=== PATIENT | female | born 1960 | race Two or more races ===

== ENCOUNTER 2021-03-18 11:24 | Inpatient (IN) | payer OTHER ==
[~2021-03-18] VITALS: Ht 154.9 cm; Wt 76.8 kg
[2021-03-18] MEDS ORDERED: methylPREDNISolone SOD SUCC 125 MG/2 ML VL IV ONE (11:30)
[2021-03-18] MEDS ORDERED: ALBUTEROL SULF 2.5 MG/0.5ML(0.5%) NEB SOLN HHN ONE (11:30)
[2021-03-18] MEDS ORDERED: IPRATROPIUM BROM 0.5 MG/2.5ML INH SOL HHN ONE (11:30)
[2021-03-18 12:26] LABS: Basophils # (auto) 0 10 ^3/uL (0-0.2); Basophils % (auto) 0.4 % (0.0-2.0); Eosinophils # (auto) 0 10 ^3/uL (0-0.8); Eosinophils % (auto) 0.4 % (0.0-7.0); Hematocrit 42.8 % (36.0-46.0); Hemoglobin 14.2 g/dL (12.2-16.2); Lymphocytes % (auto) 12.3 % (10.0-50.0); Mean Corpuscular Hemoglobin 31.3 pg (28.0-32.0); Mean Corpuscular Hgb Conc. 33.1 g/dL (32.0-36.0); Mean Corpuscular Volume 94.7 fL (80.0-100.0); Monocytes # (auto) 0.8 10 ^3/uL (0-1.3); Monocytes % (auto) 10.1 % (0.0-12.0); Neutrophils # (auto) 6.1 10 ^3/uL (1.6-8.6); Neutrophils % (auto) 76.8 % (37.0-80.0); Nucleated Red Blood Cells % 0.1 %; Red Blood Cells 4.52 10^6/uL (4.0-5.20); Red Cell Distribution Width 15.9 % (11.8-14.3); White Blood Cell 7.9 10^3/uL (4.4-10.8)
[2021-03-18 12:41] LABS: Alanine Aminotransferase 37 U/L (13-56); Anion Gap 8 (5-15); Aspartate Aminotransferase 23 U/L (15-37); BUN/Creatinine Ratio 13.8; Blood Urea Nitrogen 9 mg/dL (7-18); CRP High Sensitivity 0.63 mg/dL (< 0.3); Calcium 7.8 mg/dL (8.5-10.1); Carbon Dioxide 29 mmol/L (21-32); Chloride 106 mmol/L (98-107); GFR African American 119 mL/min; GFR Non-African American 98 mL/min; Glucose 96 mg/dL (74-106); Sodium 143 mmol/L (136-145)
[2021-03-18 12:44] LABS: Alkaline Phosphatase 55 U/L (45-117); Bilirubin, Total 0.6 mg/dL (0.2-1.0); Total Protein 6.7 g/dL (6.4-8.2)
[2021-03-18 12:54] LABS: Potassium 2.8 mmol/L (3.5-5.1)
[2021-03-18] MEDS ORDERED: POTASSIUM CHL 20 Meq TABLET PO ONE (13:15)
[2021-03-18] MEDS ORDERED: MORPHINE SULFATE 4 MG/ML SYR/VIAL IV PRN (16:30)
[2021-03-18] MEDS ORDERED: DOCUSATE SOD 100 MG CAP PO PRN (16:30)
[2021-03-18] MEDS ORDERED: HYDROcodone-ACET 5/325MG TAB PO PRN (16:30)
[2021-03-18] MEDS ORDERED: ONDANSETRON HCL 4 MG/2 ML VIAL IV PRN (16:30)
[2021-03-18] MEDS ORDERED: NITROGLYCERIN 0.4 MG SL TAB SL PRN (16:30)
[2021-03-18] MEDS ORDERED: ACETAMINOPHEN 325 MG TAB PO PRN (16:30)
[2021-03-18] MEDS ORDERED: MORPHINE SULFATE INJECTION 2 MG/ML SYRG IV PRN ×2 (16:30→17:15)
[2021-03-18] MEDS: POTASSIUM CHL 20MEQ/100ML 100 ML IV SCH ×2 (17:57→18:30)
[2021-03-18] MEDS ORDERED: ALBUTEROL SULF 2.5 MG/0.5ML(0.5%) NEB SOLN NEB SCH (18:00)
[2021-03-18] MEDS: IPRATROPIUM BROM 0.5 MG/2.5ML INH SOL NEB SCH ×2 (18:24→21:55)
[2021-03-18] MEDS: methylPREDNISolone SOD SUCC 40 MG/ML VL IV SCH (21:00)
[2021-03-18] MEDS: guaiFENesin-DM 100/10mg/5ml SYR PO PRN (21:47)
[2021-03-18 23:21] VITALS: BP 155/96
[2021-03-18 23:35] VITALS: BP 140/86
[2021-03-18 23:55] VITALS: BP 140/86
[2021-03-19 00:52] LABS: Urine Bacteria NONE SEEN /hpf (None Seen); Urine Blood 1+ /uL (Negative); Urine Mucus FEW (None Seen); Urine Specific Gravity 1.023 (1.001-1.035); Urine WBC 5 /hpf (0 - 5)
[2021-03-19] MEDS: guaiFENesin-DM 100/10mg/5ml SYR PO PRN ×2 (04:05→11:20)
[2021-03-19] MEDS ORDERED: CAR3125T PO (04:28)
[2021-03-19] MEDS ORDERED: BUDE1AER4 IN (04:28)
[2021-03-19] MEDS ORDERED: METF-370 PO (04:28)
[2021-03-19 05:00] VITALS: BP 147/76
[2021-03-19] MEDS: methylPREDNISolone SOD SUCC 40 MG/ML VL IV SCH ×3 (05:11→20:49)
[2021-03-19] MEDS: ALBUTEROL SULF 2.5 MG/0.5ML(0.5%) NEB SOLN NEB PRN ×5 (05:49→22:20)
[2021-03-19] MEDS: IPRATROPIUM BROM 0.5 MG/2.5ML INH SOL NEB SCH ×5 (05:49→22:20)
[2021-03-19 09:00] VITALS: BP 139/89
[2021-03-19] MEDS: ENOXAPARIN SOD 40 MG/0.4 ML SYRINGE SC SCH (10:00)
[2021-03-19] MEDS: levoFLOXacin 500MG 100 ML IV SCH (11:02)
[2021-03-19 11:15] LABS: BUN/Creatinine Ratio 19.7; Potassium 4.1 mmol/L (3.5-5.1)
[2021-03-19 13:00] VITALS: BP 140/86
[2021-03-19 17:00] VITALS: BP 145/93
[2021-03-19] MEDS: guaiFENesin 200 MG/10 ML UD PO PRN (20:49)
[2021-03-19 22:00] VITALS: BP 129/78
[2021-03-20 05:00] VITALS: BP 141/87
[2021-03-20 05:56] VITALS: BP 141/87
[2021-03-20] MEDS: ALBUTEROL SULF 2.5 MG/0.5ML(0.5%) NEB SOLN NEB PRN ×5 (06:15→22:40)
[2021-03-20] MEDS: IPRATROPIUM BROM 0.5 MG/2.5ML INH SOL NEB SCH ×5 (06:15→22:40)
[2021-03-20] MEDS: methylPREDNISolone SOD SUCC 40 MG/ML VL IV SCH ×3 (06:42→21:03)
[2021-03-20] MEDS: guaiFENesin 200 MG/10 ML UD PO PRN ×3 (07:52→23:40)
[2021-03-20 09:00] VITALS: BP 142/94
[2021-03-20] MEDS: ENOXAPARIN SOD 40 MG/0.4 ML SYRINGE SC SCH ×2 (09:20→09:21)
[2021-03-20] MEDS: levoFLOXacin 500MG 100 ML IV SCH (09:20)
[2021-03-20] MEDS ORDERED: levoFLOXacin 500MG 100 ML IV SCH (10:00)
[2021-03-20 13:00] VITALS: BP 119/69
[2021-03-20 17:00] VITALS: BP 130/92
[2021-03-20 22:00] VITALS: BP 137/87
[2021-03-21] MEDS: guaiFENesin 200 MG/10 ML UD PO PRN ×4 (04:48→22:21)
[2021-03-21 05:00] VITALS: BP 143/103
[2021-03-21] MEDS: methylPREDNISolone SOD SUCC 40 MG/ML VL IV SCH ×3 (06:03→21:29)
[2021-03-21 09:00] VITALS: BP 155/93
[2021-03-21] MEDS: ENOXAPARIN SOD 40 MG/0.4 ML SYRINGE SC SCH (09:35)
[2021-03-21] MEDS: levoFLOXacin 500MG 100 ML IV SCH (09:35)
[2021-03-21] MEDS: IPRATROPIUM BROM 0.5 MG/2.5ML INH SOL NEB SCH ×5 (10:00→22:10)
[2021-03-21] MEDS: ALBUTEROL SULF 2.5 MG/0.5ML(0.5%) NEB SOLN NEB PRN ×2 (10:01→13:50)
[2021-03-21 13:00] VITALS: BP 139/88
[2021-03-21] MEDS ORDERED: IOHEXOL 350 MG/ML 100ML IJ ONE (13:03)
[2021-03-21] MEDS ORDERED: ALBUTEROL SULF 2.5 MG/0.5ML(0.5%) NEB SOLN NEB SCH (14:15)
[2021-03-21] MEDS: ALBUTEROL SULF 2.5 MG/0.5ML(0.5%) NEB SOLN NEB SCH ×3 (14:39→22:10)
[2021-03-21 17:00] VITALS: BP 133/82
[2021-03-21 22:00] VITALS: BP 136/75
[2021-03-21 22:30] VITALS: BP 133/82
[2021-03-22] MEDS: guaiFENesin 200 MG/10 ML UD PO PRN ×2 (02:03→09:49)
[2021-03-22] MEDS: IPRATROPIUM BROM 0.5 MG/2.5ML INH SOL NEB SCH ×5 (02:42→18:54)
[2021-03-22] MEDS: ALBUTEROL SULF 2.5 MG/0.5ML(0.5%) NEB SOLN NEB SCH ×5 (02:42→18:54)
[2021-03-22 05:00] VITALS: BP 127/76
[2021-03-22] MEDS: methylPREDNISolone SOD SUCC 40 MG/ML VL IV SCH ×2 (06:07→13:43)
[2021-03-22 09:00] VITALS: BP 140/86
[2021-03-22] MEDS: ENOXAPARIN SOD 40 MG/0.4 ML SYRINGE SC SCH (09:49)
[2021-03-22] MEDS: levoFLOXacin 500MG 100 ML IV SCH (09:49)
[2021-03-22 12:30] VITALS: BP 142/91
[2021-03-22 17:00] VITALS: BP 133/76
== END 2021-03-22 20:03 | disposition home or self-care (01) | DRG 189 ==
LOC: ER 11:24 → TELE 16:30 → TELE-CENTR 23:35
PROVIDERS: ADMIT Internal Medicine; ATTEND Internal Medicine
DX: J96.01 Acute respiratory failure with hypoxia (principal); J44.0 Chronic obstructive pulmonary disease with (acute) lower respiratory infection; J98.11 Atelectasis; J44.1 Chronic obstructive pulmonary disease with (acute) exacerbation; J20.9 Acute bronchitis, unspecified; E87.6 Hypokalemia; I10 Essential (primary) hypertension; Z20.822 Contact with and (suspected) exposure to COVID-19; Z88.0 Allergy status to penicillin; E11.9 Type 2 diabetes mellitus without complications; E78.5 Hyperlipidemia, unspecified; F17.210 Nicotine dependence, cigarettes, uncomplicated; F41.9 Anxiety disorder, unspecified; Z79.899 Other long term (current) drug therapy; Z86.73 Personal history of transient ischemic attack (TIA), and cerebral infarction without residual deficits; Z90.710 Acquired absence of both cervix and uterus; Z71.6 Tobacco abuse counseling
CPT/HCPCS: 36415; 71045; 71275; 80048; 80053; 81001; 82728; 83605; 83735; 85025; 85379; 86141; 87040; 87426; 94640; 94644; 96361; 96374; G0378; J1956; J3480

== ENCOUNTER 2022-03-13 04:43 | Emergency (ER) | payer BC, OTHER ==
[~2022-03-13] VITALS: Ht 172.7 cm; Wt 38.0 kg
[~2022-03-13 04:43] MED LIST: BUDE1AER4 IN; CAR3125T PO; METF-370 PO
[2022-03-13] MEDS ORDERED: ALBUTEROL SULF 2.5 MG/0.5ML(0.5%) NEB SOLN NEB ONE ×2 (05:00→07:15)
[2022-03-13] MEDS ORDERED: IPRATROPIUM BROM 0.5 MG/2.5ML INH SOL NEB ONE ×2 (05:00→07:15)
[2022-03-13] MEDS ORDERED: DexAMETHasone SOD PHOS 10MG/1ML VIAL INJ IV ONE (07:15)
[2022-03-13 07:44] LABS: Basophils # (auto) 0.1 10 ^3/uL (0-0.2); Basophils % (auto) 0.9 % (0.0-2.0); Eosinophils # (auto) 0.1 10 ^3/uL (0-0.8); Eosinophils % (auto) 0.6 % (0.0-7.0); Hematocrit 39.5 % (36.0-46.0); Hemoglobin 13.4 g/dL (12.2-16.2); Lymphocytes # (auto) 2.1 10 ^3/uL (0.4-5.4); Lymphocytes % (auto) 23.1 % (10.0-50.0); Mean Corpuscular Hemoglobin 31.5 pg (28.0-32.0); Mean Corpuscular Hgb Conc. 33.9 g/dL (32.0-36.0); Mean Corpuscular Volume 92.8 fL (80.0-100.0); Monocytes # (auto) 0.9 10 ^3/uL (0-1.3); Monocytes % (auto) 10.4 % (0.0-12.0); Neutrophils # (auto) 5.9 10 ^3/uL (1.6-8.6); Nucleated Red Blood Cells % 0.1 %; Red Blood Cells 4.26 10^6/uL (4.0-5.20); Red Cell Distribution Width 14.2 % (11.8-14.3); White Blood Cell 9.1 10^3/uL (4.4-10.8)
[2022-03-13 08:32] LABS: Albumin 3.6 g/dL (3.4-5.0); BUN/Creatinine Ratio 18.5; Calcium 8.1 mg/dL (8.5-10.1); Potassium 4.2 mmol/L (3.5-5.1)
[2022-03-13 08:40] LABS: Bilirubin, Total 0.5 mg/dL (0.2-1.0); Total Protein 7.2 g/dL (6.4-8.2)
[2022-03-13] MEDS ORDERED: IPRA0.00 IN (08:46)
[2022-03-13 08:54] VITALS: BP 121/77
== END 2022-03-13 09:19 | disposition home or self-care (01) ==
LOC: ER 04:43 → EDBD 04:43 → ER 09:19
DX: J44.1 Chronic obstructive pulmonary disease with (acute) exacerbation (principal); I10 Essential (primary) hypertension; I25.2 Old myocardial infarction; E11.9 Type 2 diabetes mellitus without complications; E78.5 Hyperlipidemia, unspecified; F17.210 Nicotine dependence, cigarettes, uncomplicated; Z86.73 Personal history of transient ischemic attack (TIA), and cerebral infarction without residual deficits; Z90.710 Acquired absence of both cervix and uterus
CPT/HCPCS: 36415; 71045; 80053; 83880; 84484; 85025; 93005; 94640; 96374; 99285; J1100; J7644

== ENCOUNTER 2022-10-20 10:50 | Inpatient (IN) | payer OTHER ==
[~2022-10-20] VITALS: Ht 157.5 cm; Wt 90.9 kg
[~2022-10-20 10:50] MED LIST changes: +IPRA0.00 IN
[2022-10-20] MEDS ORDERED: IPRATROPIUM BROM 0.5 MG/2.5ML INH SOL NEB ONE (11:00)
[2022-10-20] MEDS ORDERED: ALBUTEROL SULF 2.5 MG/0.5ML(0.5%) NEB SOLN NEB ONE (11:00)
[2022-10-20] MEDS ORDERED: methylPREDNISolone SOD SUCC 125 MG/2 ML VL IV ONE (11:00)
[2022-10-20 11:46] LABS: Basophils # (auto) 0 10 ^3/uL (0-0.2); Basophils % (auto) 0.3 % (0.0-2.0); Eosinophils # (auto) 0.1 10 ^3/uL (0-0.8); Eosinophils % (auto) 1.5 % (0.0-7.0); Hematocrit 37.9 % (36.0-46.0); Hemoglobin 12.4 g/dL (12.2-16.2); Lymphocytes # (auto) 1.6 10 ^3/uL (0.4-5.4); Lymphocytes % (auto) 19.8 % (10.0-50.0); Mean Corpuscular Hemoglobin 29.6 pg (28.0-32.0); Mean Corpuscular Hgb Conc. 32.7 g/dL (32.0-36.0); Mean Corpuscular Volume 90.7 fL (80.0-100.0); Monocytes # (auto) 0.8 10 ^3/uL (0-1.3); Monocytes % (auto) 10.1 % (0.0-12.0); Neutrophils # (auto) 5.5 10 ^3/uL (1.6-8.6); Neutrophils % (auto) 68.3 % (37.0-80.0); Nucleated Red Blood Cells % 0.1 %; Red Blood Cells 4.18 10^6/uL (4.0-5.20); Red Cell Distribution Width 14.9 % (11.8-14.3)
[2022-10-20 12:08] LABS: INR 0.99 (0.9-1.15); Partial Thromboplastin Time 27.2 sec (24.6-33.4)
[2022-10-20 12:11] LABS: Albumin 3.1 g/dL (3.4-5.0); BUN/Creatinine Ratio 11.1 (10.0-20.0); Calcium 7.9 mg/dL (8.5-10.1); Potassium 4.1 mmol/L (3.5-5.1)
[2022-10-20 12:13] LABS: Bilirubin, Total 0.3 mg/dL (0.2-1.0); Total Protein 6.9 g/dL (6.4-8.2)
[2022-10-20] MEDS ORDERED: ALBU108A5 PO (13:37)
[2022-10-20] MEDS ORDERED: CARV3.1240 PO (13:37)
[2022-10-20] MEDS ORDERED: METF-370 PO (13:37)
[2022-10-20] MEDS ORDERED: HYDR25TA5 PO (13:37)
[2022-10-20] MEDS ORDERED: PRAV20TA3 (13:37)
[2022-10-20] MEDS ORDERED: FUROSEMIDE 20 MG/2 ML VIAL IV ONE (13:45)
[2022-10-20] MEDS ORDERED: ALBUTEROL SULF 2.5 MG/0.5ML(0.5%) NEB SOLN NEB PRN (13:45)
[2022-10-20] MEDS ORDERED: ACETAMINOPHEN 325 MG TAB PO PRN (13:45)
[2022-10-20] MEDS ORDERED: DEXTROSE (50%) 50ML SYRG IV PRN (13:45)
[2022-10-20] MEDS ORDERED: ALBUTEROL SULF 2.5 MG/0.5ML(0.5%) NEB SOLN NEB SCH (14:00)
[2022-10-20] MEDS ORDERED: IPRATROPIUM BROM 0.5 MG/2.5ML INH SOL NEB SCH (14:00)
[2022-10-20 14:24] LABS: Cholesterol 118 mg/dL (< 200); HDL Cholesterol 62 mg/dL (40-59); LDL Cholesterol 53 mg/dL (< 100); Triglycerides 61 mg/dL (< 150)
[2022-10-20 14:56] VITALS: BP 166/94
[2022-10-20 15:08] LABS: Urine Bacteria NONE SEEN /hpf (None Seen); Urine Blood 1+ /uL (Negative); Urine Specific Gravity 1.013 (1.001-1.035); Urine WBC 83 /hpf (0 - 5)
[2022-10-20 16:00] VITALS: BP 124/64
[2022-10-20] MEDS ORDERED: PRED20TA2 PO ×2 (16:17→20:54)
[2022-10-20] MEDS ORDERED: DOXY-447 PO (16:18)
[2022-10-20] MEDS ORDERED: ACCU-CHEK COMFORT CURVE STRIP VI SCH (17:00)
[2022-10-20] MEDS ORDERED: InsuLIN REG 1unit/0.01ml Soln (100units/ml) SC SCH (17:00)
[2022-10-20] MEDS ORDERED: DOXY-286 PO (20:54)
[2022-10-20] MEDS ORDERED: CARVEDILOL 3.125 MG TAB PO SCH (22:00)
[2022-10-20] MEDS ORDERED: methylPREDNISolone SOD SUCC 125 MG/2 ML VL IV SCH (22:00)
[2022-10-21] MEDS ORDERED: FUROSEMIDE 20 MG/2 ML VIAL IV SCH (10:00)
[2022-10-21] MEDS ORDERED: ENOXAPARIN SOD 40 MG/0.4 ML SYRINGE SC SCH (10:00)
[2022-10-21] MEDS ORDERED: PRAVASTATIN SODIUM 20 MG TAB PO SCH (22:00)
== END 2022-10-20 18:01 | disposition home or self-care (01) | DRG 192 ==
LOC: ER 10:50 → EDBD 10:50 → OVERFLOW 13:40 → MERGE 13:40 → OVERFLOW 18:00
PROVIDERS: ADMIT Nurse Practitioner Family; ATTEND Nurse Practitioner Family
PROC: 05HA33Z Insertion of Infusion Device into Left Brachial Vein, Percutaneous Approach (ICD-10-PCS; principal; 2022-10-20)
PROC: B54NZZA Ultrasonography of Left Upper Extremity Veins, Guidance (ICD-10-PCS; 2022-10-20)
DX: J44.1 Chronic obstructive pulmonary disease with (acute) exacerbation (principal); E66.01 Morbid (severe) obesity due to excess calories; R73.03 Prediabetes; Z87.891 Personal history of nicotine dependence; Z88.0 Allergy status to penicillin; Z68.36 Body mass index [BMI] 36.0-36.9, adult; Z99.81 Dependence on supplemental oxygen
CPT/HCPCS: 36415; 36600; 71045; 80053; 80061; 81001; 82805; 83036; 83880; 84443; 84484; 85025; 85379; 85610; 85730; 93005; 94640; 96374; 96375; 99291; G0378

== ENCOUNTER 2024-01-11 09:54 | Emergency (ER) | payer OTHER ==
[~2024-01-11] VITALS: Ht 157.5 cm; Wt 102.2 kg
[~2024-01-11 09:54] MED LIST changes: +ALBU108A5 PO; +CARV3.1240 PO; +DOXY-286 PO; +DOXY1CAP58 PO; +HYDR25TA5 PO; +PRAV20TA3 PO; +PRED20TA2 PO
[2024-01-11 10:37] LABS: Basophils # (auto) 0.1 10 ^3/uL (0-0.2); Eosinophils # (auto) 0.1 10 ^3/uL (0-0.8); Eosinophils % (auto) 1.6 % (0.0-7.0); Hematocrit 39.8 % (36.0-46.0); Hemoglobin 13.5 g/dL (12.2-16.2); Lymphocytes # (auto) 1.5 10 ^3/uL (0.4-5.4); Lymphocytes % (auto) 23.9 % (10.0-50.0); Mean Corpuscular Hemoglobin 31.9 pg (28.0-32.0); Mean Corpuscular Hgb Conc. 33.8 g/dL (32.0-36.0); Mean Corpuscular Volume 94.4 fL (80.0-100.0); Monocytes # (auto) 0.7 10 ^3/uL (0-1.3); Monocytes % (auto) 11.7 % (0.0-12.0); Neutrophils # (auto) 3.8 10 ^3/uL (1.6-8.6); Neutrophils % (auto) 61.8 % (37.0-80.0); Nucleated Red Blood Cells % 0.3 %; Platelet Count (auto) 200 10^3/uL (140-450); Red Blood Cells 4.22 10^6/uL (4.0-5.20); Red Cell Distribution Width 15.1 % (11.8-14.3); White Blood Cell 6.1 10^3/uL (4.4-10.8)
[2024-01-11 10:58] LABS: INR 1.11 (0.9-1.15); Partial Thromboplastin Time 24.6 SEC (24.5-34.5); Prothrombin Time 11.7 sec (9.3-11.8)
[2024-01-11 11:04] LABS: Alanine Aminotransferase 36 U/L (7-40); Albumin 4.1 g/dL (3.2-4.8); Alkaline Phosphatase 89 U/L (46-116); Anion Gap 4 (5-15); Aspartate Aminotransferase 28 U/L (13-40); BUN/Creatinine Ratio 8.9 (10.0-20.0); Blood Urea Nitrogen 7 mg/dL (9-23); Calcium 8.7 mg/dL (8.7-10.4); Carbon Dioxide 32 mmol/L (20-30); Chloride 101 mmol/L (98-107); Glucose 223 mg/dL (74-106); Magnesium 1.8 mg/dL (1.6-2.6); Potassium 3.1 mmol/L (3.5-5.1); Sodium 137 mmol/L (136-145)
[2024-01-11 11:05] LABS: Bilirubin, Total 0.4 mg/dL (0.2-1.0); Total Protein 7.5 g/dL (5.7-8.2)
[2024-01-11] MEDS: ASPirin 325 MG TAB PO ONE (11:30)
[2024-01-11] MEDS: NITROGLYCERIN 0.4 MG SL TAB SL ONE (11:31)
[2024-01-11] MEDS: ALBUTEROL SULF 2.5 MG/0.5ML(0.5%) NEB SOLN NEB ONE (11:44)
[2024-01-11] MEDS: IPRATROPIUM BROM 0.5 MG/2.5ML INH SOL NEB ONE (11:44)
[2024-01-11] MEDS: methylPREDNISolone SOD SUCC 125 MG/2 ML VL IV ONE (12:01)
[2024-01-11] MEDS ORDERED: LEVO500T91 PO (14:47)
[2024-01-11] MEDS: levoFLOXacin 500MG 100 ML IV ONE (15:44)
[2024-01-11 20:42] VITALS: BP 141/67; PULSE 94; RESP 20; TEMP 98.6; O2SAT 100
== END 2024-01-11 21:09 | disposition left against medical advice (07) ==
LOC: EDBD 09:54 → ER 09:54
DX: R07.89 Other chest pain (principal); R06.00 Dyspnea, unspecified; I10 Essential (primary) hypertension; E11.9 Type 2 diabetes mellitus without complications; I25.2 Old myocardial infarction; E78.5 Hyperlipidemia, unspecified; J44.9 Chronic obstructive pulmonary disease, unspecified; F17.210 Nicotine dependence, cigarettes, uncomplicated; F15.90 Other stimulant use, unspecified, uncomplicated; Z86.73 Personal history of transient ischemic attack (TIA), and cerebral infarction without residual deficits; Z90.710 Acquired absence of both cervix and uterus; Z79.899 Other long term (current) drug therapy; Z88.0 Allergy status to penicillin
CPT/HCPCS: 36415; 71045; 80053; 83735; 83880; 84484; 85025; 85610; 85730; 93005; 94640; 96365; 96375; 99285; J1956; J2919

== ENCOUNTER 2024-01-14 09:51 | Observation (INO) | payer OTHER ==
[~2024-01-14] VITALS: Ht 157.5 cm; Wt 101.0 kg
[~2024-01-14 09:51] MED LIST changes: +LEVO500T91 PO
[2024-01-14] MEDS: ALBUTEROL SULF 2.5 MG/0.5ML(0.5%) NEB SOLN NEB ONE ×2 (10:14→19:10)
[2024-01-14 10:41] LABS: Basophils # (auto) 0.1 10 ^3/uL (0-0.2); Basophils % (auto) 1.2 % (0.0-2.0); Eosinophils # (auto) 0.1 10 ^3/uL (0-0.8); Eosinophils % (auto) 1.2 % (0.0-7.0); Hematocrit 40.3 % (36.0-46.0); Hemoglobin 13.7 g/dL (12.2-16.2); Lymphocytes # (auto) 1.9 10 ^3/uL (0.4-5.4); Mean Corpuscular Hemoglobin 32.3 pg (28.0-32.0); Mean Corpuscular Hgb Conc. 34.1 g/dL (32.0-36.0); Mean Corpuscular Volume 94.9 fL (80.0-100.0); Monocytes # (auto) 0.8 10 ^3/uL (0-1.3); Monocytes % (auto) 11.3 % (0.0-12.0); Neutrophils # (auto) 4.2 10 ^3/uL (1.6-8.6); Neutrophils % (auto) 59.3 % (37.0-80.0); Nucleated Red Blood Cells % 0.1 %; Platelet Count (auto) 209 10^3/uL (140-450); Red Blood Cells 4.25 10^6/uL (4.0-5.20); Red Cell Distribution Width 15.3 % (11.8-14.3)
[2024-01-14] MEDS: methylPREDNISolone SOD SUCC 125 MG/2 ML VL IV ONE (10:57)
[2024-01-14 11:02] LABS: Alanine Aminotransferase 44 U/L (7-40); Albumin 4.2 g/dL (3.2-4.8); Alkaline Phosphatase 78 U/L (46-116); Anion Gap 6 (5-15); Aspartate Aminotransferase 31 U/L (13-40); BUN/Creatinine Ratio 10.7 (10.0-20.0); Bilirubin, Total 0.6 mg/dL (0.2-1.0); Blood Urea Nitrogen 9 mg/dL (9-23); Carbon Dioxide 38 mmol/L (20-30); Chloride 96 mmol/L (98-107); Glucose 212 mg/dL (74-106); Potassium 3.1 mmol/L (3.5-5.1); Sodium 140 mmol/L (136-145); Total Protein 7.1 g/dL (5.7-8.2)
[2024-01-14 11:40] VITALS: PULSE 91; RESP 26; O2SAT 97
[2024-01-14] MEDS: POTASSIUM EFFERVESENT TAB 25 MEQ PO ONE (13:17)
[2024-01-14] MEDS: AZITHROMYCIN 500MG/ 250ML 250 ML IV ONE (13:26)
[2024-01-14] MEDS: IPRATROPIUM BROM 0.5 MG/2.5ML INH SOL ONE (16:06)
[2024-01-14] MEDS: ALBUTEROL SULF 2.5 MG/0.5ML(0.5%) NEB SOLN ONE (16:06)
[2024-01-14] MEDS: FUROSEMIDE 40 MG/4 ML VIAL IV ONE (17:08)
[2024-01-14] MEDS ORDERED: MORPHINE SULFATE INJ 2 MG/ml SYRG IV PRN ×2 (17:45)
[2024-01-14] MEDS ORDERED: NITROGLYCERIN 0.4 MG SL TAB SL PRN (17:45)
[2024-01-14] MEDS ORDERED: ACETAMINOPHEN 325 MG TAB PO PRN (17:45)
[2024-01-14] MEDS ORDERED: HYDROcodone-ACET 5/325MG TAB PO PRN (17:45)
[2024-01-14] MEDS ORDERED: TEMAZEPAM 15 MG CAP PO PRN (17:45)
[2024-01-14] MEDS ORDERED: DEXTROSE (50%) 50ML SYRG IV PRN (18:00)
[2024-01-14] MEDS: IPRATROPIUM BROM 0.5 MG/2.5ML INH SOL NEB ONE (19:09)
[2024-01-14 19:15] VITALS: PULSE 90; RESP 16; O2SAT 97
[2024-01-14] MEDS: IPRATROPIUM BROM 0.5 MG/2.5ML INH SOL NEB SCH (19:15)
[2024-01-14] MEDS: ALBUTEROL SULF 2.5 MG/0.5ML(0.5%) NEB SOLN NEB SCH (19:16)
[2024-01-14 19:25] VITALS: PULSE 92; RESP 16; O2SAT 100
[2024-01-14 19:30] VITALS: PULSE 91; RESP 26; O2SAT 97
[2024-01-14] MEDS: INSULIN LANTUS (GLARGINE) 1 /0.01ml (100units/ml) SC SCH (22:00)
[2024-01-14] MEDS: InsuLIN REG 1unit/0.01ml Soln (100units/ml) SC SCH (22:00)
[2024-01-14] MEDS: ACCU-CHEK COMFORT CURVE STRIP VI SCH (23:03)
[2024-01-14 23:09] VITALS: PULSE 99; RESP 17; O2SAT 100
[2024-01-15] VITALS (17 sets, daily range): BP systolic 104–129; BP diastolic 61–82; PULSE 56–100; RESP 16–19; TEMP 97.8–98.1; O2SAT 95–100
[2024-01-15 06:12] LABS: Basophils # (auto) 0.1 10 ^3/uL (0-0.2); Basophils % (auto) 0.6 % (0.0-2.0); Eosinophils # (auto) 0 10 ^3/uL (0-0.8); Eosinophils % (auto) 0.1 % (0.0-7.0); Hematocrit 41.9 % (36.0-46.0); Hemoglobin 13.8 g/dL (12.2-16.2); Lymphocytes # (auto) 1.1 10 ^3/uL (0.4-5.4); Lymphocytes % (auto) 9.3 % (10.0-50.0); Mean Corpuscular Hemoglobin 31.5 pg (28.0-32.0); Mean Corpuscular Volume 95.3 fL (80.0-100.0); Monocytes # (auto) 0.7 10 ^3/uL (0-1.3); Monocytes % (auto) 5.7 % (0.0-12.0); Neutrophils # (auto) 9.7 10 ^3/uL (1.6-8.6); Neutrophils % (auto) 84.3 % (37.0-80.0); Platelet Count (auto) 208 10^3/uL (140-450); White Blood Cell 11.5 10^3/uL (4.4-10.8)
[2024-01-15 06:39] LABS: Alanine Aminotransferase 40 U/L (7-40); Albumin 4.3 g/dL (3.2-4.8); Alkaline Phosphatase 73 U/L (46-116); Anion Gap 8 (5-15); Aspartate Aminotransferase 29 U/L (13-40); BUN/Creatinine Ratio 11.2 (10.0-20.0); Bilirubin, Total 0.5 mg/dL (0.2-1.0); Blood Urea Nitrogen 10 mg/dL (9-23); Carbon Dioxide 35 mmol/L (20-30); Chloride 94 mmol/L (98-107); Glucose 286 mg/dL (74-106); Potassium 3.1 mmol/L (3.5-5.1); Sodium 137 mmol/L (136-145); Total Protein 7.6 g/dL (5.7-8.2)
[2024-01-15] MEDS: POTASSIUM EFFERVESENT TAB 25 MEQ PO ONE (10:26)
[2024-01-15] MEDS: AZITHROMYCIN 250 MG TAB PO SCH (10:26)
[2024-01-15] MEDS: ENOXAPARIN SOD 40 MG/0.4 ML SYRINGE SC SCH (10:26)
[2024-01-15] MEDS ORDERED: AZITTAB PO (13:21)
[2024-01-15] MEDS ORDERED: METF-372 PO (13:23)
[2024-01-15] MEDS ORDERED: BUDE1AER4 IN (13:23)
[2024-01-15] MEDS ORDERED: BENZ100C97 PO (13:24)
[2024-01-15] MEDS ORDERED: METH4PAK PO (13:26)
[2024-01-15] MEDS ORDERED: IPRA0.00 IN (13:27)
== END 2024-01-15 20:10 | disposition home or self-care (01) ==
LOC: ER 09:51 → EDBD 09:51 → TELE 17:49 → TELE-WESTW 22:25
PROVIDERS: ADMIT Student in an Organized Health Care Education/Training Program; ATTEND Student in an Organized Health Care Education/Training Program
DX: J44.1 Chronic obstructive pulmonary disease with (acute) exacerbation (principal); E66.01 Morbid (severe) obesity due to excess calories; J96.10 Chronic respiratory failure, unspecified whether with hypoxia or hypercapnia; E11.65 Type 2 diabetes mellitus with hyperglycemia; I25.2 Old myocardial infarction; E78.5 Hyperlipidemia, unspecified; I10 Essential (primary) hypertension; F17.210 Nicotine dependence, cigarettes, uncomplicated; Z90.710 Acquired absence of both cervix and uterus; Z79.84 Long term (current) use of oral hypoglycemic drugs; Z86.73 Personal history of transient ischemic attack (TIA), and cerebral infarction without residual deficits; Z68.41 Body mass index [BMI] 40.0-44.9, adult; Z79.899 Other long term (current) drug therapy
CPT/HCPCS: 36415; 71045; 80053; 82962; 83036; 83880; 84484; 85025; 93005; 94640; 96365; 96366; 96372; 96375; 99285; G0378; J0456; J1650; J1815; J1940; J2919

== ENCOUNTER 2024-08-08 15:38 | Emergency (ER) | payer OTHER ==
[~2024-08-08] VITALS: Ht 170.2 cm; Wt 113.6 kg
[~2024-08-08 15:38] MED LIST changes: +AZITTAB PO; +BENZ100C97 PO; -CARV3.1240 PO; -DOXY-286 PO; -DOXY1CAP58 PO; -HYDR25TA5 PO; -LEVO500T91 PO; -METF-370 PO; +METF-372 PO; +METH4PAK PO; -PRED20TA2 PO
[2024-08-08 15:43] VITALS: PULSE 123; RESP 25; O2SAT 98
--- NOTE | 2024-08-08 15:48 | ED.PDOC ---
SOB-HPI HPI Comments 63-year-old female who comes in with chief complaint of shortness for breath and chest pain. The patient states that the symptoms started over the past 24 hours. She tried taking her hand-held nebulizers which she takes 4 times a day but it did not help. Currently she is on 3 L nasal cannula of oxygen but she states that that is not helping either. She denies any radiation of the chest pressure. 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 Family History Family History: No family hx of Cancer, No family hx of DM, No family hx of Heart arelis, Family hx of heart arelis Social History Smoker: Non-Smoker Alcohol: Occasionally Drugs: Marijuana Lives In: Home Constitutional: denies: chills, diaphoresis, fatigue, fever, malaise, sweats, weakness, others EENTM: denies: blurred vision, double vision, ear bleeding, ear discharge, ear drainage, ear pain, ear ringing, eye pain, eye redness, hearing loss, mouth pain, mouth swelling, nasal discharge, nose bleeding, nose congestion, nose pain, photophobia, tearing, throat pain, throat swelling, voice changes, others Respiratory: reports: cough, shortness of breath, wheezing; denies: hemoptysis, orthopnea, SOB at rest, SOB with excertion, stridor, others Cardiovascular: denies: chest pain, dizzy spells, diaphoresis, Dyspnea on exertion, edema, irregular heart beat, left arm pain, lightheadedness, palpitations, PND, syncope, others Gastrointestinal: denies: abdomen distended, abdominal pain, blood streaked bowels, constipated, diarrhea, dysphagia, difficulty swallowing, hematemesis, melena, nausea, poor appetite, poor fluid intake, rectal bleeding, rectal pain, vomiting, others Genitourinary: denies: abnormal vagina bleeding, burning, dyspareunia, dysuria, flank pain, frequency, hematuria, incontinence, pain, , vagina discharge, urgency, others Neurological: denies: dizziness, fainting, headache, left sided numbness, left sided weakness, numbness, paresthesia, pre-existing deficit, right sided numbness, right sided weakness, seizure, speech problems, tingling, tremors, weakness, others Musculoskeletal: denies: back pain, gout, joint pain, joint swelling, muscle pain, muscle stiffness, neck pain, others Integumetry: denies: bruises, change in color, change in hair/nails, dryness, laceration, lesions, lumps, rash, wounds, others Allergic/Immunocompromised: denies: Difficulty Healing, Frequent Infections, Hives, Itching, others Hematologic/Lymphatic: denies: anemia, blood clots, easy bleeding, easy bruising, swollen glands, others Endocrine: denies: excessive hunger, excessive sweating, excessive thirst, excessive urination, flushing, intolerance to cold, intolerance to heat, unexplained weight gain, unexplained weight loss, others Psychiatric: denies: anxiety, bipolar disorder, depression, hopeless, panic disorder, schizophrenia, sleepless, suicidal, others Physical Exam General Appearance: Severe Distress HEENT: Normal ENT Inspection, Pharynx Normal, TMs Normal Neck: Full Range of Motion, Non-Tender, Normal, Normal Inspection Respiratory: Accessory Muscle Use, Chest Non-Tender, Decreased Breath Sounds, Respiratory Distress, Wheezing Cardiovascular: No Edema, No JVD, No Murmur, No Gallop, Normal Peripheral Pulses, Regular Rate/Rhythm Breast Exam: Deferred Gastrointestinal: No Organomegaly, Non Tender, No Pulsatile Mass, Normal Bowel Sounds, Soft Genitalia: Deferred Pelvic: Deferred Rectal: Deferred Extremities: No calf tenderness, Normal capillary refill, Normal inspection, Normal range of motion, Non-tender, No pedal edema Musculoskeletal : Apperance: Normal Neurologic: Alert, 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 Was a procedure done?: No Differential Dx Differential Diagnosis: Asthma, Bronchitis, CHF, COPD, Pneumonia X-Ray, Labs, Meds, VS Vital Signs Date Time Temp Pulse Resp B/P (MAP) Pulse Ox O2 Delivery O2 Flow Rate FiO2 08/08/24 20:10 17 97 Nasal Cannula* 3 32 08/08/24 18:28 106/71 4/4/25 17:20 138 18 130/74 (92) 99 08/08/24 16:09 22 96 Nasal Cannula* 5 40 08/08/24 15:50 125 08/08/24 15:43 98.4 123 25 150/90 (110) 98 98.4 08/08/24 15:43 123 25 98 Nasal Cannula* 5 40 08/08/24 15:38 98.4 110 38 169/66 (100) 94 98.4 08/08/24 15:38 38 Nasal Cannula* 6 44 Lab Test 08/08/24 18:11 08/08/24 16:06 08/08/24 16:04 08/08/24 00:00 Range/Units Troponin I High Sensitivity 4 3 L </=34 ng/L Urine Color Colorless Yellow Urine Clarity Turbid H Clear Urine pH 6.0 5.0-9.0 Urine Specific [place] 1.009 1.001-1.035 Urine Protein Trace H Negative Urine Ketones Negative Negative Urine Blood 1+ H Negative /uL Urine Nitrite Negative Negative Urine Bilirubin Negative Negative Urine Urobilinogen Normal Negative mg/dL Urine Leukocyte Esterase 3+ Negative /uL Urine RBC 22 0 - 4 /hpf Urine Microscopic WBC 250 H 0-5 /HPF Urine Squamous Epithelial Cells Few <5 /hpf Urine Amorphous Crystals Few None Seen /hpf Urine Bacteria Few H None Seen /hpf Urine Mucus Few None Seen Urine Glucose 3+ H Normal mg/dL White Blood Count 8.4 4.4-10.8 10^3/uL Red Blood Count 4.40 4.0-5.20 10^6/uL Hemoglobin 14.2 12.2-16.2 g/dL Hematocrit 43.8 36.0-46.0 % Mean Corpuscular Volume 99.5 80.0-100.0 fL Mean Corpuscular Hemoglobin 32.2 H 28.0-32.0 pg Mean Corpuscular Hemoglobin Concent 32.3 32.0-36.0 g/dL Red Cell Distribution Width 16.3 H 11.8-14.3 % Platelet Count 225 140-450 10^3/uL Mean Platelet Volume 8.1 6.9-10.8 fL Neutrophils (%) (Auto) 52.3 37.0-80.0 % Lymphocytes (%) (Auto) 37.1 10.0-50.0 % Monocytes (%) (Auto) 8.8 0.0-12.0 % Eosinophils (%) (Auto) 1.5 0.0-7.0 % Basophils (%) (Auto) 0.3 0.0-2.0 % Neutrophils # (Auto) 4.4 1.6-8.6 10 ^3/uL Lymphocytes # (Auto) 3.1 0.4-5.4 10 ^3/uL Monocytes # (Auto) 0.7 0-1.3 10 ^3/uL Eosinophils # (Auto) 0.1 0-0.8 10 ^3/uL Basophils # (Auto) 0 0-0.2 10 ^3/uL Nucleated Red Blood Cells 0.2 % Sodium Level 138 136-145 mmol/L Potassium Level 3.0 L 3.5-5.1 mmol/L Chloride Level 99 98-107 mmol/L Carbon Dioxide Level 32 H 20-31 mmol/L Anion Gap 7 5-15 Blood Urea Nitrogen 7 L 9-23 mg/dL Creatinine 0.91 0.550-1.02 mg/dL Glomerular Filtration Rate Calc 70 >90 mL/min BUN/Creatinine Ratio 7.7 L 10.0-20.0 Serum Glucose 243 H 74-106 mg/dL Calcium Level 10.1 8.7-10.4 mg/dL B-Type Natriuretic Peptide 4.45 0-100 pg/mL SARS-CoV-2 Antigen (Rapid) Negative NEGATIVE Current Medications Medications (Trade) Dose Ordered Sig/Randolph Route Start Time Stop Time Status Last Admin Methylprednisolone Sodium Succinate (Solu Medrol) 125 mg ONCE ONCE IV 08/08/24 15:45 08/08/24 15:46 DC 08/08/24 16:43 Ipratropium [place] (Atrovent Medneb) 1 mg ONCE ONCE N 08/08/24 15:45 08/08/24 15:46 DC 08/08/24 16:03 Albuterol (Ventolin Medneb) 10 mg ONCE ONCE HHN 08/08/24 15:45 08/08/24 15:46 DC 08/08/24 16:03 Furosemide (Lasix Injection) 40 mg ONCE ONCE IV 08/08/24 18:00 08/08/24 18:02 DC 08/08/24 18:28 Potassium Chloride (Klor-Con Tablet) 40 meq ONCE ONCE PO 08/08/24 18:15 08/08/24 18:18 DC 08/08/24 18:28 Albuterol (Ventolin Medneb) 5 mg ONCE ONCE NEB 08/08/24 20:00 08/08/24 20:07 DC 08/08/24 20:09 Ipratropium [place] (Atrovent Medneb) 0.5 mg ONCE ONCE NEB 08/08/24 20:00 08/08/24 20:07 DC 08/08/24 20:09 IV Hep-Lock was established The patient was given Solu-Medrol 125 mg IV push The patient was given an albuterol and Atrovent treatment. The chest x-ray shows pulmonary vascular congestion The patient was then given Lasix 40 mg IV push The patient was also given potassium secondary to hypokalemia at 3.0 The patient was given another breathing treatment by the possible admitting hospitalist The COVID test is negative The CBC and chemistry panel are within normal limits The urine test is positive for UTI The patient was being given Levaquin 500 mg IV piggyback for the UTI The patient was being admitted The [facility] physician came down and saw the patient and they will be doing the final disposition on the patient Images Reviewed?: Images reviewed and evaluated by me Time of 1ST Reevaluation: 20:54 Reevaluation 1ST: Unchanged Patient Education/Counseling: Diagnosis, Treatment, Prognosis Family Education/Counseling: No Family Present Departure 1 Departure Time of Disposition: 15:44 Impression: Primary Impression: UTI (urinary tract infection) Qualified Codes: N30.00 - Acute cystitis without hematuria Additional Impression: COPD exacerbation Disposition: ADMITTED INPATIENT Admit to: Tele Condition: Fair e-Prescriptions Prednisone (Prednisone) 20 Mg Tab 40 MG PO DAILY for 7 Days, #14 TAB 0 Refills Prov: ARCHANA DONG DO 08/08/24 Ipratropium-Albuterol (Ipratropium [place]/Albut) 1 Calista Calista 1 VIAL IN QID for 7 Days, #30 VIAL 1 Refill Prov: ARCHANA DONG DO 08/08/24 Azithromycin (Zithromax Z-Danilo) 250 Mg Tab 250 MG PO DAILY, #6 TAB 0 Refills Take two tablets on day 1, then one tablet daily. Prov: ARCHANA DONG DO 08/08/24 Critical Care Note Critical Care Time?: Yes (45 min-critical care time only) Stability Stability form required: Yes Unstable for transfer: ICU, CCU, PCU, LIZZETTE (Intensive VS monitoring), ED Physician Assesment (Clinical assesment) Heart Score Heart Score: Heart Score Response (Comments) Value History Moderate Suspicious 1 EKG Normal 0 Age >65 2 Risk Factors No known risk factors 0 Troponin Normal limit 0 Total 3 MILE SALES MD Aug 08, 2024 15:47
[2024-08-08] MEDS: ALBUTEROL SULF 2.5 MG/0.5ML(0.5%) NEB SOLN HHN ONE (16:03)
[2024-08-08] MEDS: IPRATROPIUM BROM 0.5 MG/2.5ML INH SOL HHN ONE (16:03)
--- NOTE | 2024-08-08 16:14 | DVH ---
CHEST RADIOGRAPH Indication: cough Technique: Single frontal view of the chest was obtained Comparison: XY CHEST PORTABLE on DOS: 01/14/24, XY CHEST PORTABLE on DOS: 01/11/24, EKG on DOS: 03/13/22 FINDINGS: Lines and Tubes: None Lungs: Unimproved pulmonary vascular congestion. Pleura: No effusion. No pneumothorax. Cardiomediastinal contours: Unremarkable Bones: No acute osseous abnormality. IMPRESSION: 1. Mild pulmonary vascular congestion.
[2024-08-08 16:24] LABS: Chloride 99 mmol/L (98-107); Sodium 138 mmol/L (136-145)
[2024-08-08 16:25] LABS: Anion Gap 7 (5-15); Calcium 10.1 mg/dL (8.7-10.4)
[2024-08-08 16:26] LABS: Basophils # (auto) 0 10 ^3/uL (0-0.2); Basophils % (auto) 0.3 % (0.0-2.0); Eosinophils # (auto) 0.1 10 ^3/uL (0-0.8); Eosinophils % (auto) 1.5 % (0.0-7.0); Hematocrit 43.8 % (36.0-46.0); Hemoglobin 14.2 g/dL (12.2-16.2); Lymphocytes # (auto) 3.1 10 ^3/uL (0.4-5.4); Lymphocytes % (auto) 37.1 % (10.0-50.0); Mean Corpuscular Hemoglobin 32.2 pg (28.0-32.0); Mean Corpuscular Hgb Conc. 32.3 g/dL (32.0-36.0); Mean Corpuscular Volume 99.5 fL (80.0-100.0); Monocytes # (auto) 0.7 10 ^3/uL (0-1.3); Monocytes % (auto) 8.8 % (0.0-12.0); Neutrophils # (auto) 4.4 10 ^3/uL (1.6-8.6); Neutrophils % (auto) 52.3 % (37.0-80.0); Nucleated Red Blood Cells % 0.2 %; Platelet Count (auto) 225 10^3/uL (140-450); Red Cell Distribution Width 16.3 % (11.8-14.3); White Blood Cell 8.4 10^3/uL (4.4-10.8)
[2024-08-08 16:30] LABS: BUN/Creatinine Ratio 7.7 (10.0-20.0)
[2024-08-08 16:31] LABS: Blood Urea Nitrogen 7 mg/dL (9-23); Carbon Dioxide 32 mmol/L (20-31); Glucose 243 mg/dL (74-106)
[2024-08-08] MEDS: methylPREDNISolone SOD SUCC 125 MG/2 ML VL IV ONE (16:43)
[2024-08-08] MEDS: POTASSIUM CHL 20 Meq TABLET PO ONE (18:28)
[2024-08-08] MEDS: FUROSEMIDE 40 MG/4 ML VIAL IV ONE (18:28)
[2024-08-08] MEDS ORDERED: MAGNESIUM SULFATE 1GM/100ML 100 ML IV ONE (19:00)
[2024-08-08 19:07] LABS: COVID19 ANTIGEN SOFIA FIA NEGATIVE (NEGATIVE)
[2024-08-08] MEDS ORDERED: SODIUM CHL 0.9% 100 ML IV SCH (19:15)
[2024-08-08] MEDS ORDERED: POTASSIUM CHL 20MEQ/50ML 50 ML IV SCH (19:15)
[2024-08-08 19:29] LABS: Urine Amorphous Crystal FEW /hpf (None Seen); Urine Bacteria FEW /hpf (None Seen); Urine Blood 1+ /uL (Negative); Urine Clarity Turbid (Clear); Urine Color Colorless (Yellow); Urine Mucus FEW (None Seen); Urine Protein, UAD TRACE (Negative); Urine Specific Gravity 1.009 (1.001-1.035); Urine Squamous Epithelial Cell FEW /hpf (<5); Urine Urobilinogen Normal (Negative); Urine WBC 250 /HPF (0-5)
[2024-08-08 19:30] VITALS: PULSE 117; RESP 22; O2SAT 97
[2024-08-08] MEDS ORDERED: PRED20TA2 PO (19:54)
[2024-08-08] MEDS ORDERED: IPRA0.00 IN (19:54)
[2024-08-08] MEDS ORDERED: AZITTAB PO (19:54)
--- NOTE | 2024-08-08 20:00 | DVHDS2 ---
Discharge Summary Date of Admission Date of Discharge: Aug 08, 2024 Labs/Diagnostic Data: Laboratory Results Test 08/08/24 18:11 08/08/24 16:06 08/08/24 16:04 08/08/24 00:00 Troponin I High Sensitivity 4 ng/L (</=34) Urine Color Colorless (Yellow) Urine Clarity Turbid (Clear) Urine pH 6.0 (5.0-9.0) Urine Specific [place] 1.009 (1.001-1.035) Urine Protein Trace (Negative) Urine Ketones Negative (Negative) Urine Blood 1+ /uL (Negative) Urine Nitrite Negative (Negative) Urine Bilirubin Negative (Negative) Urine Urobilinogen Normal mg/dL (Negative) Urine Leukocyte Esterase 3+ /uL (Negative) Urine RBC 22 /hpf (0 - 4) Urine Microscopic WBC 250 /HPF (0-5) Urine Squamous Epithelial Cells Few /hpf (<5) Urine Amorphous Crystals Few /hpf (None Seen) Urine Bacteria Few /hpf (None Seen) Urine Mucus Few (None Seen) Urine Glucose 3+ mg/dL (Normal) White Blood Count 8.4 10^3/uL (4.4-10.8) Red Blood Count 4.40 10^6/uL (4.0-5.20) Hemoglobin 14.2 g/dL (12.2-16.2) Hematocrit 43.8 % (36.0-46.0) Mean Corpuscular Volume 99.5 fL (80.0-100.0) Mean Corpuscular Hemoglobin 32.2 pg (28.0-32.0) Mean Corpuscular Hemoglobin Concent 32.3 g/dL (32.0-36.0) Red Cell Distribution Width 16.3 % (11.8-14.3) Platelet Count 225 10^3/uL (140-450) Mean Platelet Volume 8.1 fL (6.9-10.8) Neutrophils (%) (Auto) 52.3 % (37.0-80.0) Lymphocytes (%) (Auto) 37.1 % (10.0-50.0) Monocytes (%) (Auto) 8.8 % (0.0-12.0) Eosinophils (%) (Auto) 1.5 % (0.0-7.0) Basophils (%) (Auto) 0.3 % (0.0-2.0) Neutrophils # (Auto) 4.4 10 ^3/uL (1.6-8.6) Lymphocytes # (Auto) 3.1 10 ^3/uL (0.4-5.4) Monocytes # (Auto) 0.7 10 ^3/uL (0-1.3) Eosinophils # (Auto) 0.1 10 ^3/uL (0-0.8) Basophils # (Auto) 0 10 ^3/uL (0-0.2) Nucleated Red Blood Cells 0.2 % Sodium Level 138 mmol/L (136-145) Potassium Level 3.0 mmol/L (3.5-5.1) Chloride Level 99 mmol/L (98-107) Carbon Dioxide Level 32 mmol/L (20-31) Anion Gap 7 (5-15) Blood Urea Nitrogen 7 mg/dL (9-23) Creatinine 0.91 mg/dL (0.550-1.02) Glomerular Filtration Rate Calc 70 mL/min (>90) BUN/Creatinine Ratio 7.7 (10.0-20.0) Serum Glucose 243 mg/dL (74-106) Calcium Level 10.1 mg/dL (8.7-10.4) B-Type Natriuretic Peptide 4.45 pg/mL (0-100) SARS-CoV-2 Antigen (Rapid) Negative (NEGATIVE) Other Laboratory Tests 08/08/24 16:04 Brief Hx & Hospital Course: Patient is a 63-year-old female with past medical history of COPD on 3 L baseline, prior smoker, morbid obesity, T2DM diabetic who presented with shortness of breath that worsened over the past week. Patient noted that she was using her nebulizer today without relief. She called EMS and subsequently arrived to the ER. Patient was arrived and was noted to be hypoxic and placed on 6 L nasal cannula. Vitals were notable for some hypertension. CBC did not reveal any leukocytosis. BMP was within normal limits. BNP was less than 50. Chest x-ray revealed some pulmonary vascular congestion. COVID was negative. Flu was negative. She was treated with Solu-Medrol, DuoNebs, azithromycin. She was subsequently had improvement in her symptoms. Patient was monitored for several hours. She was slowly weaned to 3 L nasal cannula which was her baseline. Patient was discharged on prednisone 40 mg for seven days, DuoNebs, and a Z-Danilo. Patient was given an additional nebulizer treatment prior to discharge. Patient did not have her home oxygen and therefore home oxygen was ordered at bedside and transport home was arranged. Patient was given ER return precautions. Patient is to follow up with her PCP. Final Diagnosis/Problems List COPD Exacerbation Secondary Diagnosis: Morbid Obesity Chronic Respiratory Failure Discharge Disposition: Home Discharge Instruct/Medications Diet: Consistent carbohydrate Activity: No Restrictions, As Tolerated Follow Up/Referral: Follow up with your PCP. Medications: Duonebs, prednisone, azithromycin Discharge Statement: "Patient was advised to return to the ER or call 911 if any headaches, dizziness, shortness of breath, chest pain, abdominal pain, bleeding, fevers, or worsening of medical condition. Patient was counseled about treatment plan, medications, possible side effects, patientverbalized understanding. All questions were answered to the best of my ability. This discharge took greater then 30 minutes in planning, reviewing documentation, counseling the patient, and discussing with other team members." ASSESSMENT ASSESSMENT Assessment COPD Exacerbation ARCHANA DONG DO Aug 08, 2024 20:00
[2024-08-08] MEDS: ALBUTEROL SULF 2.5 MG/0.5ML(0.5%) NEB SOLN NEB ONE (20:09)
[2024-08-08] MEDS: IPRATROPIUM BROM 0.5 MG/2.5ML INH SOL NEB ONE (20:09)
[2024-08-08] MEDS: IPRATROPIUM BROM 0.5 MG/2.5ML INH SOL ONE (20:10)
[2024-08-08] MEDS: ALBUTEROL SULF 2.5 MG/0.5ML(0.5%) NEB SOLN ONE (20:10)
[2024-08-08] MEDS: AZITHROMYCIN 250 MG TAB PO ONE (21:12)
[2024-08-08 23:04] LABS: Rapid Influenza A Negative (Negative); Rapid Influenza B Negative (Negative)
[2024-08-08 23:10] VITALS: TEMP 98.4
[2024-08-09 01:10] VITALS: BP 114/71; PULSE 99; RESP 24; O2SAT 98
--- NOTE | 2024-08-11 07:16 | ECG ---
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
--- NOTE | 2024-08-11 07:16 | ECG ---
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
== END 2024-08-09 02:02 | disposition home or self-care (01) ==
LOC: EDBD 15:38 → ER 15:47
DX: N39.0 Urinary tract infection, site not specified (principal); J44.1 Chronic obstructive pulmonary disease with (acute) exacerbation; E11.9 Type 2 diabetes mellitus without complications; E78.5 Hyperlipidemia, unspecified; I10 Essential (primary) hypertension; I25.2 Old myocardial infarction; F12.90 Cannabis use, unspecified, uncomplicated; Z86.73 Personal history of transient ischemic attack (TIA), and cerebral infarction without residual deficits; Z90.710 Acquired absence of both cervix and uterus; Z20.822 Contact with and (suspected) exposure to COVID-19
CPT/HCPCS: 36415; 71045; 80048; 81001; 83880; 84484; 85025; 87426; 87804; 93005; 94640; 96374; 96375; 99291; J1940; J2919

== ENCOUNTER 2024-10-29 09:52 | Inpatient (IN) | payer OTHER ==
[~2024-10-29] VITALS: Ht 154.9 cm; Wt 88.2 kg
[2024-10-29] VITALS (7 sets, daily range): BP systolic 141; BP diastolic 84; PULSE 91–120; RESP 14–25; TEMP 98.1; O2SAT 95–99
[~2024-10-29 09:52] MED LIST changes: +PRED20TA2 PO
--- NOTE | 2024-10-29 10:12 | ED.PDOC ---
SOB-HPI HPI Comments 63 y/o F, BIBA, with PMHx of HTN, COPD, DM, and CHF presents to the ED for CC of shortness of breath. EMS reports, patient is coming from home where she c/o shortness of breath [id number]. Upon arrival to scene, EMS relays patient was found to be stating at 99% on R.A with tachypnea breathing. In route to the ED, patient was given [id number] treatment with no relief of symptoms. EMS endorses, wanting to place patient on C-PAP however, patient declined. Patient denies chest pain, headache, palpitations, cough, or nausea. No other symptoms or modifying factors at this time. 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 History: Denies all POTASH FLAKER Hx Family History Family History: No family hx of Cancer, No family hx of DM, No family hx of Heart arelis, Family hx of heart arelis Social History Smoker: Non-Smoker Alcohol: Occasionally Drugs: Marijuana Lives In: Home Constitutional: denies: chills, diaphoresis, fatigue, fever, malaise, sweats, weakness, others EENTM: denies: blurred vision, double vision, ear bleeding, ear discharge, ear drainage, ear pain, ear ringing, eye pain, eye redness, hearing loss, mouth pain, mouth swelling, nasal discharge, nose bleeding, nose congestion, nose pain, photophobia, tearing, throat pain, throat swelling, voice changes, others Respiratory: reports: shortness of breath; denies: cough, hemoptysis, orthopnea, SOB at rest, SOB with excertion, stridor, wheezing, others Cardiovascular: denies: chest pain, dizzy spells, diaphoresis, Dyspnea on exertion, edema, irregular heart beat, left arm pain, lightheadedness, palpitations, PND, syncope, others Gastrointestinal: denies: abdomen distended, abdominal pain, blood streaked bowels, constipated, diarrhea, dysphagia, difficulty swallowing, hematemesis, melena, nausea, poor appetite, poor fluid intake, rectal bleeding, rectal pain, vomiting, others Genitourinary: denies: abnormal vagina bleeding, burning, dyspareunia, dysuria, flank pain, frequency, hematuria, incontinence, pain, , vagina discharge, urgency, others Neurological: denies: dizziness, fainting, headache, left sided numbness, left sided weakness, numbness, paresthesia, pre-existing deficit, right sided numbness, right sided weakness, seizure, speech problems, tingling, tremors, weakness, others Musculoskeletal: denies: back pain, gout, joint pain, joint swelling, muscle pain, muscle stiffness, neck pain, others Integumetry: denies: bruises, change in color, change in hair/nails, dryness, laceration, lesions, lumps, rash, wounds, others Allergic/Immunocompromised: denies: Difficulty Healing, Frequent Infections, Hives, Itching, others Hematologic/Lymphatic: denies: anemia, blood clots, easy bleeding, easy bruising, swollen glands, others Endocrine: denies: excessive hunger, excessive sweating, excessive thirst, excessive urination, flushing, intolerance to cold, intolerance to heat, unex plained weight gain, unexplained weight loss, others Psychiatric: denies: anxiety, bipolar disorder, depression, hopeless, panic disorder, schizophrenia, sleepless, suicidal, others All Other Systems: Reviewed and Negative Physical Exam General Appearance: Moderate Distress HEENT: Normal ENT Inspection, Pharynx Normal, TMs Normal Neck: Full Range of Motion, Non-Tender, Normal, Normal Inspection Respiratory: Respiratory Distress, Other (Coarse breath sounds) Cardiovascular: No Edema, No JVD, No Murmur, No Gallop, Normal Peripheral Pulses, Regular Rate/Rhythm Breast Exam: Deferred Gastrointestinal: No Organomegaly, Non Tender, No Pulsatile Mass, Normal Bowel Sounds, Soft Genitalia: Deferred Pelvic: Deferred Rectal: Deferred Extremities: No calf tenderness, Normal capillary refill, Normal inspection, Normal range of motion, Non-tender, No pedal edema Musculoskeletal : Apperance: Normal Neurologic: Alert, mining captain II-XII nml as Tested, No Motor Deficits, Normal Affect, Normal Mood, No Sensory Deficits Cerebellar Function: NOT DONE Reflexes: NOT DONE Skin: Dry, Normal Color, Warm Peripheral Pulses: 3+ Radial (R), 3+ Radial (L) Lymphatic: No Adenopathy Was a procedure done? Was a procedure done?: No Differential Dx Differential Diagnosis: Anxiety, Asthma, Bronchitis, CHF, COPD, Pneumonia, Pharyngitis, URI X-Ray, Labs, Meds, VS Vital Signs Date Time Temp Pulse Resp B/P (MAP) Pulse Ox O2 Delivery O2 Flow Rate FiO2 10/29/24 10:23 20 94 Nasal Cannula* 4 36 10/29/24 10:04 98.1 130 28 136/77 (96) 100 98.1 10/29/24 10:03 28 100 Simple Mask* 8 60 10/29/24 10:00 98.0 120 25 136/85 (102) 96 98.0 10/29/24 09:52 114 Lab Test 10/29/24 10:27 Range/Units White Blood Count 7.3 4.4-10.8 10^3/uL Red Blood Count 4.22 4.0-5.20 10^6/uL Hemoglobin 14.1 12.2-16.2 g/dL Hematocrit 41.9 36.0-46.0 % Mean Corpuscular Volume 99.2 80.0-100.0 fL Mean Corpuscular Hemoglobin 33.3 H 28.0-32.0 pg Mean Corpuscular Hemoglobin Concent 33.5 32.0-36.0 g/dL Red Cell Distribution Width 17.7 H 11.8-14.3 % Platelet Count 159 140-450 10^3/uL Mean Platelet Volume 8.1 6.9-10.8 fL Neutrophils (%) (Auto) 76.1 37.0-80.0 % Lymphocytes (%) (Auto) 14.1 10.0-50.0 % Monocytes (%) (Auto) 8.6 0.0-12.0 % Eosinophils (%) (Auto) 0.5 0.0-7.0 % Basophils (%) (Auto) 0.7 0.0-2.0 % Neutrophils # (Auto) 5.6 1.6-8.6 10 ^3/uL Lymphocytes # (Auto) 1.0 0.4-5.4 10 ^3/uL Monocytes # (Auto) 0.6 0-1.3 10 ^3/uL Eosinophils # (Auto) 0 0-0.8 10 ^3/uL Basophils # (Auto) 0 0-0.2 10 ^3/uL Nucleated Red Blood Cells 0.3 % Sodium Level 140 136-145 mmol/L Potassium Level 3.1 L 3.5-5.1 mmol/L Chloride Level 95 L 98-107 mmol/L Carbon Dioxide Level 32 H 20-31 mmol/L Anion Gap 13 5-15 Blood Urea Nitrogen 5 L 9-23 mg/dL Creatinine 0.79 0.550-1.02 mg/dL Glomerular Filtration Rate Calc 83 >90 mL/min BUN/Creatinine Ratio 6.3 L 10.0-20.0 Serum Glucose 301 H 74-106 mg/dL Lactic Acid Level 3.9 *H 0.4-2.0 mmol/L Calcium Level 9.1 8.7-10.4 mg/dL Troponin I High Sensitivity 3 L </=34 ng/L Current Medications Medications (Trade) Dose Ordered Sig/Randolph Route Start Time Stop Time Status Last Admin Methylprednisolone Sodium Succinate (Solu Medrol) 125 mg ONCE ONCE IV 10/29/24 10:00 10/29/24 10:01 DC 10/29/24 10:34 Albuterol (Ventolin Medneb) 5 mg ONCE ONCE NEB 10/29/24 10:00 10/29/24 10:01 DC 10/29/24 10:23 Ipratropium [place] (Atrovent Medneb) 0.5 mg ONCE ONCE NEB 10/29/24 10:00 10/29/24 10:01 DC 10/29/24 10:23 Levofloxacin/ Dextrose 100 ml @ 100 mls/hr ONCE ONCE IV 10/29/24 10:00 10/29/24 10:59 DC 10/29/24 10:33 [place] [address] Ph: [phone] DIAGNOSTIC IMAGING Diagnostic Imaging Report : [id number] Signed PATIENT: MAYRA ESPINOZA ACCT: [id number] UNIT: [id number] : 1960 LOC: ER ROOM / BED: / AGE / SEX: 63 / F ADM STATUS: REG ER SERVICE [id number] ORDERING PHYSICIAN: MANJINDER HODGSON MD PROCEDURE(s): CXRP - CHEST PORTABLE REASON: sob ORDER NUMBER(s): [id number], ACCESSION NUMBER(s): [id number] XY CHEST PORTABLE, HISTORY: sob COMPARISON: XY CHEST PORTABLE on DOS: 08/08/24, XY CHEST PORTABLE on DOS: 01/14/24, XY CHEST PORTABLE on DOS: 01/11/24 XY CHEST PORTABLE on DOS: 08/08/24, XY CHEST PORTABLE on DOS: 01/14/24, XY CHEST PORTABLE on DOS: 01/11/24 TECHNICAL DATA: 1 view of the chest was obtained. FINDINGS: Lines and tubes: None Cardiomediastinal silhouette: normal Pulmonary vasculature: normal Lung expansion: normal Lung airspace: Right basilar airspace opacity could be atelectasis. Lung interstitium: normal Pleura: normal Pneumothorax: no Bones: Unremarkable Other: no IMPRESSION: Right basilar airspace opacity could be atelectasis. ATED BY: TERRENCE JORDAN MD DICTATED DATE/TIME: 10/29/241053 SIGNED BY: TERRENCE JORDAN MD SIGNED DATE/TIME: 10/29/241053 CC: Patient alert. Complaining of shortness a breath. Decreased air entry. Was given steroid. Was given breathing treatment. Placed on nasal cannula. Continues to need oxygen. Spoke with [facility]. Explained to the patient. Continue monitoring. Time of 1ST Reevaluation: 10:30 Reevaluation 1ST: Unchanged Patient Education/Counseling: Diagnosis, Treatment Family Education/Counseling: No Family Present SEPSIS Sepsis Screen Physician Orders Blood Culture (10/29/24 09:56) Chest Portable (10/29/24 09:56) Urinalysis (10/29/24 09:56) Electrocardigram (10/29/24 10:01) Vital Signs Date Time Temp Pulse Resp B/P (MAP) Pulse Ox O2 Delivery O2 Flow Rate FiO2 10/29/24 10:23 20 94 Nasal Cannula* 4 36 10/29/24 10:04 98.1 130 28 136/77 (96) 100 98.1 10/29/24 10:03 28 100 Simple Mask* 8 60 10/29/24 10:00 98.0 120 25 136/85 (102) 96 98.0 10/29/24 09:52 114 Laboratory Tests Test 10/29/24 10:27 Lactic Acid Level 3.9 mmol/L (0.4-2.0) *H White Blood Count 7.3 10^3/uL (4.4-10.8) Medications Medications Dose Ordered Sig/Randolph Route Start Time Stop Time Status Last Admin Dose Admin Albuterol 5 mg ONCE ONCE NEB 10/29/24 10:00 10/29/24 10:01 DC 10/29/24 10:23 Ipratropium [place] 0.5 mg ONCE ONCE NEB 10/29/24 10:00 10/29/24 10:01 DC 10/29/24 10:23 Levofloxacin/ Dextrose 100 ml @ 100 mls/hr ONCE ONCE IV 10/29/24 10:00 10/29/24 10:59 DC 10/29/24 10:33 Methylprednisolone Sodium Succinate 125 mg ONCE ONCE IV 10/29/24 10:00 10/29/24 10:01 DC 10/29/24 10:34 Departure 1 Departure Time of Disposition: 10:45 Impression: Primary Impression: Acute respiratory failure Qualified Codes: J96.01 - Acute respiratory failure with hypoxia Additional Impressions: COPD exacerbation Pneumonitis Disposition: ADMITTED INPATIENT Admit to: Med Surg Condition: Guarded Critical Care Note Critical Care Time?: Yes (90 min-critical care time only) Critical care comment: Placed on oxygen continue to monitor Stability Stability form required: No Heart Score Heart Score: Heart Score Response (Comments) Value History Slightly Suspicious 0 EKG Normal 0 Age >65 2 Risk Factors >3 or Hx ASHD 2 Troponin Normal limit 0 Total 4 I personally scribed for MANJINDER HODGSON MD ([email or web address]) on 10/29/24 at 10:11. Electronically submitted by Taylor Hinton ([email or web address]). I personally scribed for MANJINDER HODGSON MD ([email or web address]) on 10/29/24 at 11:13. Electronically submitted by Taylor Hinton [email or web address]). MANJINDER HODGSON MD Oct 29, 2024 10:11
[2024-10-29] MEDS: IPRATROPIUM BROM 0.5 MG/2.5ML INH SOL NEB ONE ×3 (10:23→17:36)
[2024-10-29] MEDS: ALBUTEROL SULF 2.5 MG/0.5ML(0.5%) NEB SOLN NEB ONE ×3 (10:23→19:07)
[2024-10-29] MEDS: levoFLOXacin 500MG 100 ML IV ONE (10:33)
[2024-10-29] MEDS: methylPREDNISolone SOD SUCC 125 MG/2 ML VL IV ONE (10:34)
[2024-10-29 10:44] LABS: Basophils # (auto) 0 10 ^3/uL (0-0.2); Basophils % (auto) 0.7 % (0.0-2.0); Eosinophils # (auto) 0 10 ^3/uL (0-0.8); Eosinophils % (auto) 0.5 % (0.0-7.0); Hematocrit 41.9 % (36.0-46.0); Hemoglobin 14.1 g/dL (12.2-16.2); Lymphocytes % (auto) 14.1 % (10.0-50.0); Mean Corpuscular Hemoglobin 33.3 pg (28.0-32.0); Mean Corpuscular Hgb Conc. 33.5 g/dL (32.0-36.0); Mean Corpuscular Volume 99.2 fL (80.0-100.0); Monocytes # (auto) 0.6 10 ^3/uL (0-1.3); Monocytes % (auto) 8.6 % (0.0-12.0); Neutrophils # (auto) 5.6 10 ^3/uL (1.6-8.6); Neutrophils % (auto) 76.1 % (37.0-80.0); Nucleated Red Blood Cells % 0.3 %; Platelet Count (auto) 159 10^3/uL (140-450); Red Blood Cells 4.22 10^6/uL (4.0-5.20); Red Cell Distribution Width 17.7 % (11.8-14.3); White Blood Cell 7.3 10^3/uL (4.4-10.8)
[2024-10-29 10:52] LABS: Sodium 140 mmol/L (136-145)
[2024-10-29 10:53] LABS: Anion Gap 13 (5-15); Calcium 9.1 mg/dL (8.7-10.4)
[2024-10-29 10:56] LABS: Carbon Dioxide 32 mmol/L (20-31); Chloride 95 mmol/L (98-107); Potassium 3.1 mmol/L (3.5-5.1)
--- NOTE | 2024-10-29 10:56 | DVH ---
XY CHEST PORTABLE, HISTORY: sob COMPARISON: XY CHEST PORTABLE on DOS: 08/08/24, XY CHEST PORTABLE on DOS: 01/14/24, XY CHEST PORTABLE on DOS: 01/11/24 XY CHEST PORTABLE on DOS: 08/08/24, XY CHEST PORTABLE on DOS: 01/14/24, XY CHEST PORTABLE on DOS: 01/11/24 TECHNICAL DATA: 1 view of the chest was obtained. FINDINGS: Lines and tubes: None Cardiomediastinal silhouette: normal Pulmonary vasculature: normal Lung expansion: normal Lung airspace: Right basilar airspace opacity could be atelectasis. Lung interstitium: normal Pleura: normal Pneumothorax: no Bones: Unremarkable Other: no IMPRESSION: Right basilar airspace opacity could be atelectasis.
[2024-10-29 10:58] LABS: BUN/Creatinine Ratio 6.3 (10.0-20.0)
[2024-10-29 11:02] LABS: Blood Urea Nitrogen 5 mg/dL (9-23); Glucose 301 mg/dL (74-106)
[2024-10-29 11:08] LABS: Lactic Acid w/Reflex 3.9 mmol/L (0.4-2.0)
[2024-10-29] MEDS: SODIUM CHLORIDE 0.9% 1,000 ML IV ONE ×2 (11:30→21:15)
--- NOTE | 2024-10-29 12:34 | DVH ---
Procedure: CT CHEST WITHOUT CONTRAST Reason for study/Clinical History: pna Comparison Study: None TECHNIQUE: Multidetector CT of the chest was performed from the lung apices to the upper abdomen with out the use of intravenous contract. Axial, coronal and sagittal multiplanar reformats were performed . Radiation Dose Information: CT Dose: CTDI volume is 23.56 mGy. Dose-length product is 834.16 mGy*cm The dose indicators for CT are the volume Computed Tomography (CT) Dose Index (CTDIvol) and the Dose Length Product (DLP), and are measured in units of mGy and mGy-cm, respectively. These indicators are not patient dose, but values generated from the CT scanner acquisition factors. The report includes radiation exposure data for exposures received during this examination. FINDINGS: Lower neck: Unremarkable. Lungs: Dependent subsegmental atelectasis. Mild centrilobular emphysema. Heart/Vascular Structures: Cardiomegaly. Lymph Nodes: No adenopathy Pleura: No pleural effusion or significant pneumothorax. Musculoskeletal: No acute osseous abnormality. Degenerative changes of the spine. Soft tissues: Normal. Upper abdomen: Hepatic steatosis. Hepatomegaly. IMPRESSION: No acute intrathoracic abnormality. Radiation optimization: All CT scans at this facility use at least one of these dose optimization efrain hniques: automated exposure control mA and/or kV adjustment per patient size (includes targeted exam s where dose is matched to clinical indication) or iterative reconstruction.
[2024-10-29 12:41] LABS: Base Excess 7.9 mmol/L (-2.0-3.0)
[2024-10-29] MEDS ORDERED: PRED20TA2 PO (13:16)
[2024-10-29] MEDS ORDERED: LEVO500T91 PO (13:16)
[2024-10-29] MEDS: POTASSIUM CHL 20 Meq TABLET PO ONE (13:30)
[2024-10-29] MEDS: VANCOMYCIN 1GM/200ML PM 200 ML IV ONE (14:04)
[2024-10-29] MEDS: POTASSIUM EFFERVESENT TAB 25 MEQ PO ONE (14:16)
[2024-10-29] MEDS ORDERED: NITROGLYCERIN 0.4 MG SL TAB SL PRN (15:15)
[2024-10-29] MEDS ORDERED: hydrALAZINE HCL 20 MG/ML VL IV PRN (15:15)
--- NOTE | 2024-10-29 15:29 | DVHHP2 ---
Admitting Diagnosis: copd History of Present Illness HPI 63 F who comes to ER c/o SOB over the last 3 days. SHe has known COPD and wears o2 at home 3L NC at baseline. When she arrived to the ER she was initially on a mask 8L and then transitioned to NC 4L. She was assisted to the bedside commode and her o2 sats dropped to the 80s. She denies any sick contacts. She still smokes and has had multiple ER visits for COPD exacerbation most recently back in August 2024. She denies any CP, n/v, abd pain or other symptoms but still is complaining of SOB. SHe will be admitted to tele with IV ABx, IV steroids, standing nebs and pulmonary consult. Home Meds Active Scripts Levofloxacin Hemihydrate (LEVAQUIN 500 MG) 500 Mg Tab, 1 TAB PO DAILY, #10 TAB Prov:BENNIE YE MD 10/29/24 Prednisone (Prednisone) 20 Mg Tab, 20 MG PO BID for 7 Days, #14 MG 1 Refill Prov:BENNIE YE MD 10/29/24 Prednisone (Prednisone) 20 Mg Tab, 40 MG PO DAILY for 7 Days, #14 TAB 0 Refills Prov:ARCHANA DONG DO 08/08/24 Ipratropium-Albuterol (Ipratropium [place]/Albut) 1 Calista Calista, 1 VIAL IN QID for 7 Days, #30 VIAL 1 Refill Prov:ARCHANA DONG DO 08/08/24 Azithromycin (Zithromax Z-Danilo) 250 Mg Tab, 250 MG PO DAILY, #6 TAB 0 Refills Take two tablets on day 1, then one tablet daily. Prov:ARCHANA DONG DO 08/08/24 Methylprednisolone (Medrol Dosepak) 4 Mg Danilo, 4 MG PO UD, #21 TAB Follow instructions on packet. Prov:ARCHANA DONG DO 01/15/24 Benzonatate (Benzonatate) 100 Mg Cap, 1 CAP PO TID PRN for 30 Days, #30 CAP 0 Refills For cough as needed. Prov:ARCHANA DONG DO 01/15/24 Budesonide-Formoterol Fumarate (Budesonide/Formoterol Fum 160-4.5 Mcg/Act) 1 Aer Aer, 1 AER IN BID for 30 Days, #1 AER 2 Refills Prov:ARCHANA DONG DO 01/15/24 Metformin Hydrochloride (Metformin Hcl) 1,000 Mg Tab, 1 TAB PO BID, #60 TAB 1 Refill Prov:ARCHANA DONG DO 01/15/24 Reported Medications Albuterol Sulfate (Albuterol Sulfate Hfa) 108 Mcg/Act Aer, 1 PUFF PO PRN 10/20/22 Pravastatin Sodium (PRAVACHOL TABLET) 20 Mg Tb, 40 MG PO HS 10/20/22 Budesonide-Formoterol Fumarate (Budesonide/Formoterol Fum 160-4.5 Mcg/Act) 1 Aer Aer, 1 AER IN 03/19/21 Carvedilol (Coreg) 3.125 Mg Tab, 1 TAB PO BID 03/19/21 Past Medical History Cardiac: CHF, HTN, Hyperlipidemia Pulmonary: COPD Patient Family History: Patient reports no known family medical history. Review of Systems Constitutional: No symptom reported Pulmonary/Respiratory: Dyspnea, Cough, Pleuritic Chest Pain Cardiovascular: No symptom reported Genitourinary: No symptom reported Musculoskeletal: No symptom reported Skin: No symptom reported Psychiatric: No symptom reported H&P Exam Vital Signs Vital Signs Date Time Temp Pulse Resp B/P (MAP) Pulse Ox O2 Delivery O2 Flow Rate FiO2 10/29/24 14:00 100 16 141/84 (103) 94 10/29/24 13:14 Nasal Cannula* 3 32 10/29/24 10:04 98.1 98.1 General Appeara: Well developed Head Exam: Normal inspection Nasal Exam: Normal inspection Pulmonary/Respiratory: Decreased breath sounds Cardiovascular/Chest: Normal inspection Labs/Xrays Labs Test 10/29/24 12:53 10/29/24 12:27 10/29/24 10:27 Range/Units Lactic Acid Level 3.5 *H 0.4-2.0 mmol/L Blood Gas Specimen Type Arterial Blood Gas Sample Site Left radial Blood Gas Patient Temperature 37.0 Arterial Blood Date Drawn [id number] Arterial Blood pH 7.466 H 7.350-7.450 Arterial Blood Partial Pressure CO2 46.5 H 32.0-45.0 mmHg Arterial Blood Partial Pressure O2 80.7 L 83.0-108.0 mmHg Arterial Blood HCO3 32.8 H 21.0-28.0 mmol/L Arterial Blood Oxygen Saturation 96.1 94.0-98.0 % Arterial Blood Base Excess 7.9 H -2.0-3.0 mmol/L Arterial Blood Oxyhemoglobin 94.4 94.0-98.0 % Arterial Blood Carboxyhemoglobin 1.3 0.5-1.5 % Arterial Blood Methemoglobin 0.5 0.0-1.5 % Marcos Test Yes Blood Gas Total Hemoglobin 14.20 12.0-16.0 g/dL Blood Gas Liter Flow 4.00 Blood Gas Modality Nasal cannula FiO2 % 36.0 White Blood Count 7.3 4.4-10.8 10^3/uL Red Blood Count 4.22 4.0-5.20 10^6/uL Hemoglobin 14.1 12.2-16.2 g/dL Hematocrit 41.9 36.0-46.0 % Mean Corpuscular Volume 99.2 80.0-100.0 fL Mean Corpuscular Hemoglobin 33.3 H 28.0-32.0 pg Mean Corpuscular Hemoglobin Concent 33.5 32.0-36.0 g/dL Red Cell Distribution Width 17.7 H 11.8-14.3 % Platelet Count 159 140-450 10^3/uL Mean Platelet Volume 8.1 6.9-10.8 fL Neutrophils (%) (Auto) 76.1 37.0-80.0 % Lymphocytes (%) (Auto) 14.1 10.0-50.0 % Monocytes (%) (Auto) 8.6 0.0-12.0 % Eosinophils (%) (Auto) 0.5 0.0-7.0 % Basophils (%) (Auto) 0.7 0.0-2.0 % Neutrophils # (Auto) 5.6 1.6-8.6 10 ^3/uL Lymphocytes # (Auto) 1.0 0.4-5.4 10 ^3/uL Monocytes # (Auto) 0.6 0-1.3 10 ^3/uL Eosinophils # (Auto) 0 0-0.8 10 ^3/uL Basophils # (Auto) 0 0-0.2 10 ^3/uL Nucleated Red Blood Cells 0.3 % Sodium Level 140 136-145 mmol/L Potassium Level 3.1 L 3.5-5.1 mmol/L Chloride Level 95 L 98-107 mmol/L Carbon Dioxide Level 32 H 20-31 mmol/L Anion Gap 13 5-15 Blood Urea Nitrogen 5 L 9-23 mg/dL Creatinine 0.79 0.550-1.02 mg/dL Glomerular Filtration Rate Calc 83 >90 mL/min BUN/Creatinine Ratio 6.3 L 10.0-20.0 Serum Glucose 301 H 74-106 mg/dL Calcium Level 9.1 8.7-10.4 mg/dL Troponin I High Sensitivity 3 L </=34 ng/L Assessment/Plan Primary Diagnosis 1) Acute on chronic respiratory failure 2) COPD exacerbation 3) Possible early PNA 4) Lactic acidemia 5) DM 6) HTN 7) Hx of CHF 8) HLD plan; admit to tele, DM diet, IV ABx, IV steroids, nebs around the clock, BCx ordered, pulmonary eval, AM labs, RT to wean o2 as tolerated, the patients baseline o2 at home is 3-4L NC, will follow along Plan discussed with: Other (n) BENNIE YE MD Oct 29, 2024 15:29
[2024-10-29] MEDS ORDERED: DEXTROSE (50%) 50ML SYRG IV PRN (15:30)
[2024-10-29 16:16] LABS: INR 1.16 (0.9-1.15); Prothrombin Time 12.1 sec (9.3-11.8)
[2024-10-29] MEDS: ACCU-CHEK COMFORT CURVE STRIP VI SCH (17:49)
[2024-10-29] MEDS: methylPREDNISolone SOD SUCC 40 MG/ML VL IV ONE (17:52)
[2024-10-29] MEDS: InsuLIN REG 1unit/0.01ml Soln (100units/ml) SC SCH (17:57)
[2024-10-29] MEDS: IPRATROPIUM BROM 0.5 MG/2.5ML INH SOL ONE (22:24)
[2024-10-29] MEDS: ALBUTEROL SULF 2.5 MG/0.5ML(0.5%) NEB SOLN ONE (22:24)
[2024-10-29 23:23] LABS: COVID19 ANTIGEN SOFIA FIA NEGATIVE (NEGATIVE); Rapid Influenza A Negative (Negative); Rapid Influenza B Negative (Negative)
[2024-10-30] VITALS (19 sets, daily range): BP systolic 110–130; BP diastolic 67–77; PULSE 79–113; RESP 16–26; TEMP 97.5–97.9; O2SAT 97–100
[2024-10-30] MEDS: MORPHINE SULFATE INJ 2 MG/ml SYRG IV PRN (02:26)
[2024-10-30] MEDS: methylPREDNISolone SOD SUCC 125 MG/2 ML VL IV ONE (03:18)
[2024-10-30] MEDS: IPRATROPIUM BROM 0.5 MG/2.5ML INH SOL NEB SCH (06:33)
[2024-10-30] MEDS: ALBUTEROL SULF 2.5 MG/0.5ML(0.5%) NEB SOLN NEB SCH (06:33)
[2024-10-30 07:54] LABS: Eosinophils # (auto) 0 10 ^3/uL (0-0.8); Eosinophils % (auto) 0.1 % (0.0-7.0); Hemoglobin 14.4 g/dL (12.2-16.2); Lymphocytes # (auto) 0.5 10 ^3/uL (0.4-5.4)
[2024-10-30 07:56] LABS: Basophils # (auto) 0.1 10 ^3/uL (0-0.2); Basophils % (auto) 0.8 % (0.0-2.0); Hematocrit 43.5 % (36.0-46.0); Lymphocytes % (auto) 4.5 % (10.0-50.0); Mean Corpuscular Hemoglobin 33.6 pg (28.0-32.0); Mean Corpuscular Hgb Conc. 33.2 g/dL (32.0-36.0); Mean Corpuscular Volume 101.3 fL (80.0-100.0); Monocytes # (auto) 0.3 10 ^3/uL (0-1.3); Monocytes % (auto) 2.3 % (0.0-12.0); Neutrophils # (auto) 10.2 10 ^3/uL (1.6-8.6); Neutrophils % (auto) 92.3 % (37.0-80.0); Nucleated Red Blood Cells % 0.1 %; Platelet Count (auto) 178 10^3/uL (140-450); Red Blood Cells 4.29 10^6/uL (4.0-5.20); Red Cell Distribution Width 17.6 % (11.8-14.3)
[2024-10-30 08:00] LABS: Anion Gap 14 (5-15); Carbon Dioxide 28 mmol/L (20-31); Sodium 139 mmol/L (136-145)
[2024-10-30 08:02] LABS: Calcium 8.5 mg/dL (8.7-10.4); Chloride 97 mmol/L (98-107); Potassium 3.4 mmol/L (3.5-5.1)
[2024-10-30 08:06] LABS: BUN/Creatinine Ratio 8.9 (10.0-20.0); Blood Urea Nitrogen 8 mg/dL (9-23); Glucose 313 mg/dL (74-106)
[2024-10-30 08:08] LABS: Lactic Acid w/Reflex 2.8 mmol/L (0.4-2.0)
[2024-10-30] MEDS ORDERED: POTASSIUM CHL 20 Meq TABLET PO ONE (08:30)
[2024-10-30] MEDS: FUROSEMIDE 40 MG/4 ML VIAL IV ONE (08:49)
[2024-10-30] MEDS: LABETALOL HCL 20 MG/4 ML VL IV ONE (08:50)
[2024-10-30] MEDS: methylPREDNISolone SOD SUCC 125 MG/2 ML VL IV SCH (08:50)
--- NOTE | 2024-10-30 09:13 | DVHINCON2 ---
Referring Physician dr cmdonnell Reason for Consultation acute exacerbation of c o p d , resp failure with hypoxia ,emphysema , basal atelectasisplan agree with current management dictated [phone] Family History: Patient reports no known family medical history. Allergies: Coded Allergies: Penicillins (Verified Allergy, Unknown, 03/18/21) Home Meds Active Scripts Levofloxacin Hemihydrate (LEVAQUIN 500 MG) 500 Mg Tab, 1 TAB PO DAILY, #10 TAB Prov:BENNIE MCDONNELL MD 10/29/24 Prednisone (Prednisone) 20 Mg Tab, 20 MG PO BID for 7 Days, #14 MG 1 Refill Prov:BENNIE MCDONNELL MD 10/29/24 Prednisone (Prednisone) 20 Mg Tab, 40 MG PO DAILY for 7 Days, #14 TAB 0 Refills Prov:ALEJANDRAARCHANA SALGUERO DO 08/08/24 Ipratropium-Albuterol (Ipratropium [place]/Albut) 1 Calista Calista, 1 VIAL IN QID for 7 Days, #30 VIAL 1 Refill Prov:OPALChacortaARCHANA SALGUERO DO 08/08/24 Azithromycin (Zithromax Z-Danilo) 250 Mg Tab, 250 MG PO DAILY, #6 TAB 0 Refills Take two tablets on day 1, then one tablet daily. Prov:LETITIASABAI Go FRANK 08/08/24 Methylprednisolone (Medrol Dosepak) 4 Mg Danilo, 4 MG PO UD, #21 TAB Follow instructions on packet. Prov:ALEJANDRAARCHANA SALGUERO DO 01/15/24 Benzonatate (Benzonatate) 100 Mg Cap, 1 CAP PO TID PRN for 30 Days, #30 CAP 0 Refills For cough as needed. Prov:ALEJANDRASABA SALGUEROI Go FRANK 01/15/24 Budesonide-Formoterol Fumarate (Budesonide/Formoterol Fum 160-4.5 Mcg/Act) 1 Aer Aer, 1 AER IN BID for 30 Days, #1 AER 2 Refills Prov:LETITIAARCHANA Stiles 01/15/24 Metformin Hydrochloride (Metformin Hcl) 1,000 Mg Tab, 1 TAB PO BID, #60 TAB 1 Refill Prov:OPALChacortaARCHANA SALGUERO DO 01/15/24 Reported Medications Albuterol Sulfate (Albuterol Sulfate Hfa) 108 Mcg/Act Aer, 1 PUFF PO PRN 10/20/22 Pravastatin Sodium (PRAVACHOL TABLET) 20 Mg Tb, 40 MG PO HS 10/20/22 Budesonide-Formoterol Fumarate (Budesonide/Formoterol Fum 160-4.5 Mcg/Act) 1 Aer Aer, 1 AER IN 03/19/21 Carvedilol (Coreg) 3.125 Mg Tab, 1 TAB PO BID 03/19/21 Current Medications Current Medications Medications (Trade) Dose Ordered Sig/Randolph Route PRN Reason Start Time Stop Time Status Last Admin Nitroglycerin (Ntrostat Sublingual) 0.4 mg Q5MINP PRN SL FOR CHEST PAIN 10/29/24 15:15 Morphine Sulfate 2 mg Q30M PRN IV FOR CHEST PAIN 10/29/24 15:15 10/30/24 06:21 Levofloxacin/ Dextrose 100 ml @ 100 mls/hr DAILY IV 10/30/24 10:00 Hydralazine HCl (Apresoline Injection) 10 mg Q6HP PRN IV sbp >160 10/29/24 15:15 Diagnostic Test (Pha) (Accu-Chek Comfort Curve T) 1 strip ACHS 10/29/24 17:00 10/30/24 08:01 DC 10/30/24 07:07 Insulin Human Regular (InsuLIN R) ACHS SC 10/29/24 17:00 10/30/24 07:55 DC 10/30/24 07:14 Dextrose 50 ml UD PRN IV Blood Sugar LESS THAN 60 10/29/24 15:30 Albuterol (Ventolin Medneb) 2.5 mg Q4HWA [facility] 10/30/24 06:00 10/30/24 06:33 Ipratropium [place] (Atrovent Medneb) 0.5 mg Q4HWA [facility] 10/30/24 06:00 10/30/24 06:33 Carvedilol (Coreg Tablet) 3.125 mg Q12HR PO 10/30/24 10:00 Methylprednisolone Sodium Succinate (Solu Medrol) 60 mg Q8HR IV 10/30/24 08:00 10/30/24 08:50 Diagnostic Test (Pha) (Accu-Chek Comfort Curve T) 1 strip Q6HR 10/30/24 12:00 Insulin Human Regular (InsuLIN R) Q6HR SC 10/30/24 12:00 Furosemide (Lasix Tablet) 40 mg DAILY PO 10/31/24 10:00 Atorvastatin Calcium (Lipitor) 40 mg HS PO 10/30/24 22:00 Vital Signs Vital Signs Date Time Temp Pulse Resp B/P (MAP) Pulse Ox O2 Delivery O2 Flow Rate FiO2 10/30/24 08:50 112 153/88 10/30/24 07:30 98.1 16 97 98.1 10/30/24 07:30 Nasal Cannula* 6 44 Labs/Diagnostic Data Labs Test 10/30/24 07:24 10/30/24 06:49 10/29/24 22:32 10/29/24 15:34 Range/Units White Blood Count 11.0 #H 4.4-10.8 10^3/uL Red Blood Count 4.29 4.0-5.20 10^6/uL Hemoglobin 14.4 12.2-16.2 g/dL Hematocrit 43.5 36.0-46.0 % Mean Corpuscular Volume 101.3 H 80.0-100.0 fL Mean Corpuscular Hemoglobin 33.6 H 28.0-32.0 pg Mean Corpuscular Hemoglobin Concent 33.2 32.0-36.0 g/dL Red Cell Distribution Width 17.6 H 11.8-14.3 % Platelet Count 178 140-450 10^3/uL Mean Platelet Volume 8.6 6.9-10.8 fL Neutrophils (%) (Auto) 92.3 H 37.0-80.0 % Lymphocytes (%) (Auto) 4.5 L 10.0-50.0 % Monocytes (%) (Auto) 2.3 0.0-12.0 % Eosinophils (%) (Auto) 0.1 0.0-7.0 % Basophils (%) (Auto) 0.8 0.0-2.0 % Neutrophils # (Auto) 10.2 H 1.6-8.6 10 ^3/uL Lymphocytes # (Auto) 0.5 0.4-5.4 10 ^3/uL Monocytes # (Auto) 0.3 0-1.3 10 ^3/uL Eosinophils # (Auto) 0 0-0.8 10 ^3/uL Basophils # (Auto) 0.1 0-0.2 10 ^3/uL Nucleated Red Blood Cells 0.1 % Sodium Level 139 136-145 mmol/L Potassium Level 3.4 L 3.5-5.1 mmol/L Chloride Level 97 L 98-107 mmol/L Carbon Dioxide Level 28 20-31 mmol/L Anion Gap 14 5-15 Blood Urea Nitrogen 8 L 9-23 mg/dL Creatinine 0.90 0.550-1.02 mg/dL Glomerular Filtration Rate Calc 71 >90 mL/min BUN/Creatinine Ratio 8.9 L 10.0-20.0 Serum Glucose 313 H 74-106 mg/dL Lactic Acid Level 2.8 *H 0.4-2.0 mmol/L Calcium Level 8.5 L 8.7-10.4 mg/dL POC Glucose 293 H 70-106 mg/dl Influenza Type A Antigen Negative Negative Influenza Type B Antigen Negative Negative SARS-CoV-2 Antigen (Rapid) Negative NEGATIVE Prothrombin Time 12.1 H 9.3-11.8 sec Prothrombin Time INR 1.16 H 0.9-1.15 Test 10/29/24 12:27 10/29/24 10:27 Range/Units Blood Gas Specimen Type Arterial Blood Gas Sample Site Left radial Blood Gas Patient Temperature 37.0 Arterial Blood Date Drawn [id number] Arterial Blood pH 7.466 H 7.350-7.450 Arterial Blood Partial Pressure CO2 46.5 H 32.0-45.0 mmHg Arterial Blood Partial Pressure O2 80.7 L 83.0-108.0 mmHg Arterial Blood HCO3 32.8 H 21.0-28.0 mmol/L Arterial Blood Oxygen Saturation 96.1 94.0-98.0 % Arterial Blood Base Excess 7.9 H -2.0-3.0 mmol/L Arterial Blood Oxyhemoglobin 94.4 94.0-98.0 % Arterial Blood Carboxyhemoglobin 1.3 0.5-1.5 % Arterial Blood Methemoglobin 0.5 0.0-1.5 % Marcos Test Yes Blood Gas Total Hemoglobin 14.20 12.0-16.0 g/dL Blood Gas Liter Flow 4.00 Blood Gas Modality Nasal cannula FiO2 % 36.0 Troponin I High Sensitivity 3 L </=34 ng/L TONO CARBONE MD Oct 30, 2024 09:13
[2024-10-30] MEDS ORDERED: POTASSIUM EFFERVESENT TAB 25 MEQ PO ONE (09:30)
[2024-10-30] MEDS: CARVEDILOL 3.125 MG TAB PO SCH (10:00)
[2024-10-30] MEDS: levoFLOXacin 500MG 100 ML IV SCH (10:19)
--- NOTE | 2024-10-30 10:44 | ECG ---
[facility] Test Date: 2024-10-30 Test Time: 02:28:54 Pat Name: MAYRA ESPINOZA Department: ED Room: [address] [place] [address] Gender: F Hospital Technician: RENETTA : 1960 Requested By: MANJINDER HODGSON Order Number: [id number] Reading MD: Monroe Holloway Measurements Intervals [place] Rate: 104 P: 76 FL: 157 QRS: 38 QRSD: 80 T: 46 QT: 384 QTc: 506 Interpretive Statements Sinus tachycardia Ventricular premature complex Consider right atrial enlargement Low voltage, precordial leads Prolonged QT interval Artifact in lead(s) I,II,III,aVR,aVL,aVF,V2,V3 Electronically Signed On 11-01-2024 20:04:54 PDT by Monroe Holloway Please click the below link to view image of tracing.
[2024-10-30] MEDS: POTASSIUM EFFERVESENT TAB 25 MEQ PO ONE (10:47)
--- NOTE | 2024-10-30 13:04 | DVHINCON2 ---
DATE OF CONSULTATION: 10/30/2024 HISTORY OF PRESENT ILLNESS: The patient is a 63-year-old female brought in with acute exacerbation of COPD, acute asthmatic bronchitis. The patient has COPD, congestive heart failure, and diabetes mellitus, and has been having shortness of breath for the last 2 weeks. She claims that she has been using 3 to 4 liters of oxygen at home. White count 7.3, 11.0. Blood gases , 46, 80. Potassium 3.4. Lactic acid 2.8. Glucose 293. The patient is getting Lasix, atorvastatin, insulin, carvedilol, steroid 60 mg q. 8 hours. She just got a dose of 60 mg. She is still very tight, having difficulty in speaking and using accessory muscle of respiration and getting med neb treatments q. 4 hours. Chest x-ray showed basilar atelectasis. No pneumonia. Lactic acid 2.8. Diminished breath sounds on examination. The air entry is decreased. She is tight, using respiratory muscles at this time. We will see how she does in the next 24 hours. Continue the current regimen at this time and keep the O2 sat above 92%. IMPRESSION: Acute exacerbation of COPD, basilar atelectasis, lactic acid elevated. Getting antibiotic, levofloxacin, and med neb treatments of Solu-Medrol. Thank you so much for letting me participate in the care of this patient. Amaury Deleon MD MA/SHAILA/TRUMAN TID: [id number] RECEIPT: [id number]
[2024-10-30] MEDS: ACCU-CHEK COMFORT CURVE STRIP VI SCH (13:36)
[2024-10-30] MEDS: InsuLIN REG 1unit/0.01ml Soln (100units/ml) SC SCH (13:37)
--- NOTE | 2024-10-30 16:20 | DVHPN2 ---
Progress Note - Dictate Date Seen: Oct 30, 2024 Medical Necessity Reason Pt with a Central, PICC or Fol: No Subjective Patient continues to have shortness of breath and some chest tightness. Patient otherwise without any fevers, chills, cough, or phlegm. vital signs Vital Sign Date Time Temp Pulse Resp B/P (MAP) Pulse Ox O2 Delivery O2 Flow Rate FiO2 10/30/24 14:40 103 24 99 10/30/24 10:13 113/58 (76) 10/30/24 07:30 98.1 98.1 10/30/24 07:30 Nasal Cannula* 6 44 Total Intake and Output 10/29/24 10/29/24 10/30/24 15:00 23:00 07:00 Intake Total 1300 ml 75 ml 450 ml Balance 1300 ml 75 ml 450 ml medications Current Medications Medications Dose Ordered Sig/Randolph Route Start Time Stop Time Status Last Admin Dose Admin Nitroglycerin 0.4 mg Q5MINP PRN SL 10/29/24 15:15 Morphine Sulfate 2 mg Q30M PRN IV 10/29/24 15:15 10/30/24 06:21 2 MG Levofloxacin/ Dextrose 100 ml @ 100 mls/hr DAILY IV 10/30/24 10:00 10/30/24 10:19 100 MLS/HR Hydralazine HCl 10 mg Q6HP PRN IV 10/29/24 15:15 Dextrose 50 ml UD PRN IV 10/29/24 15:30 Albuterol 2.5 mg Q4HWA NEB 10/30/24 06:00 10/30/24 14:04 2.5 MG Ipratropium [place] 0.5 mg Q4HWA NEB 10/30/24 06:00 10/30/24 14:04 0.5 MG Carvedilol 3.125 mg Q12HR PO 10/30/24 10:00 Methylprednisolone Sodium Succinate 60 mg Q8HR IV 10/30/24 08:00 10/30/24 08:50 60 MG Diagnostic Test (Pha) 1 strip Q6HR 10/30/24 12:00 10/30/24 13:36 1 STRIP Insulin Human Regular Q6HR SC 10/30/24 12:00 10/30/24 13:37 20 UNITS Furosemide 40 mg DAILY PO 10/31/24 10:00 Atorvastatin Calcium 40 mg HS PO 10/30/24 22:00 objective GEN: A&Ox3, NAD HEENT: Moist CV: S1S2+, RRR Lungs: deminished breath sounds, Abd: Soft, NT, ND, + BS LE: No LE edema laboratory and microbiology Laboratory Tests 10/30/24 07:24 Test 10/30/24 07:24 Range/Units Serum Glucose 313 H 74-106 mg/dL Problem List 1) Acute on chronic respiratory failure 2) COPD exacerbation 3) Lactic acidemia Secondary Dx: 4) DM Type 2 5) HTN 6) Hx of CHF 7) HLD Assessment/Plan - Continue Tele monitoring - IV Steroids, Med Nebs, Levaquin IV daily Day 2, pulmonary on board - start Lasix 20mg IV Lasix daily, strict I/0s, - diabetic diet, ISS, ACHS - AM labs Ful Code DVT prophy; SCD's Plan discussed with: Patient TRICIA CLARKE MD Oct 30, 2024 16:20
[2024-10-30] MEDS: ATORVASTATIN 20 MG TAB PO SCH (21:51)
[2024-10-31] VITALS (11 sets, daily range): BP systolic 107–125; BP diastolic 61–88; PULSE 69–94; RESP 17–19; TEMP 96.2–98.4; O2SAT 98–100
[2024-10-31] MEDS ORDERED: BUDE1AER4 IN (06:57)
[2024-10-31] MEDS ORDERED: PRED20TA2 PO ×2 (07:05→13:36)
[2024-10-31 07:12] LABS: Basophils # (auto) 0.1 10 ^3/uL (0-0.2); Basophils % (auto) 0.8 % (0.0-2.0); Eosinophils # (auto) 0 10 ^3/uL (0-0.8); Eosinophils % (auto) 0.1 % (0.0-7.0); Hematocrit 39.5 % (36.0-46.0); Hemoglobin 13.2 g/dL (12.2-16.2); Lymphocytes # (auto) 0.6 10 ^3/uL (0.4-5.4); Lymphocytes % (auto) 3.5 % (10.0-50.0); Mean Corpuscular Hemoglobin 33.7 pg (28.0-32.0); Mean Corpuscular Hgb Conc. 33.5 g/dL (32.0-36.0); Mean Corpuscular Volume 100.4 fL (80.0-100.0); Monocytes # (auto) 0.6 10 ^3/uL (0-1.3); Monocytes % (auto) 3.7 % (0.0-12.0); Neutrophils # (auto) 14.9 10 ^3/uL (1.6-8.6); Neutrophils % (auto) 91.9 % (37.0-80.0); Nucleated Red Blood Cells % 0.3 %; Platelet Count (auto) 169 10^3/uL (140-450); Red Blood Cells 3.93 10^6/uL (4.0-5.20); White Blood Cell 16.3 10^3/uL (4.4-10.8)
[2024-10-31 07:23] LABS: Potassium 3.5 mmol/L (3.5-5.1); Sodium 141 mmol/L (136-145)
[2024-10-31 07:24] LABS: Anion Gap 9 (5-15)
[2024-10-31 07:30] LABS: BUN/Creatinine Ratio 15.4 (10.0-20.0); Blood Urea Nitrogen 12 mg/dL (9-23); Calcium 8.1 mg/dL (8.7-10.4); Carbon Dioxide 35 mmol/L (20-31); Chloride 97 mmol/L (98-107); Glucose 155 mg/dL (74-106)
--- NOTE | 2024-10-31 09:18 | DVHPN2 ---
Progress Note Date Seen: Oct 31, 2024 Medical Necessity Reason Pt with a Central, PICC or Fol: No Subjective Patient reports: Feels better Review of Systems: RESPIRATORY:Abnormal Objective vital signs Vital Sign Date Time Temp Pulse Resp B/P (MAP) Pulse Ox O2 Delivery O2 Flow Rate FiO2 10/31/24 08:57 96.2 72 17 118/83 (95) 100 96.2 10/31/24 06:59 Nasal Cannula* 3 32 Total Intake and Output 10/30/24 10/30/24 10/31/24 15:00 23:00 07:00 Intake Total 480 ml 1300 ml Output Total 200 ml 950 ml Balance 280 ml 350 ml medications Current Medications Medications Dose Ordered Sig/Randolph Route Start Time Stop Time Status Last Admin Dose Admin Nitroglycerin 0.4 mg Q5MINP PRN SL 10/29/24 15:15 Morphine Sulfate 2 mg Q30M PRN IV 10/29/24 15:15 10/30/24 06:21 2 MG Levofloxacin/ Dextrose 100 ml @ 100 mls/hr DAILY IV 10/30/24 10:00 10/30/24 10:19 100 MLS/HR Hydralazine HCl 10 mg Q6HP PRN IV 10/29/24 15:15 Dextrose 50 ml UD PRN IV 10/29/24 15:30 Albuterol 2.5 mg Q4HWA NEB 10/30/24 06:00 10/31/24 06:59 2.5 MG Ipratropium [place] 0.5 mg Q4HWA NEB 10/30/24 06:00 10/31/24 06:59 0.5 MG Carvedilol 3.125 mg Q12HR PO 10/30/24 10:00 10/30/24 21:51 3.125 MG Methylprednisolone Sodium Succinate 60 mg Q8HR IV 10/30/24 08:00 10/31/24 05:35 60 MG Diagnostic Test (Pha) 1 strip Q6HR 10/30/24 12:00 10/31/24 05:35 1 STRIP Insulin Human Regular Q6HR SC 10/30/24 12:00 10/31/24 05:49 4 UNITS Furosemide 40 mg DAILY PO 10/31/24 10:00 Atorvastatin Calcium 40 mg HS PO 10/30/24 22:00 10/30/24 21:51 40 MG Examination: LUNGS:Abnormal laboratory and microbiology Laboratory Tests 10/31/24 06:25 Test 10/31/24 06:25 Range/Units Serum Glucose 155 H 74-106 mg/dL Microbiology Date/Time Source Procedure Growth Status 10/29/24 10:27 Blood Blood Culture - Preliminary NO GROWTH AFTER 24 HOURS OF INCUBATION. Resulted Labs and/or images reviewed: Labs reviewed by me, Image(s) reviewed by me Problem List/Assessment/Plan Problem List/Assessment/Plan acute exacerbation of c o p d ,resp failure with hypoxia pt is doibg better o k to d s home pt will need to follow up with thomas guzman and me after discharge . pt will need transportation with o2 to go home rest of meds discussed with dr kulkarni to go home Plan discussed with: Patient Sepsis reassessment post fluid Respiratory Effort: Non-Labored Respiratory Pattern: Regular Heart Sounds: S1 & S2 Breath sounds: Clear, Diminished TONO CARBONE MD Oct 31, 2024 09:18
[2024-10-31] MEDS: FUROSEMIDE 40 MG TAB PO SCH (09:30)
== END 2024-10-31 14:00 | disposition home or self-care (01) | DRG 189 ==
LOC: EDUNIT# 09:52 → EDBD 09:52 → ER 09:52 → OVERFLOW 15:15 → TELE-EAST 10-30 12:36
PROVIDERS: ADMIT Internal Medicine; ATTEND Internal Medicine
DX: J96.21 Acute and chronic respiratory failure with hypoxia (principal); J44.1 Chronic obstructive pulmonary disease with (acute) exacerbation; E87.20 Acidosis, unspecified; J98.11 Atelectasis; E11.9 Type 2 diabetes mellitus without complications; E78.5 Hyperlipidemia, unspecified; J45.909 Unspecified asthma, uncomplicated; Z20.822 Contact with and (suspected) exposure to COVID-19; F17.200 Nicotine dependence, unspecified, uncomplicated; I11.0 Hypertensive heart disease with heart failure; I50.9 Heart failure, unspecified; J43.9 Emphysema, unspecified; J98.4 Other disorders of lung; Z86.73 Personal history of transient ischemic attack (TIA), and cerebral infarction without residual deficits; Z90.710 Acquired absence of both cervix and uterus; Z90.49 Acquired absence of other specified parts of digestive tract
CPT/HCPCS: 36415; 36600; 71045; 71250; 80048; 82805; 82962; 83605; 84484; 85025; 85610; 87040; 87426; 87804; 93005; 94640; 96365; 96375; 99291; 99292; G0378; J1815; J1956

== ENCOUNTER 2025-02-10 13:22 | Inpatient (IN) | payer OTHER ==
[~2025-02-10] VITALS: Ht 165.1 cm; Wt 95.0 kg
[~2025-02-10 13:22] MED LIST changes: -AZITTAB PO; +LEVO500T91 PO; -METH4PAK PO
--- NOTE | 2025-02-10 13:40 | ED.PDOC ---
HPI (NEURO) HPI Comments 64 y/o F, BIBA, with PMHx of asthma, COPD, DM, HLD, HTN, OH, and TIA presents to the ED for CC of generalized weakness. Patient states, she has been experiencing symptoms of generalized weakness, shortness of breath, and malaise [id number]. Patient denies chest pain, cough, fever, chills, nausea, vomiting, or diarrhea. No other symptoms or modifying factors are present at this time. 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 Family History Family History: No family hx of Cancer, No family hx of DM, No family hx of Heart arelis, Family hx of heart arelis Social History Smoker: Non-Smoker Alcohol: Occasionally Drugs: Marijuana Lives In: Home Constitutional: reports: weakness; denies: chills, diaphoresis, fatigue, fever, malaise, sweats, others EENTM: denies: blurred vision, double vision, ear bleeding, ear discharge, ear drainage, ear pain, ear ringing, eye pain, eye redness, hearing loss, mouth pain, mouth swelling, nasal discharge, nose bleeding, nose congestion, nose pain, photophobia, tearing, throat pain, throat swelling, voice changes, others Respiratory: reports: shortness of breath; denies: cough, hemoptysis, orthopnea, SOB at rest, SOB with excertion, stridor, wheezing, others Cardiovascular: denies: chest pain, dizzy spells, diaphoresis, Dyspnea on exertion, edema, irregular heart beat, left arm pain, lightheadedness, palpitations, PND, syncope, others Gastrointestinal: denies: abdomen distended, abdominal pain, blood streaked bowels, constipated, diarrhea, dysphagia, difficulty swallowing, hematemesis, melena, nausea, poor appetite, poor fluid intake, rectal bleeding, rectal pain, vomiting, others Genitourinary: denies: abnormal vagina bleeding, burning, dyspareunia, dysuria, flank pain, frequency, hematuria, incontinence, pain, , vagina discharge, urgency, others Neurological: denies: dizziness, fainting, headache, left sided numbness, left sided weakness, numbness, paresthesia, pre-existing deficit, right sided numbness, right sided weakness, seizure, speech problems, tingling, tremors, weakness, others Musculoskeletal: denies: back pain, gout, joint pain, joint swelling, muscle pain, muscle stiffness, neck pain, others Integumetry: denies: bruises, change in color, change in hair/nails, dryness, laceration, lesions, lumps, rash, wounds, others Allergic/Immunocompromised: denies: Difficulty Healing, Frequent Infections, Hives, Itching, others Hematologic/Lymphatic: denies: anemia, blood clots, easy bleeding, easy bruising, swollen glands, others Endocrine: denies: excessive hunger, excessive sweating, excessive thirst, excessive urination, flushing, intolerance to cold, intolerance to heat, unexplained weight gain, unexplained weight loss, others Psychiatric: denies: anxiety, bipolar disorder, depression, hopeless, panic disorder, schizophrenia, sleepless, suicidal, others All Other Systems: Reviewed and Negative Physical Exam General Appearance: No Apparent Distress, Normal HEENT: Normal ENT Inspection, Pharynx Normal Neck: Full Range of Motion, Non-Tender, Normal, Normal Inspection Respiratory: Chest Non-Tender, Lungs Clear, No Accessory Muscle Use, No Respiratory Distress, Normal Breath Sounds Cardiovascular: No Edema, No Murmur, No Gallop, Normal Peripheral Pulses, Regular Rate/Rhythm Breast Exam: Deferred Gastrointestinal: No Organomegaly, Non Tender, No Pulsatile Mass, Normal Bowel Sounds, Soft Genitalia: Deferred Pelvic: Deferred Rectal: Deferred Extremities: No calf tenderness, Normal capillary refill, Normal inspection, Normal range of motion, Non-tender, No pedal edema Musculoskeletal : Apperance: Normal 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 Was a procedure done?: No Differential Diagnosis (SZ) Seizure: Hyperventilation, Drug Ingestion, Hypocalcemia, Hypoglycemia, Hyponatremia, Hypoxemia CVA: Electrolyte Imbalance General Weakness: Anemia, Dehydration, Electrolyte imbalance, Hypoglycemia, Hypotension X-Ray, Labs, Meds, VS Vital Signs Date Time Temp Pulse Resp B/P (MAP) Pulse Ox O2 Delivery O2 Flow Rate FiO2 02/10/25 16:00 91 17 108/73 (85) 98 02/10/25 14:37 13 95 Nasal Cannula* 3 32 02/10/25 14:37 95 Nasal Cannula* 3 32 02/10/25 14:32 98 Nasal Cannula* 4 36 02/10/25 14:13 97 18 98 Nasal Cannula* 4 36 02/10/25 14:00 97.6 98 17 109/70 (83) 98 97.6 02/10/25 13:33 100 02/10/25 13:32 97.9 99 16 104/68 98 97.9 Lab Test 02/10/25 17:25 02/10/25 15:38 02/10/25 14:24 Range/Units Troponin I High Sensitivity Pending 10 11 </=34 ng/L White Blood Count 8.0 4.4-10.8 10^3/uL Red Blood Count 3.57 L 4.0-5.20 10^6/uL Hemoglobin 10.7 L 12.2-16.2 g/dL Hematocrit 32.9 L 36.0-46.0 % Mean Corpuscular Volume 92.2 80.0-100.0 fL Mean Corpuscular Hemoglobin 30.1 28.0-32.0 pg Mean Corpuscular Hemoglobin Concent 32.7 32.0-36.0 g/dL Red Cell Distribution Width 25.7 H 11.8-14.3 % Platelet Count 249 140-450 10^3/uL Mean Platelet Volume 8.4 6.9-10.8 fL Neutrophils (%) (Auto) 85.8 H 37.0-80.0 % Lymphocytes (%) (Auto) 7.4 L 10.0-50.0 % Monocytes (%) (Auto) 6.4 0.0-12.0 % Eosinophils (%) (Auto) 0.1 0.0-7.0 % Basophils (%) (Auto) 0.3 0.0-2.0 % Neutrophils # (Auto) 6.9 1.6-8.6 10 ^3/uL Lymphocytes # (Auto) 0.6 0.4-5.4 10 ^3/uL Monocytes # (Auto) 0.5 0-1.3 10 ^3/uL Eosinophils # (Auto) 0 0-0.8 10 ^3/uL Basophils # (Auto) 0 0-0.2 10 ^3/uL Nucleated Red Blood Cells 1.7 % Platelet Estimate Adequate Anisocytosis (manual) Moderate Sodium Level 126 L 136-145 mmol/L Potassium Level 2.0 *L 3.5-5.1 mmol/L Chloride Level 71 L 98-107 mmol/L Carbon Dioxide Level 37 H 20-31 mmol/L Anion Gap 18 H 5-15 Blood Urea Nitrogen 11 9-23 mg/dL Creatinine 0.78 0.550-1.02 mg/dL Glomerular Filtration Rate Calc 84 >90 mL/min BUN/Creatinine Ratio 14.1 10.0-20.0 Serum Glucose 244 H 74-106 mg/dL Calcium Level 8.5 L 8.7-10.4 mg/dL Thyroid Stimulating Hormone (TSH) 1.22 0.55-4.78 uIU/mL Current Medications Medications (Trade) Dose Ordered Sig/Randolph Route Start Time Stop Time Status Last Admin Albuterol (Ventolin Medneb) 5 mg ONCE ONCE NEB 02/10/25 14:15 02/10/25 14:16 DC 02/10/25 14:37 [place] [address] Ph: [phone] DIAGNOSTIC IMAGING Diagnostic Imaging Report : [id number] Signed PATIENT: MAYRA ESPINOZA ACCT: [id number] UNIT: [id number] : 1960 LOC: ER ROOM / BED: / AGE / SEX: 64 / F ADM STATUS: REG ER SERVICE [id number] ORDERING PHYSICIAN: DB DIAZ MD PROCEDURE(s): CXR1 - CHEST XRAY 1 VIEW REASON: sob ORDER NUMBER(s): [id number], ACCESSION NUMBER(s): [id number] EXAM: XY CHEST XRAY 1 VIEW Indication: sob Technique: Single frontal view of the chest was obtained Comparison: CT CHEST WITHOUT CONTRAST on DOS: 10/29/24, XY CHEST PORTABLE on DOS: 10/29/24, XY CHEST PORTABLE on DOS: 08/08/24, XY CHEST PORTABLE on DOS: 01/14/24, XY CHEST PORTABLE on DOS: 01/11/24 FINDINGS: Lines and Tubes: None Lungs: No focal consolidation. Pleura: No effusion. No pneumothorax. Cardiomediastinal contours: Unremarkable Bones: No acute osseous abnormality. IMPRESSION: No acute cardiopulmonary disease. ATED BY: MIGUELINA RODRIGUEZ MD DICTATED DATE/TIME: 02/10/251439 SIGNED BY: MIGUELINA RODRIGUEZ MD SIGNED DATE/TIME: 02/10/251439 CC: Time of 1ST Reevaluation: 14:15 Reevaluation 1ST: Unchanged Patient Education/Counseling: Diagnosis, Treatment Family Education/Counseling: No Family Present Comments This is an elderly female who presents with shortness of breath and weakness for two months. Patient is very feeble and soft-spoken. However she is alert oriented. She is relatively hypo intensive. She is not febrile and is not hypoxic. The workup shows that patient is hyponatremic hypokalemic with metabolic alkalosis chest x-ray does not reveal any acute findings. Patient is also mildly anemic hemoglobin at 10 patient will be given potassium magnesium replacement and normal saline to address the hyponatremia her TSH is normal patient will be admitted for further evaluation for the above condition is Additional Information Reviewed patient's previous visit(s): ADMITTED 10/29/24 DX:COPD, 08/08/24 DX:SOB, 01/11/24 DX: CHEST PAIN The following tests were ordered, and results were reviewed by me: Troponin x3, UA, thyroid stimulating, BMP, CBC, CXR Additional information was gathered from interviewing the following independent historian: EMS I reviewed and agreed with the following test results read by other provider: CXR I discussed treatments and results with medical personnel and: PATIENT Comprehensive systems review obtained and negative except for what is stated in the HPI. Departure 1 Departure Time of Disposition: 17:54 Impression: Primary Impression: Hyponatremia Additional Impressions: Hypokalemia Metabolic alkalosis Anemia Generalized weakness Failure to thrive Disposition: ADMITTED INPATIENT Admit to: [facility] Condition: Serious Discharged With: Self Critical Care Note Critical Care Time?: Yes (55 min-critical care time only) Critical care comment: due to concerns for patient's condition deteriorating, the care required my highest level of attention and readiness to intervene. i assessed the patient's condition, ordered the proper tests and treatments, reassessed for response and reviewed the results. i communicated with medical personnel and formulated a plan of care. total critical care time does not include any procedures Stability Stability form required: No Heart Score Heart Score: Heart Score Response (Comments) Value History Moderate Suspicious 1 EKG N/A 0 Age >65 2 Risk Factors >3 or Hx ASHD 2 Troponin N/A 0 Total 5 I personally scribed for DB DIAZ MD ([email or web address]) on 02/10/25 at 13:40. Electronically submitted by Taylor Hinton ([employer]). I personally scribed for DB DIAZ MD ([email or web address]) on 02/10/25 at 13:53. Electronically submitted by Taylor Hinton ([employer]). I personally scribed for DB DIAZ MD ([email or web address]) on 02/10/25 at 14:08. Electronically submitted by Taylor Hinton ([employer]). I personally scribed for DB DIAZ MD ([email or web address]) on 02/10/25 at 14:12. Elec tronically submitted by Taylor Hinton ([email or web address]). I personally scribed for DB DIAZ MD ([email or web address]) on 02/10/25 at 15:23. Electronically submitted by Taylor Hinton ([employer]). DB DIAZ MD Feb 10, 2025 13:40
--- NOTE | 2025-02-10 13:41 | ECG ---
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
[2025-02-10 14:13] VITALS: PULSE 97; RESP 18; O2SAT 98
[2025-02-10] MEDS: ALBUTEROL SULF 2.5 MG/0.5ML(0.5%) NEB SOLN NEB ONE (14:37)
--- NOTE | 2025-02-10 14:43 | DVH ---
EXAM: XY CHEST XRAY 1 VIEW Indication: sob Technique: Single frontal view of the chest was obtained Comparison: CT CHEST WITHOUT CONTRAST on DOS: 10/29/24, XY CHEST PORTABLE on DOS: 10/29/24, XY CHEST PO RTABLE on DOS: 08/08/24, XY CHEST PORTABLE on DOS: 01/14/24, XY CHEST PORTABLE on DOS: 01/11/24 FINDINGS: Lines and Tubes: None Lungs: No focal consolidation. Pleura: No effusion. No pneumothorax. Cardiomediastinal contours: Unremarkable Bones: No acute osseous abnormality. IMPRESSION: No acute cardiopulmonary disease.
[2025-02-10 14:45] LABS: Anion Gap 18 (5-15)
[2025-02-10 14:46] LABS: Hematocrit 32.9 % (36.0-46.0); Hemoglobin 10.7 g/dL (12.2-16.2); Mean Corpuscular Hemoglobin 30.1 pg (28.0-32.0); Mean Corpuscular Volume 92.2 fL (80.0-100.0); Nucleated Red Blood Cells % 1.7 %
[2025-02-10 14:50] LABS: Blood Urea Nitrogen 11 mg/dL (9-23)
[2025-02-10 14:52] LABS: Calcium 8.5 mg/dL (8.7-10.4); Carbon Dioxide 37 mmol/L (20-31); Chloride 71 mmol/L (98-107); Sodium 126 mmol/L (136-145)
[2025-02-10 14:53] LABS: Glucose 244 mg/dL (74-106)
[2025-02-10 14:55] LABS: Potassium 2.0 mmol/L (3.5-5.1)
[2025-02-10 14:56] LABS: BUN/Creatinine Ratio 14.1 (10.0-20.0)
[2025-02-10 15:09] LABS: Anisocytosis Moderate
[2025-02-10] MEDS ORDERED: POTASSIUM CHL 20 Meq TABLET PO ONE (18:00)
[2025-02-10] MEDS: MAGNESIUM SULFATE 1GM/100ML 100 ML IV ONE (18:36)
[2025-02-10] MEDS: POTASSIUM EFFERVESENT TAB 25 MEQ PO ONE (18:37)
[2025-02-10] MEDS: SODIUM CHLORIDE 0.9% 1,000 ML IV ONE ×2 (18:37→19:23)
[2025-02-10] MEDS: POTASSIUM CHL 20MEQ/100ML 100 ML IV SCH (18:37)
[2025-02-10 19:23] LABS: Base Excess 12.9 mmol/L (-2.0-3.0)
[2025-02-10 19:29] LABS: Anion Gap 28 (5-15); Carbon Dioxide 27 mmol/L (20-31)
[2025-02-10 19:30] VITALS: RESP 12; O2SAT 98
[2025-02-10 19:35] LABS: Blood Urea Nitrogen 12 mg/dL (9-23); Magnesium 2.2 mg/dL (1.6-2.6)
[2025-02-10 19:41] LABS: Calcium 8.4 mg/dL (8.7-10.4); Chloride 73 mmol/L (98-107); Glucose 249 mg/dL (74-106); Sodium 128 mmol/L (136-145)
[2025-02-10 19:47] LABS: Potassium 1.8 mmol/L (3.5-5.1)
[2025-02-10 19:48] LABS: BUN/Creatinine Ratio 15.4 (10.0-20.0)
[2025-02-10] MEDS ORDERED: LORazepam 2MG/ML-1ML VIAL IM ONE (21:45)
[2025-02-10 22:39] LABS: Urine Protein, UAD 1+ (Negative)
[2025-02-10 22:54] LABS: Anion Gap 20 (5-15)
[2025-02-10 23:01] LABS: BUN/Creatinine Ratio 10.8 (10.0-20.0)
[2025-02-10 23:02] LABS: Blood Urea Nitrogen 8 mg/dL (9-23); Calcium 8.4 mg/dL (8.7-10.4); Carbon Dioxide 35 mmol/L (20-31); Chloride 72 mmol/L (98-107); Glucose 223 mg/dL (74-106); Magnesium 2.7 mg/dL (1.6-2.6); Sodium 127 mmol/L (136-145)
[2025-02-10 23:03] LABS: Potassium 1.8 mmol/L (3.5-5.1)
[2025-02-11] MEDS: POTASSIUM CHL 20MEQ/100ML 100 ML IV ONE ×2 (00:15→06:42)
[2025-02-11] MEDS ORDERED: DEXTROSE (50%) 50ML SYRG IV PRN (00:15)
[2025-02-11] MEDS: POTASSIUM CHL 20 Meq TABLET PO ONE ×2 (00:15→06:42)
--- NOTE | 2025-02-11 01:45 | DVH ---
EXAM: CT HEAD WITHOUT CONTRAST INDICATION: altered mental status TECHNIQUE: CT of the head without intravenous contrast. Radiation Dose : 1. Head: CT Dose: CTDI volume is 56 mGy. Dose-length product is 783 mGy*cm The dose indicators for CT are the volume Computed Tomography (CT) Dose Index (CTDIvol) and the Dose Length Product (DLP), and are measured in units of mGy and mGy-cm, respectively. These indicators are not patient dose, but values generated from the CT scanner acquisition factors. The report includes radiation exposure data for exposures received during this examination. COMPARISON: None FINDINGS: Brain: No acute hemorrhage, mass effect, or cerebral edema. Senescent basal ganglia calcifications. CSF Spaces: Size and morphology within normal limits. Bones/Soft Tissues: No acute findings. Orbits/Sinuses/Mastoids: Unremarkable as visualized. IMPRESSION: 1. No acute intracranial abnormality. Radiation optimization: All CT scans at this facility use at least one of these dose optimization efrain hniques: automated exposure control mA and/or kV adjustment per patient size (includes targeted exam s where dose is matched to clinical indication) or iterative reconstruction.
[2025-02-11 05:32] LABS: Hematocrit 31.1 % (36.0-46.0); Hemoglobin 10.2 g/dL (12.2-16.2); Mean Corpuscular Hemoglobin 30.8 pg (28.0-32.0); Mean Corpuscular Volume 94.0 fL (80.0-100.0)
[2025-02-11] MEDS: ACCU-CHEK COMFORT CURVE STRIP VI SCH (05:55)
[2025-02-11] MEDS: InsuLIN REG 1unit/0.01ml Soln (100units/ml) SC SCH (05:58)
[2025-02-11 06:18] LABS: Chloride 76 mmol/L (98-107); Potassium 2.8 mmol/L (3.5-5.1); Sodium 128 mmol/L (136-145)
[2025-02-11 06:19] LABS: Anion Gap 19 (5-15); Calcium 7.7 mg/dL (8.7-10.4); Carbon Dioxide 33 mmol/L (20-31)
[2025-02-11 06:24] LABS: Blood Urea Nitrogen 11 mg/dL (9-23)
[2025-02-11 06:25] LABS: BUN/Creatinine Ratio 17.7 (10.0-20.0); Glucose 185 mg/dL (74-106)
[2025-02-11] MEDS: POTASSIUM EFFERVESENT TAB 25 MEQ PO ONE (06:49)
[2025-02-11 07:00] LABS: Total Cells Counted 100.0 (100)
[2025-02-11] MEDS ORDERED: NITROGLYCERIN 0.4 MG SL TAB SL PRN (07:00)
[2025-02-11] MEDS ORDERED: POTASSIUM CHLORIDE 20 MEQ in SODIUM CHLORIDE 0.9% 1,000 ML IV SCH (07:00)
[2025-02-11] MEDS ORDERED: MORPHINE SULFATE INJ 2 MG/ml SYRG IV PRN (07:00)
[2025-02-11] MEDS ORDERED: ONDANSETRON HCL 4 MG/2 ML VIAL IV PRN (07:00)
[2025-02-11 07:01] LABS: Anisocytosis Moderate
[2025-02-11 07:30] VITALS: PULSE 96; RESP 16; O2SAT 97
[2025-02-11 08:00] VITALS: BP 105/72; PULSE 99; RESP 20; TEMP 98.1; O2SAT 98
[2025-02-11] MEDS ORDERED: POTASSIUM CHL 20 MEQ/100 ML IV ONE (08:00)
[2025-02-11] MEDS ORDERED: SOD CHL 0.9%/ KCL 20MEQ 1,000 ML IV SCH (08:15)
[2025-02-11 08:26] LABS: Anion Gap 19 (5-15)
[2025-02-11 08:32] LABS: Blood Urea Nitrogen 11 mg/dL (9-23)
[2025-02-11 08:42] LABS: BUN/Creatinine Ratio 15.7 (10.0-20.0); Calcium 8.0 mg/dL (8.7-10.4); Carbon Dioxide 35 mmol/L (20-31); Chloride 76 mmol/L (98-107); Glucose 162 mg/dL (74-106); Sodium 130 mmol/L (136-145)
[2025-02-11 08:44] LABS: Potassium 2.3 mmol/L (3.5-5.1)
--- NOTE | 2025-02-11 12:06 | DVHCONRES ---
Date Seen: Feb 11, 2025 Resident Creating Document: MARQUITA MACIEL RESIDENT Referring Physician NARCISO SUE MD Reason for Consultation Mixed acid-base disorder and hypokalemia History of Present Illness 64 y/o F, BIBA, with PMHx of asthma, COPD, DM, HLD, HTN, OR, and TIA presents to the ED for CC of generalized weakness. Patient states, she has been experiencing symptoms of generalized weakness, shortness of breath, and malaise [id number]. Patient denies chest pain, cough, fever, chills, nausea, vomiting, or diarrhea. No other symptoms or modifying factors are present at this time. Patient was seen and examined on the bedside. She is alert oriented x3. Complain of generalized weakness and shortness of breath. No other active complaint this time. Past Medical History Bronchial asthma, COPD, CVA, DM, HLD, HTN, OR, and TIA Past Surgical History Unknown Family History: Patient reports no known family medical history. Allergies: Coded Allergies: Penicillins (Verified Allergy, Unknown, 03/18/21) Home Meds Active Scripts Prednisone (Prednisone) 20 Mg Tab, 20 MG PO DAILY for 10 Days, #15 MG Take 2 tabs daily for 5 days, than 1 tab daily for 5 days Prov:TRICIA CLARKE MD 10/31/24 Budesonide-Formoterol Fumarate (Budesonide/Formoterol Fum 160-4.5 Mcg/Act) 1 Aer Aer, 1 AER IN BID for 30 Days, #1 AER 2 Refills Prov:TRICIA CLARKE MD 10/31/24 Levofloxacin Hemihydrate (LEVAQUIN 500 MG) 500 Mg Tab, 1 TAB PO DAILY, #10 TAB Prov:BENNIE YE MD 10/29/24 Ipratropium-Albuterol (Ipratropium [place]/Albut) 1 Calista Calista, 1 VIAL IN QID for 7 Days, #30 VIAL 1 Refill Prov:ARCHANA DONG DO 08/08/24 Benzonatate (Benzonatate) 100 Mg Cap, 1 CAP PO TID PRN for 30 Days, #30 CAP 0 Refills For cough as needed. Prov:ARCHANA DONG DO 01/15/24 Metformin Hydrochloride (Metformin Hcl) 1,000 Mg Tab, 1 TAB PO BID, #60 TAB 1 Refill Prov:ARCHANA DONG DO 01/15/24 Reported Medications Albuterol Sulfate (Albuterol Sulfate Hfa) 108 Mcg/Act Aer, 1 PUFF PO PRN 10/20/22 Pravastatin Sodium (PRAVACHOL TABLET) 20 Mg Tb, 40 MG PO HS 10/20/22 Budesonide-Formoterol Fumarate (Budesonide/Formoterol Fum 160-4.5 Mcg/Act) 1 Aer Aer, 1 AER IN 03/19/21 Carvedilol (Coreg) 3.125 Mg Tab, 1 TAB PO BID 03/19/21 Current Medications Current Medications Medications (Trade) Dose Ordered Sig/Randolph Route PRN Reason Start Time Stop Time Status Last Admin Potassium Chloride 100 ml @ 50 mls/hr Q2H IV 02/10/25 18:00 02/10/25 21:59 DC 02/10/25 23:44 Diagnostic Test (Pha) (Accu-Chek Comfort Curve T) 1 strip Q6HR 02/11/25 06:00 02/11/25 05:55 Insulin Human Regular (InsuLIN R) Q6HR SC 02/11/25 06:00 02/11/25 05:58 Dextrose 50 ml UD PRN IV Blood Sugar LESS THAN 60 02/11/25 00:15 Potassium Chloride 20 meq/ Sodium Chloride 1,010 ml @ 150 mls/hr Q6H44M IV 02/11/25 07:00 02/11/25 08:11 DC Ondansetron HCl (Zofran) 4 mg Q4HPRN PRN IV NAUSEA / VOMITING 02/11/25 07:00 Levofloxacin/ Dextrose 100 ml @ 100 mls/hr DAILY IV 02/11/25 10:00 Albuterol (Ventolin Medneb) 2.5 mg Q6HPRN PRN NEB SHORTNESS OF BREATH 02/11/25 07:00 Nitroglycerin (Ntrostat Sublingual) 0.4 mg Q5MINP PRN SL FOR CHEST PAIN 02/11/25 07:00 Morphine Sulfate 2 mg Q30M PRN IV FOR CHEST PAIN 02/11/25 07:00 Enoxaparin Sodium (Lovenox) 40 mg DAILY SC 02/11/25 10:00 Potassium Chloride/Sodium Chloride 1,000 ml @ 150 mls/hr Q6H40M IV 02/11/25 08:15 02/11/25 10:02 DC Potassium Chloride/Sodium Chloride 1,000 ml @ 100 mls/hr Q10H IV 02/11/25 10:00 Potassium Bicarbonate (Klor-Con/Ef) 50 meq Q4HR PO 02/11/25 10:00 02/11/25 18:01 Review of Systems Constitutional: Weakness, Malaise, No: Fever, Chills, Sweats, Other Eyes: No: Pain, Vision change, Conjunctivae inflammation, Eyelid inflammation, Other, Redness ENT: No: Ear pain, Ear discharge, Nose pain, Nose discharge, Nose congestion, Mouth pain, Mouth swelling, Throat pain, Throat swelling, Other Respiratory: Shortness of breath, improving No: Cough, Dry,Wheezing, Hemoptysis, Pleuritic Pain, Sputum, Wheezing, Other Cardiovascular: No: Chest Pain, Palpitations, Orthopnea, Paroxysmal Noc. Dyspnea, Edema, Lt Headedness, Other Gastrointestinal: No: Nausea, Vomiting, Abdominal Pain, Diarrhea, Constipation, Melena, Hematochezia, Other Musculoskeletal: No: other, neck pain, shoulder pain, arm pain, back pain, hand pain, leg pain, foot pain Neurological:; No: Weakness, Numbness, Incoordination, Change in speech, Confusion, Seizures Vital Signs Vital Signs Date Time Temp Pulse Resp B/P (MAP) Pulse Ox O2 Delivery O2 Flow Rate FiO2 02/11/25 08:00 98 Nasal Cannula 3.0 02/11/25 08:00 98 02/11/25 08:00 98.1 20 105/72 98.1 02/11/25 08:00 32 Physical Exam Physical examination: General Appearance: Alert, Oriented X3, Cooperative, No acute distress HEENT: Atraumatic, PERRLA, EOMI, Mucous membrane dry Respiratory: Clear to auscultation, Normal air movement Cardiovascular: Regular rate, Normal S1, Normal S2, No murmurs, no chest wall tenderness Abdominal: Normal bowel sounds, Soft, No tenderness, No hepatospenomegaly, No masses Extremities: No clubbing, No cyanosis, No edema, Normal pulses, No tenderness/swelling Skin: No rashes, No breakdown, No significant lesion Neuro: Normal speech, Strength at 5/5 X4 ext, Normal tone, Sensation intact, Cranial nerves 3-12 NL, Reflexes 2+ Psych/Mental Status: Mental status NL, Mood NL Labs/Diagnostic Data Labs Test 02/11/25 11:20 02/11/25 08:05 02/11/25 04:30 02/11/25 01:43 Range/Units Sodium Level 130 L 136-145 mmol/L Potassium Level 2.3 *L 3.5-5.1 mmol/L Chloride Level 76 L 98-107 mmol/L Carbon Dioxide Level 35 H 20-31 mmol/L Anion Gap 19 H 5-15 Blood Urea Nitrogen 11 9-23 mg/dL Creatinine 0.70 0.550-1.02 mg/dL Glomerular Filtration Rate Calc 95 >90 mL/min BUN/Creatinine Ratio 15.7 10.0-20.0 Serum Glucose 162 H 74-106 mg/dL Calcium Level 8.0 L 8.7-10.4 mg/dL Phosphorus Level 0.9 L 2.4-5.1 mg/dL Parathyroid Hormone (Intact) 218.7 H 18.4-80.1 pg/mL White Blood Count 9.7 4.4-10.8 10^3/uL Red Blood Count 3.30 L 4.0-5.20 10^6/uL Hemoglobin 10.2 L 12.2-16.2 g/dL Hematocrit 31.1 L 36.0-46.0 % Mean Corpuscular Volume 94.0 80.0-100.0 fL Mean Corpuscular Hemoglobin 30.8 28.0-32.0 pg Mean Corpuscular Hemoglobin Concent 32.8 32.0-36.0 g/dL Red Cell Distribution Width 26.0 H 11.8-14.3 % Platelet Count 231 140-450 10^3/uL Mean Platelet Volume 8.0 6.9-10.8 fL Neutrophils (%) (Auto) 37.0-80.0 % Lymphocytes (%) (Auto) 10.0-50.0 % Monocytes (%) (Auto) 0.0-12.0 % Basophils (%) (Auto) 0.0-2.0 % Neutrophils # (Auto) 1.6-8.6 10 ^3/uL Lymphocytes # (Auto) 0.4-5.4 10 ^3/uL Monocytes # (Auto) 0-1.3 10 ^3/uL Differential Total Cells Counted 100.0 100 Neutrophils % (Manual) 90 H 37.0-80.0 Band Neutrophils % (Manual) 1 Lymphocytes % (Manual) 7 L 10.0-50.0 Monocytes % (Manual) 2 0-12 Eosinophils % (Manual) 0 0-7 Basophils % (Manual) 0 0.0-2.0 Metamyelocytes % (manual) 0 Myelocytes % (Manual) 0 Promyelocytes % (Manual) 0 Blast Cells % (Manual) 0 Reactive Lymphocytes 0 Platelet Estimate Adequate Anisocytosis (manual) Moderate Target Cells Few Beta-Hydroxybutyric Acid 0.562 H < 0.4 mmol/L Test 02/10/25 22:10 02/10/25 21:42 02/10/25 19:12 02/10/25 17:25 Range/Units Magnesium Level 2.7 H 1.6-2.6 mg/dL Urine Color Cecil H Yellow Urine Clarity Hazy H Clear Urine pH 6.0 5.0-9.0 Urine Specific [place] 1.017 1.001-1.035 Urine Protein 1+ H Negative Urine Ketones Trace H Negative Urine Blood 1+ H Negative /uL Urine Nitrite Negative Negative Urine Bilirubin 1+ H Negative Urine Urobilinogen 2+ Negative mg/dL Urine Leukocyte Esterase 3+ Negative /uL Urine RBC 4 0 - 4 /hpf Urine Microscopic WBC 500 H 0-5 /HPF Urine Squamous Epithelial Cells Many <5 /hpf Urine Amorphous Sediment Many /hpf Urine Bacteria Mod H None Seen /hpf Urine Glucose 1+ H Normal mg/dL Blood Gas Specimen Type Arterial Blood Gas Sample Site Left radial Blood Gas Patient Temperature 37.0 Arterial Blood Date Drawn [id number] Arterial Blood pH 7.592 *H 7.350-7.450 Arterial Blood Partial Pressure CO2 37.7 32.0-45.0 mmHg Arterial Blood Partial Pressure O2 78.1 L 83.0-108.0 mmHg Arterial Blood HCO3 35.5 H 21.0-28.0 mmol/L Arterial Blood Oxygen Saturation 95.7 94.0-98.0 % Arterial Blood Base Excess 12.9 H -2.0-3.0 mmol/L Arterial Blood Oxyhemoglobin 94.1 94.0-98.0 % Arterial Blood Carboxyhemoglobin 1.1 0.5-1.5 % Arterial Blood Methemoglobin 0.6 0.0-1.5 % Marcos Test Yes Blood Gas Total Hemoglobin 11.00 L 12.0-16.0 g/dL Blood Gas Liter Flow 3.00 Blood Gas Modality Nasal cannula Blood Gas Spontaneous Rate 18 FiO2 % 32.0 Specimen Drawn By Rigoberto rios rt Blood Gas Critical Value Read Back Yes Blood Gas Notified Whom amalia Floyd Blood Gas Notified Time [id number] Blood Gas Notified By Rigoberto rios rt Troponin I High Sensitivity 10 </=34 ng/L Test 02/10/25 14:24 Range/Units Eosinophils (%) (Auto) 0.1 0.0-7.0 % Eosinophils # (Auto) 0 0-0.8 10 ^3/uL Basophils # (Auto) 0 0-0.2 10 ^3/uL Nucleated Red Blood Cells 1.7 % Thyroid Stimulating Hormone (TSH) 1.22 0.55-4.78 uIU/mL Assessment Assessment and plan: # Severe hypokalemia in the state of metabolic alkalosis likely secondary to diuretic overuse # Severe hypophosphatemia # Hyponatremia # metabolic alkalosis # Type 2 diabetes mellitus with hemoglobin A1c 6.7 # Acute complicated cystitis # Hyperparathyroidism likely secondary to vitamin-D deficiency Plan: - Consistent carbohydrate diet - IV NS with 40 mEq potassium at 100 mL/hours - potassium 50 mEq p.o. q.4 hours for 3 doses - potassium phosphate 44 mEq IV piggyback over 8 hours - vitamin-D 85350 units Q 7D. - Mild insulin sliding scale - continue IV antibiotic and other management as per primary - strict I&O - monitor BMP Check kidney ultrasound rule out nephrolithiasis Patient seen and examined by myself in rounds with the medicine resident. I agree with her assessment and plan Total care time 45 minutes Thank you so much for the opportunity to consult on your patient. Nephro team will follow the patient. In case of any questions or concerns please feel free to reach out. Plan discussed with Dr. Barlow . The patient and caregiver team agreed to the plan. Plan discussed with: Patient, Other (RN) MARQUITA MACIEL RESIDENT Feb 11, 2025 12:06 TERRY BARLOW MD Feb 11, 2025 17:00
[2025-02-11] MEDS: ALBUTEROL SULF 2.5 MG/0.5ML(0.5%) NEB SOLN NEB PRN (12:18)
[2025-02-11] MEDS: SOD CHL 0.9%/ KCL 40MEQ 1,000 ML IV SCH (15:35)
[2025-02-11] MEDS: POTASSIUM EFFERVESENT TAB 25 MEQ PO SCH ×2 (15:36→22:31)
[2025-02-11] MEDS: ERGOCALCIFEROL 50,000 UNIT(1.25MG) CAP PO SCH (15:36)
[2025-02-11] MEDS: ENOXAPARIN SOD 40 MG/0.4 ML SYRINGE SC SCH (15:36)
[2025-02-11] MEDS: POTASSIUM PHOSPHATE 44 MEQ in D5W 5% 250 ML IV ONE (17:00)
--- NOTE | 2025-02-11 17:46 | DVH ---
US KIDNEY HISTORY: UTI COMPARISON: None TECHNIQUE: Sonographic grayscale and color doppler evaluation of the kidneys and urinary bladder was performed. FINDINGS: RIGHT: 9.6 cm. Normal cortical echogenicity and normal contour. No hydronephrosis. No focal renal mas s lesion or shadowing stone LEFT: 10.8 cm. Normal cortical echogenicity and normal contour. No hydronephrosis. No focal renal mas s lesion or shadowing stone BLADDER: The urinary bladder is well distended and appears unremarkable. OTHER: None IMPRESSION: 1. Unremarkable retroperitoneal ultrasound without evidence for hydronephrosis.
[2025-02-11 18:55] LABS: Anion Gap 19 (5-15)
[2025-02-11 19:00] LABS: BUN/Creatinine Ratio 11.1 (10.0-20.0)
[2025-02-11 19:02] LABS: Blood Urea Nitrogen 8 mg/dL (9-23); Calcium 7.7 mg/dL (8.7-10.4); Carbon Dioxide 34 mmol/L (20-31); Chloride 76 mmol/L (98-107); Glucose 169 mg/dL (74-106); Potassium 2.6 mmol/L (3.5-5.1); Sodium 129 mmol/L (136-145)
[2025-02-11 21:20] VITALS: PULSE 113; RESP 25; O2SAT 98
[2025-02-11 21:22] VITALS: PULSE 140; RESP 26; O2SAT 99
[2025-02-11] MEDS: ALPRAZolam 0.5 MG TAB PO ONE (21:37)
[2025-02-11] MEDS: ALPRAZolam 0.5 MG TAB ONE (21:38)
[2025-02-11 23:23] VITALS: BP 155/129; PULSE 113; RESP 19; TEMP 97.9; O2SAT 97
[2025-02-12] VITALS (21 sets, daily range): BP systolic 79–122; BP diastolic 51–90; PULSE 58–138; RESP 18–24; TEMP 95.7–97.8; O2SAT 92–100
[2025-02-12 00:12] LABS: Anion Gap 22 (5-15); Carbon Dioxide 30 mmol/L (20-31)
[2025-02-12 00:16] LABS: Calcium 7.5 mg/dL (8.7-10.4); Chloride 77 mmol/L (98-107); Potassium 3.4 mmol/L (3.5-5.1); Sodium 129 mmol/L (136-145)
[2025-02-12 00:17] LABS: Blood Urea Nitrogen 10 mg/dL (9-23)
[2025-02-12 00:18] LABS: Glucose 193 mg/dL (74-106)
[2025-02-12 00:34] LABS: BUN/Creatinine Ratio 11.9 (10.0-20.0)
--- NOTE | 2025-02-12 06:17 | DVHHP ---
ADMIT DATE: 02/11/2025 CHIEF COMPLAINT: Coming in for dry eyes, weakness. HISTORY OF PRESENT ILLNESS: This is a 64-year-old female with a significant past medical history for diabetes mellitus type 2, COPD, and chronic respiratory failure, on 3-4 liters of nasal cannula oxygen at home continuously. She presents to the Emergency Room with dry eyes, weakness x 2 months. The patient apparently has been having a poor appetite at home and reduced oral intake due to feeling nausea and vomiting symptoms at home. She denies any fevers or chills or any diarrhea or constipation. She has not had any bloody or tarry stools or hematemesis. She denies any symptoms of palpitations or dizziness. She denies any upper respiratory symptoms such as congestion, cough or phlegm. The patient otherwise also denies any chest pain symptoms. She does take a diuretic at home, but she is unable to tell me why she is taking it. She is only alert to self currently, but is able to give a fairly decent history. The patient does not remember the month or year, but can give me a fairly decent history of what has led to all her symptoms up to this point. The patient is able to follow all commands and is currently in no form of respiratory distress. PAST MEDICAL HISTORY: Diabetes mellitus type 2, COPD and chronic respiratory failure. PAST SURGICAL HISTORY: Hysterectomy. SOCIAL HISTORY: She says she is a former smoker, quit about one year ago. No alcohol. No illicit drugs. MEDICATIONS AT HOME: Per medical reconciliation. MEDICATION ALLERGIES: PENICILLIN. REVIEW OF SYSTEMS: A 10-point review of systems was covered with the patient and was negative with exception to what was present in the history of present illness. PHYSICAL EXAMINATION: VITAL SIGNS: Temperature 98.1, pulse rate of 97, respiratory rate of 20, blood pressure 111/65, pulse ox is about 97% on 3 liters nasal cannula. GENERAL: Seems to be alert at times to self, place and situation, but not to month or year, in no acute distress female, looking fatigued, lying in bed. HEENT: Normocephalic, atraumatic. Extraocular muscles were intact. Pupils were equally round and reactive to light and accommodation. Mucous membranes were significantly dry. CARDIOVASCULAR: S1 and S2 positive. Regular rate and rhythm. No rubs, gallops or murmurs. LUNGS: Seems to be clear to auscultation bilaterally. No wheeze, rhonchi or rales. ABDOMEN: Seems to be soft, nontender and nondistended. Positive bowel sounds. No guarding or rebound. LOWER EXTREMITIES: No lower extremity edema, clubbing or cyanosis. NEUROLOGIC: No focal deficits on examination. Cranial nerves testing, 2-12 overall seems to be intact. SKIN: Increased skin turgor pressure. LABORATORY WORKUP: Showed a white count of 8, H and H of 10.7 and 32.9, platelet count of 249,000. Sodium of 126, potassium of 2.0, chloride of 71, carbon dioxide of 37, anion gap of 18, BUN of 11, creatinine of 0.78, glucose of 244, calcium of 8.5, magnesium of 2.2, troponins of 11, 10 and 10, beta-hydroxybutyric acid 0.562 and a TSH of 1.22. Urinalysis was positive for ketones trace, negative nitrites, 3+ leukocyte esterase, 500 wbc's, bacteria was moderate. Blood gas showed a pH of 7.592, pCO2 of 37.7, pO2 of 78.1, bicarbonate of 35.5, O2 saturation of 95.7, on 3 liters nasal cannula oxygen. IMAGING STUDIES: Head CT showed no acute intracranial abnormality. Chest x-ray showed no acute cardiopulmonary disease. DIAGNOSTIC STUDY: EKG showed sinus tachycardia, ventricular rate of 100, QTc of [address]-T wave changes. DIAGNOSES: * Generalized weakness. * Altered mental status secondary to metabolic encephalopathy. * Mixed anion gap acidosis with metabolic alkalosis. * Uncomplicated urinary tract infection. * Hypokalemia. * Acute hyponatremia. * Prolonged QTc of 540. SECONDARY DIAGNOSES: * Diabetes mellitus type 2. * Chronic obstructive pulmonary disease. PLAN: The patient will be admitted to the medical telemetry floor under observation status. Consultation with Nephrology has been requested. The patient has received aggressive IV fluids and potassium repletion in the ED with 190 mEq of IV and oral potassium combined. The patient's potassium has improved to 2.8. The patient also was found to have an underlying UTI and was initiated on Levaquin. The patient does seem to have underlying anion gap acidosis possibly due to starvation and possibly due to a mild component of diabetic ketoacidosis, given that the patient does have a positive beta-hydroxybutyric acid in combination to her metabolic alkalosis, which is likely induced by her nausea and vomiting at home in combination to her diuretic use. The patient's diuretics have been held at this point in time. The patient will be continued on normal saline, IV fluids at 150 mL/hour with 20 mEq of potassium. An additional 40 p.o. potassium will be given this morning in addition to another 20 IV potassium over 2 hours. The patient is to have chemistry panels to be completed every 6 hours at this time. Again, we will await further recommendations by Nephrology who has also been consulted on this case. The patient has been initiated on diabetic diet, Accu-Cheks every 6 hours with a low-dose insulin, sliding scale insulin. The patient was also given Levaquin in the ED and will be initiated on Levaquin 500 IV daily for underlying urinary tract infection. Urine cultures have been ordered for the patient. The patient otherwise is to have daily CBC panels, the patient is a full code, Lovenox 40 mg subcutaneous daily for DVT prophylaxis, Zofran 4 mg IV p.r.n. every 6 hours for nausea and vomiting symptoms. Further recommendations will depend on the patient's hospital progression. Toni Mar MD LM/KLAUDIA/CULLEN TID: [id number] RECEIPT: [id number] MTDChapincito
[2025-02-12 06:52] LABS: Hematocrit 31.3 % (36.0-46.0); Hemoglobin 10.3 g/dL (12.2-16.2); Mean Corpuscular Hemoglobin 30.6 pg (28.0-32.0); Mean Corpuscular Volume 92.9 fL (80.0-100.0)
[2025-02-12 07:24] LABS: Albumin 3.3 g/dL (3.2-4.8); Anion Gap 17 (5-15); Potassium 3.9 mmol/L (3.5-5.1)
[2025-02-12 07:26] LABS: Alanine Aminotransferase 117 U/L (7-40); Alkaline Phosphatase 131 U/L (46-116); Bilirubin, Total 13.3 mg/dL (0.2-1.0); Blood Urea Nitrogen 8 mg/dL (9-23); Calcium 7.7 mg/dL (8.7-10.4); Carbon Dioxide 31 mmol/L (20-31); Chloride 81 mmol/L (98-107); Glucose 204 mg/dL (74-106); Sodium 129 mmol/L (136-145)
[2025-02-12 07:28] LABS: BUN/Creatinine Ratio 13.1 (10.0-20.0)
[2025-02-12 07:32] LABS: Total Protein 6.9 g/dL (5.7-8.2)
--- NOTE | 2025-02-12 09:17 | DVH ---
CLINICAL INFORMATION: Biliary obstruction. TECHNIQUE: Axial CT images of the abdomen and pelvis were obtained without IV contrast. Coronal and s agittal reformatted images were obtained, reviewed, and stored. Evaluation of the parenchymal organs is limited without IV contrast. Evaluation of the bowel and mesentery is limited without oral contras t. All CT scans at this medical facility are performed using dose modulation techniques as appropriat e to a performed exam including the following: Automated exposure control was utilized; adjustment of the MA and/or KV according to patient size; and use of iterative reconstruction technique. CTDIvol = 16.72 mGy DLP = 787.71 mGy-cm COMPARISON: None FINDINGS: Lung bases: Lung bases are clear. Liver: Marked hepatic steatosis. Biliary: Increased density within the gallbladder, may be due to sludge. No biliary ductal dilatation . Spleen: Unremarkable. Pancreas: Grossly unremarkable in its noncontrast enhanced appearance. Adrenal glands: Left adrenal nodule measures up to 1.5 cm with indeterminate density. Kidneys: No hydronephrosis. No renal or ureteral calculi. Aorta/Vascular: Moderate atherosclerotic calcification. No abdominal aortic aneurysm. Lymph nodes: No mass or lymphadenopathy. Bowel/mesentery: Nonspecific non dilated fluid-filled small bowel loops. No small bowel obstruction. Appendix is visualized and appears unremarkable. Pelvic organs: Uterus is anteverted. Endometrium appears prominent for age, measuring up to 1.3 cm, although not optimally evaluated on CT. Bladder: Moderately distended bladder. Abdominal wall: No mass or hernia. Bones: No acute fracture or suspicious intraosseous lesion. IMPRESSION: 1. Marked hepatic steatosis. 2. Increased density in the gallbladder, possible sludge. Correlate with clinical findings. If clin ically indicated, ultrasound could be obtained to further evaluate. No biliary ductal dilatation visu alized. 3. Indeterminate left adrenal nodule. MRI adrenal mass protocol could be considered to further charac terize. 4. Nonspecific nondilated fluid-filled small bowel loops. Findings may be seen with ileus or enteriti s in the appropriate clinical setting. No small bowel obstruction. 5. Endometrium appears thickened for age. Correlate with clinical findings. Ultrasound could be obta ined to further characterize if clinically indicated.
[2025-02-12 09:22] LABS: Anisocytosis Moderate; Total Cells Counted 100.0 (100)
[2025-02-12 09:23] LABS: Stomatocytes Moderate
--- NOTE | 2025-02-12 10:23 | DVH ---
INDICATION: cholecystitis TECHNIQUE: Multiple real-time sonographic images were obtained of the right upper quadrant. COMPARISON: None FINDINGS: Liver is mildly enlarged measuring 16.2 cm with moderate diffuse fatty infiltration. Tiny cyst within the left lobe measuring 1.2 cm. CBD not well seen due to overlying bowel gas. The gallbladder is without evidence of stone or sludge. The gallbladder wall measures 0.2 mm and is within normal limits. Patient did not wish to continue with the examination therefore the right kidney was not well assesse d. Pancreas poorly visualized due to overlying bowel gas. IMPRESSION: No sonographic evidence of gallstones or acute cholecystitis. Mild hepatomegaly and moderate diffuse fatty infiltration of the liver.
--- NOTE | 2025-02-12 10:43 | DVHPN2 ---
Progress Note Date Seen: Feb 12, 2025 Resident Creating Document: MARQUITA MACIEL RESIDENT Medical Necessity Reason Pt with a Central, PICC or Fol: No Subjective Review of Systems Patient was seen and examined on the bedside. She is alert oriented x3. Complain of generalized weakness, dry mouth and shortness of breath. No other active complaint this time. Other Systems: Patient seen and examined by myself today with the medicine resident, I agree with her assessment and plan Objective vital signs Vital Sign Date Time Temp Pulse Resp B/P (MAP) Pulse Ox O2 Delivery O2 Flow Rate FiO2 02/12/25 09:37 97.8 97 19 102/66 (78) 93 97.8 02/12/25 09:30 Nasal Cannula* 4 36 Total Intake and Output 02/11/25 02/11/25 02/12/25 15:00 23:00 07:00 Intake Total 500 ml 400 ml Balance 500 ml 400 ml medications Current Medications Medications Dose Ordered Sig/Randolph Route Start Time Stop Time Status Last Admin Dose Admin Diagnostic Test (Pha) 1 strip Q6HR 02/11/25 06:00 02/12/25 05:59 1 STRIP Insulin Human Regular Q6HR SC 02/11/25 06:00 02/12/25 06:00 4 UNITS Dextrose 50 ml UD PRN IV 02/11/25 00:15 Ondansetron HCl 4 mg Q4HPRN PRN IV 02/11/25 07:00 Levofloxacin/ Dextrose 100 ml @ 100 mls/hr DAILY IV 02/11/25 10:00 02/12/25 09:44 100 MLS/HR Albuterol 2.5 mg Q6HPRN PRN NEB 02/11/25 07:00 02/11/25 21:41 2.5 MG Nitroglycerin 0.4 mg Q5MINP PRN SL 02/11/25 07:00 Morphine Sulfate 2 mg Q30M PRN IV 02/11/25 07:00 Enoxaparin Sodium 40 mg DAILY SC 02/11/25 10:00 02/12/25 09:44 40 MG Potassium Chloride/Sodium Chloride 1,000 ml @ 100 mls/hr Q10H IV 02/11/25 10:00 02/12/25 02:00 100 MLS/HR Ergocalciferol 50,000 unit Q7D PO 02/11/25 14:15 10/8/25 15:36 50,000 UNIT Metronidazole 100 ml @ 100 mls/hr Q8HR IV 02/12/25 08:30 Examination Physical examination: General Appearance: Alert, Oriented X3, Cooperative, No acute distress HEENT: Atraumatic, PERRLA, EOMI, Mucous membrane dry Respiratory: Clear to auscultation, Normal air movement Cardiovascular: Regular rate, Normal S1, Normal S2, No murmurs, no chest wall tenderness Abdominal: Normal bowel sounds, Soft, No tenderness, No hepatospenomegaly, No masses Extremities: No clubbing, No cyanosis, No edema, Normal pulses, No tenderness/swelling Skin: No rashes, No breakdown, No significant lesion Neuro: Normal speech, Strength at 5/5 X4 ext, Normal tone, Sensation intact, Cranial nerves 3-12 NL, Reflexes 2+ Psych/Mental Status: Mental status NL, Mood NL Examination: LUNGS:Normal, CVS:Normal, MSK:Normal laboratory and microbiology Laboratory Tests 02/12/25 06:21 Test 02/12/25 06:21 Range/Units Serum Glucose 204 H 74-106 mg/dL Microbiology Date/Time Source Procedure Growth Status 02/10/25 21:42 Voided Urine Urine Culture - Preliminary Resulted Labs and/or images reviewed: Labs reviewed by me, Image(s) reviewed by me Problem List/Assessment/Plan Problem List/Assessment/Plan Assessment and plan: # Severe hypokalemia in the state of metabolic alkalosis likely secondary to diuretic overuse resolved # Severe hypophosphatemia # Hyponatremia # metabolic alkalosis # Type 2 diabetes mellitus with hemoglobin A1c 6.7 # Acute complicated cystitis # Hyperparathyroidism likely secondary to vitamin-D deficiency # Hyperbilirubinemia with transaminitis # Left adrenal nodule Plan: - Consistent carbohydrate diet - IV NS with 40 mEq potassium at 100 mL/hours - potassium phosphate 44 mEq IV piggyback over 8 hours - vitamin-D 52703 units Q 7D. - check renin aldosterone level - Mild insulin sliding scale - Kidney ultrasound revealed normal study, ruled out nephrolithiasis. - continue IV antibiotic and other management as per primary - strict I&O - monitor BMP Total care time 25 minutes Thank you so much for the opportunity to consult on your patient. Nephro team will follow the patient. In case of any questions or concerns please feel free to reach out. Plan discussed with Dr. Evans . The patient and caregiver team agreed to the plan. Plan discussed with: Patient, Other (RN) My Orders My Orders Orders - MARQUITA MACIEL Procedure Category Date Status Time Ergocalciferol PHA 02/11/25 In Process (Vitamin D 50,000 14:15 PTPTT LAB 02/12/25 Logged 08:35 Phosphorus LAB 02/12/25 Logged 10:38 MARQUITA MACIEL Feb 12, 2025 10:43 TERRY EVANS MD Feb 12, 2025 14:27
[2025-02-12] MEDS ORDERED: LEVO500T91 PO (11:36)
[2025-02-12 14:03] LABS: INR 2.58 (0.9-1.15); Partial Thromboplastin Time 31.2 SEC (24.5-34.5); Prothrombin Time 24.9 sec (9.3-11.8)
[2025-02-12 14:06] LABS: Anion Gap 14 (5-15)
[2025-02-12 14:10] LABS: Calcium 7.5 mg/dL (8.7-10.4); Carbon Dioxide 34 mmol/L (20-31); Chloride 82 mmol/L (98-107); Potassium 3.2 mmol/L (3.5-5.1); Sodium 130 mmol/L (136-145)
[2025-02-12 14:11] LABS: Blood Urea Nitrogen 10 mg/dL (9-23)
[2025-02-12 14:19] LABS: BUN/Creatinine Ratio 14.3 (10.0-20.0); Glucose 171 mg/dL (74-106)
[2025-02-12] MEDS ORDERED: POTASSIUM EFFERVESENT TAB 25 MEQ GT SCH (14:30)
--- NOTE | 2025-02-12 14:53 | DVHINCON2 ---
GI Consult Consult Note GI consult note Date of Consultation: 02/12/2025 Chief Complaint: bilirubinemia Referring Physician: Dr. Mckeon H&P: 64-year-old female admitted with complains of generalized weakness, shortness of breath, and malaise for two months. Patient denies abdominal pain. Admits to having nausea yesterday but better today. No vomiting or hematemesis. Patient has decreased appetite for the past one month. Last bowel movement per patient one month ago. Patient has history of heavy alcohol use, last drink was four months ago per patient. No EGD or colonoscopy in past Past Medical History: Asthma, COPD, DM, High Lipids, HTN, VT, TIA Past Surgical History: BTL, hysterectomy Social History: Smoker: Non-Smoker Alcohol: Heavy quit four months ago Drugs: Marijuana Lives In: Home Family History: Review of Systems: Constitutional: no fever, chill, weight loss HEENT: no eye pain, no hearing loss, no oral lesion, no scleral icterus Heart: no chest pain, no chest pressure Lung: no cough, no dyspnea with exertion Abdomen: see HPI Physical exam: General: NAD, AAOX3 Chest: lung reina clear to auscultation Heart: RRR, no murmur Abdomen: non-distended, no tenderness to palpation, +BS Labs: Test 02/12/25 06:21 Range/Units Serum Glucose 204 H 74-106 mg/dL Microbiology Date/Time Source Procedure Growth Status 02/10/25 21:42 Voided Urine Urine Culture - Preliminary Resulted Imaging: CT abdomen pelvis IMPRESSION: 1. Marked hepatic steatosis. 2. Increased density in the gallbladder, possible sludge. Correlate with clinical findings. If clinically indicated, ultrasound could be obtained to further evaluate. No biliary ductal dilatation visualized. 3. Indeterminate left adrenal nodule. MRI adrenal mass protocol could be considered to further characterize. 4. Nonspecific nondilated fluid-filled small bowel loops. Findings may be seen with ileus or enteritis in the appropriate clinical setting. No small bowel obstruction. 5. Endometrium appears thickened for age. Correlate with clinical findings. Ultrasound could be obtained to further characterize if clinically indicated. Gallbladder ultrasound IMPRESSION: No sonographic evidence of gallstones or acute cholecystitis. Mild hepatomegaly and moderate diffuse fatty infiltration of the liver. Assessment: Hyperbilirubinemia and transaminitis History of heavy alcohol use Metabolic alkalosis Dm Left adrenal nodule Plan: -discussed with Dr. Pelletier Hepatitis panel, ammonia level. Recheck CMP in a.m. Lactulose DC alcohol discussed extensively We will continue to monitor patient Thank you for this consult Date of Service: Feb 12, 2025 Billing Provider: DARIO INGRAM Common Visit Codes: CONSULT ONLY Consultation Codes: [id number] CONSULT <60MIN DARIO INGRAM Feb 12, 2025 14:53
[2025-02-12] MEDS: POTASSIUM PHOSPHATE 44 MEQ in D5W 5% 250 ML IV ONE (17:15)
[2025-02-12] MEDS: LACTULOSE 20Gm/30ML SOLN PO ONE (17:19)
[2025-02-12] MEDS: NOREPINEPHRINE 8 MG/250ML KIT 250 ML IV ONE (22:00)
[2025-02-12] MEDS: MIDAZOLAM DRIP 50 mg/50mL 50 ML IV ONE (22:00)
[2025-02-12] MEDS: fentaNYL Drip 2500mCg/250mlNS 250 ML IV ONE (22:00)
[2025-02-12 22:20] LABS: Base Excess -2.6 mmol/L (-2.0-3.0)
--- NOTE | 2025-02-12 22:50 | DVH ---
CLINICAL HISTORY: Intubated TECHNIQUE: Helical scanning was performed of the head from the skull base to the vertex. Multiplanar reconstructions were performed. This exam was performed according to our departmental dose optimizat ion program. Up-to-date CT equipment and radiation dose reduction techniques are utilized as appropri ate. CTDI 65 DLP 1546 COMPARISON: CT HEAD WITHOUT CONTRAST on DOS: 02/11/25 FINDINGS: There is no evidence for acute intracranial hemorrhage, acute ischemic changes, mass, mass effect, or extra-axial fluid collection. There is no hydrocephalus or midline shift. There is no effacement of the cerebral sulci and basal subarachnoid cisterns. The preston-white matter differentiation is well inocente ntained. The imaged paranasal sinuses are clear. IMPRESSION: NO ACUTE INTRACRANIAL ABNORMALITY SEEN.
--- NOTE | 2025-02-12 22:56 | DVH ---
CLINICAL HISTORY: intubation TECHNIQUE: Single view of the chest was obtained. COMPARISON: XY CHEST XRAY 1 VIEW on DOS: 02/10/25, CT CHEST WITHOUT CONTRAST on DOS: 10/29/24, XY CHEST PORTABLE on DOS: 10/29/24, XY CHEST PORTABLE on DOS: 08/08/24, XY CHEST PORTABLE on DOS: 01/14/24 FINDINGS: An endotracheal tube terminates 4.2 cm above the erika. The heart size and pulmonary vasculature are normal. There is mild right basilar atelectasis. IMPRESSION: Mild right basilar atelectasis.
[2025-02-13] VITALS (113 sets, daily range): BP systolic 69–129; BP diastolic 46–88; PULSE 96–115; RESP 16–33; TEMP 97.3–99.5; O2SAT 97–100
[2025-02-13 00:09] LABS: Base Excess 7.3 mmol/L (-2.0-3.0)
[2025-02-13] MEDS: fentaNYL Drip 2500mCg/250mlNS 250 ML IV SCH (00:29)
[2025-02-13] MEDS: MIDAZOLAM DRIP 50 mg/50mL 50 ML IV SCH (00:30)
[2025-02-13] MEDS: NOREPINEPHRINE 8 MG/250ML KIT 250 ML IV SCH (00:30)
[2025-02-13 00:48] LABS: Urine Protein, UAD TRACE (Negative); Urine WBC Clumps PRESENT /hpf (None Seen)
--- NOTE | 2025-02-13 00:54 | DVHINCON2 ---
Date of service: Feb 12, 2025 Referring Physician Linda Reason for Consultation Chest pain History of Present Illness This is a 64 year old female with a PMH of asthma, COPD, DM, HLD, HTN, TX, and TIA who was brought in by EMS due to c/o generalized weakness. Patient initially reported experiencing symptoms of generalized weakness, shortness of breath, and malaise x 2months. EKG showed NAD. CT brain was unremarkable. Renal US was WNL. CT abd/pel showed marked hepatic steatosis. Increased density in the gallbladder, possible sludge. Indeterminate left adrenal nodule. Nonspecific nondilated fluid-filled small bowel loops. Findings may be seen with ileus or enteritis in the appropriate clinical setting. No small bowel obstruction. Today patient went into V tach on monitor and I was asked to se this patient. This evening the patient was found unresponsive and a code blue was called. Patient was intubated for airway protection and upgraded to the ICU. Family History: Patient reports no known family medical history. Allergies: Coded Allergies: Penicillins (Verified Allergy, Unknown, 03/18/21) Home Meds Active Scripts Levofloxacin Hemihydrate (LEVAQUIN 500 MG) 500 Mg Tab, 1 TAB PO DAILY, #10 TAB Prov:BENNIE YE MD 02/12/25 Prednisone (Prednisone) 20 Mg Tab, 20 MG PO DAILY for 10 Days, #15 MG Take 2 tabs daily for 5 days, than 1 tab daily for 5 days Prov:TRICIA CLARKE MD 10/31/24 Budesonide-Formoterol Fumarate (Budesonide/Formoterol Fum 160-4.5 Mcg/Act) 1 Aer Aer, 1 AER IN BID for 30 Days, #1 AER 2 Refills Prov:TRICIA CLARKE MD 10/31/24 Ipratropium-Albuterol (Ipratropium [place]/Albut) 1 Calista Calista, 1 VIAL IN QID for 7 Days, #30 VIAL 1 Refill Prov:ARCHANA DONG DO 08/08/24 Benzonatate (Benzonatate) 100 Mg Cap, 1 CAP PO TID PRN for 30 Days, #30 CAP 0 Refills For cough as needed. Prov:ARCHANA DONG DO 01/15/24 Metformin Hydrochloride (Metformin Hcl) 1,000 Mg Tab, 1 TAB PO BID, #60 TAB 1 Refill Prov:ARCHANA DONG DO 01/15/24 Reported Medications Albuterol Sulfate (Albuterol Sulfate Hfa) 108 Mcg/Act Aer, 1 PUFF PO PRN 10/20/22 Pravastatin Sodium (PRAVACHOL TABLET) 20 Mg Tb, 40 MG PO HS 10/20/22 Budesonide-Formoterol Fumarate (Budesonide/Formoterol Fum 160-4.5 Mcg/Act) 1 Aer Aer, 1 AER IN 03/19/21 Carvedilol (Coreg) 3.125 Mg Tab, 1 TAB PO BID 03/19/21 Current Medications Current Medications Medications (Trade) Dose Ordered Sig/Randolph Route PRN Reason Start Time Stop Time Status Last Admin Metronidazole 100 ml @ 100 mls/hr Q8HR IV 02/12/25 08:30 02/12/25 13:32 Potassium Bicarbonate (Klor-Con/Ef) 50 meq BID GT 02/12/25 14:30 02/12/25 17:13 DC Potassium Bicarbonate (Klor-Con/Ef) 50 meq BID PO 02/12/25 17:15 02/12/25 22:01 DC 02/12/25 19:56 Norepinephrine Bitartrate 250 ml @ 3.75 mls/hr Q24H IV 02/13/25 00:30 02/13/25 00:30 Midazolam HCl 50 ml @ 1 mls/hr Q24H IV 02/13/25 00:30 02/13/25 00:30 Fentanyl Citrate 250 ml @ 2.5 mls/hr Q24H IV 02/13/25 00:30 02/13/25 00:29 Review of Systems Unable to review: Patient is intubated on ventilator. Vital Signs Vital Signs Date Time Temp Pulse Resp B/P (MAP) Pulse Ox O2 Delivery O2 Flow Rate FiO2 02/13/25 00:30 87/57 02/13/25 00:00 100 24 100 60 02/12/25 23:45 95.7 95.7 02/12/25 23:39 Mechanical Ventilator+ 02/12/25 20:00 4 Physical Exam GENERAL: Ill appearing, intubated on ventilator. EYES: PERRL, EOMI. Anicteric. HENT: Moist mucous membranes. LUNGS: Decreased breath sounds. CARDIOVASCULAR: Regular rate and rhythm. ABDOMEN: Soft, non-tender and non-distended. EXTREMITIES: No edema. SKIN: Warm, dry. Labs/Diagnostic Data Labs Test 02/13/25 00:01 02/12/25 23:57 02/12/25 23:00 02/12/25 21:59 Range/Units POC Glucose 229 H 70-106 mg/dl Blood Gas Specimen Type Arterial Blood Gas Sample Site Right radial Blood Gas Patient Temperature 37.0 Arterial Blood Date Drawn [id number] Arterial Blood pH 7.507 H 7.350-7.450 Arterial Blood Partial Pressure CO2 40.0 32.0-45.0 mmHg Arterial Blood Partial Pressure O2 245.7 H 83.0-108.0 mmHg Arterial Blood HCO3 31.0 H 21.0-28.0 mmol/L Arterial Blood Oxygen Saturation 100.0 H 94.0-98.0 % Arterial Blood Base Excess 7.3 H -2.0-3.0 mmol/L Arterial Blood Oxyhemoglobin 99.1 H 94.0-98.0 % Arterial Blood Carboxyhemoglobin 0.8 0.5-1.5 % Arterial Blood Methemoglobin 0.1 0.0-1.5 % Marcos Test Modified Blood Gas Total Hemoglobin 10.00 L 12.0-16.0 g/dL Blood Gas Set Respiration Rate 24.0 Blood Gas Modality Vent - ac FiO2 % 60.0 Blood Gas Tidal Volume 450.0 Blood Gas PEEP or CPAP 5.0 Troponin I High Sensitivity 136 *H </=34 ng/L Test 02/12/25 21:43 02/12/25 15:50 02/12/25 13:27 02/12/25 06:21 Range/Units Blood Gas Liter Flow 4.00 Blood Gas Critical Value Read Back Yes Blood Gas Notified Whom august Yanes md Blood Gas Notified Time [id number] Blood Gas Notified By Petty adrian rrt Ammonia 32 11-32 umol/L Prothrombin Time 24.9 H 9.3-11.8 sec Prothrombin Time INR 2.58 H 0.9-1.15 Activated Partial Thromboplast Time 31.2 24.5-34.5 SEC Sodium Level 130 L 136-145 mmol/L Potassium Level 3.2 L 3.5-5.1 mmol/L Chloride Level 82 L 98-107 mmol/L Carbon Dioxide Level 34 H 20-31 mmol/L Anion Gap 14 5-15 Blood Urea Nitrogen 10 9-23 mg/dL Creatinine 0.70 0.550-1.02 mg/dL Glomerular Filtration Rate Calc 95 >90 mL/min BUN/Creatinine Ratio 14.3 10.0-20.0 Serum Glucose 171 H 74-106 mg/dL Calcium Level 7.5 L 8.7-10.4 mg/dL Phosphorus Level 0.6 L 2.4-5.1 mg/dL White Blood Count 11.4 H 4.4-10.8 10^3/uL Red Blood Count 3.37 L 4.0-5.20 10^6/uL Hemoglobin 10.3 L 12.2-16.2 g/dL Hematocrit 31.3 L 36.0-46.0 % Mean Corpuscular Volume 92.9 80.0-100.0 fL Mean Corpuscular Hemoglobin 30.6 28.0-32.0 pg Mean Corpuscular Hemoglobin Concent 33.0 32.0-36.0 g/dL Red Cell Distribution Width 26.4 H 11.8-14.3 % Platelet Count 260 140-450 10^3/uL Mean Platelet Volume 8.8 6.9-10.8 fL Neutrophils (%) (Auto) 37.0-80.0 % Lymphocytes (%) (Auto) 10.0-50.0 % Monocytes (%) (Auto) 0.0-12.0 % Basophils (%) (Auto) 0.0-2.0 % Neutrophils # (Auto) 1.6-8.6 10 ^3/uL Lymphocytes # (Auto) 0.4-5.4 10 ^3/uL Monocytes # (Auto) 0-1.3 10 ^3/uL Differential Total Cells Counted 100.0 100 Neutrophils % (Manual) 90 H 37.0-80.0 Band Neutrophils % (Manual) 4 Lymphocytes % (Manual) 4 L 10.0-50.0 Monocytes % (Manual) 2 0-12 Eosinophils % (Manual) 0 0-7 Basophils % (Manual) 0 0.0-2.0 Metamyelocytes % (manual) 0 Myelocytes % (Manual) 0 Promyelocytes % (Manual) 0 Blast Cells % (Manual) 0 Reactive Lymphocytes 0 Platelet Estimate Adequate Large Platelets Few Anisocytosis (manual) Moderate Target Cells Moderate Stomatocytes Moderate Total Bilirubin 13.3 H 0.2-1.0 mg/dL Aspartate Amino Transferase (AST) 424 H 13-40 U/L Alanine Aminotransferase (ALT) 117 H 7-40 U/L Alkaline Phosphatase 131 H 46-116 U/L B-Type Natriuretic Peptide 111.57 0-100 pg/mL Total Protein 6.9 5.7-8.2 g/dL Albumin 3.3 3.2-4.8 g/dL Test 02/11/25 11:20 02/11/25 08:05 02/11/25 04:30 02/11/25 01:43 Range/Units Vitamin D 25-Hydroxy 23.5 L 30.0-100 ng/mL Parathyroid Hormone (Intact) 218.7 H 18.4-80.1 pg/mL Beta-Hydroxybutyric Acid 0.562 H < 0.4 mmol/L Hemoglobin A1c 6.7 H <5.7 % A1C Test 02/10/25 22:10 02/10/25 21:42 02/10/25 19:12 02/10/25 14:24 Range/Units Magnesium Level 2.7 H 1.6-2.6 mg/dL Urine Amorphous Sediment Many /hpf Blood Gas Spontaneous Rate 18 Specimen Drawn By Rigoberto rios rt Eosinophils (%) (Auto) 0.1 0.0-7.0 % Eosinophils # (Auto) 0 0-0.8 10 ^3/uL Basophils # (Auto) 0 0-0.2 10 ^3/uL Nucleated Red Blood Cells 1.7 % Thyroid Stimulating Hormone (TSH) 1.22 0.55-4.78 uIU/mL Microbiology Date/Time Source Procedure Growth Status 02/11/25 15:24 Blood Blood Culture - Preliminary NO GROWTH AFTER 24 HOURS OF INCUBATION. Resulted 02/10/25 21:42 Voided Urine Urine Culture - Preliminary Resulted Assessment Chest pain. Metabolic alkalosis. Hypokalemia. Hypophosphatemia. Hyponatremia. Type 2 diabetes mellitus. Acute complicated cystitis. Hyperparathyroidism. Hyperbilirubinemia with transaminitis. Left adrenal nodule. Plan/Recommendation I agree with your ongoing assessment and care of plan. DVT prophylactics. IV antibiotics as ordered. Morphine for pain management. Vasopressors for hemodynamic support. Additional plan as per the hospital course. Critical care time of 90 minutes provided to include time spent evaluation of patient at bedside, when appropriate patient/family education for diagnosis, treatment plan, review of pertinent medical information and discussion of care with specialty providers and PCP. Mechanical ventilator parameters, treatment and adjustments have personally been reviewed by me and treatment plan by floral decorator has also been reviewed. Plan discussed with: Patient MIKAELA IQBAL MD Feb 13, 2025 00:54
--- NOTE | 2025-02-13 01:25 | RESUS ---
CODE ASSIST ASSESSSMENT Initial Information Code Assist Date: Feb 12, 2025 Code Assist Time: 21:28 Location of Arrest: [facility] Room [facility] Provider Name JULIAN Wade - Hospitalist; Farzana - Resident Time Notified: 21:28 Time PMD returned call: 21:28 Crash Cart Opened and Supplies: Yes Situation Staff concerned/worried, speci: HR >130, Change LOC Situation comment: While charge lpn attempting to place new IV, observed pt's conveyor monitor detect pt's heart rate in 180s to 200s with increased confusion and observed work of breathing. Background Background: Pt admitted on 02/11/25 to telemetry for generalized weakness, metabolic encephalopathy, UTI, hyponatremia. Significant PMH of COPD, DM, HTN, TX, TIA. Assessment Temperature (Fahrenheit): 94.2 (F; axillary) Blood Pressure Systolic: 163 Blood Pressure Diastolic: 125 Respiratory Rate: 15 Bedside Blood Glucose: 223 Assessment comment: 2147: 135/109 with HR 119; 2156: 83/53 HR 137 Recommendations/Interventions Medications and Responses #1: Medication Time: 21:38 ADULT Medications Given: Amiodarone Route of Administration: IO Medication Comment: 150mg in 100mL NS; pt's HR observed to drop down to 44, Amiodarone stopped at 2144. Medication was initially started on IO and switched to L EJ at 2140. Heart Rate: 199 EKG Rhythm: Atrial Fibrillation Medications and Responses #2: Medication Time: 21:49 ADULT Medications Given: Etomidate Route of Administration: IV Medication Comment: 20mg Medications and Responses #3: Medication Time: 21:50 ADULT Medications Given: Rocuronium Route of Administration: IV Medication Comment: 100 Medications and Responses #4: Medication Time: 21:55 ADULT Medications Given: Justin gluc Route of Administration: IV Medication Comment: Calcium gluconate 1000mg/50mL NS Medications and Responses #5: Medication Time: 21:57 ADULT Medications Given: Levophed Route of Administration: IV Medication Comment: Started at 2mcg Blood Pressure Systolic: 83 Blood Pressure Diastolic: 53 Procedures: Accu check, ABG, EKG (2138: Afib with HR 133), Cardiac Monitoring, Intubated Other Interventions 2131: IO established to R proximal tibia by Ricardo Garduno RN ; 2140: 20g IV to L EJ by Ricardo Garduno RN; 2149: Pt intubated by Ledy Stiles RT after 1 attempt, with 7.5 ETT and secured at 24cm at the lip, positive color change and bilateral breath sounds; 2157: 22g IV to RHA by Jona Machuca RN Outcome Outcome: Transfer to ICU (Tx to room 105) Team Members Team Members JULIAN Wade - Hospitalist; Farzana - Resident; Lucrecia Echevarria RN - ICU Charge; Laura Whatley RN - [employer] Business Analyst; Ricardo Garduno RN - ER Charge; Jona Machuca RN - [place] Charge; Ewelina Beckham RN - Primary RN; Ximena Daniels RN; Ledy Stiles, RT; UZAIR Schroeder Ashley Feb 13, 2025 01:25
[2025-02-13 01:34] LABS: Protein, Urine 57.8 mg/dL (1-14)
--- NOTE | 2025-02-13 04:03 | DVH ---
CHEST RADIOGRAPH Indication: CENTRAL LINE PLACEMENT Technique: 1 view Comparison: XY CHEST XRAY 1 VIEW on DOS: 02/12/25, XY CHEST XRAY 1 VIEW on DOS: 02/10/25, XY CHEST PORT ABLE on DOS: 10/29/24, XY CHEST PORTABLE on DOS: 08/08/24, XY CHEST PORTABLE on DOS: 01/14/24 FINDINGS: Lines and Tubes: Intervally placed right IJ catheter terminates over the caudal SVC. Enteric tube cou rses midline subdiaphragmatically below field of view. Unchanged endotracheal tube. Lungs/Pleura: Unchanged. Cardiomediastinum: Unchanged. Other: Unchanged osseous structures. IMPRESSION: 1. Intervally placed enteric tube and right IJ catheter with expected thoracic positioning. Unchange d endotracheal tube. 2. No other significant change from the previous study. No significant cardiopulmonary abnormality.
--- NOTE | 2025-02-13 05:12 | DVHNC2 ---
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) Indication: Inability to obtain IV, Other (Requiring vasopressor) Room prepared for procedure: Yes Management Architect performed hand hygien: Yes Maximal sterile barrier precau: Mask/Eye shield, Sterile gown, Cap, Sterlie gloves, Large sterlie drape Skin Preparation: Chlorhexidine gluconate, Alcohol Skin preparation completely dr: Yes Insertion site: Right, Internal jugular Central line catheter type: [id number] dialysis Number of lumens: 3 Central line exchanged over a: No Antiseptic ointment applied to: Yes Post Assessment: Chest X-Ray, Proper placement Informed consent obtained: Yes Risks/benefits/alt described: Yes Notes Right internal jugular central venous line placed using ultrasound guidance, procedure was supervised by Dr. Rodriguez Date of Service: Feb 13, 2025 Billing Provider: WADE RODRIGUEZ DO Common Visit Codes: [id number] INP/OBS CARE (HIGH) Secondary Visit Codes: [id number] CARE PLAN 30 MINUTES CLARITA PEDRAZA RESIDENT Feb 13, 2025 05:12
[2025-02-13 05:26] LABS: Hematocrit 28.7 % (36.0-46.0); Hemoglobin 9.4 g/dL (12.2-16.2); Mean Corpuscular Hemoglobin 30.2 pg (28.0-32.0); Mean Corpuscular Volume 92.1 fL (80.0-100.0)
[2025-02-13 05:36] LABS: Anion Gap 15 (5-15); Blood Urea Nitrogen 10 mg/dL (9-23); Carbon Dioxide 31 mmol/L (20-31); Magnesium 2.1 mg/dL (1.6-2.6); Potassium 3.7 mmol/L (3.5-5.1)
[2025-02-13 05:38] LABS: Alanine Aminotransferase 111 U/L (7-40); Albumin 2.9 g/dL (3.2-4.8); Alkaline Phosphatase 154 U/L (46-116); Bilirubin, Total 14.2 mg/dL (0.2-1.0); Calcium 7.4 mg/dL (8.7-10.4); Chloride 83 mmol/L (98-107); Glucose 210 mg/dL (74-106); Sodium 129 mmol/L (136-145)
[2025-02-13 05:55] LABS: BUN/Creatinine Ratio 13.9 (10.0-20.0)
[2025-02-13 06:14] LABS: Total Protein 6.2 g/dL (5.7-8.2)
--- NOTE | 2025-02-13 07:21 | ECG ---
[facility] Test Date: 2025-02-12 Test Time: 23:06:35 Pat Name: MAYRA ESPINOZA Department: icu Room: [address] [place] [address] A Gender: F Surfacer Operator: triny : 1960 Requested By: MARISSA HATHAWAY Order Number: [id number] Reading MD: Monroe Holloway Measurements Intervals [place] Rate: 118 P: 78 TX: 154 QRS: -28 QRSD: 70 T: -83 QT: 311 QTc: 436 Interpretive Statements Sinus tachycardia Inferoposterior infarct, recent Electronically Signed On 02-14-2025 20:00:52 PDT by Monroe Holloway Please click the below link to view image of tracing.
--- NOTE | 2025-02-13 07:22 | DVHPN2 ---
Progress Note Date Seen: Feb 13, 2025 Medical Necessity Reason Pt with a Central, PICC or Fol: No Subjective Patient reports: Other Review of Systems: Not Done Objective vital signs Vital Sign Date Time Temp Pulse Resp B/P (MAP) Pulse Ox O2 Delivery O2 Flow Rate FiO2 02/13/25 07:12 93/63 02/13/25 06:53 102 20 100 30 02/13/25 05:34 Mechanical Ventilator+ 02/13/25 05:30 98.1 98.1 02/12/25 23:00 0 Total Intake and Output 02/12/25 02/12/25 02/13/25 15:00 23:00 07:00 Intake Total 100 ml 336.25 ml 598.75 ml Output Total 350 ml Balance 100 ml 336.25 ml 248.75 ml medications Current Medications Medications Dose Ordered Sig/Randolph Route Start Time Stop Time Status Last Admin Dose Admin Diagnostic Test (Pha) 1 strip Q6HR 02/11/25 06:00 02/13/25 05:38 1 STRIP Insulin Human Regular Q6HR SC 02/11/25 06:00 02/13/25 05:37 4 UNITS Dextrose 50 ml UD PRN IV 02/11/25 00:15 Ondansetron HCl 4 mg Q4HPRN PRN IV 02/11/25 07:00 Levofloxacin/ Dextrose 100 ml @ 100 mls/hr DAILY IV 02/11/25 10:00 02/12/25 09:44 100 MLS/HR Albuterol 2.5 mg Q6HPRN PRN NEB 02/11/25 07:00 02/11/25 21:41 2.5 MG Nitroglycerin 0.4 mg Q5MINP PRN SL 02/11/25 07:00 Morphine Sulfate 2 mg Q30M PRN IV 02/11/25 07:00 Enoxaparin Sodium 40 mg DAILY SC 02/11/25 10:00 02/12/25 09:44 40 MG Potassium Chloride/Sodium Chloride 1,000 ml @ 100 mls/hr Q10H IV 02/11/25 10:00 02/13/25 05:09 100 MLS/HR Ergocalciferol 50,000 unit Q7D PO 02/11/25 14:15 02/11/25 15:36 50,000 UNIT Metronidazole 100 ml @ 100 mls/hr Q8HR IV 02/12/25 08:30 02/13/25 05:09 100 MLS/HR Norepinephrine Bitartrate 250 ml @ 3.75 mls/hr Q24H IV 02/13/25 00:30 02/13/25 00:30 15 MLS/HR Midazolam HCl 50 ml @ 1 mls/hr Q24H IV 02/13/25 00:30 02/13/25 07:12 10 MLS/HR Fentanyl Citrate 250 ml @ 2.5 mls/hr Q24H IV 02/13/25 00:30 02/13/25 00:29 2.5 MLS/HR Examination: GENERAL:Normal, LUNGS:Normal, CVS:Normal, ABDOMEN:Normal laboratory and microbiology Laboratory Tests 02/13/25 04:45 Test 02/13/25 04:45 Range/Units Serum Glucose 210 H 74-106 mg/dL Problem List/Assessment/Plan Problem List/Assessment/Plan 1) Acute respiratory failure, intubated 2) UTI 3) Hyponatremia 4) Hyperbilirubinemia 2/2 alcoholism 5) Metabolic alkalosis 6) COPD 7) Hx of CVA 8) DM 9) HTN 10) HLD plan; 02/13---patient noted to be unresponsive and lethargic overnight and thus was intubated and transferred to ICU, now on mechanical ventilatory support with fio2 30%, on levophed 10 mcg this AM, continue IV Abx, BCx negative, UCx shows mixed violet, will consult pulm/cardio, GI on board due to elevated LFTs and hyperbilirubinemia likely in the setting of alcoholic hepatitis, daily labs, supportive care, home service consultant input appreciated, will follow along Plan discussed with: Other (n) BENNIE YE MD Feb 13, 2025 07:22
--- NOTE | 2025-02-13 07:33 | ECG ---
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
--- NOTE | 2025-02-13 07:33 | ECG ---
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
[2025-02-13 08:02] LABS: Anisocytosis Slight; Stomatocytes Few; Total Cells Counted 100.0 (100)
--- NOTE | 2025-02-13 10:16 | DVHPN2 ---
Progress Note Date Seen: Feb 13, 2025 Medical Necessity Reason Pt with a Central, PICC or Fol: No Subjective Review of Systems: RESPIRATORY:Abnormal Other Systems: Patient seen and examined by myself today in follow-up, patient intubated on ventilator Objective vital signs Vital Sign Date Time Temp Pulse Resp B/P (MAP) Pulse Ox O2 Delivery O2 Flow Rate FiO2 02/13/25 08:43 102 24 91/61 (71) 100 30 02/13/25 05:34 Mechanical Ventilator+ 02/13/25 05:30 98.1 98.1 02/12/25 23:00 0 Total Intake and Output 02/12/25 02/12/25 02/13/25 15:00 23:00 07:00 Intake Total 100 ml 336.25 ml 598.75 ml Output Total 350 ml Balance 100 ml 336.25 ml 248.75 ml medications Current Medications Medications Dose Ordered Sig/Randolph Route Start Time Stop Time Status Last Admin Dose Admin Diagnostic Test (Pha) 1 strip Q6HR 02/11/25 06:00 02/13/25 05:38 1 STRIP Insulin Human Regular Q6HR SC 02/11/25 06:00 02/13/25 05:37 4 UNITS Dextrose 50 ml UD PRN IV 02/11/25 00:15 Ondansetron HCl 4 mg Q4HPRN PRN IV 02/11/25 07:00 Levofloxacin/ Dextrose 100 ml @ 100 mls/hr DAILY IV 02/11/25 10:00 02/13/25 09:47 100 MLS/HR Albuterol 2.5 mg Q6HPRN PRN NEB 02/11/25 07:00 02/11/25 21:41 2.5 MG Nitroglycerin 0.4 mg Q5MINP PRN SL 02/11/25 07:00 Morphine Sulfate 2 mg Q30M PRN IV 02/11/25 07:00 Enoxaparin Sodium 40 mg DAILY SC 02/11/25 10:00 02/13/25 09:48 40 MG Potassium Chloride/Sodium Chloride 1,000 ml @ 100 mls/hr Q10H IV 02/11/25 10:00 02/13/25 05:09 100 MLS/HR Ergocalciferol 50,000 unit Q7D PO 02/11/25 14:15 02/11/25 15:36 50,000 UNIT Metronidazole 100 ml @ 100 mls/hr Q8HR IV 02/12/25 08:30 02/13/25 05:09 100 MLS/HR Norepinephrine Bitartrate 250 ml @ 3.75 mls/hr Q24H IV 02/13/25 00:30 02/13/25 00:30 15 MLS/HR Midazolam HCl 50 ml @ 1 mls/hr Q24H IV 02/13/25 00:30 02/13/25 07:12 10 MLS/HR Fentanyl Citrate 250 ml @ 2.5 mls/hr Q24H IV 02/13/25 00:30 02/13/25 00:29 2.5 MLS/HR Examination: LUNGS:Normal, CVS:Normal, MSK:Normal laboratory and microbiology Laboratory Tests 02/13/25 04:45 Test 02/13/25 04:45 Range/Units Serum Glucose 210 H 74-106 mg/dL Microbiology Date/Time Source Procedure Growth Status 02/11/25 15:24 Blood Blood Culture - Preliminary NO GROWTH AFTER 24 HOURS OF INCUBATION. Resulted 02/10/25 21:42 Voided Urine Urine Culture - Preliminary Resulted Problem List/Assessment/Plan Problem List/Assessment/Plan Severe hypokalemia in the state of metabolic alkalosis secondary to dehydrate Severe hypophosphatemia Hyponatremia due to dehydration metabolic alkalosis Acute respiratory failure, patient intubated on ventilator Type 2 diabetes mellitus with hemoglobin A1c 6.7 Acute complicated cystitis Primary hyperparathyroidism Hyperbilirubinemia with transaminitis Left adrenal nodule History of alcoholic liver disease Plan: Kidney function remained within normal limit Increased urine output Strict I&Os IVF NS with 40 mEq KCL at 100 cc/hour K-Phos 44 millimole IV piggyback over 8 hours Check renin activity and aldosterone level rule out hyperaldosteronism (Conn's syndrome) Insulin sliding scale IV antibiotics We will continue to follow up Total care time 25 minutes Plan discussed with: Other My Orders My Orders Orders - TERRY EVANS MD Procedure Category Date Status Time Communication Order ORDERS 02/12/25 Transmitted 10:27 Renin Activity And LAB 02/12/25 In Process Aldosterone 14:27 TERRY EVANS MD Feb 13, 2025 10:16
[2025-02-13 11:46] LABS: Base Excess 8.4 mmol/L (-2.0-3.0)
[2025-02-13] MEDS: POTASSIUM PHOSPHATE 44 MEQ in D5W 5% 250 ML IV ONE (12:05)
[2025-02-13 13:48] LABS: Hepatitis A Total Antibody Negative (Negative); Hepatitis B Surface Antigen Negative (Negative); Hepatitis C Antibody Negative (Negative)
[2025-02-13] MEDS: SODIUM CHLORIDE 0.9% 1,000 ML IV ONE (16:20)
--- NOTE | 2025-02-13 16:44 | DVHINCON2 ---
Date of service: Feb 13, [address] mcdonnell Reason for Consultation COPD History of Present Illness HPI Patient is a 64-year-old lady with multiple medical problems history of COPD who initially presented with dehydration for UTI shortness of breath and generalized weakness. Patient admitted to telemetry floor was found to be hyponatremic. Patient has steadily declined and became unresponsive ABG was obtained pH 7.0 pCO2 127 PO2 over 100 on 4 L of oxygen. Patient was intubated and placed on mechanical ventilation transferred to the ICU. Home Meds Active Scripts Levofloxacin Hemihydrate (LEVAQUIN 500 MG) 500 Mg Tab, 1 TAB PO DAILY, #10 TAB Prov:BENNIE MCDONNELL MD 02/12/25 Prednisone (Prednisone) 20 Mg Tab, 20 MG PO DAILY for 10 Days, #15 MG Take 2 tabs daily for 5 days, than 1 tab daily for 5 days Prov:TRICIA CLARKE MD 10/31/24 Budesonide-Formoterol Fumarate (Budesonide/Formoterol Fum 160-4.5 Mcg/Act) 1 Aer Aer, 1 AER IN BID for 30 Days, #1 AER 2 Refills Prov:TRICIA CLARKE MD 10/31/24 Ipratropium-Albuterol (Ipratropium [place]/Albut) 1 Calista Calista, 1 VIAL IN QID for 7 Days, #30 VIAL 1 Refill Prov:ARCHANA DONG DO 08/08/24 Benzonatate (Benzonatate) 100 Mg Cap, 1 CAP PO TID PRN for 30 Days, #30 CAP 0 Refills For cough as needed. Prov:ARCHANA DONG DO 01/15/24 Metformin Hydrochloride (Metformin Hcl) 1,000 Mg Tab, 1 TAB PO BID, #60 TAB 1 Refill Prov:ARCHANA DONG DO 01/15/24 Reported Medications Albuterol Sulfate (Albuterol Sulfate Hfa) 108 Mcg/Act Aer, 1 PUFF PO PRN 10/20/22 Pravastatin Sodium (PRAVACHOL TABLET) 20 Mg Tb, 40 MG PO HS 10/20/22 Budesonide-Formoterol Fumarate (Budesonide/Formoterol Fum 160-4.5 Mcg/Act) 1 Aer Aer, 1 AER IN 03/19/21 Carvedilol (Coreg) 3.125 Mg Tab, 1 TAB PO BID 03/19/21 Past Medical History Pulmonary: COPD Patient Family History: Patient reports no known family medical history. Review of Systems Comments intubated H&P Exam Vital Signs Vital Signs Date Time Temp Pulse Resp B/P (MAP) Pulse Ox O2 Delivery O2 Flow Rate FiO2 02/13/25 14:40 110 21 93/65 (74) 100 30 02/13/25 12:00 Mechanical Ventilator+ 02/13/25 12:00 98.8 98.8 02/12/25 23:00 0 General Appeara: Well developed, Well nourished Head Exam: Normal inspection Neck Exam: Normal inspection, Non-tender, Normal alignment Eye Exam: bilateral eye Normal inspection, bilateral eye PERRL, bilateral eye EOMI Ear Exam: bilateral ear Auricle normal, bilateral ear Canal normal Nasal Exam: Normal inspection Mouth: Normal Inspection Pulmonary/Respiratory: Normal inspection, Normal breath sounds, Chest non- tender Cardiovascular/Chest: Normal inspection Peripheral Pulses: 4+ carotid (R), 4+ carotid (L) Abdominal Exam: Normal bowel sounds, Soft Labs/Xrays Labs Test 02/13/25 11:58 02/13/25 11:25 02/13/25 04:45 02/12/25 23:00 Range/Units POC Glucose 194 H 70-106 mg/dl Blood Gas Specimen Type Arterial Blood Gas Sample Site Right radial Blood Gas Patient Temperature 37.0 Arterial Blood Date Drawn [id number] Arterial Blood pH 7.486 H 7.350-7.450 Arterial Blood Partial Pressure CO2 44.4 32.0-45.0 mmHg Arterial Blood Partial Pressure O2 84.8 83.0-108.0 mmHg Arterial Blood HCO3 32.8 H 21.0-28.0 mmol/L Arterial Blood Oxygen Saturation 95.9 94.0-98.0 % Arterial Blood Base Excess 8.4 H -2.0-3.0 mmol/L Arterial Blood Oxyhemoglobin 94.7 94.0-98.0 % Arterial Blood Carboxyhemoglobin 1.0 0.5-1.5 % Arterial Blood Methemoglobin 0.2 0.0-1.5 % Marcos Test Modified Blood Gas Total Hemoglobin 12.30 12.0-16.0 g/dL Blood Gas Set Respiration Rate 20.0 Blood Gas Modality Vent - ac FiO2 % 30.0 Blood Gas Tidal Volume 450.0 Blood Gas PEEP or CPAP 5.0 White Blood Count 10.9 H 4.4-10.8 10^3/uL Red Blood Count 3.12 L 4.0-5.20 10^6/uL Hemoglobin 9.4 L 12.2-16.2 g/dL Hematocrit 28.7 L 36.0-46.0 % Mean Corpuscular Volume 92.1 80.0-100.0 fL Mean Corpuscular Hemoglobin 30.2 28.0-32.0 pg Mean Corpuscular Hemoglobin Concent 32.8 32.0-36.0 g/dL Red Cell Distribution Width 26.8 H 11.8-14.3 % Platelet Count 245 140-450 10^3/uL Mean Platelet Volume 7.9 6.9-10.8 fL Neutrophils (%) (Auto) 37.0-80.0 % Lymphocytes (%) (Auto) 10.0-50.0 % Monocytes (%) (Auto) 0.0-12.0 % Basophils (%) (Auto) 0.0-2.0 % Neutrophils # (Auto) 1.6-8.6 10 ^3/uL Lymphocytes # (Auto) 0.4-5.4 10 ^3/uL Monocytes # (Auto) 0-1.3 10 ^3/uL Differential Total Cells Counted 100.0 100 Neutrophils % (Manual) 80 37.0-80.0 Band Neutrophils % (Manual) 4 Lymphocytes % (Manual) 10 10.0-50.0 Monocytes % (Manual) 6 0-12 Eosinophils % (Manual) 0 0-7 Basophils % (Manual) 0 0.0-2.0 Metamyelocytes % (manual) 0 Myelocytes % (Manual) 0 Promyelocytes % (Manual) 0 Blast Cells % (Manual) 0 Reactive Lymphocytes 0 Platelet Estimate Adequate Anisocytosis (manual) Slight Target Cells Few Stomatocytes Few Sodium Level 129 L 136-145 mmol/L Potassium Level 3.7 3.5-5.1 mmol/L Chloride Level 83 L 98-107 mmol/L Carbon Dioxide Level 31 20-31 mmol/L Anion Gap 15 5-15 Blood Urea Nitrogen 10 9-23 mg/dL Creatinine 0.72 0.550-1.02 mg/dL Glomerular Filtration Rate Calc 92 >90 mL/min BUN/Creatinine Ratio 13.9 10.0-20.0 Serum Glucose 210 H 74-106 mg/dL Calcium Level 7.4 L 8.7-10.4 mg/dL Magnesium Level 2.1 1.6-2.6 mg/dL Total Bilirubin 14.2 H 0.2-1.0 mg/dL Aspartate Amino Transferase (AST) 403 H 13-40 U/L Alanine Aminotransferase (ALT) 111 H 7-40 U/L Alkaline Phosphatase 154 H 46-116 U/L Total Protein 6.2 5.7-8.2 g/dL Albumin 2.9 L 3.2-4.8 g/dL Hepatitis A Antibody Total Negative Negative Hepatitis B Surface Antigen Negative Negative Hepatitis B Surface Antibody Negative Negative Hepatitis B Core Total Antibody Negative Negative Hepatitis C Antibody Negative Negative Urine Color Dark-yellow Yellow Urine Clarity Turbid H Clear Urine pH 6.5 5.0-9.0 Urine Specific [place] 1.011 1.001-1.035 Urine Protein Trace H Negative Urine Ketones 1+ H Negative Urine Blood 1+ H Negative /uL Urine Nitrite Negative Negative Urine Bilirubin 2+ H Negative Urine Urobilinogen 2 H Negative mg/dL Urine Leukocyte Esterase 3+ Negative /uL Urine RBC 2 0 - 4 /hpf Urine WBC Clumps Present None Seen /hpf Urine Microscopic WBC 41 H 0-5 /HPF Urine Squamous Epithelial Cells Few <5 /hpf Urine Bacteria None seen None Seen /hpf Urine Hyaline Casts Few 0 - 2 /lpf Urine Osmolality 294 mOsm/kg Urine Creatinine 44.83 30.0-125.0 mg/dL Urine Protein/Creatinine Ratio 1.29 Urine Sodium 53 40-220 mmol/L Urine Glucose Normal Normal mg/dL Urine Total Protein 57.8 H 1-14 mg/dL Test 02/12/25 21:59 02/12/25 21:43 02/12/25 15:50 02/12/25 13:27 Range/Units Troponin I High Sensitivity 136 *H </=34 ng/L Blood Gas Liter Flow 4.00 Blood Gas Critical Value Read Back Yes Blood Gas Notified Whom august Yanes md Blood Gas Notified Time [id number] Blood Gas Notified By Petty adrian, karl Ammonia 32 11-32 umol/L Prothrombin Time 24.9 H 9.3-11.8 sec Prothrombin Time INR 2.58 H 0.9-1.15 Activated Partial Thromboplast Time 31.2 24.5-34.5 SEC Phosphorus Level 0.6 L 2.4-5.1 mg/dL Test 02/12/25 06:21 02/11/25 11:20 02/11/25 08:05 02/11/25 04:30 Range/Units Large Platelets Few B-Type Natriuretic Peptide 111.57 0-100 pg/mL Vitamin D 25-Hydroxy 23.5 L 30.0-100 ng/mL Parathyroid Hormone (Intact) 218.7 H 18.4-80.1 pg/mL Beta-Hydroxybutyric Acid 0.562 H < 0.4 mmol/L Test 02/11/25 01:43 02/10/25 21:42 02/10/25 19:12 02/10/25 14:24 Range/Units Hemoglobin A1c 6.7 H <5.7 % A1C Urine Amorphous Sediment Many /hpf Blood Gas Spontaneous Rate 18 Specimen Drawn By Rigoberto rios rt Eosinophils (%) (Auto) 0.1 0.0-7.0 % Eosinophils # (Auto) 0 0-0.8 10 ^3/uL Basophils # (Auto) 0 0-0.2 10 ^3/uL Nucleated Red Blood Cells 1.7 % Thyroid Stimulating Hormone (TSH) 1.22 0.55-4.78 uIU/mL Microbiology Date/Time Source Procedure Growth Status 02/13/25 00:18 Sputum Endotracheal Wash Gram Stain - Final Resulted 02/13/25 00:18 Sputum Endotracheal Wash Respiratory Culture Pending Resulted 02/12/25 23:26 Nose MRSA Screen - Final Complete 02/12/25 10:50 Blood Blood Culture - Preliminary NO GROWTH AFTER 24 HOURS OF INCUBATION. Resulted 02/10/25 21:42 Voided Urine Urine Culture - Final Complete Assessment/Plan Plan Acute hypercapnic respiratory failure Acute respiratory failure Hyponatremia COPD Shock requiring Levophed drip Patient is seen and examined in the ICU Currently sedated Levophed drip for hemodynamic support Labs and imaging studies reviewed Chest x-ray heart pathway score Liam No lung disease Management plan Continue vent support Sedation fentanyl propofol as needed for ventilator synchrony ABG and chest x-ray in the morning Steroid/antibiotic for COPD Nebs Procedural sedation holiday in AM and weaning trial If the patient follows commands Precedex drip for agitation DVT prophylaxis Patient is full code Critical care time 35 minutes Plan discussed with: Other (rn) ECTOR BROCK MD Feb 13, 2025 16:44
--- NOTE | 2025-02-13 20:36 | DVHPN2 ---
Progress Note - Dictate Date Seen: Feb 13, 2025 Medical Necessity Reason Pt with a Central, PICC or Fol: No Subjective Patient was seen and evaluated in follow-up in the ICU. Patient is intubated and sedated on ventilator. 30% FiO2. Per RN, there is bleeding noted on the patient's arms. WBC 10.9, HGB 9.4, HCT 28.7, NA 129, CL 83, GLUC 245, AST 403, ALT 111. Chest x-ray shows intervally placed enteric tube and right IJ catheter with expected thoracic positioning. Unchanged endotracheal tube. vital signs Vital Sign Date Time Temp Pulse Resp B/P (MAP) Pulse Ox O2 Delivery O2 Flow Rate FiO2 02/13/25 11:58 86/58 02/13/25 10:30 104 20 100 30 02/13/25 10:00 Mechanical Ventilator+ 02/13/25 05:30 98.1 98.1 02/12/25 23:00 0 Total Intake and Output 02/12/25 02/12/25 02/13/25 15:00 23:00 07:00 Intake Total 100 ml 336.25 ml 598.75 ml Output Total 350 ml Balance 100 ml 336.25 ml 248.75 ml medications Current Medications Medications Dose Ordered Sig/Randolph Route Start Time Stop Time Status Last Admin Dose Admin Diagnostic Test (Pha) 1 strip Q6HR 02/11/25 06:00 02/13/25 05:38 1 STRIP Insulin Human Regular Q6HR SC 02/11/25 06:00 02/13/25 05:37 4 UNITS Dextrose 50 ml UD PRN IV 02/11/25 00:15 Ondansetron HCl 4 mg Q4HPRN PRN IV 02/11/25 07:00 Levofloxacin/ Dextrose 100 ml @ 100 mls/hr DAILY IV 02/11/25 10:00 02/13/25 09:47 100 MLS/HR Albuterol 2.5 mg Q6HPRN PRN NEB 02/11/25 07:00 02/11/25 21:41 2.5 MG Nitroglycerin 0.4 mg Q5MINP PRN SL 02/11/25 07:00 Morphine Sulfate 2 mg Q30M PRN IV 02/11/25 07:00 Enoxaparin Sodium 40 mg DAILY SC 02/11/25 10:00 02/13/25 09:48 40 MG Potassium Chloride/Sodium Chloride 1,000 ml @ 100 mls/hr Q10H IV 02/11/25 10:00 02/13/25 05:09 100 MLS/HR Ergocalciferol 50,000 unit Q7D PO 02/11/25 14:15 02/11/25 15:36 50,000 UNIT Metronidazole 100 ml @ 100 mls/hr Q8HR IV 02/12/25 08:30 02/13/25 05:09 100 MLS/HR Norepinephrine Bitartrate 250 ml @ 3.75 mls/hr Q24H IV 02/13/25 00:30 02/13/25 00:30 15 MLS/HR Midazolam HCl 50 ml @ 1 mls/hr Q24H IV 02/13/25 00:30 02/13/25 11:58 9 MLS/HR Fentanyl Citrate 250 ml @ 2.5 mls/hr Q24H IV 02/13/25 00:30 02/13/25 00:29 2.5 MLS/HR objective GENERAL: Ill appearing, intubated on ventilator. EYES: PERRL, EOMI. Anicteric. HENT: Moist mucous membranes. LUNGS: Decreased breath sounds. CARDIOVASCULAR: Regular rate and rhythm. ABDOMEN: Soft, non-tender and non-distended. EXTREMITIES: No edema. SKIN: Warm, dry. laboratory and microbiology Laboratory Tests 02/13/25 04:45 Test 02/13/25 04:45 Range/Units Serum Glucose 210 H 74-106 mg/dL Problem List Chest pain. Metabolic alkalosis. Hypokalemia. Hypophosphatemia. Hyponatremia. Type 2 diabetes mellitus. Acute complicated cystitis. Hyperparathyroidism. Hyperbilirubinemia with transaminitis. Left adrenal nodule. Assessment/Plan Continued all current supportive medical care. DVT prophylactics. IV antibiotics as ordered. Morphine for pain management. Vasopressors for hemodynamic support. Additional plan as per the hospital course. Critical care time of 45 minutes provided to include time spent evaluation of patient at bedside, when appropriate patient/family education for diagnosis, treatment plan, review of pertinent medical information and discussion of care with specialty providers and PCP. Mechanical ventilator parameters, treatment and adjustments have personally been reviewed by me and treatment plan by kiln charger has also been reviewed. Plan discussed with: MIKAELA Dickinson MD Feb 13, 2025 12:14
[2025-02-13] MEDS ORDERED: CLINIMIX PER PHARMACY 0 ML IV SCH (21:15)
--- NOTE | 2025-02-13 21:21 | DVHPN2 ---
Progress Note - Dictate Date Seen: Feb 13, 2025 Medical Necessity Reason Pt with a Central, PICC or Fol: No Subjective Patient noted to be unresponsive and lethargic overnight and thus was intubated and transferred to ICU, now on mechanical ventilatory support with fio2 30%, on levophed 10 mcg this AM, Persistent elevation in liver enzymes likely due to alcoholic steatohepatitis vital signs Vital Sign Date Time Temp Pulse Resp B/P (MAP) Pulse Ox O2 Delivery O2 Flow Rate FiO2 02/13/25 20:45 99.1 109 20 82/57 (65) 99 99.1 02/13/25 20:30 30 02/13/25 20:30 Mechanical Ventilator+ 02/13/25 20:30 0 Total Intake and Output 02/12/25 02/12/25 02/13/25 15:00 23:00 07:00 Intake Total 100 ml 336.25 ml 740.00 ml Output Total 350 ml Balance 100 ml 336.25 ml 390.00 ml medications Current Medications Medications Dose Ordered Sig/Randolph Route Start Time Stop Time Status Last Admin Dose Admin Diagnostic Test (Pha) 1 strip Q6HR 02/11/25 06:00 02/13/25 18:30 1 STRIP Insulin Human Regular Q6HR SC 02/11/25 06:00 02/13/25 18:29 3 UNITS Dextrose 50 ml UD PRN IV 02/11/25 00:15 Ondansetron HCl 4 mg Q4HPRN PRN IV 02/11/25 07:00 Levofloxacin/ Dextrose 100 ml @ 100 mls/hr DAILY IV 02/11/25 10:00 02/13/25 09:47 100 MLS/HR Albuterol 2.5 mg Q6HPRN PRN NEB 02/11/25 07:00 02/11/25 21:41 2.5 MG Nitroglycerin 0.4 mg Q5MINP PRN SL 02/11/25 07:00 Morphine Sulfate 2 mg Q30M PRN IV 02/11/25 07:00 Enoxaparin Sodium 40 mg DAILY SC 02/11/25 10:00 02/13/25 09:48 40 MG Potassium Chloride/Sodium Chloride 1,000 ml @ 100 mls/hr Q10H IV 02/11/25 10:00 02/13/25 18:20 100 MLS/HR Ergocalciferol 50,000 unit Q7D PO 02/11/25 14:15 02/11/25 15:36 50,000 UNIT Metronidazole 100 ml @ 100 mls/hr Q8HR IV 02/12/25 08:30 02/13/25 14:14 100 MLS/HR Norepinephrine Bitartrate 250 ml @ 3.75 mls/hr Q24H IV 02/13/25 00:30 02/13/25 12:14 26.25 MLS/HR Midazolam HCl 50 ml @ 1 mls/hr Q24H IV 02/13/25 00:30 02/13/25 18:04 8 MLS/HR Fentanyl Citrate 250 ml @ 2.5 mls/hr Q24H IV 02/13/25 00:30 02/13/25 19:52 12.5 MLS/HR objective GENERAL: Ill appearing, intubated on ventilator. EYES: PERRL, EOMI. Anicteric. HENT: Moist mucous membranes. LUNGS: Decreased breath sounds. CARDIOVASCULAR: Regular rate and rhythm. ABDOMEN: Soft, non-tender and non-distended. EXTREMITIES: No edema. SKIN: Warm, dry. laboratory and microbiology Laboratory Tests 02/13/25 04:45 Test 02/13/25 04:45 Range/Units Serum Glucose 210 H 74-106 mg/dL Problems(with codes): (1) Failure to thrive (2) Generalized weakness (3) Acute respiratory failure (4) Alcoholic steatohepatitis (5) Alcoholic fatty liver (6) Elevated liver enzymes Prognosis PLAN Continue ventilatory and respiratory support Continue IV antibiotics Blood culture is negative culture showed mixed violet [facility] discrimination function is 73, patient may benefit short-term from steroid use MELD score is 30 points which is predictive of 52.6% three-month mortality If hyperbilirubinemia persists we will start ursodiol 300 mg p.o. twice a day Continue to monitor labs, last ammonia level was normal Vitamin K to correct coagulopathy, patient is on thiamine and folic acid Plan discussed with: Other (Nurse Kern and Dr Mckeon) KIKE SIN MD Feb 13, 2025 21:21
[2025-02-13] MEDS ORDERED: DEXTROSE (50%) 50ML SYRG IV SCH (22:15)
[2025-02-13] MEDS: AMINO ACID INFUSION IN D10W 1,000 ML IV SCH (22:31)
[2025-02-13] MEDS: phytonadione 10 MG in SODIUM CHL 0.9% 50 ML IV ONE (22:31)
[2025-02-13] MEDS: CALCIUM GLUC 1,000mg/50ml-NS 50 ML IV ONE ×2 (22:31→23:22)
[2025-02-13] MEDS: methylPREDNISolone SOD SUCC 40 MG/ML VL IV SCH (23:05)
[2025-02-13] MEDS: InsuLIN REG 1unit/0.01ml Soln (100units/ml) SC SCH (23:16)
[2025-02-13] MEDS: ACCU-CHEK COMFORT CURVE STRIP VI SCH (23:16)
[2025-02-13] MEDS: ROCURONIUM 10MG/ML 10ML VIAL IV ONE (23:22)
[2025-02-13] MEDS: ETOMIDATE (2MG/ML) 20ML VIAL IV ONE (23:22)
--- NOTE | 2025-02-13 23:34 | DVHSR ---
APPROVED REPORT EXAM: Two-dimensional and M-mode echocardiogram with Doppler and color Doppler. Blood Pressure: 93/63 mmHg INDICATION Heart Failure RISK FACTORS Height: 5'5", Weight: 191 DIMENSIONS LVDd4.9 (3.8-5.7cm)LA (2D)3.2 (1.9-4.0cm)Aortic Root3.1 (2.0-3.7cm) LVDs4.0 (2.5-4.0cm)LA (MM) (1.9-4.0cm)Aortic Cusp Exc1.9 (1.5-2.0cm) EF (%) 38.0 (55-70%)Rt. Atrium3.5 (1.9-4.0cm)Asc. Aorta cm IVSd0.4 (0.7-1.1cm)RV (D) (1.8-2.4cm) Mitral Valve MitralMitral Stenosis E/A ratio0.02D MVAcm2 Aortic Valve Aortic ValveAortic Stenosis V11.11m/Caroline Mean GR.3mmHg V21.14m/Caroline Peak GR.5mmHg LVOT Diameter1.9 (1.8-2.4cm)Doppler AVA2.76cm2 Tricuspid Valve TR Velocity2.82m/s [id number] Other Information Quality : Technically LimitedRhythm : Technically limited study due to on vent. Conclusion HYPOKINETIC IVS ANTERIOR WALL HYPOKINEIS DILATED LV LV EF IS 38% AND IS MODERATELY REDUCED NORMAL VALVES NO EFFUSION
[2025-02-14] VITALS (114 sets, daily range): BP systolic 68–126; BP diastolic 44–91; PULSE 77–240; RESP 10–20; TEMP 96.9–99.1; O2SAT 93–100
[2025-02-14 03:31] LABS: Hematocrit 27.6 % (36.0-46.0); Hemoglobin 8.8 g/dL (12.2-16.2); Mean Corpuscular Hemoglobin 30.0 pg (28.0-32.0); Mean Corpuscular Volume 94.3 fL (80.0-100.0)
[2025-02-14 03:52] LABS: Anion Gap 14 (5-15); Blood Urea Nitrogen 10 mg/dL (9-23); Carbon Dioxide 27 mmol/L (20-31); Magnesium 1.8 mg/dL (1.6-2.6); Potassium 5.1 mmol/L (3.5-5.1)
[2025-02-14 03:55] LABS: Anisocytosis Slight; Nucleated Red Blood Cells % 7.0 %; Total Cells Counted 100.0 (100)
[2025-02-14 03:56] LABS: Stomatocytes Few
[2025-02-14 03:57] LABS: Alanine Aminotransferase 100 U/L (7-40); Albumin 2.7 g/dL (3.2-4.8); Alkaline Phosphatase 168 U/L (46-116); Bilirubin, Total 14.1 mg/dL (0.2-1.0); Calcium 6.8 mg/dL (8.7-10.4); Chloride 93 mmol/L (98-107); Glucose 197 mg/dL (74-106); Sodium 134 mmol/L (136-145)
[2025-02-14 04:08] LABS: BUN/Creatinine Ratio 13.3 (10.0-20.0)
[2025-02-14 04:17] LABS: Total Protein 5.9 g/dL (5.7-8.2)
--- NOTE | 2025-02-14 07:26 | DVHPN2 ---
Progress Note Date Seen: Feb 14, 2025 Medical Necessity Reason Pt with a Central, PICC or Fol: No Subjective Patient reports: Other Review of Systems: Not Done Objective vital signs Vital Sign Date Time Temp Pulse Resp B/P (MAP) Pulse Ox O2 Delivery O2 Flow Rate FiO2 02/14/25 06:45 123 16 88/62 (71) 96 02/14/25 06:10 30 02/14/25 05:32 Mechanical Ventilator+ 02/14/25 05:16 98.8 98.8 02/13/25 20:30 0 Total Intake and Output 02/13/25 02/13/25 02/14/25 15:00 23:00 07:00 Intake Total 1367.055 ml 2606.00 ml 1280.75 ml Output Total 300 ml 375 ml Balance 1367.055 ml 2306.00 ml 905.75 ml medications Current Medications Medications Dose Ordered Sig/Randolph Route Start Time Stop Time Status Last Admin Dose Admin Dextrose 50 ml UD PRN IV 02/11/25 00:15 Cancel Ondansetron HCl 4 mg Q4HPRN PRN IV 02/11/25 07:00 Levofloxacin/ Dextrose 100 ml @ 100 mls/hr DAILY IV 02/11/25 10:00 02/13/25 09:47 100 MLS/HR Albuterol 2.5 mg Q6HPRN PRN NEB 02/11/25 07:00 02/11/25 21:41 2.5 MG Nitroglycerin 0.4 mg Q5MINP PRN SL 02/11/25 07:00 Morphine Sulfate 2 mg Q30M PRN IV 02/11/25 07:00 Enoxaparin Sodium 40 mg DAILY SC 02/11/25 10:00 02/13/25 09:48 40 MG Potassium Chloride/Sodium Chloride 1,000 ml @ 100 mls/hr Q10H IV 02/11/25 10:00 02/14/25 03:46 100 MLS/HR Ergocalciferol 50,000 unit Q7D PO 02/11/25 14:15 02/11/25 15:36 50,000 UNIT Metronidazole 100 ml @ 100 mls/hr Q8HR IV 02/12/25 08:30 02/14/25 05:04 100 MLS/HR Norepinephrine Bitartrate 250 ml @ 3.75 mls/hr Q24H IV 02/13/25 00:30 02/14/25 04:26 30 MLS/HR Midazolam HCl 50 ml @ 1 mls/hr Q24H IV 02/13/25 00:30 02/14/25 03:51 10 MLS/HR Fentanyl Citrate 250 ml @ 2.5 mls/hr Q24H IV 02/13/25 00:30 02/13/25 19:52 12.5 MLS/HR Methylprednisolone Sodium Succinate 40 mg Q8HR IV 02/13/25 22:00 02/14/25 05:05 40 MG Thiamine HCl 100 mg DAILY IV 02/14/25 10:00 Amino Acids 0 ml @ 0 mls/hr PER PHARMACY IV 02/13/25 21:15 UNV Folic Acid 1 mg/ Multivitamins 10 ml/Magnesium Sulfate 8 meq/ Thiamine HCl 100 mg/Dextrose 1,013.2 ml @ 125.001 mls/hr DAILY@1800 INJ 02/14/25 18:00 Amino Acids/ Electrolytes/ Dextrose 1,000 ml @ 41 mls/hr DAILY@2200 IV 02/13/25 22:00 02/13/25 22:31 41 MLS/HR Diagnostic Test (Pha) 1 strip Q6HR 02/14/25 00:00 02/14/25 05:21 1 STRIP Insulin Human Regular FOLLOW SLIDING SCALE Q6HR SC 02/14/25 00:00 02/14/25 05:20 8 UNITS Dextrose 50 ml UD IV 02/13/25 22:15 Examination: GENERAL:Normal, LUNGS:Normal, CVS:Normal, CVS:Abnormal, ABDOMEN:Normal laboratory and microbiology Laboratory Tests 02/14/25 02:27 Test 02/14/25 02:27 Range/Units Serum Glucose 197 H 74-106 mg/dL Problem List/Assessment/Plan Problem List/Assessment/Plan 1) Acute respiratory failure, intubated 2) UTI 3) Hyponatremia 4) Hyperbilirubinemia 2/2 alcoholism 5) Metabolic alkalosis 6) COPD 7) Hx of CVA 8) DM 9) HTN 10) HLD plan; 02/13---patient noted to be unresponsive and lethargic overnight and thus was intubated and transferred to ICU, now on mechanical ventilatory support with fio2 30%, on levophed 10 mcg this AM, continue IV Abx, BCx negative, UCx shows mixed violet, will consult pulm/cardio, GI on board due to elevated LFTs and hyperbilirubinemia likely in the setting of alcoholic hepatitis, daily labs, supportive care, employment consultant input appreciated, will follow along 02/14---remains intubated on ventilator fio2 30%, this AM on 18 mcg of levophed, WBC 15k, repeat BCx negative, Na uptrending to 132 with IVF hydration with nephrology following, echo shows EF 38% with cardio on the case, bilirubin 14 this AM and likely attributed to alcoholism with GI on board, continue all care, employment consultant input appreciated, daily labs, will follow along Plan discussed with: Other (n) BENNIE YE MD Feb 14, 2025 07:26
[2025-02-14 07:54] LABS: Base Excess -4.0 mmol/L (-2.0-3.0)
--- NOTE | 2025-02-14 08:27 | DVH ---
CHEST RADIOGRAPH Indication: PT IS INTUBATED/RESP FAILUER Technique: Single frontal view of the chest was obtained COMPARISON: XY CHEST XRAY 1 VIEW on DOS: 02/13/25, XY CHEST XRAY 1 VIEW on DOS: 02/12/25, XY CHEST XRA Y 1 VIEW on DOS: 02/10/25, CT CHEST WITHOUT CONTRAST on DOS: 10/29/24, XY CHEST PORTABLE on DOS: 5 FINDINGS: Lines and Tubes: Endotracheal tube, enteric catheter and right central venous catheter in satisfactor y position. Lungs: Patchy bilateral airspace disease. Pleura: No effusion. No pneumothorax. Cardiomediastinal contours: Unremarkable. Bones: Unremarkable. IMPRESSION: Lines and tubes in satisfactory position. No significant interval change.
[2025-02-14] MEDS ORDERED: METOPROLOL TARTRATE 1MG/1ML-5ML VIAL IV PRN (09:15)
[2025-02-14] MEDS: SODIUM CHLORIDE 0.9% 1,000 ML IV SCH ×2 (09:15→10:15)
[2025-02-14] MEDS: THIAMINE 100mg/ml INJ (200mg/2ml VIAL) IV SCH (09:23)
[2025-02-14] MEDS: VANCOMYCIN PER PHARMACY 0 MG IV SCH (10:00)
[2025-02-14] MEDS: METOPROLOL TARTRATE 1MG/1ML-5ML VIAL IV ONE (10:09)
--- NOTE | 2025-02-14 10:12 | DVHPN2 ---
Progress Note Date Seen: Feb 14, 2025 Medical Necessity Reason Pt with a Central, PICC or Fol: No Subjective Review of Systems: RESPIRATORY:Abnormal Other Systems: Patient seen and examined by myself today in follow-up, patient remained intubated on ventilator Objective vital signs Vital Sign Date Time Temp Pulse Resp B/P (MAP) Pulse Ox O2 Delivery O2 Flow Rate FiO2 02/14/25 09:22 87/66 02/14/25 06:45 123 16 96 02/14/25 06:10 30 02/14/25 05:32 Mechanical Ventilator+ 02/14/25 05:16 98.8 98.8 02/13/25 20:30 0 Total Intake and Output 02/13/25 02/13/25 02/14/25 14:59 22:59 06:59 Intake Total 1329.055 ml 2284.00 ml 1782.00 ml Output Total 300 ml 375 ml Balance 1329.055 ml 1984.00 ml 1407.00 ml medications Current Medications Medications Dose Ordered Sig/Randolph Route Start Time Stop Time Status Last Admin Dose Admin Dextrose 50 ml UD PRN IV 02/11/25 00:15 Cancel Ondansetron HCl 4 mg Q4HPRN PRN IV 02/11/25 07:00 Levofloxacin/ Dextrose 100 ml @ 100 mls/hr DAILY IV 02/11/25 10:00 02/14/25 09:23 100 MLS/HR Albuterol 2.5 mg Q6HPRN PRN NEB 02/11/25 07:00 02/11/25 21:41 2.5 MG Nitroglycerin 0.4 mg Q5MINP PRN SL 02/11/25 07:00 Morphine Sulfate 2 mg Q30M PRN IV 02/11/25 07:00 Enoxaparin Sodium 40 mg DAILY SC 02/11/25 10:00 02/14/25 09:24 40 MG Ergocalciferol 50,000 unit Q7D PO 02/11/25 14:15 02/11/25 15:36 50,000 UNIT Metronidazole 100 ml @ 100 mls/hr Q8HR IV 02/12/25 08:30 02/14/25 05:04 100 MLS/HR Norepinephrine Bitartrate 250 ml @ 3.75 mls/hr Q24H IV 02/13/25 00:30 02/14/25 04:26 30 MLS/HR Midazolam HCl 50 ml @ 1 mls/hr Q24H IV 02/13/25 00:30 02/14/25 09:22 10 MLS/HR Fentanyl Citrate 250 ml @ 2.5 mls/hr Q24H IV 02/13/25 00:30 02/13/25 19:52 12.5 MLS/HR Methylprednisolone Sodium Succinate 40 mg Q8HR IV 02/13/25 22:00 02/14/25 05:05 40 MG Thiamine HCl 100 mg DAILY IV 02/14/25 10:00 02/14/25 09:23 100 MG Amino Acids 0 ml @ 0 mls/hr PER PHARMACY IV 02/13/25 21:15 Folic Acid 1 mg/ Multivitamins 10 ml/Magnesium Sulfate 8 meq/ Thiamine HCl 100 mg/Dextrose 1,013.2 ml @ 125.001 mls/hr DAILY@1800 INJ 02/14/25 18:00 Amino Acids/ Electrolytes/ Dextrose 1,000 ml @ 41 mls/hr DAILY@2200 IV 02/13/25 22:00 02/13/25 22:31 41 MLS/HR Diagnostic Test (Pha) 1 strip Q6HR 02/14/25 00:00 02/14/25 05:21 1 STRIP Insulin Human Regular FOLLOW SLIDING SCALE Q6HR SC 02/14/25 00:00 02/14/25 05:20 8 UNITS Dextrose 50 ml UD IV 02/13/25 22:15 Metoprolol Tartrate 5 mg Q4HPRN PRN IV 02/14/25 09:15 Vancomycin HCl 0 ml @ 0 mls/hr DAILY IV 02/14/25 10:00 Sodium Chloride 1,000 ml @ 100 mls/hr Q10H IV 02/14/25 09:15 Vancomycin HCl 250 ml @ 250 mls/hr Q1H IV 02/14/25 10:00 02/14/25 11:59 Examination: LUNGS:Normal, CVS:Normal, MSK:Normal laboratory and microbiology Laboratory Tests 02/14/25 02:27 Test 02/14/25 02:27 Range/Units Serum Glucose 197 H 74-106 mg/dL Microbiology Date/Time Source Procedure Growth Status 02/13/25 00:18 Sputum Endotracheal Wash Gram Stain - Final Resulted 02/13/25 00:18 Sputum Endotracheal Wash Respiratory Culture Pending Resulted 02/12/25 23:26 Nose MRSA Screen - Final Complete 02/12/25 10:50 Blood Blood Culture - Preliminary NO GROWTH AFTER 24 HOURS OF INCUBATION. Resulted 02/10/25 21:42 Voided Urine Urine Culture - Final Complete Problem List/Assessment/Plan Problem List/Assessment/Plan Severe hypokalemia in the state of metabolic alkalosis secondary to dehydrate Severe hypophosphatemia Hyponatremia due to dehydration metabolic alkalosis Acute respiratory failure, patient intubated on ventilator Type 2 diabetes mellitus with hemoglobin A1c 6.7 Acute complicated cystitis Primary hyperparathyroidism Hyperbilirubinemia with transaminitis Left adrenal nodule History of alcoholic liver disease Plan: Kidney function remained within normal limit Increased urine output Strict I&Os Change IV fluid to NS at 75 cc/hour K-Phos 44 millimole IV piggyback over 8 hours Check renin activity and aldosterone level Insulin sliding scale IV antibiotics We will continue to follow up Total care time 25 minutes Plan discussed with: Other (Nurse) TERRY EVANS MD Feb 14, 2025 10:12
[2025-02-14] MEDS: VANCOMYCIN 1GM/250ML KIT 250 ML IV SCH (12:27)
--- NOTE | 2025-02-14 15:32 | DVHPN2 ---
Progress Note - Dictate Date Seen: Feb 14, 2025 Has the PT tested + for MRSA If YES, has PT been informed?: No Medical Necessity Reason Pt with a Central, PICC or Fol: No vital signs Vital Sign Date Time Temp Pulse Resp B/P (MAP) Pulse Ox O2 Delivery O2 Flow Rate FiO2 02/14/25 14:38 103/67 02/14/25 13:57 102 14 100 30 02/14/25 05:32 Mechanical Ventilator+ 02/14/25 05:16 98.8 98.8 02/13/25 20:30 0 Total Intake and Output 02/13/25 02/13/25 02/14/25 15:00 23:00 07:00 Intake Total 1367.055 ml 2606.00 ml 1321.75 ml Output Total 300 ml 375 ml Balance 1367.055 ml 2306.00 ml 946.75 ml medications Current Medications Medications Dose Ordered Sig/Randolph Route Start Time Stop Time Status Last Admin Dose Admin Dextrose 50 ml UD PRN IV 02/11/25 00:15 Cancel Ondansetron HCl 4 mg Q4HPRN PRN IV 02/11/25 07:00 Levofloxacin/ Dextrose 100 ml @ 100 mls/hr DAILY IV 02/11/25 10:00 02/14/25 09:23 100 MLS/HR Albuterol 2.5 mg Q6HPRN PRN NEB 02/11/25 07:00 02/11/25 21:41 2.5 MG Nitroglycerin 0.4 mg Q5MINP PRN SL 02/11/25 07:00 Morphine Sulfate 2 mg Q30M PRN IV 02/11/25 07:00 Enoxaparin Sodium 40 mg DAILY SC 02/11/25 10:00 02/14/25 09:24 40 MG Ergocalciferol 50,000 unit Q7D PO 02/11/25 14:15 02/11/25 15:36 50,000 UNIT Metronidazole 100 ml @ 100 mls/hr Q8HR IV 02/12/25 08:30 02/14/25 14:39 100 MLS/HR Norepinephrine Bitartrate 250 ml @ 3.75 mls/hr Q24H IV 02/13/25 00:30 02/14/25 14:38 45 MLS/HR Midazolam HCl 50 ml @ 1 mls/hr Q24H IV 02/13/25 00:30 02/14/25 13:50 10 MLS/HR Fentanyl Citrate 250 ml @ 2.5 mls/hr Q24H IV 02/13/25 00:30 02/14/25 12:38 15 MLS/HR Methylprednisolone Sodium Succinate 40 mg Q8HR IV 02/13/25 22:00 02/14/25 14:43 40 MG Thiamine HCl 100 mg DAILY IV 02/14/25 10:00 02/14/25 09:23 100 MG Amino Acids 0 ml @ 0 mls/hr PER PHARMACY IV 02/13/25 21:15 Folic Acid 1 mg/ Multivitamins 10 ml/Magnesium Sulfate 8 meq/ Thiamine HCl 100 mg/Dextrose 1,013.2 ml @ 125.001 mls/hr DAILY@1800 INJ 02/14/25 18:00 Amino Acids/ Electrolytes/ Dextrose 1,000 ml @ 41 mls/hr DAILY@2200 IV 02/13/25 22:00 02/13/25 22:31 41 MLS/HR Diagnostic Test (Pha) 1 strip Q6HR 02/14/25 00:00 02/14/25 12:00 1 STRIP Insulin Human Regular FOLLOW SLIDING SCALE Q6HR SC 02/14/25 00:00 02/14/25 12:38 16 UNITS Dextrose 50 ml UD IV 02/13/25 22:15 Metoprolol Tartrate 5 mg Q4HPRN PRN IV 02/14/25 09:15 Vancomycin HCl 0 ml @ 0 mls/hr DAILY IV 02/14/25 10:00 Sodium Chloride 1,000 ml @ 75 mls/hr [id number] IV 02/14/25 10:15 02/14/25 10:15 75 MLS/HR Amino Acids/ Electrolytes/ Dextrose 1,000 ml @ 41 mls/hr DAILY@2200 IV 02/14/25 22:00 Cancel Pantoprazole Sodium 40 mg DAILY IV 02/15/25 10:00 Vancomycin HCl 100 ml @ 100 mls/hr Q12H IV 02/15/25 01:00 Amiodarone HCL/ Dextrose 200 ml @ 16.66 mls/ hr Q12H IV 02/14/25 20:45 Enteral Nutritional Formula 1,000 ml 30ML/HR GT 02/14/25 14:45 UNV laboratory and microbiology Laboratory Tests 02/14/25 02:27 Test 02/14/25 02:27 Range/Units Serum Glucose 197 H 74-106 mg/dL Assessment/Plan Acute hypercapnic respiratory failure Acute respiratory failure Hyponatremia COPD Shock requiring Levophed drip Patient is seen and examined in the ICU events pt intubated had an episode of SVT on levophed start amiodarone vent ac volume control peep 5 Fi02=40% Management plan vent support Sedation fentanyl propofol as needed for ventilator synchrony weaning when more stable hemodynamically Steroid/antibiotic for COPD Nebs nutrition DVT prophylaxis Patient is full code Critical care time 35 minutes Plan discussed with: Other (rn) ECTOR BROCK MD Feb 14, 2025 15:32
[2025-02-14] MEDS: AMIODARONE BOLUS KIT 100 ML IV ONE (15:37)
[2025-02-14] MEDS: AMIODARONE 360mg/200mL PREMIX 200 ML IV ONE (15:58)
[2025-02-14] MEDS: FOLIC ACID 1 MG, MULTIPLE VITAMIN 10 ML, MAGNESIUM SULF SDV 50% 8 MEQ, THIAMINE INJ 100... INJ SCH (18:21)
[2025-02-14] MEDS: PHENYLEPHRINE IV 250 ML IV ONE (19:48)
[2025-02-14] MEDS: PHENYLEPHRINE IV 250 ML IV SCH (19:51)
--- NOTE | 2025-02-14 21:03 | DVHPN2 ---
Progress Note - Dictate Date Seen: Feb 14, 2025 Has the PT tested + for MRSA If YES, has PT been informed?: No Medical Necessity Reason Pt with a Central, PICC or Fol: No Subjective Patient seen at bedside, still intubated sedated now on mechanical ventilatory support with fio2 30%, Persistent elevation in liver enzymes likely due to alcoholic steatohepatitis, liver enzymes are trending down vital signs Vital Sign Date Time Temp Pulse Resp B/P (MAP) Pulse Ox O2 Delivery O2 Flow Rate FiO2 02/14/25 20:20 77 14 119/77 (91) 100 02/14/25 20:16 30 02/14/25 20:00 Mechanical Ventilator+ 0 02/14/25 20:00 97.3 97.3 Total Intake and Output 02/13/25 02/13/25 02/14/25 15:00 23:00 07:00 Intake Total 1367.055 ml 2606.00 ml 1380.50 ml Output Total 300 ml 375 ml Balance 1367.055 ml 2306.00 ml 1005.50 ml medications Current Medications Medications Dose Ordered Sig/Randolph Route Start Time Stop Time Status Last Admin Dose Admin Dextrose 50 ml UD PRN IV 02/11/25 00:15 Cancel Ondansetron HCl 4 mg Q4HPRN PRN IV 02/11/25 07:00 Levofloxacin/ Dextrose 100 ml @ 100 mls/hr DAILY IV 02/11/25 10:00 02/14/25 09:23 100 MLS/HR Albuterol 2.5 mg Q6HPRN PRN NEB 02/11/25 07:00 02/11/25 21:41 2.5 MG Nitroglycerin 0.4 mg Q5MINP PRN SL 02/11/25 07:00 Morphine Sulfate 2 mg Q30M PRN IV 02/11/25 07:00 Enoxaparin Sodium 40 mg DAILY SC 02/11/25 10:00 02/14/25 09:24 40 MG Ergocalciferol 50,000 unit Q7D PO 02/11/25 14:15 02/11/25 15:36 50,000 UNIT Metronidazole 100 ml @ 100 mls/hr Q8HR IV 02/12/25 08:30 02/14/25 14:39 100 MLS/HR Norepinephrine Bitartrate 250 ml @ 3.75 mls/hr Q24H IV 02/13/25 00:30 02/14/25 19:47 56.25 MLS/HR Midazolam HCl 50 ml @ 1 mls/hr Q24H IV 02/13/25 00:30 02/14/25 18:22 10 MLS/HR Fentanyl Citrate 250 ml @ 2.5 mls/hr Q24H IV 02/13/25 00:30 02/14/25 12:38 15 MLS/HR Methylprednisolone Sodium Succinate 40 mg Q8HR IV 02/13/25 22:00 02/14/25 14:43 40 MG Thiamine HCl 100 mg DAILY IV 02/14/25 10:00 02/14/25 09:23 100 MG Amino Acids 0 ml @ 0 mls/hr PER PHARMACY IV 02/13/25 21:15 Folic Acid 1 mg/ Multivitamins 10 ml/Magnesium Sulfate 8 meq/ Thiamine HCl 100 mg/Dextrose 1,013.2 ml @ 125.001 mls/hr DAILY@1800 INJ 02/14/25 18:00 02/14/25 18:21 125.001 MLS/HR Amino Acids/ Electrolytes/ Dextrose 1,000 ml @ 41 mls/hr DAILY@2200 IV 02/13/25 22:00 02/13/25 22:31 41 MLS/HR Diagnostic Test (Pha) 1 strip Q6HR 02/14/25 00:00 02/14/25 18:04 1 STRIP Insulin Human Regular FOLLOW SLIDING SCALE Q6HR SC 02/14/25 00:00 02/14/25 18:04 20 UNITS Dextrose 50 ml UD IV 02/13/25 22:15 Metoprolol Tartrate 5 mg Q4HPRN PRN IV 02/14/25 09:15 Vancomycin HCl 0 ml @ 0 mls/hr DAILY IV 02/14/25 10:00 Sodium Chloride 1,000 ml @ 75 mls/hr [id number] IV 02/14/25 10:15 02/14/25 18:23 75 MLS/HR Amino Acids/ Electrolytes/ Dextrose 1,000 ml @ 41 mls/hr DAILY@2200 IV 02/14/25 22:00 Cancel Pantoprazole Sodium 40 mg DAILY IV 02/15/25 10:00 Vancomycin HCl 100 ml @ 100 mls/hr Q12H IV 02/15/25 01:00 Amiodarone HCL/ Dextrose 200 ml @ 16.66 mls/ hr Q12H IV 02/14/25 20:45 Enteral Nutritional Formula 1,000 ml 30ML/HR GT 02/14/25 14:45 Phenylephrine HCl 250 ml @ 30 mls/hr Q8H20M IV 02/14/25 19:30 02/14/25 19:51 30 MLS/HR objective GENERAL: Ill appearing, intubated on ventilator. EYES: PERRL, EOMI. Anicteric. HENT: Moist mucous membranes. LUNGS: Decreased breath sounds. CARDIOVASCULAR: Regular rate and rhythm. ABDOMEN: Soft, non-tender and non-distended. EXTREMITIES: No edema. SKIN: Warm, dry. laboratory and microbiology Laboratory Tests 02/14/25 02:27 Test 02/14/25 02:27 Range/Units Serum Glucose 197 H 74-106 mg/dL Problems(with codes): (1) Alcoholic steatohepatitis (2) Elevated liver enzymes (3) Alcoholic fatty liver (4) Acute respiratory failure (5) Failure to thrive (6) Generalized weakness (7) Anemia Prognosis PLAN Continue ventilatory and respiratory support Continue IV antibiotics Start Glucerna trickle tube feedings Blood culture is negative culture showed mixed violet [facility] discrimination function is 73, patient was started on short-term from steroid use MELD score is 30 points which is predictive of 52.6% three-month mortality If hyperbilirubinemia persists we will start ursodiol 300 mg p.o. twice a day Continue to monitor labs, last ammonia level was normal Vitamin K to correct coagulopathy, patient is on thiamine and folic acid Plan discussed with: Other (Nurse) KIKE SIN MD Feb 14, 2025 21:03
[2025-02-14] MEDS: AMIODARONE 360mg/200mL PREMIX 200 ML IV SCH (21:43)
[2025-02-14] MEDS ORDERED: AMINO ACID INFUSION IN D10W 1,000 ML IV SCH (22:00)
[2025-02-14 22:40] LABS: Magnesium 1.9 mg/dL (1.6-2.6)
[2025-02-14 22:58] LABS: Potassium 5.9 mmol/L (3.5-5.1)
[2025-02-14] MEDS: DEXTROSE (50%) 50ML SYRG IV ONE (23:17)
[2025-02-14] MEDS: SODIUM BICARB 8.4% 50Meq/50ml SYR INJ IV ONE (23:17)
[2025-02-14] MEDS: CALCIUM GLUC 1,000mg/50ml-NS 50 ML IV ONE (23:17)
[2025-02-14] MEDS: InsuLIN REG 1unit/0.01ml Soln (100units/ml) IV ONE (23:18)
[2025-02-14] MEDS: FUROSEMIDE 20 MG/2 ML VIAL IV ONE (23:18)
[2025-02-14] MEDS: SODIUM ZIRCONIUM CYCL 10 GM PAK PO ONE (23:18)
[2025-02-14] MEDS: ALBUTEROL SULF 2.5 MG/0.5ML(0.5%) NEB SOLN NEB ONE (23:26)
[2025-02-15] VITALS (107 sets, daily range): BP systolic 81–132; BP diastolic 53–83; PULSE 81–97; RESP 13–18; TEMP 97.5–98.1; O2SAT 86–100
[2025-02-15] MEDS: VANCOMYCIN 750MG KIT 100 ML IV SCH (00:35)
--- NOTE | 2025-02-15 00:42 | DVHPN2 ---
Progress Note - Dictate Date Seen: Feb 14, 2025 Medical Necessity Reason Pt with a Central, PICC or Fol: No Subjective Patient was seen and evaluated in follow-up in the ICU. Patient is intubated and sedated on ventilator. 30% FiO2. WBC 15.6, HGB 8.8, HCT 27.6, NA 134, CL 93, GLUC 246, AST 325, ALT 100.Chest x-ray is unchanged. vital signs Vital Sign Date Time Temp Pulse Resp B/P (MAP) Pulse Ox O2 Delivery O2 Flow Rate FiO2 02/14/25 10:09 128 92/61 02/14/25 09:46 14 96 30 02/14/25 05:32 Mechanical Ventilator+ 02/14/25 05:16 98.8 98.8 02/13/25 20:30 0 Total Intake and Output 02/13/25 02/13/25 02/14/25 15:00 23:00 07:00 Intake Total 1367.055 ml 2606.00 ml 1280.75 ml Output Total 300 ml 375 ml Balance 1367.055 ml 2306.00 ml 905.75 ml medications Current Medications Medications Dose Ordered Sig/Randolph Route Start Time Stop Time Status Last Admin Dose Admin Dextrose 50 ml UD PRN IV 02/11/25 00:15 Cancel Ondansetron HCl 4 mg Q4HPRN PRN IV 02/11/25 07:00 Levofloxacin/ Dextrose 100 ml @ 100 mls/hr DAILY IV 02/11/25 10:00 02/14/25 09:23 100 MLS/HR Albuterol 2.5 mg Q6HPRN PRN NEB 02/11/25 07:00 02/11/25 21:41 2.5 MG Nitroglycerin 0.4 mg Q5MINP PRN SL 02/11/25 07:00 Morphine Sulfate 2 mg Q30M PRN IV 02/11/25 07:00 Enoxaparin Sodium 40 mg DAILY SC 02/11/25 10:00 02/14/25 09:24 40 MG Ergocalciferol 50,000 unit Q7D PO 02/11/25 14:15 02/11/25 15:36 50,000 UNIT Metronidazole 100 ml @ 100 mls/hr Q8HR IV 02/12/25 08:30 02/14/25 05:04 100 MLS/HR Norepinephrine Bitartrate 250 ml @ 3.75 mls/hr Q24H IV 02/13/25 00:30 02/14/25 04:26 30 MLS/HR Midazolam HCl 50 ml @ 1 mls/hr Q24H IV 02/13/25 00:30 02/14/25 09:22 10 MLS/HR Fentanyl Citrate 250 ml @ 2.5 mls/hr Q24H IV 02/13/25 00:30 02/13/25 19:52 12.5 MLS/HR Methylprednisolone Sodium Succinate 40 mg Q8HR IV 02/13/25 22:00 02/14/25 05:05 40 MG Thiamine HCl 100 mg DAILY IV 02/14/25 10:00 02/14/25 09:23 100 MG Amino Acids 0 ml @ 0 mls/hr PER PHARMACY IV 02/13/25 21:15 Folic Acid 1 mg/ Multivitamins 10 ml/Magnesium Sulfate 8 meq/ Thiamine HCl 100 mg/Dextrose 1,013.2 ml @ 125.001 mls/hr DAILY@1800 INJ 02/14/25 18:00 Amino Acids/ Electrolytes/ Dextrose 1,000 ml @ 41 mls/hr DAILY@2200 IV 02/13/25 22:00 02/13/25 22:31 41 MLS/HR Diagnostic Test (Pha) 1 strip Q6HR 02/14/25 00:00 02/14/25 05:21 1 STRIP Insulin Human Regular FOLLOW SLIDING SCALE Q6HR SC 02/14/25 00:00 02/14/25 05:20 8 UNITS Dextrose 50 ml UD IV 02/13/25 22:15 Metoprolol Tartrate 5 mg Q4HPRN PRN IV 02/14/25 09:15 Vancomycin HCl 0 ml @ 0 mls/hr DAILY IV 02/14/25 10:00 Sodium Chloride 1,000 ml @ 75 mls/hr [id number] IV 02/14/25 10:15 Amino Acids/ Electrolytes/ Dextrose 1,000 ml @ 41 mls/hr DAILY@2200 IV 02/14/25 22:00 Cancel objective GENERAL: Ill appearing, intubated on ventilator. EYES: PERRL, EOMI. Anicteric. HENT: Moist mucous membranes. LUNGS: Decreased breath sounds. CARDIOVASCULAR: Regular rate and rhythm. ABDOMEN: Soft, non-tender and non-distended. EXTREMITIES: No edema. SKIN: Warm, dry. laboratory and microbiology Laboratory Tests 02/14/25 02:27 Test 02/14/25 02:27 Range/Units Serum Glucose 197 H 74-106 mg/dL Problem List Chest pain. Metabolic alkalosis. Hypokalemia. Hypophosphatemia. Hyponatremia. Type 2 diabetes mellitus. Acute complicated cystitis. Hyperparathyroidism. Hyperbilirubinemia with transaminitis. Left adrenal nodule. Assessment/Plan Continued all current supportive medical care. Metoprolol. DVT prophylactics. IV antibiotics as ordered. Morphine for pain management. Vasopressors for hemodynamic support. Additional plan as per the hospital course. Critical care time of 45 minutes provided to include time spent evaluation of patient at bedside, when appropriate patient/family education for diagnosis, treatment plan, review of pertinent medical information and discussion of care with specialty providers and PCP. Mechanical ventilator parameters, treatment and adjustments have personally been reviewed by me and treatment plan by creative developer has also been reviewed. Plan discussed with: Other MIKAELA IQBAL MD Feb 14, 2025 12:25
[2025-02-15 04:12] LABS: Anion Gap 15 (5-15); BUN/Creatinine Ratio 21.2 (10.0-20.0); Carbon Dioxide 23 mmol/L (20-31); Potassium 4.8 mmol/L (3.5-5.1)
[2025-02-15 04:57] LABS: Mean Corpuscular Hemoglobin 30.0 pg (28.0-32.0)
[2025-02-15 04:59] LABS: Hematocrit 31.6 % (36.0-46.0); Hemoglobin 9.4 g/dL (12.2-16.2); Mean Corpuscular Volume 101.2 fL (80.0-100.0)
[2025-02-15 05:10] LABS: Alanine Aminotransferase 158 U/L (7-40); Albumin 3.0 g/dL (3.2-4.8); Alkaline Phosphatase 171 U/L (46-116); Bilirubin, Total 22.3 mg/dL (0.2-1.0); Blood Urea Nitrogen 18 mg/dL (9-23); Calcium 6.7 mg/dL (8.7-10.4); Chloride 90 mmol/L (98-107); Sodium 128 mmol/L (136-145); Total Protein 6.4 g/dL (5.7-8.2)
[2025-02-15 05:11] LABS: Glucose 547 mg/dL (74-106)
[2025-02-15] MEDS ORDERED: DEXTROSE (50%) 50ML SYRG IV PRN (05:30)
--- NOTE | 2025-02-15 05:40 | DVH ---
EXAM: XY CHEST PORTABLE HISTORY: PT IS INTUBATED/RESP FAILUER COMPARISON: XY CHEST PORTABLE on DOS: 02/14/25, XY CHEST XRAY 1 VIEW on DOS: 02/13/25, XY CHEST XRAY 1 VIEW on DOS: 02/12/25, XY CHEST XRAY 1 VIEW on DOS: 02/10/25, XY CHEST PORTABLE on DOS: 10/29/24 TECHNIQUE: Portable AP view of the chest was performed. FINDINGS: Endotracheal tube is re-identified with its tip 3.8 cm above the erika. OG tube and right IJ central line are re-identified. There is mild interstitial prominence. No pneumothorax or consolidative infi ltrates. The heart is borderline enlarged. IMPRESSION: 1. Mechanical ventilation with tubes and lines as above. 2. Mild interstitial prominence may be due to CHF, reactive airways disease, or interstitial pneumoni a.
[2025-02-15] MEDS: ACCU-CHEK COMFORT CURVE STRIP VI SCH (05:46)
[2025-02-15 05:52] LABS: Anisocytosis Moderate; Macrocytosis Moderate; Polychromasia Slight; Total Cells Counted 100.0 (100)
[2025-02-15 05:53] LABS: RBC Morphology DIMORPHIC
[2025-02-15] MEDS: InsuLIN REG 1unit/0.01ml Soln (100units/ml) SC SCH (05:53)
[2025-02-15] MEDS: INSULIN LANTUS (GLARGINE) 1 /0.01ml (100units/ml) SC ONE (05:53)
[2025-02-15 07:49] LABS: Base Excess -2.8 mmol/L (-2.0-3.0)
--- NOTE | 2025-02-15 08:00 | DVHPN2 ---
Progress Note Date Seen: Feb 15, 2025 Has the PT tested + for MRSA If YES, has PT been informed?: No Medical Necessity Reason Pt with a Central, PICC or Fol: No Subjective Patient reports: Other Review of Systems: Not Done Objective vital signs Vital Sign Date Time Temp Pulse Resp B/P (MAP) Pulse Ox O2 Delivery O2 Flow Rate FiO2 02/15/25 07:00 83 14 114/73 (87) 96 02/15/25 06:00 30 02/15/25 06:00 97.9 97.9 02/15/25 06:00 Mechanical Ventilator+ 02/15/25 03:30 0 Total Intake and Output 02/14/25 02/14/25 02/15/25 15:00 23:00 07:00 Intake Total 1629.75 ml 2374.47 ml 1836.55 ml Output Total 650 ml 1750 ml Balance 1629.75 ml 1724.47 ml 86.55 ml medications Current Medications Medications Dose Ordered Sig/Randolph Route Start Time Stop Time Status Last Admin Dose Admin Dextrose 50 ml UD PRN IV 02/11/25 00:15 Cancel Ondansetron HCl 4 mg Q4HPRN PRN IV 02/11/25 07:00 Levofloxacin/ Dextrose 100 ml @ 100 mls/hr DAILY IV 02/11/25 10:00 02/14/25 09:23 100 MLS/HR Albuterol 2.5 mg Q6HPRN PRN NEB 02/11/25 07:00 02/11/25 21:41 2.5 MG Nitroglycerin 0.4 mg Q5MINP PRN SL 02/11/25 07:00 Morphine Sulfate 2 mg Q30M PRN IV 02/11/25 07:00 Enoxaparin Sodium 40 mg DAILY SC 02/11/25 10:00 02/14/25 09:24 40 MG Ergocalciferol 50,000 unit Q7D PO 02/11/25 14:15 02/11/25 15:36 50,000 UNIT Metronidazole 100 ml @ 100 mls/hr Q8HR IV 02/12/25 08:30 02/15/25 04:26 100 MLS/HR Norepinephrine Bitartrate 250 ml @ 3.75 mls/hr Q24H IV 02/13/25 00:30 02/15/25 04:24 52.5 MLS/HR Midazolam HCl 50 ml @ 1 mls/hr Q24H IV 02/13/25 00:30 02/15/25 04:26 9 MLS/HR Fentanyl Citrate 250 ml @ 2.5 mls/hr Q24H IV 02/13/25 00:30 02/14/25 23:30 15 MLS/HR Methylprednisolone Sodium Succinate 40 mg Q8HR IV 02/13/25 22:00 02/15/25 05:55 40 MG Thiamine HCl 100 mg DAILY IV 02/14/25 10:00 02/14/25 09:23 100 MG Amino Acids 0 ml @ 0 mls/hr PER PHARMACY IV 02/13/25 21:15 Folic Acid 1 mg/ Multivitamins 10 ml/Magnesium Sulfate 8 meq/ Thiamine HCl 100 mg/Dextrose 1,013.2 ml @ 125.001 mls/hr DAILY@1800 INJ 02/14/25 18:00 02/14/25 18:21 125.001 MLS/HR Amino Acids/ Electrolytes/ Dextrose 1,000 ml @ 41 mls/hr DAILY@2200 IV 02/13/25 22:00 02/14/25 21:44 41 MLS/HR Metoprolol Tartrate 5 mg Q4HPRN PRN IV 02/14/25 09:15 Vancomycin HCl 0 ml @ 0 mls/hr DAILY IV 02/14/25 10:00 Sodium Chloride 1,000 ml @ 75 mls/hr [id number] IV 02/14/25 10:15 02/14/25 18:23 75 MLS/HR Amino Acids/ Electrolytes/ Dextrose 1,000 ml @ 41 mls/hr DAILY@2200 IV 02/14/25 22:00 Cancel Pantoprazole Sodium 40 mg DAILY IV 02/15/25 10:00 Vancomycin HCl 100 ml @ 100 mls/hr Q12H IV 02/15/25 01:00 02/15/25 00:35 100 MLS/HR Amiodarone HCL/ Dextrose 200 ml @ 16.66 mls/ hr Q12H IV 02/14/25 20:45 02/14/25 21:43 16.66 MLS/HR Enteral Nutritional Formula 1,000 ml 30ML/HR GT 02/14/25 14:45 Phenylephrine HCl 250 ml @ 30 mls/hr Q8H20M IV 02/14/25 19:30 02/14/25 19:51 30 MLS/HR Insulin Glargine 9 units DAILY@1000 SC 02/16/25 10:00 Diagnostic Test (Pha) 1 strip Q6HR 02/15/25 06:00 02/15/25 05:46 1 STRIP Insulin Human Regular Q6HR SC 02/15/25 06:00 02/15/25 05:53 20 UNITS Dextrose 50 ml UD PRN IV 02/15/25 05:30 Examination: GENERAL:Normal, CVS:Abnormal, ABDOMEN:Abnormal laboratory and microbiology Laboratory Tests 02/15/25 02:45 Test 02/15/25 02:45 Range/Units Serum Glucose 547 *H 74-106 mg/dL Problem List/Assessment/Plan Problem List/Assessment/Plan 1) Acute respiratory failure, intubated 2) UTI 3) Hyponatremia 4) Hyperbilirubinemia 2/2 alcoholism 5) Metabolic alkalosis 6) COPD 7) Hx of CVA 8) DM 9) HTN 10) HLD plan; 02/13---patient noted to be unresponsive and lethargic overnight and thus was intubated and transferred to ICU, now on mechanical ventilatory support with fio2 30%, on levophed 10 mcg this AM, continue IV Abx, BCx negative, UCx shows mixed violet, will consult pulm/cardio, GI on board due to elevated LFTs and hyperbilirubinemia likely in the setting of alcoholic hepatitis, daily labs, supportive care, warehouse consultant input appreciated, will follow along 02/14---remains intubated on ventilator fio2 30%, this AM on 18 mcg of levophed, WBC 15k, repeat BCx negative, Na uptrending to 132 with IVF hydration with nephrology following, echo shows EF 38% with cardio on the case, bilirubin 14 this AM and likely attributed to alcoholism with GI on board, continue all care, warehouse consultant input appreciated, daily labs, will follow along 02/15---remains intubated on ventilator fio2 30%, started on amio gtt for SVT now HR better controlled, WBC trending up to 16k, on vanco/levaquin/flagyl with repeat BCx and UCx negative, continue NS at 100 ml/hr, still on levophed 24 mcg this AM, warehouse consultant input appreciated, guarded/critical, daily labs, supportive care, will follow along Plan discussed with: Other (n) BENNIE YE MD Feb 15, 2025 08:00
--- NOTE | 2025-02-15 09:42 | ECG ---
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
[2025-02-15] MEDS: PANTOPRAZOLE 40 MG/10 ML VIAL INJ IV SCH (10:08)
--- NOTE | 2025-02-15 10:43 | DVHPN2 ---
Progress Note Date Seen: Feb 15, 2025 Has the PT tested + for MRSA If YES, has PT been informed?: No Medical Necessity Reason Pt with a Central, PICC or Fol: No Subjective Review of Systems: RESPIRATORY:Abnormal Other Systems: Patient seen and examined by myself today in follow-up, patient remained intubated on ventilator Objective vital signs Vital Sign Date Time Temp Pulse Resp B/P (MAP) Pulse Ox O2 Delivery O2 Flow Rate FiO2 02/15/25 10:17 88 14 111/65 (80) 97 30 02/15/25 08:00 Mechanical Ventilator+ 0 02/15/25 06:00 97.9 97.9 Total Intake and Output 02/14/25 02/14/25 02/15/25 15:00 23:00 07:00 Intake Total 1629.75 ml 2374.47 ml 1836.55 ml Output Total 650 ml 1750 ml Balance 1629.75 ml 1724.47 ml 86.55 ml medications Current Medications Medications Dose Ordered Sig/Randolph Route Start Time Stop Time Status Last Admin Dose Admin Dextrose 50 ml UD PRN IV 02/11/25 00:15 Cancel Ondansetron HCl 4 mg Q4HPRN PRN IV 02/11/25 07:00 Levofloxacin/ Dextrose 100 ml @ 100 mls/hr DAILY IV 02/11/25 10:00 02/15/25 10:08 100 MLS/HR Albuterol 2.5 mg Q6HPRN PRN NEB 02/11/25 07:00 02/11/25 21:41 2.5 MG Nitroglycerin 0.4 mg Q5MINP PRN SL 02/11/25 07:00 Morphine Sulfate 2 mg Q30M PRN IV 02/11/25 07:00 Enoxaparin Sodium 40 mg DAILY SC 02/11/25 10:00 02/15/25 10:09 40 MG Ergocalciferol 50,000 unit Q7D PO 02/11/25 14:15 02/11/25 15:36 50,000 UNIT Metronidazole 100 ml @ 100 mls/hr Q8HR IV 02/12/25 08:30 02/15/25 04:26 100 MLS/HR Norepinephrine Bitartrate 250 ml @ 3.75 mls/hr Q24H IV 02/13/25 00:30 02/15/25 10:09 37.5 MLS/HR Midazolam HCl 50 ml @ 1 mls/hr Q24H IV 02/13/25 00:30 02/15/25 07:56 7 MLS/HR Fentanyl Citrate 250 ml @ 2.5 mls/hr Q24H IV 02/13/25 00:30 02/14/25 23:30 15 MLS/HR Methylprednisolone Sodium Succinate 40 mg Q8HR IV 02/13/25 22:00 02/15/25 05:55 40 MG Thiamine HCl 100 mg DAILY IV 02/14/25 10:00 02/15/25 10:08 100 MG Amino Acids 0 ml @ 0 mls/hr PER PHARMACY IV 02/13/25 21:15 Folic Acid 1 mg/ Multivitamins 10 ml/Magnesium Sulfate 8 meq/ Thiamine HCl 100 mg/Dextrose 1,013.2 ml @ 125.001 mls/hr DAILY@1800 INJ 02/14/25 18:00 02/14/25 18:21 125.001 MLS/HR Amino Acids/ Electrolytes/ Dextrose 1,000 ml @ 41 mls/hr DAILY@2200 IV 02/13/25 22:00 02/14/25 21:44 41 MLS/HR Metoprolol Tartrate 5 mg Q4HPRN PRN IV 02/14/25 09:15 Vancomycin HCl 0 ml @ 0 mls/hr DAILY IV 02/14/25 10:00 Sodium Chloride 1,000 ml @ 75 mls/hr [id number] IV 02/14/25 10:15 02/14/25 18:23 75 MLS/HR Amino Acids/ Electrolytes/ Dextrose 1,000 ml @ 41 mls/hr DAILY@2200 IV 02/14/25 22:00 Cancel Pantoprazole Sodium 40 mg DAILY IV 02/15/25 10:00 02/15/25 10:08 40 MG Vancomycin HCl 100 ml @ 100 mls/hr Q12H IV 02/15/25 01:00 02/15/25 00:35 100 MLS/HR Amiodarone HCL/ Dextrose 200 ml @ 16.66 mls/ hr Q12H IV 02/14/25 20:45 02/15/25 07:59 16.66 MLS/HR Enteral Nutritional Formula 1,000 ml 30ML/HR GT 02/14/25 14:45 Phenylephrine HCl 250 ml @ 30 mls/hr Q8H20M IV 02/14/25 19:30 02/14/25 19:51 30 MLS/HR Insulin Glargine 9 units DAILY@1000 SC 02/16/25 10:00 Diagnostic Test (Pha) 1 strip Q6HR 02/15/25 06:00 02/15/25 05:46 1 STRIP Insulin Human Regular Q6HR SC 02/15/25 06:00 02/15/25 05:53 20 UNITS Dextrose 50 ml UD PRN IV 02/15/25 05:30 Examination: LUNGS:Normal, CVS:Normal, MSK:Normal laboratory and microbiology Laboratory Tests 02/15/25 02:45 Test 02/15/25 02:45 Range/Units Serum Glucose 547 *H 74-106 mg/dL Microbiology Date/Time Source Procedure Growth Status 02/13/25 00:18 Sputum Endotracheal Wash Gram Stain - Final Resulted 02/13/25 00:18 Sputum Endotracheal Wash Respiratory Culture - Preliminary Resulted 02/12/25 23:26 Nose MRSA Screen - Final Complete 02/12/25 23:00 Urine - [place] Urine Culture - Preliminary Resulted 02/12/25 10:50 Blood Blood Culture - Preliminary NO GROWTH AFTER 48 HOURS OF INCUBATION. Resulted Problem List/Assessment/Plan Problem List/Assessment/Plan Severe hypokalemia in the state of metabolic alkalosis secondary to dehydrate Severe hypophosphatemia Hyponatremia due to hypotonic IV fluid metabolic alkalosis Acute respiratory failure, patient intubated on ventilator Type 2 diabetes mellitus with hemoglobin A1c 6.7 Acute complicated cystitis Primary hyperparathyroidism Hyperbilirubinemia with transaminitis Left adrenal nodule History of alcoholic liver disease Hyperglycemia Hypoalbuminemia Hypophosphatemia, replaced Plan: Kidney function remained within normal limit Increased urine output Strict I&Os Change IV fluid to NS at 75 cc/hour DC D5W Check renin activity and aldosterone level Insulin sliding scale IV antibiotics We will continue to follow up Total care time 25 minutes Plan discussed with: Other (Nurse) TERRY EVANS MD Feb 15, 2025 10:43
[2025-02-15] MEDS: SODIUM CHLORIDE 0.9% 1,000 ML IV SCH (12:36)
[2025-02-15] MEDS: NOREPINEPHRINE BITARTRATE 32 MG in SODIUM CHL 0.9% 218 ML IV SCH (13:42)
[2025-02-15] MEDS: CALCIUM GLUC 1,000mg/50ml-NS 50 ML IV SCH (13:43)
--- NOTE | 2025-02-15 13:51 | DVHPN2 ---
Progress Note - Dictate Date Seen: Feb 15, 2025 Has the PT tested + for MRSA If YES, has PT been informed?: No Medical Necessity Reason Pt with a Central, PICC or Fol: No vital signs Vital Sign Date Time Temp Pulse Resp B/P (MAP) Pulse Ox O2 Delivery O2 Flow Rate FiO2 02/15/25 12:32 92 14 100/60 (73) 90 30 02/15/25 08:00 Mechanical Ventilator+ 0 02/15/25 08:00 97.9 97.9 Total Intake and Output 02/14/25 02/14/25 02/15/25 15:00 23:00 07:00 Intake Total 1629.75 ml 2374.47 ml 1836.55 ml Output Total 650 ml 1750 ml Balance 1629.75 ml 1724.47 ml 86.55 ml medications Current Medications Medications Dose Ordered Sig/Randolph Route Start Time Stop Time Status Last Admin Dose Admin Dextrose 50 ml UD PRN IV 02/11/25 00:15 Cancel Ondansetron HCl 4 mg Q4HPRN PRN IV 02/11/25 07:00 Levofloxacin/ Dextrose 100 ml @ 100 mls/hr DAILY IV 02/11/25 10:00 02/15/25 10:08 100 MLS/HR Albuterol 2.5 mg Q6HPRN PRN NEB 02/11/25 07:00 02/15/25 12:28 2.5 MG Nitroglycerin 0.4 mg Q5MINP PRN SL 02/11/25 07:00 Morphine Sulfate 2 mg Q30M PRN IV 02/11/25 07:00 Enoxaparin Sodium 40 mg DAILY SC 02/11/25 10:00 02/15/25 10:09 40 MG Ergocalciferol 50,000 unit Q7D PO 02/11/25 14:15 02/11/25 15:36 50,000 UNIT Midazolam HCl 50 ml @ 1 mls/hr Q24H IV 02/13/25 00:30 02/15/25 07:56 7 MLS/HR Fentanyl Citrate 250 ml @ 2.5 mls/hr Q24H IV 02/13/25 00:30 02/14/25 23:30 15 MLS/HR Thiamine HCl 100 mg DAILY IV 02/14/25 10:00 02/15/25 10:08 100 MG Amino Acids 0 ml @ 0 mls/hr PER PHARMACY IV 02/13/25 21:15 Amino Acids/ Electrolytes/ Dextrose 1,000 ml @ 41 mls/hr DAILY@2200 IV 02/13/25 22:00 02/14/25 21:44 41 MLS/HR Metoprolol Tartrate 5 mg Q4HPRN PRN IV 02/14/25 09:15 Hold Vancomycin HCl 0 ml @ 0 mls/hr DAILY IV 02/14/25 10:00 Amino Acids/ Electrolytes/ Dextrose 1,000 ml @ 41 mls/hr DAILY@2200 IV 02/14/25 22:00 Cancel Pantoprazole Sodium 40 mg DAILY IV 02/15/25 10:00 02/15/25 10:08 40 MG Vancomycin HCl 100 ml @ 100 mls/hr Q12H IV 02/15/25 01:00 02/15/25 13:20 100 MLS/HR Amiodarone HCL/ Dextrose 200 ml @ 16.66 mls/ hr Q12H IV 02/14/25 20:45 02/15/25 07:59 16.66 MLS/HR Enteral Nutritional Formula 1,000 ml 30ML/HR GT 02/14/25 14:45 Phenylephrine HCl 250 ml @ 30 mls/hr Q8H20M IV 02/14/25 19:30 02/14/25 19:51 30 MLS/HR Insulin Glargine 9 units DAILY@1000 SC 02/16/25 10:00 Diagnostic Test (Pha) 1 strip Q6HR 02/15/25 06:00 02/15/25 12:36 1 STRIP Insulin Human Regular Q6HR SC 02/15/25 06:00 02/15/25 12:43 20 UNITS Dextrose 50 ml UD PRN IV 02/15/25 05:30 Sodium Chloride 1,000 ml @ 50 mls/hr Q20H IV 02/15/25 11:45 02/15/25 12:36 50 MLS/HR Norepinephrine Bitartrate 32 mg/ Sodium Chloride 250 ml @ 0.938 mls/ hr Q24H IV 02/15/25 11:45 02/15/25 13:42 8.438 MLS/HR Methylprednisolone Sodium Succinate 40 mg DAILY IV 02/16/25 10:00 laboratory and microbiology Laboratory Tests 02/15/25 02:45 Test 02/15/25 02:45 Range/Units Serum Glucose 547 *H 74-106 mg/dL Assessment/Plan Acute hypercapnic respiratory failure Acute respiratory failure Hyponatremia COPD Shock requiring Levophed drip Patient is seen and examined in the ICU events pt intubated had an episode of SVT on levophed start amiodarone vent ac volume control peep 5 Fi02=40% Management plan vent support Sedation fentanyl propofol as needed for ventilator synchrony weaning when more stable hemodynamically okay to use precedex drip Steroid/antibiotic for COPD Nebs nutrition DVT prophylaxis Patient is full code Critical care time 35 minutes Plan discussed with: Patient ECTOR BROCK MD Feb 15, 2025 13:51
[2025-02-15 14:11] LABS: Magnesium 1.6 mg/dL (1.6-2.6)
[2025-02-15 14:16] LABS: Triglycerides 267.0 mg/dL (< 150)
[2025-02-15] MEDS: SODIUM PHOSPHATES 40 MEQ in D5W 5% 250 ML IV ONE (18:25)
[2025-02-15] MEDS: DEXMEDETOMIDINE HCL IN D5W 100 ML IV SCH (18:45)
--- NOTE | 2025-02-15 20:27 | DVHPN2 ---
Progress Note - Dictate Date Seen: Feb 15, 2025 Has the PT tested + for MRSA If YES, has PT been informed?: No Medical Necessity Reason Pt with a Central, PICC or Fol: No Subjective Patient seen still intubated sedated now on mechanical ventilatory support with fio2 30%, Persistent elevation in liver enzymes likely due to alcoholic steatohepatitis, Liver enzymes are persistently elevated and worsening suggestive of impending liver failure Etiology could be related to alcoholic steatohepatitis, hypoxic liver injury or sepsis vital signs Vital Sign Date Time Temp Pulse Resp B/P (MAP) Pulse Ox O2 Delivery O2 Flow Rate FiO2 02/15/25 18:53 93 14 104/68 (80) 99 40 02/15/25 18:00 Mechanical Ventilator+ 02/15/25 16:00 97.5 97.5 02/15/25 08:00 0 Total Intake and Output 02/14/25 02/14/25 02/15/25 15:00 23:00 07:00 Intake Total 1629.75 ml 2374.47 ml 1894.21 ml Output Total 650 ml 1750 ml Balance 1629.75 ml 1724.47 ml 144.21 ml medications Current Medications Medications Dose Ordered Sig/Randolph Route Start Time Stop Time Status Last Admin Dose Admin Dextrose 50 ml UD PRN IV 02/11/25 00:15 Cancel Ondansetron HCl 4 mg Q4HPRN PRN IV 02/11/25 07:00 Levofloxacin/ Dextrose 100 ml @ 100 mls/hr DAILY IV 02/11/25 10:00 02/15/25 10:08 100 MLS/HR Albuterol 2.5 mg Q6HPRN PRN NEB 02/11/25 07:00 02/15/25 12:28 2.5 MG Nitroglycerin 0.4 mg Q5MINP PRN SL 02/11/25 07:00 Morphine Sulfate 2 mg Q30M PRN IV 02/11/25 07:00 Enoxaparin Sodium 40 mg DAILY SC 02/11/25 10:00 02/15/25 10:09 40 MG Ergocalciferol 50,000 unit Q7D PO 02/11/25 14:15 02/11/25 15:36 50,000 UNIT Midazolam HCl 50 ml @ 1 mls/hr Q24H IV 02/13/25 00:30 02/15/25 07:56 7 MLS/HR Fentanyl Citrate 250 ml @ 2.5 mls/hr Q24H IV 02/13/25 00:30 02/14/25 23:30 15 MLS/HR Thiamine HCl 100 mg DAILY IV 02/14/25 10:00 02/15/25 10:08 100 MG Amino Acids 0 ml @ 0 mls/hr PER PHARMACY IV 02/13/25 21:15 Amino Acids/ Electrolytes/ Dextrose 1,000 ml @ 41 mls/hr DAILY@2200 IV 02/13/25 22:00 02/14/25 21:44 41 MLS/HR Metoprolol Tartrate 5 mg Q4HPRN PRN IV 02/14/25 09:15 Hold Vancomycin HCl 0 ml @ 0 mls/hr DAILY IV 02/14/25 10:00 Amino Acids/ Electrolytes/ Dextrose 1,000 ml @ 41 mls/hr DAILY@2200 IV 02/14/25 22:00 Cancel Pantoprazole Sodium 40 mg DAILY IV 02/15/25 10:00 02/15/25 10:08 40 MG Vancomycin HCl 100 ml @ 100 mls/hr Q12H IV 02/15/25 01:00 02/15/25 13:20 100 MLS/HR Amiodarone HCL/ Dextrose 200 ml @ 16.66 mls/ hr Q12H IV 02/14/25 20:45 02/15/25 19:58 16.66 MLS/HR Enteral Nutritional Formula 1,000 ml 30ML/HR GT 02/14/25 14:45 Phenylephrine HCl 250 ml @ 30 mls/hr Q8H20M IV 02/14/25 19:30 02/14/25 19:51 30 MLS/HR Diagnostic Test (Pha) 1 strip Q6HR 02/15/25 06:00 02/15/25 18:25 1 STRIP Insulin Human Regular Q6HR SC 02/15/25 06:00 02/15/25 18:35 20 UNITS Dextrose 50 ml UD PRN IV 02/15/25 05:30 Sodium Chloride 1,000 ml @ 50 mls/hr Q20H IV 02/15/25 11:45 02/15/25 12:36 50 MLS/HR Norepinephrine Bitartrate 32 mg/ Sodium Chloride 250 ml @ 0.938 mls/ hr Q24H IV 02/15/25 11:45 02/15/25 13:42 8.438 MLS/HR Methylprednisolone Sodium Succinate 40 mg DAILY IV 02/16/25 10:00 Insulin Glargine 20 units BID SC 02/15/25 22:00 objective GENERAL: Ill appearing, intubated on ventilator. EYES: PERRL, EOMI. Anicteric. HENT: Moist mucous membranes. LUNGS: Decreased breath sounds. CARDIOVASCULAR: Regular rate and rhythm. ABDOMEN: Soft, non-tender and non-distended. EXTREMITIES: No edema. SKIN: Warm, dry. laboratory and microbiology Laboratory Tests 02/15/25 02:45 Test 02/15/25 02:45 Range/Units Serum Glucose 547 *H 74-106 mg/dL Problems(with codes): (1) Alcoholic fatty liver (2) Elevated liver enzymes (3) Alcoholic steatohepatitis (4) Acute respiratory failure (5) Hyponatremia (6) Failure to thrive (7) Generalized weakness (8) Anemia (9) COPD exacerbation Prognosis PLAN Continue ventilatory and respiratory support Continue IV antibiotics Start Glucerna trickle tube feedings Blood culture is negative culture showed mixed violet [employer] discrimination function is 73, patient was started on short-term from steroid use MELD score is 30 points which is predictive of 52.6% three-month mortality Start ursodiol 300 mg p.o. twice a day Continue to monitor labs, last ammonia level was normal Vitamin K to correct coagulopathy, patient is on thiamine and folic acid Dietary Evaluation Review Comments: 1) Initiate MVI @ 1 tb qd 2) Initiate vitamin C @ 500 mg bid and zinc sulfate @ 220 mg qd for 7 days 3) Increase TPN to meet at least 75% of estimated daily needs 4) Advance to 45g CCHO diet when medically feasible, pending ST approval 5) Refer to outpatient RD/[facility] for weight management 6) Follow-up with pulmonology 7) Continue to monitor I&O, labs, and skin integrity Expected Outcomes/Goals: 1) TPN regimen to meet at least 75% estimated daily needs 2) labs and wound to improve 3) diet to advance 4) gradual wt loss 5) f/u in 2-3 days Plan discussed with: Other (Nurse) KIKE SIN MD Feb 15, 2025 20:27
[2025-02-15] MEDS: phytonadione 1 ML ONE (21:27)
[2025-02-15] MEDS: phytonadione 10 MG in SODIUM CHL 0.9% 50 ML IV ONE (21:27)
[2025-02-15] MEDS: INSULIN LANTUS (GLARGINE) 1 /0.01ml (100units/ml) SC SCH (22:48)
--- NOTE | 2025-02-15 23:48 | DVHPN2 ---
Progress Note - Dictate Date Seen: Feb 15, 2025 Has the PT tested + for MRSA If YES, has PT been informed?: No Medical Necessity Reason Pt with a Central, PICC or Fol: No Subjective Patient was seen and evaluated in follow-up in the ICU. Patient is intubated and sedated on ventilator. 30% FiO2. WBC 16.8, HGB 9.4, HCT 31.6, NA 128, CL 90, GLUC 471, AST 724, ALT 158. Chest x-ray showed mild interstitial prominence may be due to CHF, reactive airways disease, or interstitial pneumonia. vital signs Vital Sign Date Time Temp Pulse Resp B/P (MAP) Pulse Ox O2 Delivery O2 Flow Rate FiO2 02/15/25 12:32 92 14 100/60 (73) 90 30 02/15/25 08:00 Mechanical Ventilator+ 0 02/15/25 08:00 97.9 97.9 Total Intake and Output 02/14/25 02/14/25 02/15/25 15:00 23:00 07:00 Intake Total 1629.75 ml 2374.47 ml 1836.55 ml Output Total 650 ml 1750 ml Balance 1629.75 ml 1724.47 ml 86.55 ml medications Current Medications Medications Dose Ordered Sig/Randolph Route Start Time Stop Time Status Last Admin Dose Admin Dextrose 50 ml UD PRN IV 02/11/25 00:15 Cancel Ondansetron HCl 4 mg Q4HPRN PRN IV 02/11/25 07:00 Levofloxacin/ Dextrose 100 ml @ 100 mls/hr DAILY IV 02/11/25 10:00 02/15/25 10:08 100 MLS/HR Albuterol 2.5 mg Q6HPRN PRN NEB 02/11/25 07:00 02/15/25 12:28 2.5 MG Nitroglycerin 0.4 mg Q5MINP PRN SL 02/11/25 07:00 Morphine Sulfate 2 mg Q30M PRN IV 02/11/25 07:00 Enoxaparin Sodium 40 mg DAILY SC 02/11/25 10:00 02/15/25 10:09 40 MG Ergocalciferol 50,000 unit Q7D PO 02/11/25 14:15 02/11/25 15:36 50,000 UNIT Midazolam HCl 50 ml @ 1 mls/hr Q24H IV 02/13/25 00:30 02/15/25 07:56 7 MLS/HR Fentanyl Citrate 250 ml @ 2.5 mls/hr Q24H IV 02/13/25 00:30 02/14/25 23:30 15 MLS/HR Thiamine HCl 100 mg DAILY IV 02/14/25 10:00 02/15/25 10:08 100 MG Amino Acids 0 ml @ 0 mls/hr PER PHARMACY IV 02/13/25 21:15 Amino Acids/ Electrolytes/ Dextrose 1,000 ml @ 41 mls/hr DAILY@2200 IV 02/13/25 22:00 02/14/25 21:44 41 MLS/HR Metoprolol Tartrate 5 mg Q4HPRN PRN IV 02/14/25 09:15 Hold Vancomycin HCl 0 ml @ 0 mls/hr DAILY IV 02/14/25 10:00 Amino Acids/ Electrolytes/ Dextrose 1,000 ml @ 41 mls/hr DAILY@2200 IV 02/14/25 22:00 Cancel Pantoprazole Sodium 40 mg DAILY IV 02/15/25 10:00 02/15/25 10:08 40 MG Vancomycin HCl 100 ml @ 100 mls/hr Q12H IV 02/15/25 01:00 02/15/25 00:35 100 MLS/HR Amiodarone HCL/ Dextrose 200 ml @ 16.66 mls/ hr Q12H IV 02/14/25 20:45 02/15/25 07:59 16.66 MLS/HR Enteral Nutritional Formula 1,000 ml 30ML/HR GT 02/14/25 14:45 Phenylephrine HCl 250 ml @ 30 mls/hr Q8H20M IV 02/14/25 19:30 02/14/25 19:51 30 MLS/HR Insulin Glargine 9 units DAILY@1000 SC 02/16/25 10:00 Diagnostic Test (Pha) 1 strip Q6HR 02/15/25 06:00 02/15/25 12:36 1 STRIP Insulin Human Regular Q6HR SC 02/15/25 06:00 02/15/25 12:43 20 UNITS Dextrose 50 ml UD PRN IV 02/15/25 05:30 Sodium Chloride 1,000 ml @ 50 mls/hr Q20H IV 02/15/25 11:45 02/15/25 12:36 50 MLS/HR Norepinephrine Bitartrate 32 mg/ Sodium Chloride 250 ml @ 0.938 mls/ hr Q24H IV 02/15/25 11:45 Calcium Gluconate/ Sodium Chloride 50 ml @ 100 mls/hr Q30M IV 02/15/25 12:45 02/15/25 13:44 Methylprednisolone Sodium Succinate 40 mg DAILY IV 02/16/25 10:00 UNV objective GENERAL: Ill appearing, intubated on ventilator. EYES: PERRL, EOMI. Anicteric. HENT: Moist mucous membranes. LUNGS: Decreased breath sounds. CARDIOVASCULAR: Regular rate and rhythm. ABDOMEN: Soft, non-tender and non-distended. EXTREMITIES: No edema. SKIN: Warm, dry. laboratory and microbiology Laboratory Tests 02/15/25 02:45 Test 02/15/25 02:45 Range/Units Serum Glucose 547 *H 74-106 mg/dL Problem List Chest pain. Metabolic alkalosis. Hypokalemia. Hypophosphatemia. Hyponatremia. Type 2 diabetes mellitus. Acute complicated cystitis. Hyperparathyroidism. Hyperbilirubinemia with transaminitis. Left adrenal nodule. Assessment/Plan Continued all current supportive medical care. IV Amiodarone. DVT prophylactics. IV antibiotics as ordered. Morphine for pain management. Vasopressors for hemodynamic support. Additional plan as per the hospital course. Critical care time of 45 minutes provided to include time spent evaluation of patient at bedside, when appropriate patient/family education for diagnosis, treatment plan, review of pertinent medical information and discussion of care with specialty providers and PCP. Mechanical ventilator parameters, treatment and adjustments have personally been reviewed by me and treatment plan by alterations tailor has also been reviewed. Plan discussed with: Other MIKAELA IQBAL MD Feb 15, 2025 13:38
[2025-02-16] VITALS (107 sets, daily range): BP systolic 13–125; BP diastolic 45–82; PULSE 77–116; RESP 13–22; TEMP 98.1–98.4; O2SAT 95–100
[2025-02-16] MEDS: Glucerna 1.2 Cal 1Liter BOTTLE GT SCH (02:19)
--- NOTE | 2025-02-16 04:24 | DVH ---
CHEST RADIOGRAPH Indication: PT IS INTUBATED/RESP FAILUER Technique: Single frontal view of the chest was obtained Comparison: XY CHEST PORTABLE on DOS: 02/15/25 FINDINGS: Lines and Tubes: The endotracheal tube terminates 4.5 cm above the erika. There is a right central v enous catheter with tip terminating in the superior vena cava. The enteric tube courses below the lef t hemidiaphragm and the tip extends outside the field of view. Lungs: Decreased bilateral opacities since the prior study. Pleura: No effusion. No pneumothorax. Cardiomediastinal contours: Stable. Bones: No acute osseous abnormality. IMPRESSION: 1. Support tubes in appropriate position. 2. Decreased bilateral pulmonary opacities.
[2025-02-16 06:09] LABS: Hematocrit 25.9 % (36.0-46.0); Hemoglobin 8.2 g/dL (12.2-16.2); Mean Corpuscular Hemoglobin 30.0 pg (28.0-32.0); Mean Corpuscular Volume 94.5 fL (80.0-100.0)
[2025-02-16 06:17] LABS: INR 1.99 (0.9-1.15); Prothrombin Time 19.7 sec (9.3-11.8)
[2025-02-16 06:26] LABS: Anion Gap 5 (5-15); Magnesium 1.7 mg/dL (1.6-2.6); Potassium 4.5 mmol/L (3.5-5.1)
[2025-02-16 06:36] LABS: BUN/Creatinine Ratio 29.3 (10.0-20.0)
[2025-02-16 06:49] LABS: Alanine Aminotransferase 202 U/L (7-40); Albumin 2.7 g/dL (3.2-4.8); Alkaline Phosphatase 168 U/L (46-116); Bilirubin, Total 18.8 mg/dL (0.2-1.0); Blood Urea Nitrogen 24 mg/dL (9-23); Calcium 6.9 mg/dL (8.7-10.4); Carbon Dioxide 32 mmol/L (20-31); Chloride 97 mmol/L (98-107); Sodium 134 mmol/L (136-145); Total Protein 5.7 g/dL (5.7-8.2)
[2025-02-16 06:50] LABS: Glucose 406 mg/dL (74-106)
[2025-02-16 07:17] LABS: Base Excess 3.1 mmol/L (-2.0-3.0)
--- NOTE | 2025-02-16 07:33 | DVHPN2 ---
Progress Note Date Seen: Feb 16, 2025 Has the PT tested + for MRSA If YES, has PT been informed?: No Medical Necessity Reason Pt with a Central, PICC or Fol: No Subjective Patient reports: Other Review of Systems: Not Done Objective vital signs Vital Sign Date Time Temp Pulse Resp B/P (MAP) Pulse Ox O2 Delivery O2 Flow Rate FiO2 02/16/25 06:45 95 14 107/63 (78) 100 02/16/25 06:36 40 02/16/25 06:00 Mechanical Ventilator+ 02/16/25 04:00 98.4 98.4 02/15/25 08:00 0 Total Intake and Output 02/15/25 02/15/25 02/16/25 15:00 23:00 07:00 Intake Total 870.53 ml 967.784 ml 1012.561 ml Output Total 1425 ml 1175 ml Balance 870.53 ml -457.216 ml -162.439 ml medications Current Medications Medications Dose Ordered Sig/Randolph Route Start Time Stop Time Status Last Admin Dose Admin Dextrose 50 ml UD PRN IV 02/11/25 00:15 Cancel Ondansetron HCl 4 mg Q4HPRN PRN IV 02/11/25 07:00 Levofloxacin/ Dextrose 100 ml @ 100 mls/hr DAILY IV 02/11/25 10:00 02/15/25 10:08 100 MLS/HR Albuterol 2.5 mg Q6HPRN PRN NEB 02/11/25 07:00 02/15/25 12:28 2.5 MG Nitroglycerin 0.4 mg Q5MINP PRN SL 02/11/25 07:00 Morphine Sulfate 2 mg Q30M PRN IV 02/11/25 07:00 Enoxaparin Sodium 40 mg DAILY SC 02/11/25 10:00 02/15/25 10:09 40 MG Ergocalciferol 50,000 unit Q7D PO 02/11/25 14:15 02/11/25 15:36 50,000 UNIT Midazolam HCl 50 ml @ 1 mls/hr Q24H IV 02/13/25 00:30 02/15/25 07:56 7 MLS/HR Fentanyl Citrate 250 ml @ 2.5 mls/hr Q24H IV 02/13/25 00:30 02/14/25 23:30 15 MLS/HR Thiamine HCl 100 mg DAILY IV 02/14/25 10:00 02/15/25 10:08 100 MG Amino Acids 0 ml @ 0 mls/hr PER PHARMACY IV 02/13/25 21:15 Amino Acids/ Electrolytes/ Dextrose 1,000 ml @ 41 mls/hr DAILY@2200 IV 02/13/25 22:00 02/15/25 21:27 41 MLS/HR Metoprolol Tartrate 5 mg Q4HPRN PRN IV 02/14/25 09:15 Hold Vancomycin HCl 0 ml @ 0 mls/hr DAILY IV 02/14/25 10:00 Amino Acids/ Electrolytes/ Dextrose 1,000 ml @ 41 mls/hr DAILY@2200 IV 02/14/25 22:00 Cancel Pantoprazole Sodium 40 mg DAILY IV 02/15/25 10:00 02/15/25 10:08 40 MG Vancomycin HCl 100 ml @ 100 mls/hr Q12H IV 02/15/25 01:00 02/16/25 00:51 100 MLS/HR Amiodarone HCL/ Dextrose 200 ml @ 16.66 mls/ hr Q12H IV 02/14/25 20:45 02/16/25 07:23 16.66 MLS/HR Enteral Nutritional Formula 1,000 ml 30ML/HR GT 02/14/25 14:45 02/16/25 02:19 1,000 ML Phenylephrine HCl 250 ml @ 30 mls/hr Q8H20M IV 02/14/25 19:30 02/14/25 19:51 30 MLS/HR Diagnostic Test (Pha) 1 strip Q6HR 02/15/25 06:00 02/16/25 05:39 1 STRIP Insulin Human Regular Q6HR SC 02/15/25 06:00 02/16/25 05:41 20 UNITS Dextrose 50 ml UD PRN IV 02/15/25 05:30 Sodium Chloride 1,000 ml @ 50 mls/hr Q20H IV 02/15/25 11:45 02/15/25 12:36 50 MLS/HR Norepinephrine Bitartrate 32 mg/ Sodium Chloride 250 ml @ 0.938 mls/ hr Q24H IV 02/15/25 11:45 02/15/25 13:42 8.438 MLS/HR Methylprednisolone Sodium Succinate 40 mg DAILY IV 02/16/25 10:00 Insulin Glargine 20 units BID SC 02/15/25 22:00 02/15/25 22:48 20 UNITS Examination: GENERAL:Normal, LUNGS:Normal, CVS:Normal, ABDOMEN:Normal laboratory and microbiology Laboratory Tests 02/16/25 05:30 Test 02/16/25 05:30 Range/Units Serum Glucose 406 *H 74-106 mg/dL Problem List/Assessment/Plan Problem List/Assessment/Plan 1) Acute respiratory failure, intubated 2) UTI 3) Hyponatremia 4) Hyperbilirubinemia 2/2 alcoholism 5) Metabolic alkalosis 6) COPD 7) Hx of CVA 8) DM 9) HTN 10) HLD plan; 02/13---patient noted to be unresponsive and lethargic overnight and thus was intubated and transferred to ICU, now on mechanical ventilatory support with fio2 30%, on levophed 10 mcg this AM, continue IV Abx, BCx negative, UCx shows mixed violet, will consult pulm/cardio, GI on board due to elevated LFTs and hyperbilirubinemia likely in the setting of alcoholic hepatitis, daily labs, supportive care, [employer] consultant input appreciated, will follow along 02/14---remains intubated on ventilator fio2 30%, this AM on 18 mcg of levophed, WBC 15k, repeat BCx negative, Na uptrending to 132 with IVF hydration with nephrology following, echo shows EF 38% with cardio on the case, bilirubin 14 this AM and likely attributed to alcoholism with GI on board, continue all care, [employer] consultant input appreciated, daily labs, will follow along 02/15---remains intubated on ventilator fio2 30%, started on amio gtt for SVT now HR better controlled, WBC trending up to 16k, on vanco/levaquin/flagyl with repeat BCx and UCx negative, continue NS at 100 ml/hr, still on levophed 24 mcg this AM, [employer] consultant input appreciated, guarded/critical, daily labs, supportive care, will follow along 02/16---remains intubated on ventilator fio2 40%, levophed requirements coming down to 12 mcg this AM, remains in amio gtt for SVT, renal fuction preserved with Na and Cl trending upward, WBC trending up to 18k with repeat BCx/UCx negative on IV ABx and likely steroid induced, tapered steroids to 40 mg IV daily, blood glucose has been elevated and she has uncontrolled DM thus added lantus 20 bid along with aggressive sliding scale, [employer] consultant input appreciated, continue all care, daily labs, will follow along Plan discussed with: Other (n) Dietary Evaluation Review Comments: 1) Initiate MVI @ 1 tb qd 2) Initiate vitamin C @ 500 mg bid and zinc sulfate @ 220 mg qd for 7 days 3) Increase TPN to meet at least 75% of estimated daily needs 4) Advance to 45g CCHO diet when medically feasible, pending ST approval 5) Refer to outpatient RD/[facility] for weight management 6) Follow-up with pulmonology 7) Continue to monitor I&O, labs, and skin integrity Expected Outcomes/Goals: 1) TPN regimen to meet at least 75% estimated daily needs 2) labs and wound to improve 3) diet to advance 4) gradual wt loss 5) f/u in 2-3 days BENNIE YE MD Feb 16, 2025 07:33
[2025-02-16 07:52] LABS: Nucleated Red Blood Cells % 44.0 %; Total Cells Counted 100.0 (100)
[2025-02-16 07:53] LABS: Anisocytosis Moderate
[2025-02-16] MEDS ORDERED: INSULIN LANTUS (GLARGINE) 1 /0.01ml (100units/ml) SC SCH (10:00)
[2025-02-16] MEDS: methylPREDNISolone SOD SUCC 40 MG/ML VL IV SCH (10:23)
[2025-02-16] MEDS: MAGNESIUM SULFATE 1GM/100ML 100 ML IV ONE (12:29)
[2025-02-16] MEDS: VANCOMYCIN 500mg/100mL 100 ML IV SCH (12:41)
--- NOTE | 2025-02-16 14:12 | DVHPN2 ---
Progress Note - Dictate Date Seen: Feb 16, 2025 Has the PT tested + for MRSA If YES, has PT been informed?: No Medical Necessity Reason Pt with a Central, PICC or Fol: No vital signs Vital Sign Date Time Temp Pulse Resp B/P (MAP) Pulse Ox O2 Delivery O2 Flow Rate FiO2 02/16/25 13:34 95 14 102/63 (76) 99 35 02/16/25 12:00 98.1 98.1 02/16/25 12:00 Mechanical Ventilator+ 02/16/25 08:00 0 Total Intake and Output 02/15/25 02/15/25 02/16/25 15:00 23:00 07:00 Intake Total 970.53 ml 1570.784 ml 1125.846 ml Output Total 1425 ml 1175 ml Balance 970.53 ml 145.784 ml -49.154 ml medications Current Medications Medications Dose Ordered Sig/Randolph Route Start Time Stop Time Status Last Admin Dose Admin Dextrose 50 ml UD PRN IV 02/11/25 00:15 Cancel Ondansetron HCl 4 mg Q4HPRN PRN IV 02/11/25 07:00 Levofloxacin/ Dextrose 100 ml @ 100 mls/hr DAILY IV 02/11/25 10:00 02/16/25 10:17 100 MLS/HR Albuterol 2.5 mg Q6HPRN PRN NEB 02/11/25 07:00 02/15/25 12:28 2.5 MG Nitroglycerin 0.4 mg Q5MINP PRN SL 02/11/25 07:00 Morphine Sulfate 2 mg Q30M PRN IV 02/11/25 07:00 Enoxaparin Sodium 40 mg DAILY SC 02/11/25 10:00 02/16/25 10:24 40 MG Ergocalciferol 50,000 unit Q7D PO 02/11/25 14:15 02/11/25 15:36 50,000 UNIT Midazolam HCl 50 ml @ 1 mls/hr Q24H IV 02/13/25 00:30 02/15/25 07:56 7 MLS/HR Fentanyl Citrate 250 ml @ 2.5 mls/hr Q24H IV 02/13/25 00:30 02/14/25 23:30 15 MLS/HR Thiamine HCl 100 mg DAILY IV 02/14/25 10:00 02/16/25 10:16 100 MG Metoprolol Tartrate 5 mg Q4HPRN PRN IV 02/14/25 09:15 Hold Vancomycin HCl 0 ml @ 0 mls/hr DAILY IV 02/14/25 10:00 Amino Acids/ Electrolytes/ Dextrose 1,000 ml @ 41 mls/hr DAILY@2200 IV 02/14/25 22:00 Cancel Pantoprazole Sodium 40 mg DAILY IV 02/15/25 10:00 02/16/25 10:21 40 MG Amiodarone HCL/ Dextrose 200 ml @ 16.66 mls/ hr Q12H IV 02/14/25 20:45 02/16/25 07:23 16.66 MLS/HR Enteral Nutritional Formula 1,000 ml 30ML/HR GT 02/14/25 14:45 02/16/25 02:19 1,000 ML Phenylephrine HCl 250 ml @ 30 mls/hr Q8H20M IV 02/14/25 19:30 02/14/25 19:51 30 MLS/HR Diagnostic Test (Pha) 1 strip Q6HR 02/15/25 06:00 02/16/25 12:29 1 STRIP Insulin Human Regular Q6HR SC 02/15/25 06:00 02/16/25 12:36 20 UNITS Dextrose 50 ml UD PRN IV 02/15/25 05:30 Sodium Chloride 1,000 ml @ 50 mls/hr Q20H IV 02/15/25 11:45 02/16/25 10:43 50 MLS/HR Norepinephrine Bitartrate 32 mg/ Sodium Chloride 250 ml @ 0.938 mls/ hr Q24H IV 02/15/25 11:45 02/15/25 13:42 8.438 MLS/HR Methylprednisolone Sodium Succinate 40 mg DAILY IV 02/16/25 10:00 02/16/25 10:23 40 MG Insulin Glargine 20 units BID SC 02/15/25 22:00 02/16/25 10:44 20 UNITS Vancomycin HCl 100 ml @ 200 mls/hr Q12H IV 02/16/25 13:00 02/16/25 12:41 200 MLS/HR Metoclopramide HCl 5 mg Q8HR IV 02/16/25 20:00 UNV laboratory and microbiology Laboratory Tests 02/16/25 05:30 Test 02/16/25 05:30 Range/Units Serum Glucose 406 *H 74-106 mg/dL Assessment/Plan Acute hypercapnic respiratory failure Acute respiratory failure Hyponatremia COPD Shock requiring Levophed drip Patient is seen and examined in the ICU events on mechanical ventilation s/p intubation ac volume control peep 5 Fi02=40% Management plan vent support Sedation fentanyl propofol as needed for ventilator synchrony weaning when more stable hemodynamically okay to use precedex drip Steroid/antibiotic for COPD Nebs nutrition DVT prophylaxis Patient is full code Critical care time 35 minutes Dietary Evaluation Review Comments: 1) Initiate MVI @ 1 tb qd 2) Initiate vitamin C @ 500 mg bid and zinc sulfate @ 220 mg qd for 7 days 3) Increase TPN to meet at least 75% of estimated daily needs 4) Advance to 45g CCHO diet when medically feasible, pending ST approval 5) Refer to outpatient RD/[facility] for weight management 6) Follow-up with pulmonology 7) Continue to monitor I&O, labs, and skin integrity Expected Outcomes/Goals: 1) TPN regimen to meet at least 75% estimated daily needs 2) labs and wound to improve 3) diet to advance 4) gradual wt loss 5) f/u in 2-3 days Plan discussed with: Other (Rn) ECTOR BROCK MD Feb 16, 2025 14:12
--- NOTE | 2025-02-16 18:10 | DVHPN2 ---
Progress Note Date Seen: Feb 16, 2025 Resident Creating Document: MARQUITA MACIEL RESIDENT Has the PT tested + for MRSA If YES, has PT been informed?: No Medical Necessity Reason Pt with a Central, PICC or Fol: No Subjective Review of Systems Patient was seen and examined on the bedside. She is on mechanical ventilation with FiO2 30%, tidal volume 450 mL, peep 5, RR 18. Off Sedation and vasopressor Objective vital signs Vital Sign Date Time Temp Pulse Resp B/P (MAP) Pulse Ox O2 Delivery O2 Flow Rate FiO2 02/16/25 17:15 94 22 99/69 (79) 97 02/16/25 16:00 30 02/16/25 16:00 98.4 98.4 02/16/25 16:00 Mechanical Ventilator+ 02/16/25 08:00 0 Total Intake and Output 02/15/25 02/15/25 02/16/25 15:00 23:00 07:00 Intake Total 970.53 ml 1570.784 ml 1125.846 ml Output Total 1425 ml 1175 ml Balance 970.53 ml 145.784 ml -49.154 ml medications Current Medications Medications Dose Ordered Sig/Randolph Route Start Time Stop Time Status Last Admin Dose Admin Dextrose 50 ml UD PRN IV 02/11/25 00:15 Cancel Ondansetron HCl 4 mg Q4HPRN PRN IV 02/11/25 07:00 Levofloxacin/ Dextrose 100 ml @ 100 mls/hr DAILY IV 02/11/25 10:00 02/16/25 10:17 100 MLS/HR Albuterol 2.5 mg Q6HPRN PRN NEB 02/11/25 07:00 02/15/25 12:28 2.5 MG Nitroglycerin 0.4 mg Q5MINP PRN SL 02/11/25 07:00 Morphine Sulfate 2 mg Q30M PRN IV 02/11/25 07:00 Enoxaparin Sodium 40 mg DAILY SC 02/11/25 10:00 02/16/25 10:24 40 MG Ergocalciferol 50,000 unit Q7D PO 02/11/25 14:15 02/11/25 15:36 50,000 UNIT Midazolam HCl 50 ml @ 1 mls/hr Q24H IV 02/13/25 00:30 02/15/25 07:56 7 MLS/HR Fentanyl Citrate 250 ml @ 2.5 mls/hr Q24H IV 02/13/25 00:30 02/14/25 23:30 15 MLS/HR Thiamine HCl 100 mg DAILY IV 02/14/25 10:00 02/16/25 10:16 100 MG Metoprolol Tartrate 5 mg Q4HPRN PRN IV 02/14/25 09:15 Hold Vancomycin HCl 0 ml @ 0 mls/hr DAILY IV 02/14/25 10:00 Amino Acids/ Electrolytes/ Dextrose 1,000 ml @ 41 mls/hr DAILY@2200 IV 02/14/25 22:00 Cancel Pantoprazole Sodium 40 mg DAILY IV 02/15/25 10:00 02/16/25 10:21 40 MG Amiodarone HCL/ Dextrose 200 ml @ 16.66 mls/ hr Q12H IV 02/14/25 20:45 02/16/25 07:23 16.66 MLS/HR Enteral Nutritional Formula 1,000 ml 30ML/HR GT 02/14/25 14:45 02/16/25 02:19 1,000 ML Phenylephrine HCl 250 ml @ 30 mls/hr Q8H20M IV 02/14/25 19:30 02/14/25 19:51 30 MLS/HR Diagnostic Test (Pha) 1 strip Q6HR 02/15/25 06:00 02/16/25 12:29 1 STRIP Insulin Human Regular Q6HR SC 02/15/25 06:00 02/16/25 12:36 20 UNITS Dextrose 50 ml UD PRN IV 02/15/25 05:30 Sodium Chloride 1,000 ml @ 50 mls/hr Q20H IV 02/15/25 11:45 02/16/25 10:43 50 MLS/HR Norepinephrine Bitartrate 32 mg/ Sodium Chloride 250 ml @ 0.938 mls/ hr Q24H IV 02/15/25 11:45 02/15/25 13:42 8.438 MLS/HR Methylprednisolone Sodium Succinate 40 mg DAILY IV 02/16/25 10:00 02/16/25 10:23 40 MG Insulin Glargine 20 units BID SC 02/15/25 22:00 02/16/25 10:44 20 UNITS Vancomycin HCl 100 ml @ 200 mls/hr Q12H IV 02/16/25 13:00 02/16/25 12:41 200 MLS/HR Metoclopramide HCl 5 mg Q8HR IV 02/16/25 20:00 Examination General: RASS -3, afebrile, mucosae are moist Cardiovascular: Normal S1 and S2. No murmurs, gallops or rubs Respiratory: Mechanically assisted ventilation, equal bilateral airway entree. Clear lung sounds on auscultation Abdomen: Soft, nontender, no organomegaly, normal bowel sounds MSK/skin: Mobilization of limbs cannot be evaluated. Skin is dry and warm. Neurological: Orientation cannot be assessed. No apparent motor no sensitive deficits. Pupils are isocoric and reactive laboratory and microbiology Laboratory Tests 02/16/25 05:30 Test 02/16/25 05:30 Range/Units Serum Glucose 406 *H 74-106 mg/dL Microbiology Date/Time Source Procedure Growth Status 02/13/25 00:18 Sputum Endotracheal Wash Gram Stain - Final Complete 02/13/25 00:18 Sputum Endotracheal Wash Respiratory Culture - Final Complete 02/12/25 23:26 Nose MRSA Screen - Final Complete 02/12/25 23:00 Urine - [place] Urine Culture - Final Complete 02/12/25 10:50 Blood Blood Culture - Preliminary NO GROWTH AFTER 72 HOURS OF INCUBATION. Resulted Labs and/or images reviewed: Labs reviewed by me, Image(s) reviewed by me Problem List/Assessment/Plan Problem List/Assessment/Plan Assessment and plan: Severe hypokalemia in the state of metabolic alkalosis secondary to dehydrate Severe hypophosphatemia Hyponatremia due to hypotonic IV fluid metabolic alkalosis Acute respiratory failure, patient intubated on ventilator Type 2 diabetes mellitus with hemoglobin A1c 6.7 Acute complicated cystitis Primary hyperparathyroidism Hyperbilirubinemia with transaminitis Left adrenal nodule History of alcoholic liver disease Hyperglycemia Hypoalbuminemia Hypophosphatemia, replaced Plan: Kidney function remained within normal limit Increased urine output Strict I&Os IV fluid to NS at 75 cc/hour Check renin activity and aldosterone level Insulin sliding scale IV antibiotics We will continue to follow up Thank you so much for the opportunity to consult on your patient. Nephro team will follow the patient. In case of any questions or concerns please feel free to reach out. Plan discussed with Dr. Adam . The patient and caregiver team agreed to the plan. Addendum Patient seen and examined, plan discussed with resident. Agree with above, we will follow closely Plan discussed with: Other (RN) Dietary Evaluation Review Comments: 1) Initiate MVI @ 1 tb qd 2) Initiate vitamin C @ 500 mg bid and zinc sulfate @ 220 mg qd for 7 days 3) Increase TPN to meet at least 75% of estimated daily needs 4) Advance to 45g CCHO diet when medically feasible, pending ST approval 5) Refer to outpatient RD/[facility] for weight management 6) Follow-up with pulmonology 7) Continue to monitor I&O, labs, and skin integrity Expected Outcomes/Goals: 1) TPN regimen to meet at least 75% estimated daily needs 2) labs and wound to improve 3) diet to advance 4) gradual wt loss 5) f/u in 2-3 days MARQUITA MACIEL Feb 16, 2025 18:10 ANTHONY ADAM MD Feb 16, 2025 20:55
[2025-02-16] MEDS: SODIUM PHOSPHATES 20 MEQ in SODIUM CHL 0.9% 100 ML IV ONE (18:49)
[2025-02-16] MEDS: METOCLOPRAMIDE HCL 5MG/ml INJ 2ml VIAL IV SCH (20:06)
--- NOTE | 2025-02-16 22:01 | DVHPN2 ---
Progress Note - Dictate Date Seen: Feb 16, 2025 Has the PT tested + for MRSA If YES, has PT been informed?: No Medical Necessity Reason Pt with a Central, PICC or Fol: No Subjective Patient seen still intubated sedated now on mechanical ventilatory support with fio2 30%, Persistent elevation in liver enzymes likely due to alcoholic steatohepatitis, Liver enzymes are trending down Etiology could be related to alcoholic steatohepatitis, hypoxic liver injury or sepsis vital signs Vital Sign Date Time Temp Pulse Resp B/P (MAP) Pulse Ox O2 Delivery O2 Flow Rate FiO2 02/16/25 21:15 86 19 92/61 (71) 98 02/16/25 20:07 30 02/16/25 20:00 Mechanical Ventilator+ 02/16/25 20:00 98.2 98.2 02/16/25 08:00 0 Total Intake and Output 02/15/25 02/15/25 02/16/25 15:00 23:00 07:00 Intake Total 970.53 ml 1570.784 ml 1125.846 ml Output Total 1425 ml 1175 ml Balance 970.53 ml 145.784 ml -49.154 ml medications Current Medications Medications Dose Ordered Sig/Randolph Route Start Time Stop Time Status Last Admin Dose Admin Dextrose 50 ml UD PRN IV 02/11/25 00:15 Cancel Ondansetron HCl 4 mg Q4HPRN PRN IV 02/11/25 07:00 Levofloxacin/ Dextrose 100 ml @ 100 mls/hr DAILY IV 02/11/25 10:00 02/16/25 10:17 100 MLS/HR Albuterol 2.5 mg Q6HPRN PRN NEB 02/11/25 07:00 02/15/25 12:28 2.5 MG Nitroglycerin 0.4 mg Q5MINP PRN SL 02/11/25 07:00 Morphine Sulfate 2 mg Q30M PRN IV 02/11/25 07:00 Enoxaparin Sodium 40 mg DAILY SC 02/11/25 10:00 02/16/25 10:24 40 MG Ergocalciferol 50,000 unit Q7D PO 02/11/25 14:15 02/11/25 15:36 50,000 UNIT Midazolam HCl 50 ml @ 1 mls/hr Q24H IV 02/13/25 00:30 02/15/25 07:56 7 MLS/HR Fentanyl Citrate 250 ml @ 2.5 mls/hr Q24H IV 02/13/25 00:30 02/14/25 23:30 15 MLS/HR Thiamine HCl 100 mg DAILY IV 02/14/25 10:00 02/16/25 10:16 100 MG Metoprolol Tartrate 5 mg Q4HPRN PRN IV 02/14/25 09:15 Hold Vancomycin HCl 0 ml @ 0 mls/hr DAILY IV 02/14/25 10:00 Amino Acids/ Electrolytes/ Dextrose 1,000 ml @ 41 mls/hr DAILY@2200 IV 02/14/25 22:00 Cancel Pantoprazole Sodium 40 mg DAILY IV 02/15/25 10:00 02/16/25 10:21 40 MG Amiodarone HCL/ Dextrose 200 ml @ 16.66 mls/ hr Q12H IV 02/14/25 20:45 02/16/25 20:04 16.66 MLS/HR Enteral Nutritional Formula 1,000 ml 30ML/HR GT 02/14/25 14:45 02/16/25 02:19 1,000 ML Phenylephrine HCl 250 ml @ 30 mls/hr Q8H20M IV 02/14/25 19:30 02/14/25 19:51 30 MLS/HR Diagnostic Test (Pha) 1 strip Q6HR 02/15/25 06:00 02/16/25 18:13 1 STRIP Insulin Human Regular Q6HR SC 02/15/25 06:00 02/16/25 18:20 16 UNITS Dextrose 50 ml UD PRN IV 02/15/25 05:30 Sodium Chloride 1,000 ml @ 50 mls/hr Q20H IV 02/15/25 11:45 02/16/25 10:43 50 MLS/HR Norepinephrine Bitartrate 32 mg/ Sodium Chloride 250 ml @ 0.938 mls/ hr Q24H IV 02/15/25 11:45 02/15/25 13:42 8.438 MLS/HR Methylprednisolone Sodium Succinate 40 mg DAILY IV 02/16/25 10:00 02/16/25 10:23 40 MG Insulin Glargine 20 units BID SC 02/15/25 22:00 02/16/25 21:53 20 UNITS Vancomycin HCl 100 ml @ 200 mls/hr Q12H IV 02/16/25 13:00 02/16/25 12:41 200 MLS/HR Metoclopramide HCl 5 mg Q8HR IV 02/16/25 20:00 02/16/25 21:49 5 MG objective GENERAL: Ill appearing, intubated on ventilator. EYES: PERRL, EOMI. Anicteric. HENT: Moist mucous membranes. LUNGS: Decreased breath sounds. CARDIOVASCULAR: Regular rate and rhythm. ABDOMEN: Soft, non-tender and non-distended. EXTREMITIES: No edema. SKIN: Warm, dry. laboratory and microbiology Laboratory Tests 02/16/25 05:30 Test 02/16/25 05:30 Range/Units Serum Glucose 406 *H 74-106 mg/dL Problems(with codes): (1) COPD exacerbation (2) Alcoholic steatohepatitis (3) Elevated liver enzymes (4) Alcoholic fatty liver (5) Acute respiratory failure (6) Hyponatremia (7) Failure to thrive Prognosis PLAN Methylprednisolone was decrease to 40 mg IV daily Patient may be having worsening hyperglycemia because of steroids Worsening liver enzymes could also be related to IV amiodarone use Patient was started on ursodiol 300 mg p.o. twice a day Consider discontinuing IV amiodarone and replacing with other antiarrhythmics Overall her prognosis is guarded and patient has pending hepatorenal failure Dietary Evaluation Review Comments: 1) Initiate MVI @ 1 tb qd 2) Initiate vitamin C @ 500 mg bid and zinc sulfate @ 220 mg qd for 7 days 3) Increase TPN to meet at least 75% of estimated daily needs 4) Advance to 45g CCHO diet when medically feasible, pending ST approval 5) Refer to outpatient RD/[facility] for weight management 6) Follow-up with pulmonology 7) Continue to monitor I&O, labs, and skin integrity Expected Outcomes/Goals: 1) TPN regimen to meet at least 75% estimated daily needs 2) labs and wound to improve 3) diet to advance 4) gradual wt loss 5) f/u in 2-3 days Plan discussed with: Other (ICU Nurse) KIKE SIN MD Feb 16, 2025 22:01
--- NOTE | 2025-02-16 23:01 | DVHPN2 ---
Progress Note - Dictate Date Seen: Feb 16, 2025 Has the PT tested + for MRSA If YES, has PT been informed?: No Medical Necessity Reason Pt with a Central, PICC or Fol: No Subjective Patient was seen and evaluated in follow-up in the ICU. Patient is intubated on ventilator. 30% FiO2. Patient is off sedation. Patient remain son Amiodarone drip. HGB 8.2, HCT 25.9, CO2 32, BUN 24, AST 973, ALT 202, Alk Phos 168. Chest x-ray shows decreased bilateral pulmonary opacities. vital signs Vital Sign Date Time Temp Pulse Resp B/P (MAP) Pulse Ox O2 Delivery O2 Flow Rate FiO2 02/16/25 22:04 89 21 89/57 (68) 97 30 02/16/25 22:00 Mechanical Ventilator+ 02/16/25 20:00 98.2 98.2 02/16/25 08:00 0 Total Intake and Output 02/15/25 02/15/25 02/16/25 15:00 23:00 07:00 Intake Total 970.53 ml 1570.784 ml 1125.846 ml Output Total 1425 ml 1175 ml Balance 970.53 ml 145.784 ml -49.154 ml medications Current Medications Medications Dose Ordered Sig/Randolph Route Start Time Stop Time Status Last Admin Dose Admin Dextrose 50 ml UD PRN IV 02/11/25 00:15 Cancel Ondansetron HCl 4 mg Q4HPRN PRN IV 02/11/25 07:00 Levofloxacin/ Dextrose 100 ml @ 100 mls/hr DAILY IV 02/11/25 10:00 02/16/25 10:17 100 MLS/HR Albuterol 2.5 mg Q6HPRN PRN NEB 02/11/25 07:00 02/15/25 12:28 2.5 MG Nitroglycerin 0.4 mg Q5MINP PRN SL 02/11/25 07:00 Morphine Sulfate 2 mg Q30M PRN IV 02/11/25 07:00 Enoxaparin Sodium 40 mg DAILY SC 02/11/25 10:00 02/16/25 10:24 40 MG Ergocalciferol 50,000 unit Q7D PO 02/11/25 14:15 02/11/25 15:36 50,000 UNIT Midazolam HCl 50 ml @ 1 mls/hr Q24H IV 02/13/25 00:30 02/15/25 07:56 7 MLS/HR Fentanyl Citrate 250 ml @ 2.5 mls/hr Q24H IV 02/13/25 00:30 02/14/25 23:30 15 MLS/HR Thiamine HCl 100 mg DAILY IV 02/14/25 10:00 02/16/25 10:16 100 MG Metoprolol Tartrate 5 mg Q4HPRN PRN IV 02/14/25 09:15 Hold Vancomycin HCl 0 ml @ 0 mls/hr DAILY IV 02/14/25 10:00 Amino Acids/ Electrolytes/ Dextrose 1,000 ml @ 41 mls/hr DAILY@2200 IV 02/14/25 22:00 Cancel Pantoprazole Sodium 40 mg DAILY IV 02/15/25 10:00 02/16/25 10:21 40 MG Amiodarone HCL/ Dextrose 200 ml @ 16.66 mls/ hr Q12H IV 02/14/25 20:45 02/16/25 20:04 16.66 MLS/HR Enteral Nutritional Formula 1,000 ml 30ML/HR GT 02/14/25 14:45 02/16/25 02:19 1,000 ML Phenylephrine HCl 250 ml @ 30 mls/hr Q8H20M IV 02/14/25 19:30 02/14/25 19:51 30 MLS/HR Diagnostic Test (Pha) 1 strip Q6HR 02/15/25 06:00 02/16/25 18:13 1 STRIP Insulin Human Regular Q6HR SC 02/15/25 06:00 02/16/25 18:20 16 UNITS Dextrose 50 ml UD PRN IV 02/15/25 05:30 Sodium Chloride 1,000 ml @ 50 mls/hr Q20H IV 02/15/25 11:45 02/16/25 10:43 50 MLS/HR Norepinephrine Bitartrate 32 mg/ Sodium Chloride 250 ml @ 0.938 mls/ hr Q24H IV 02/15/25 11:45 02/15/25 13:42 8.438 MLS/HR Methylprednisolone Sodium Succinate 40 mg DAILY IV 02/16/25 10:00 02/16/25 10:23 40 MG Insulin Glargine 20 units BID SC 02/15/25 22:00 02/16/25 21:53 20 UNITS Vancomycin HCl 100 ml @ 200 mls/hr Q12H IV 02/16/25 13:00 02/16/25 12:41 200 MLS/HR Metoclopramide HCl 5 mg Q8HR IV 02/16/25 20:00 02/16/25 21:49 5 MG objective GENERAL: Ill appearing, intubated on ventilator. EYES: PERRL, EOMI. Anicteric. HENT: Moist mucous membranes. LUNGS: Decreased breath sounds. CARDIOVASCULAR: Regular rate and rhythm. ABDOMEN: Soft, non-tender and non-distended. EXTREMITIES: No edema. SKIN: Warm, dry. laboratory and microbiology Laboratory Tests 02/16/25 05:30 Test 02/16/25 05:30 Range/Units Serum Glucose 406 *H 74-106 mg/dL Problem List Chest pain. Metabolic alkalosis. Hypokalemia. Hypophosphatemia. Hyponatremia. Type 2 diabetes mellitus. Acute complicated cystitis. Hyperparathyroidism. Hyperbilirubinemia with transaminitis. Left adrenal nodule. Assessment/Plan Continued all current supportive medical care. IV Amiodarone. DVT prophylactics. IV antibiotics as ordered. Morphine for pain management. Vasopressors for hemodynamic support. Additional plan as per the hospital course. Critical care time of 45 minutes provided to include time spent evaluation of patient at bedside, when appropriate patient/family education for diagnosis, treatment plan, review of pertinent medical information and discussion of care with specialty providers and PCP. Mechanical ventilator parameters, treatment and adjustments have personally been reviewed by me and treatment plan by student accounts coordinator has also been reviewed. Dietary Evaluation Review Comments: 1) Initiate MVI @ 1 tb qd 2) Initiate vitamin C @ 500 mg bid and zinc sulfate @ 220 mg qd for 7 days 3) Increase TPN to meet at least 75% of estimated daily needs 4) Advance to 45g CCHO diet when medically feasible, pending ST approval 5) Refer to outpatient RD/[facility] for weight management 6) Follow-up with pulmonology 7) Continue to monitor I&O, labs, and skin integrity Expected Outcomes/Goals: 1) TPN regimen to meet at least 75% estimated daily needs 2) labs and wound to improve 3) diet to advance 4) gradual wt loss 5) f/u in 2-3 days Plan discussed with: MIKAELA Dickinson MD Feb 16, 2025 23:01
[2025-02-17] VITALS (108 sets, daily range): BP systolic 71–134; BP diastolic 47–84; PULSE 63–100; RESP 14–24; TEMP 97.7–98.6; O2SAT 94–100
[2025-02-17 03:42] LABS: Hemoglobin 8.1 g/dL (12.2-16.2)
[2025-02-17 03:45] LABS: Hematocrit 25.2 % (36.0-46.0); Mean Corpuscular Hemoglobin 30.6 pg (28.0-32.0); Mean Corpuscular Volume 95.0 fL (80.0-100.0)
[2025-02-17 03:54] LABS: Anion Gap 9 (5-15); Carbon Dioxide 30 mmol/L (20-31); Magnesium 1.9 mg/dL (1.6-2.6); Potassium 4.1 mmol/L (3.5-5.1); Sodium 137 mmol/L (136-145)
[2025-02-17 04:07] LABS: Albumin 2.6 g/dL (3.2-4.8); Alkaline Phosphatase 189 U/L (46-116); Bilirubin, Total 18.7 mg/dL (0.2-1.0); Calcium 7.0 mg/dL (8.7-10.4); Chloride 98 mmol/L (98-107); Glucose 337 mg/dL (74-106)
[2025-02-17 04:28] LABS: BUN/Creatinine Ratio 35.9 (10.0-20.0)
[2025-02-17 04:33] LABS: Alanine Aminotransferase 220 U/L (7-40); Blood Urea Nitrogen 28 mg/dL (9-23); Total Protein 5.5 g/dL (5.7-8.2)
--- NOTE | 2025-02-17 04:58 | DVH ---
CHEST RADIOGRAPH Indication: PT IS INTUBATED/RESP FAILUER Technique: Single frontal view of the chest was obtained COMPARISON: XY CHEST PORTABLE on DOS: 02/16/25, XY CHEST PORTABLE on DOS: 02/15/25, XY CHEST PORTABLE on DOS: 02/14/25, XY CHEST XRAY 1 VIEW on DOS: 02/13/25, XY CHEST XRAY 1 VIEW on DOS: 02/12/25 FINDINGS: Lines and Tubes: UNCHANGED. Lungs: Clear Pleura: No effusion. No pneumothorax. Cardiomediastinal contours: Unremarkable Bones: Unremarkable IMPRESSION: 1. No acute cardiopulmonary disease. 2. Lines and tubes unchanged.
[2025-02-17 05:43] LABS: Nucleated Red Blood Cells % 19.0 %; Total Cells Counted 100.0 (100)
[2025-02-17 05:44] LABS: Anisocytosis Moderate
--- NOTE | 2025-02-17 07:03 | DVHPN2 ---
Progress Note Date Seen: Feb 17, 2025 Has the PT tested + for MRSA If YES, has PT been informed?: No Medical Necessity Reason Pt with a Central, PICC or Fol: No Subjective Patient reports: Other Review of Systems: Not Done Objective vital signs Vital Sign Date Time Temp Pulse Resp B/P (MAP) Pulse Ox O2 Delivery O2 Flow Rate FiO2 02/17/25 06:45 84 20 101/64 (76) 100 02/17/25 06:28 30 02/17/25 06:00 Mechanical Ventilator+ 02/17/25 04:00 98.2 98.2 02/16/25 08:00 0 Total Intake and Output 02/16/25 02/16/25 02/17/25 15:00 23:00 07:00 Intake Total 1308.317 ml 1015.469 ml 885.87 ml Output Total 1000 ml 575 ml Balance 1308.317 ml 15.469 ml 310.87 ml medications Current Medications Medications Dose Ordered Sig/Randolph Route Start Time Stop Time Status Last Admin Dose Admin Dextrose 50 ml UD PRN IV 02/11/25 00:15 Cancel Ondansetron HCl 4 mg Q4HPRN PRN IV 02/11/25 07:00 Levofloxacin/ Dextrose 100 ml @ 100 mls/hr DAILY IV 02/11/25 10:00 02/16/25 10:17 100 MLS/HR Albuterol 2.5 mg Q6HPRN PRN NEB 02/11/25 07:00 02/15/25 12:28 2.5 MG Nitroglycerin 0.4 mg Q5MINP PRN SL 02/11/25 07:00 Morphine Sulfate 2 mg Q30M PRN IV 02/11/25 07:00 Enoxaparin Sodium 40 mg DAILY SC 02/11/25 10:00 02/16/25 10:24 40 MG Ergocalciferol 50,000 unit Q7D PO 02/11/25 14:15 02/11/25 15:36 50,000 UNIT Midazolam HCl 50 ml @ 1 mls/hr Q24H IV 02/13/25 00:30 02/15/25 07:56 7 MLS/HR Fentanyl Citrate 250 ml @ 2.5 mls/hr Q24H IV 02/13/25 00:30 02/14/25 23:30 15 MLS/HR Thiamine HCl 100 mg DAILY IV 02/14/25 10:00 02/16/25 10:16 100 MG Metoprolol Tartrate 5 mg Q4HPRN PRN IV 02/14/25 09:15 Hold Vancomycin HCl 0 ml @ 0 mls/hr DAILY IV 02/14/25 10:00 Amino Acids/ Electrolytes/ Dextrose 1,000 ml @ 41 mls/hr DAILY@2200 IV 02/14/25 22:00 Cancel Pantoprazole Sodium 40 mg DAILY IV 02/15/25 10:00 02/16/25 10:21 40 MG Amiodarone HCL/ Dextrose 200 ml @ 16.66 mls/ hr Q12H IV 02/14/25 20:45 02/16/25 20:04 16.66 MLS/HR Enteral Nutritional Formula 1,000 ml 30ML/HR GT 02/14/25 14:45 02/16/25 02:19 1,000 ML Phenylephrine HCl 250 ml @ 30 mls/hr Q8H20M IV 02/14/25 19:30 02/14/25 19:51 30 MLS/HR Diagnostic Test (Pha) 1 strip Q6HR 02/15/25 06:00 02/17/25 05:45 1 STRIP Insulin Human Regular Q6HR SC 02/15/25 06:00 02/17/25 05:51 16 UNITS Dextrose 50 ml UD PRN IV 02/15/25 05:30 Sodium Chloride 1,000 ml @ 50 mls/hr Q20H IV 02/15/25 11:45 02/17/25 03:20 50 MLS/HR Norepinephrine Bitartrate 32 mg/ Sodium Chloride 250 ml @ 0.938 mls/ hr Q24H IV 02/15/25 11:45 02/15/25 13:42 8.438 MLS/HR Methylprednisolone Sodium Succinate 40 mg DAILY IV 02/16/25 10:00 02/16/25 10:23 40 MG Insulin Glargine 20 units BID SC 02/15/25 22:00 02/16/25 21:53 20 UNITS Vancomycin HCl 100 ml @ 200 mls/hr Q12H IV 02/16/25 13:00 02/17/25 00:47 200 MLS/HR Metoclopramide HCl 5 mg Q8HR IV 02/16/25 20:00 02/17/25 05:45 5 MG Examination: GENERAL:Normal, LUNGS:Normal, CVS:Normal, ABDOMEN:Normal laboratory and microbiology Laboratory Tests 02/17/25 02:59 Test 02/17/25 02:59 Range/Units Serum Glucose 337 H 74-106 mg/dL Problem List/Assessment/Plan Problem List/Assessment/Plan 1) Acute respiratory failure, intubated 2) UTI 3) Hyponatremia 4) Hyperbilirubinemia 2/2 alcoholism 5) Metabolic alkalosis 6) COPD 7) Hx of CVA 8) DM 9) HTN 10) HLD plan; 02/13---patient noted to be unresponsive and lethargic overnight and thus was intubated and transferred to ICU, now on mechanical ventilatory support with fio2 30%, on levophed 10 mcg this AM, continue IV Abx, BCx negative, UCx shows mixed violet, will consult pulm/cardio, GI on board due to elevated LFTs and hyperbilirubinemia likely in the setting of alcoholic hepatitis, daily labs, supportive care, lifestyle consultant input appreciated, will follow along 02/14---remains intubated on ventilator fio2 30%, this AM on 18 mcg of levophed, WBC 15k, repeat BCx negative, Na uptrending to 132 with IVF hydration with nephrology following, echo shows EF 38% with cardio on the case, bilirubin 14 this AM and likely attributed to alcoholism with GI on board, continue all care, lifestyle consultant input appreciated, daily labs, will follow along 02/15---remains intubated on ventilator fio2 30%, started on amio gtt for SVT now HR better controlled, WBC trending up to 16k, on vanco/levaquin/flagyl with repeat BCx and UCx negative, continue NS at 100 ml/hr, still on levophed 24 mcg this AM, lifestyle consultant input appreciated, guarded/critical, daily labs, supportive care, will follow along 02/16---remains intubated on ventilator fio2 40%, levophed requirements coming down to 12 mcg this AM, remains in amio gtt for SVT, renal fuction preserved with Na and Cl trending upward, WBC trending up to 18k with repeat BCx/UCx negative on IV ABx and likely steroid induced, tapered steroids to 40 mg IV daily, blood glucose has been elevated and she has uncontrolled DM thus added lantus 20 bid along with aggressive sliding scale, lifestyle consultant input appreciated, continue all care, daily labs, will follow along 02/17---remains intubated on ventilator fio2 30%, levophed requirements are coming down and this AM on 8 mcg, remains on amio gtt as per cardiology, Na and Cl normalized, renal function preserved, WBC spike to 28k, on IV Abx, ID consult pending, cultures are negative thus far, pulm/cardio/gi already on board, i spoke to daughter too yesterday and updated her on POC, continue all care, AM labs, will follow along Plan discussed with: Other (n) Dietary Evaluation Review Comments: 1) Initiate MVI @ 1 tb qd 2) Initiate vitamin C @ 500 mg bid and zinc sulfate @ 220 mg qd for 7 days 3) Increase TPN to meet at least 75% of estimated daily needs 4) Advance to 45g CCHO diet when medically feasible, pending ST approval 5) Refer to outpatient RD/[facility] for weight management 6) Follow-up with pulmonology 7) Continue to monitor I&O, labs, and skin integrity Expected Outcomes/Goals: 1) TPN regimen to meet at least 75% estimated daily needs 2) labs and wound to improve 3) diet to advance 4) gradual wt loss 5) f/u in 2-3 days BENNIE YE MD Feb 17, 2025 07:03
[2025-02-17] MEDS: PIPERACILLIN-TAZOB 3.375GM 100 ML IV SCH ×2 (08:00→15:47)
[2025-02-17 08:21] LABS: Base Excess 3.7 mmol/L (-2.0-3.0)
--- NOTE | 2025-02-17 10:04 | DVHPN2 ---
Progress Note Date Seen: Feb 17, 2025 Resident Creating Document: MARQUITA MACIEL RESIDENT Has the PT tested + for MRSA If YES, has PT been informed?: No Medical Necessity Reason Pt with a Central, PICC or Fol: No Subjective Review of Systems Patient was seen and examined on the bedside. She is on mechanical ventilation with FiO2 30%, tidal volume 450 mL, peep 5, RR 18. Off Sedation and vasopressor Objective vital signs Vital Sign Date Time Temp Pulse Resp B/P (MAP) Pulse Ox O2 Delivery O2 Flow Rate FiO2 02/17/25 08:20 63 23 123/76 (92) 98 30 02/17/25 08:07 Mechanical Ventilator+ 02/17/25 08:00 0 02/17/25 08:00 98.6 98.6 Total Intake and Output 02/16/25 02/16/25 02/17/25 15:00 23:00 07:00 Intake Total 1308.317 ml 1015.469 ml 956.28 ml Output Total 1000 ml 575 ml Balance 1308.317 ml 15.469 ml 381.28 ml medications Current Medications Medications Dose Ordered Sig/Randolph Route Start Time Stop Time Status Last Admin Dose Admin Dextrose 50 ml UD PRN IV 02/11/25 00:15 Cancel Ondansetron HCl 4 mg Q4HPRN PRN IV 02/11/25 07:00 Albuterol 2.5 mg Q6HPRN PRN NEB 02/11/25 07:00 02/15/25 12:28 2.5 MG Nitroglycerin 0.4 mg Q5MINP PRN SL 02/11/25 07:00 Morphine Sulfate 2 mg Q30M PRN IV 02/11/25 07:00 Enoxaparin Sodium 40 mg DAILY SC 02/11/25 10:00 02/17/25 09:44 40 MG Ergocalciferol 50,000 unit Q7D PO 02/11/25 14:15 02/11/25 15:36 50,000 UNIT Midazolam HCl 50 ml @ 1 mls/hr Q24H IV 02/13/25 00:30 02/15/25 07:56 7 MLS/HR Fentanyl Citrate 250 ml @ 2.5 mls/hr Q24H IV 02/13/25 00:30 02/14/25 23:30 15 MLS/HR Thiamine HCl 100 mg DAILY IV 02/14/25 10:00 02/17/25 09:40 100 MG Metoprolol Tartrate 5 mg Q4HPRN PRN IV 02/14/25 09:15 Hold Vancomycin HCl 0 ml @ 0 mls/hr DAILY IV 02/14/25 10:00 Amino Acids/ Electrolytes/ Dextrose 1,000 ml @ 41 mls/hr DAILY@2200 IV 02/14/25 22:00 Cancel Pantoprazole Sodium 40 mg DAILY IV 02/15/25 10:00 02/17/25 09:40 40 MG Amiodarone HCL/ Dextrose 200 ml @ 16.66 mls/ hr Q12H IV 02/14/25 20:45 02/17/25 08:00 16.66 MLS/HR Enteral Nutritional Formula 1,000 ml 30ML/HR GT 02/14/25 14:45 02/16/25 02:19 1,000 ML Phenylephrine HCl 250 ml @ 30 mls/hr Q8H20M IV 02/14/25 19:30 02/14/25 19:51 30 MLS/HR Diagnostic Test (Pha) 1 strip Q6HR 02/15/25 06:00 02/17/25 05:45 1 STRIP Insulin Human Regular Q6HR SC 02/15/25 06:00 02/17/25 05:51 16 UNITS Dextrose 50 ml UD PRN IV 02/15/25 05:30 Sodium Chloride 1,000 ml @ 50 mls/hr Q20H IV 02/15/25 11:45 02/17/25 03:20 50 MLS/HR Norepinephrine Bitartrate 32 mg/ Sodium Chloride 250 ml @ 0.938 mls/ hr Q24H IV 02/15/25 11:45 02/15/25 13:42 8.438 MLS/HR Methylprednisolone Sodium Succinate 40 mg DAILY IV 02/16/25 10:00 02/17/25 09:40 40 MG Insulin Glargine 20 units BID SC 02/15/25 22:00 02/17/25 09:43 20 UNITS Vancomycin HCl 100 ml @ 200 mls/hr Q12H IV 02/16/25 13:00 02/17/25 00:47 200 MLS/HR Metoclopramide HCl 5 mg Q8HR IV 02/16/25 20:00 02/17/25 05:45 5 MG Piperacillin Sod/ Tazobactam Sod 100 ml @ 25 mls/hr Q6HR IV 02/17/25 07:45 02/17/25 08:00 25 MLS/HR Examination Examination General: RASS -3, afebrile, mucosae are moist Cardiovascular: Normal S1 and S2. No murmurs, gallops or rubs Respiratory: Mechanically assisted ventilation, equal bilateral airway entree. Clear lung sounds on auscultation Abdomen: Soft, nontender, no organomegaly, normal bowel sounds MSK/skin: Mobilization of limbs cannot be evaluated. Skin is dry and warm. Neurological: Orientation cannot be assessed. No apparent motor no sensitive deficits. Pupils are isocoric and reactive laboratory and microbiology Laboratory Tests 02/17/25 02:59 Test 02/17/25 02:59 Range/Units Serum Glucose 337 H 74-106 mg/dL Microbiology Date/Time Source Procedure Growth Status 02/13/25 00:18 Sputum Endotracheal Wash Gram Stain - Final Complete 02/13/25 00:18 Sputum Endotracheal Wash Respiratory Culture - Final Complete 02/12/25 23:26 Nose MRSA Screen - Final Complete 02/12/25 23:00 Urine - [place] Urine Culture - Final Complete 02/12/25 10:50 Blood Blood Culture - Preliminary NO GROWTH AFTER 72 HOURS OF INCUBATION. Resulted Labs and/or images reviewed: Labs reviewed by me, Image(s) reviewed by me Problem List/Assessment/Plan Problem List/Assessment/Plan Assessment and plan: Severe hypokalemia Severe hypophosphatemia Hyponatremia metabolic alkalosis Acute respiratory failure, patient intubated on ventilator Type 2 diabetes mellitus with hemoglobin A1c 6.7 Acute complicated cystitis Primary hyperparathyroidism Hyperbilirubinemia with transaminitis Left adrenal nodule History of alcoholic liver disease Hyperglycemia Hypoalbuminemia Hypophosphatemia, replaced Plan: Kidney function remained within normal limit Increased urine output Strict I&Os dc ivf Thank you so much for the opportunity to consult on your patient. Nephro team will follow the patient. In case of any questions or concerns please feel free to reach out. Plan discussed with Dr. Adam . The patient and caregiver team agreed to the plan. Addendum Patient seen and examined, plan discussed with resident. Agree with above, we will follow closely dc ivf Plan discussed with: Other (RN) My Orders My Orders Orders - MARQUITA MACILE Procedure Category Date Status Time Sodium Phosphates PHA 02/17/25 In Process 08:00 Dietary Evaluation Review Comments: 1) Initiate MVI @ 1 tb qd 2) Initiate vitamin C @ 500 mg bid and zinc sulfate @ 220 mg qd for 7 days 3) Increase TPN to meet at least 75% of estimated daily needs 4) Advance to 45g CCHO diet when medically feasible, pending ST approval 5) Refer to outpatient RD/[facility] for weight management 6) Follow-up with pulmonology 7) Continue to monitor I&O, labs, and skin integrity Expected Outcomes/Goals: 1) TPN regimen to meet at least 75% estimated daily needs 2) labs and wound to improve 3) diet to advance 4) gradual wt loss 5) f/u in 2-3 days MARQUITA MACIEL RESIDENT Feb 17, 2025 10:04 ANTHONY ADAM MD Feb 17, 2025 21:46
[2025-02-17] MEDS: SODIUM PHOSPHATES 40 MEQ in D5W 5% 250 ML IV ONE ×2 (11:32→21:01)
--- NOTE | 2025-02-17 13:43 | DVHPN2 ---
Progress Note - Dictate Date Seen: Feb 17, 2025 Has the PT tested + for MRSA If YES, has PT been informed?: No Medical Necessity Reason Pt with a Central, PICC or Fol: No vital signs Vital Sign Date Time Temp Pulse Resp B/P (MAP) Pulse Ox O2 Delivery O2 Flow Rate FiO2 02/17/25 13:00 86 21 101/63 (76) 99 02/17/25 12:00 Mechanical Ventilator+ 30 30 02/17/25 08:00 0 02/17/25 08:00 98.6 98.6 Total Intake and Output 02/16/25 02/16/25 02/17/25 15:00 23:00 07:00 Intake Total 1308.317 ml 1015.469 ml 956.28 ml Output Total 1000 ml 575 ml Balance 1308.317 ml 15.469 ml 381.28 ml medications Current Medications Medications Dose Ordered Sig/Randolph Route Start Time Stop Time Status Last Admin Dose Admin Dextrose 50 ml UD PRN IV 02/11/25 00:15 Cancel Ondansetron HCl 4 mg Q4HPRN PRN IV 02/11/25 07:00 Albuterol 2.5 mg Q6HPRN PRN NEB 02/11/25 07:00 02/15/25 12:28 2.5 MG Nitroglycerin 0.4 mg Q5MINP PRN SL 02/11/25 07:00 Morphine Sulfate 2 mg Q30M PRN IV 02/11/25 07:00 Enoxaparin Sodium 40 mg DAILY SC 02/11/25 10:00 02/17/25 09:44 40 MG Ergocalciferol 50,000 unit Q7D PO 02/11/25 14:15 02/11/25 15:36 50,000 UNIT Midazolam HCl 50 ml @ 1 mls/hr Q24H IV 02/13/25 00:30 02/15/25 07:56 7 MLS/HR Fentanyl Citrate 250 ml @ 2.5 mls/hr Q24H IV 02/13/25 00:30 02/14/25 23:30 15 MLS/HR Thiamine HCl 100 mg DAILY IV 02/14/25 10:00 02/17/25 09:40 100 MG Metoprolol Tartrate 5 mg Q4HPRN PRN IV 02/14/25 09:15 Hold Vancomycin HCl 0 ml @ 0 mls/hr DAILY IV 02/14/25 10:00 Amino Acids/ Electrolytes/ Dextrose 1,000 ml @ 41 mls/hr DAILY@2200 IV 02/14/25 22:00 Cancel Pantoprazole Sodium 40 mg DAILY IV 02/15/25 10:00 02/17/25 09:40 40 MG Amiodarone HCL/ Dextrose 200 ml @ 16.66 mls/ hr Q12H IV 02/14/25 20:45 02/17/25 08:00 16.66 MLS/HR Enteral Nutritional Formula 1,000 ml 30ML/HR GT 02/14/25 14:45 02/16/25 02:19 1,000 ML Phenylephrine HCl 250 ml @ 30 mls/hr Q8H20M IV 02/14/25 19:30 02/14/25 19:51 30 MLS/HR Diagnostic Test (Pha) 1 strip Q6HR 02/15/25 06:00 02/17/25 11:40 1 STRIP Insulin Human Regular Q6HR SC 02/15/25 06:00 02/17/25 11:45 12 UNITS Dextrose 50 ml UD PRN IV 02/15/25 05:30 Sodium Chloride 1,000 ml @ 50 mls/hr Q20H IV 02/15/25 11:45 02/17/25 03:20 50 MLS/HR Norepinephrine Bitartrate 32 mg/ Sodium Chloride 250 ml @ 0.938 mls/ hr Q24H IV 02/15/25 11:45 02/15/25 13:42 8.438 MLS/HR Methylprednisolone Sodium Succinate 40 mg DAILY IV 02/16/25 10:00 02/17/25 09:40 40 MG Insulin Glargine 20 units BID SC 02/15/25 22:00 02/17/25 09:43 20 UNITS Vancomycin HCl 100 ml @ 200 mls/hr Q12H IV 02/16/25 13:00 02/17/25 13:25 200 MLS/HR Metoclopramide HCl 5 mg Q8HR IV 02/16/25 20:00 02/17/25 05:45 5 MG Piperacillin Sod/ Tazobactam Sod 100 ml @ 25 mls/hr Q6HR IV 02/17/25 07:45 02/17/25 08:00 25 MLS/HR laboratory and microbiology Laboratory Tests 02/17/25 02:59 Test 02/17/25 02:59 Range/Units Serum Glucose 337 H 74-106 mg/dL Assessment/Plan Acute hypercapnic respiratory failure Acute respiratory failure Hyponatremia COPD Shock requiring Levophed drip Patient is seen and examined in the ICU events on mechanical ventilation s/p intubation ac volume control peep 5 Fi02=40% off sedation, not waking up labs and imaging reviewed white count elevated liver enzymes trending up Management plan vent support Sedation fentanyl propofol as needed for ventilator synchrony weaning when more stable hemodynamically okay to use precedex drip Steroid/antibiotic for COPD Nebs nutrition monitor ammonia levels DVT prophylaxis Patient is full code Critical care time 35 minutes Dietary Evaluation Review Comments: 1) Initiate MVI @ 1 tb qd 2) Initiate vitamin C @ 500 mg bid and zinc sulfate @ 220 mg qd for 7 days 3) Increase TPN to meet at least 75% of estimated daily needs 4) Advance to 45g CCHO diet when medically feasible, pending ST approval 5) Refer to outpatient RD/[facility] for weight management 6) Follow-up with pulmonology 7) Continue to monitor I&O, labs, and skin integrity Expected Outcomes/Goals: 1) TPN regimen to meet at least 75% estimated daily needs 2) labs and wound to improve 3) diet to advance 4) gradual wt loss 5) f/u in 2-3 days Plan discussed with: Other (Rn) ECTOR BROCK MD Feb 17, 2025 13:43
[2025-02-17] MEDS: CALCIUM GLUC 1,000mg/50ml-NS 50 ML IV ONE (15:04)
--- NOTE | 2025-02-17 19:35 | DVHINCON2 ---
Date of service: Feb 16, 2025 Family History: Patient reports no known family medical history. Allergies: Coded Allergies: Penicillins (Verified Allergy, Unknown, 03/18/21) Home Meds Active Scripts Levofloxacin Hemihydrate (LEVAQUIN 500 MG) 500 Mg Tab, 1 TAB PO DAILY, #10 TAB Prov:BENNIE YE MD 02/12/25 Prednisone (Prednisone) 20 Mg Tab, 20 MG PO DAILY for 10 Days, #15 MG Take 2 tabs daily for 5 days, than 1 tab daily for 5 days Prov:TRICIA CLARKE MD 10/31/24 Budesonide-Formoterol Fumarate (Budesonide/Formoterol Fum 160-4.5 Mcg/Act) 1 Aer Aer, 1 AER IN BID for 30 Days, #1 AER 2 Refills Prov:TRICIA CLARKE MD 10/31/24 Ipratropium-Albuterol (Ipratropium Preston/Albut) 1 Calista Calista, 1 VIAL IN QID for 7 Days, #30 VIAL 1 Refill Prov:ARCHANA DONG DO 08/08/24 Benzonatate (Benzonatate) 100 Mg Cap, 1 CAP PO TID PRN for 30 Days, #30 CAP 0 Refills For cough as needed. Prov:ARCHANA DONG DO 01/15/24 Metformin Hydrochloride (Metformin Hcl) 1,000 Mg Tab, 1 TAB PO BID, #60 TAB 1 Refill Prov:ARCHANA DONG DO 01/15/24 Reported Medications Albuterol Sulfate (Albuterol Sulfate Hfa) 108 Mcg/Act Aer, 1 PUFF PO PRN 10/20/22 Pravastatin Sodium (PRAVACHOL TABLET) 20 Mg Tb, 40 MG PO HS 10/20/22 Budesonide-Formoterol Fumarate (Budesonide/Formoterol Fum 160-4.5 Mcg/Act) 1 Aer Aer, 1 AER IN 03/19/21 Carvedilol (Coreg) 3.125 Mg Tab, 1 TAB PO BID 03/19/21 Current Medications Current Medications Medications (Trade) Dose Ordered Sig/Randolph Route PRN Reason Start Time Stop Time Status Last Admin Metoclopramide HCl (Reglan Injection) 5 mg Q8HR IV 02/16/25 20:00 02/17/25 15:05 Piperacillin Sod/ Tazobactam Sod 100 ml @ 25 mls/hr Q6HR IV 02/17/25 07:45 02/17/25 13:51 DC 02/17/25 08:00 Piperacillin Sod/ Tazobactam Sod 100 ml @ 25 mls/hr Q6H IV 02/17/25 16:00 02/17/25 15:47 Vital Signs Vital Signs Date Time Temp Pulse Resp B/P (MAP) Pulse Ox O2 Delivery O2 Flow Rate FiO2 02/17/25 18:30 95 24 117/77 (90) 98 02/17/25 18:20 30 02/17/25 18:00 Mechanical Ventilator+ 02/17/25 16:00 98.2 98.2 02/17/25 08:00 0 Labs/Diagnostic Data Labs Test 02/17/25 18:13 02/17/25 10:00 02/17/25 08:10 02/17/25 02:59 Range/Units POC Glucose 282 H 70-106 mg/dl Ammonia 35 H 11-32 umol/L Blood Gas Specimen Type Arterial Blood Gas Sample Site Right radial Blood Gas Patient Temperature 37.0 Arterial Blood Date Drawn [id number] Arterial Blood pH 7.411 7.350-7.450 Arterial Blood Partial Pressure CO2 46.4 H 32.0-45.0 mmHg Arterial Blood Partial Pressure O2 75.2 L 83.0-108.0 mmHg Arterial Blood HCO3 28.8 H 21.0-28.0 mmol/L Arterial Blood Oxygen Saturation 94.4 94.0-98.0 % Arterial Blood Base Excess 3.7 H -2.0-3.0 mmol/L Arterial Blood Oxyhemoglobin 92.7 L 94.0-98.0 % Arterial Blood Carboxyhemoglobin 1.5 0.5-1.5 % Arterial Blood Methemoglobin 0.3 0.0-1.5 % Marcos Test Modified Blood Gas Total Hemoglobin 9.70 L 12.0-16.0 g/dL Blood Gas Set Respiration Rate 14.0 Blood Gas Modality Vent - ac FiO2 % 30.0 Blood Gas Tidal Volume 450.0 Blood Gas PEEP or CPAP 5.0 White Blood Count 28.6 #H 4.4-10.8 10^3/uL Red Blood Count 2.65 L 4.0-5.20 10^6/uL Hemoglobin 8.1 L 12.2-16.2 g/dL Hematocrit 25.2 L 36.0-46.0 % Mean Corpuscular Volume 95.0 80.0-100.0 fL Mean Corpuscular Hemoglobin 30.6 28.0-32.0 pg Mean Corpuscular Hemoglobin Concent 32.2 32.0-36.0 g/dL Red Cell Distribution Width 27.6 H 11.8-14.3 % Platelet Count 150 140-450 10^3/uL Mean Platelet Volume 6.9 6.9-10.8 fL Neutrophils (%) (Auto) 37.0-80.0 % Lymphocytes (%) (Auto) 10.0-50.0 % Monocytes (%) (Auto) 0.0-12.0 % Basophils (%) (Auto) 0.0-2.0 % Neutrophils # (Auto) 1.6-8.6 10 ^3/uL Lymphocytes # (Auto) 0.4-5.4 10 ^3/uL Monocytes # (Auto) 0-1.3 10 ^3/uL Differential Total Cells Counted 100.0 100 Neutrophils % (Manual) 68 37.0-80.0 Band Neutrophils % (Manual) 9 Lymphocytes % (Manual) 13 10.0-50.0 Monocytes % (Manual) 3 0-12 Eosinophils % (Manual) 0 0-7 Basophils % (Manual) 0 0.0-2.0 Metamyelocytes % (manual) 3 Myelocytes % (Manual) 3 Promyelocytes % (Manual) 1 Blast Cells % (Manual) 0 Nucleated Red Blood Cells 19.0 % Reactive Lymphocytes 0 Platelet Estimate Adequate Anisocytosis (manual) Moderate Target Cells Moderate Sodium Level 137 136-145 mmol/L Potassium Level 4.1 3.5-5.1 mmol/L Chloride Level 98 98-107 mmol/L Carbon Dioxide Level 30 20-31 mmol/L Anion Gap 9 5-15 Blood Urea Nitrogen 28 H 9-23 mg/dL Creatinine 0.78 0.550-1.02 mg/dL Glomerular Filtration Rate Calc 84 >90 mL/min BUN/Creatinine Ratio 35.9 H 10.0-20.0 Serum Glucose 337 H 74-106 mg/dL Calcium Level 7.0 L 8.7-10.4 mg/dL Phosphorus Level 1.2 L 2.4-5.1 mg/dL Magnesium Level 1.9 1.6-2.6 mg/dL Total Bilirubin 18.7 H 0.2-1.0 mg/dL Aspartate Amino Transferase (AST) 1052 H 13-40 U/L Alanine Aminotransferase (ALT) 220 H 7-40 U/L Alkaline Phosphatase 189 H 46-116 U/L Total Protein 5.5 L 5.7-8.2 g/dL Albumin 2.6 L 3.2-4.8 g/dL Test 02/16/25 10:00 02/16/25 05:30 02/15/25 13:18 02/15/25 07:40 Range/Units Vancomycin Level Trough 20.7 H 5-10 ug/mL Prothrombin Time 19.7 H 9.3-11.8 sec Prothrombin Time INR 1.99 H 0.9-1.15 Triglycerides Level 267 H < 150 mg/dL Blood Gas Spontaneous Rate 14 Test 02/15/25 02:45 02/14/25 09:00 02/14/25 07:46 02/14/25 02:27 Range/Units Red Blood Cell Morphology Dimorphic Polychromasia Slight Macrocytosis Moderate Cortisol AM Sample 25.02 H 5.27-22.45 ug/dL Blood Gas Critical Value Read Back Yes Blood Gas Notified Whom marsha Espinoza Blood Gas Notified Time [id number] Blood Gas Notified By baljinder Mtz Few Anti-Nuclear Antibody Screen Negative Negative Test 02/13/25 04:45 02/12/25 23:00 02/12/25 21:59 02/12/25 21:43 Range/Units Hepatitis A Antibody Total Negative Negative Hepatitis B Surface Antigen Negative Negative Hepatitis B Surface Antibody Negative Negative Hepatitis B Core Total Antibody Negative Negative Hepatitis C Antibody Negative Negative Urine Color Dark-yellow Yellow Urine Clarity Turbid H Clear Urine pH 6.5 5.0-9.0 Urine Specific [place] 1.011 1.001-1.035 Urine Protein Trace H Negative Urine Ketones 1+ H Negative Urine Blood 1+ H Negative /uL Urine Nitrite Negative Negative Urine Bilirubin 2+ H Negative Urine Urobilinogen 2 H Negative mg/dL Urine Leukocyte Esterase 3+ Negative /uL Urine RBC 2 0 - 4 /hpf Urine WBC Clumps Present None Seen /hpf Urine Microscopic WBC 41 H 0-5 /HPF Urine Squamous Epithelial Cells Few <5 /hpf Urine Bacteria None seen None Seen /hpf Urine Hyaline Casts Few 0 - 2 /lpf Urine Osmolality 294 mOsm/kg Urine Creatinine 44.83 30.0-125.0 mg/dL Urine Protein/Creatinine Ratio 1.29 Urine Sodium 53 40-220 mmol/L Urine Glucose Normal Normal mg/dL Urine Total Protein 57.8 H 1-14 mg/dL Troponin I High Sensitivity 136 *H </=34 ng/L Blood Gas Liter Flow 4.00 Test 02/12/25 15:50 02/12/25 13:27 02/12/25 06:21 02/11/25 11:20 Range/Units Activated Partial Thromboplast Time 31.2 24.5-34.5 SEC Large Platelets Few B-Type Natriuretic Peptide 111.57 0-100 pg/mL Vitamin D 25-Hydroxy 23.5 L 30.0-100 ng/mL Test 02/11/25 08:05 02/11/25 04:30 02/11/25 01:43 02/10/25 21:42 Range/Units Parathyroid Hormone (Intact) 218.7 H 18.4-80.1 pg/mL Beta-Hydroxybutyric Acid 0.562 H < 0.4 mmol/L Hemoglobin A1c 6.7 H <5.7 % A1C Urine Amorphous Sediment Many /hpf Test 02/10/25 19:12 02/10/25 14:24 Range/Units Specimen Drawn By Rigoberto rios rt Eosinophils (%) (Auto) 0.1 0.0-7.0 % Eosinophils # (Auto) 0 0-0.8 10 ^3/uL Basophils # (Auto) 0 0-0.2 10 ^3/uL Thyroid Stimulating Hormone (TSH) 1.22 0.55-4.78 uIU/mL Microbiology Date/Time Source Procedure Growth Status 02/13/25 00:18 Sputum Endotracheal Wash Gram Stain - Final Complete 02/13/25 00:18 Sputum Endotracheal Wash Respiratory Culture - Final Complete 02/12/25 23:26 Nose MRSA Screen - Final Complete 02/12/25 23:00 Urine - [place] Urine Culture - Final Complete 02/12/25 10:50 Blood Blood Culture - Final NO GROWTH AFTER 5 DAYS OF INCUBATION. Complete Problems(with codes): (1) Shock (2) Cardiac arrest (3) UTI (urinary tract infection) (4) COPD exacerbation (5) Alcoholic steatohepatitis (6) Elevated liver enzymes (7) Alcoholic fatty liver (8) Failure to thrive (9) Pneumonitis Plan/Recommendation v===ASSESSMENT AND PLAN: ID Problem List: \-- generalized weakness and shortness of breath (2 months) \-- COPD/asthma; obesity; diabetes mellitus; hypertension; hyperlipidemia; prior NC; prior TIA \-- ventricular tachycardia with code event on 02/12 ? intubated; ICU course with shock on vasopressors \-- leukocytosis rising (11.4 ? 28.6 K/L) while on steroids \-- possible aspiration pneumonia (initial treatment with levofloxacin; metronidazole added) \-- presumed acute complicated cystitis (initial UA with pyuria; early urine culture not sent due to contamination; subsequent urine culture >3 colony types) \-- concern for biliary sludge/cholestatic process; hyperbilirubinemia and transaminitis (Tbili up to ~21, AST up to 1052, ALT up to ~132, Alk Phos up to 299) \-- severe hypokalemia and metabolic alkalosis; severe hypophosphatemia (as low as 0.60.9 mg/dL) on admission \-- hyperglycemia (glucose up to 471 on 02/15) \-- altered mental status while sedated/intubated (likely metabolic; post-code state) \-- hyperparathyroidism (not further characterized) \-- penicillin allergy (reaction unknown) Assessment 64-year-old female with multiple comorbidities presented with 2 months of dyspnea and weakness, admitted with significant electrolyte derangements (hypokalemia, hypophosphatemia, metabolic alkalosis). Hospital course complicated by ventricular tachycardia and code blue on 02/12 requiring intubation, vasopressor support, and ICU transfer. Initial antibiotic therapy included levofloxacin; metronidazole was added for aspiration risk. Subsequently, due to persistent leukocytosis, antibiotics were changed to piperacillin-tazobactam (Zosyn) and vancomycin. Blood cultures to date show no growth; urine culture after intubation showed >3 colony types (suggestive of contamination). Imaging reveals marked hepatic steatosis and gallbladder sludge without ductal dilatation; ultrasound shows no acute cholecystitis. Liver tests demonstrate a marked cholestatic/hepatocellular injury pattern (rising bilirubin and transaminases). Current differential for ongoing leukocytosis and hypotension includes cholestatic/biliary source (e.g., ascending cholangitis without ductal dilation), aspiration pneumonia, urinary source (not confirmed), steroid-induced leukocytosis, post-code systemic inflammatory response, and less likely venous thromboembolism (cannot obtain CTPA currently). She remains intubated and sedated; FiO2 has decreased from 60% to 30% with SpO2 100%. Afebrile throughout (Tmax ~99.5). Plan: \-- Continue current broad-spectrum coverage (vancomycin + piperacillin- tazobactam) for persistent leukocytosis and possible intra-abdominal/biliary source; monitor closely for any hypersensitivity given penicillin allergy (reaction unknown). \-- If clinical concern for pancreatic involvement/necrosis arises, consider escalation to meropenem per team recommendation; check lipase as recommended. \-- Repeat blood cultures to assess for new bacteremia in the setting of possible ascending cholangitis. \-- Obtain MR abdomen (MRCP if available) to further evaluate biliary tree/sludge/cholestasis given rising bilirubin and transaminases without ductal dilation on prior imaging. \-- Trend lactic acid to assess severity of illness and potential ischemic hepatopathy. \-- Evaluate for VTE as a contributor to leukocytosis: obtain bilateral lower extremity venous Doppler ultrasound (CTPA deferred due to ICU status). Consider empiric IV heparin if clinical suspicion for PE is high and no contraindications per primary/ICU team. \-- Wean sedation as tolerated and reassess mental status; metabolic etiology likely. Defer detailed neuro workup to ICU/primary team. \-- Steroids: methylprednisolone 40 mg IV daily since 02/16 for possible asthma exacerbation per team; recognize potential contribution to leukocytosis. Monitor WBC trend and reassess steroid need with Pulmonology/ICU. \-- Continue management of electrolyte abnormalities (K, Phos, Na) per ICU; m onitor BMP and phosphorus closely. \-- Glycemic control: continue insulin therapy per ICU protocol to address persistent hyperglycemia. \-- Monitor LFTs (AST/ALT/Alk Phos, bilirubin) and coagulation parameters; consider GI consultation depending on MR findings and clinical trajectory. \-- Follow-up on all pending cultures and imaging; narrow or adjust antimicrobials based on results. Isolation Precautions: Not provided in transcript. Plan is subject to change pending incorporation of new diagnostics and clinical course. Authorized and Performed by: indra coon Total critical care time: Approximately 76 minutes Due to a high probability of clinically significant, life threatening deterioration, the patient required my highest level of preparedness to inter vene emergently and I personally spent this critical care time directly and personally managing the patient. This critical care time included obtaining a history; examining the patient; pulse oximetry; ordering and review of studies; arranging urgent treatment with development of a management plan; evaluation of patient's response to treatment; frequent reassessment; and, discussions with other providers. This critical care time was performed to assess and manage the high probability of imminent, life-threatening deterioration that could result in multi-organ failure. It was exclusive of separately billable procedures and treating other patients and teaching time. History: History obtained from: transcript of the encounter. 64-year-old female with history of obesity, COPD, diabetes mellitus, hypertension, hyperlipidemia, myocardial infarction, transient ischemic attack, and bronchial asthma presented with generalized weakness and shortness of breath for approximately two months. On admission: afebrile, mild tachycardia, on 3 L nasal cannula. Labs notable for WBC 9.7 K/L; Hgb 10.2 g/dL; Plt 231 K/L; BUN 11 mg/dL; Cr 0.7 mg/dL. UA with 3+ leukocyte esterase and ~500 WBCs and many squamous epithelial cells; urine culture not sent initially due to contamination concern. During hospitalization (02/12), she developed ventricular tachycardia with unresponsiveness requiring code blue, intubation, and ICU transfer. Treated initially with levofloxacin; metronidazole added for aspiration risk. Subsequently changed to vancomycin plus piperacillin-tazobactam for persistent leukocytosis. Blood pressures were soft; on vasopressors. ABG showed pH 7.5, pCO2 40, pO2 245.7. Leukocytosis increased to 28.6 K/L. Imaging including CT head was negative for acute intracranial process; CT abdomen/pelvis showed marked hepatic steatosis and gallbladder sludge without biliary dilation; RUQ ultrasound showed no cholelithiasis or acute cholecystitis. Hyperbilirubinemia and transaminitis progressed (bilirubin up to ~21 mg/dL; AST up to 1052 U/L; ALT up to ~132 U/L; Alk Phos up to 299 U/L). Glucose peaked at 471 on 02/15. She remains intubated with FiO2 weaned from 60% to 30%, afebrile, and sedated. Review of Systems: -Constitutional: Reports generalized weakness. Denies fever per transcript; Tmax reported up to 99.5 during stay. -Respiratory: Shortness of breath for two months prior to admission. -Gastrointestinal: Denies abdominal pain and diarrhea on admission. -Skin: No open wounds at time of admission. -All other systems: Not discussed in transcript. Past Medical History: -Obesity -COPD -Diabetes mellitus -Hypertension -Hyperlipidemia -Myocardial infarction -Transient ischemic attack -Bronchial asthma -Hyperparathyroidism (not further characterized; noted during admission) Past Surgical History: -No known surgical history. Home Medications: -Prednisone -Budesonide -Ipratropium -Benzonatate -Metformin -Albuterol -Pravastatin -Carvedilol -Insulin Note: Doses and schedules not provided in transcript. Current inpatient medications of note (per transcript): -Levofloxacin (earlier in course) -Metronidazole (added for aspiration concern) -Piperacillin-tazobactam (Zosyn) and vancomycin (current regimen) -Methylprednisolone 40 mg IV daily (since 02/16) -Vasopressors (Levophed) -Amiodarone infusion Allergies: -Penicillin (reaction unknown) Family History: -No known family history provided. Social History: -Not provided in transcript. Objective: Vital Signs on Arrival: -Temp: 98.1 F -BP: 105/72 mmHg -Pulse: 98 bpm -Resp: 20/min -SpO2: 98% on 3 L/min nasal cannula Most Recent Vital Signs: -Afebrile (Tmax during stay reported up to 99.5 F) -On mechanical ventilation; FiO2 decreased from 60% to 30% with SpO2 100% -Blood pressure described as soft while in ICU (exact values not consistently provided) Admission Weight/BMI: Not provided in transcript. Physical Exam: General: Critically ill-appearing. Intubated and sedated. Neck: Supple. No masses. HEENT: PERRL. Normal lids and conjunctiva. Moist mucous membranes. Oropharynx without lesions, exudates or excessive erythema. Normal appearance of the external aspects of the nose and ears. Endotracheal tube in place. Heart: Regular rhythm, normal rate. No murmur. No lower extremity edema. Lungs: Normal respiratory effort on mechanical ventilation. Clear to auscultation bilaterally. No wheezes. No crackles. Abdomen: Soft. Non-tender. Non-distended. No masses or abdominal hernia. Msk: No digital cyanosis. Normal strength and tone in all 4 limbs (limited exam due to sedation). Skin: Warm and dry, no rashes. Neuro: Intubated and sedated; unable to assess orientation. No focal deficits described in transcript. Psych: Unable to assess due to sedation. Lines: -Endotracheal tube present. -Other lines/tubes/drains: Not provided in transcript. Diagnostic Studies: -Hematology: WBC 9.7 K/L on admission ? 11.4 K/L ? up to 28.6 K/L. Hgb ~10.210.3 g/dL. Platelets 231 K/L. -Chemistry/Renal: BUN 11 ? 10 mg/dL; Cr 0.7 mg/dL. Sodium ~130 mmol/L. Severe hypokalemia (values not specified) with metabolic alkalosis. Phosphorus 0.9 ? 0.6 mg/dL. -Liver tests: AST increased from ~424 U/L to 1052 U/L; ALT from ~117 U/L to ~132 U/L; Alkaline phosphatase from 131 U/L to 299 U/L; total bilirubin increased from ~13.3 mg/dL to ~21.1 mg/dL. -Glucose: up to 471 mg/dL on 02/15. -ABG (post-intubation): pH 7.5, pCO2 40 mmHg, pO2 245.7 mmHg. -Cultures: Initial urine culture not obtained due to contaminated specimen; subsequent urine culture with >3 colony types. Blood cultures: no growth at 5 days. Additional culture noted as no growth after antibiotics (type not specified in transcript). -Other: No eosinophils; neutrophil predominance noted (possibly steroid- associated). Beta-hydroxybutyrate reported, values unclear in transcript. Pertinent Imaging: -CT Head: No acute intracranial abnormality. -Chest X-rays: No acute cardiopulmonary disease; no significant interval change after intubation. -CT Abdomen/Pelvis (02/12): Marked hepatic steatosis; increased gallbladder density compatible with sludge; no biliary ductal dilatation; intermediate left adrenal nodule; nonspecific fluid-filled bowel loops (ileus or enteritis possible); endometrium appeared thickened for age. -Right Upper Quadrant Ultrasound: No gallstones; no acute cholecystitis; mild hepatomegaly with moderate diffuse fatty infiltration of the liver. -Renal Ultrasound: No hydronephrosis; otherwise unremarkable. Plan discussed with: Patient INDRA COON MD Feb 17, 2025 19:35
--- NOTE | 2025-02-17 19:35 | DVHPN2 ---
Consult Progress Note Date Seen: Feb 17, 2025 Subjective Patient reports: No new complaints, Feels better (no sputum production, no open wound, levophed up to 8 mcg) Objective vital signs Vital Sign Date Time Temp Pulse Resp B/P (MAP) Pulse Ox O2 Delivery O2 Flow Rate FiO2 02/17/25 18:30 95 24 117/77 (90) 98 02/17/25 18:20 30 02/17/25 18:00 Mechanical Ventilator+ 02/17/25 16:00 98.2 98.2 02/17/25 08:00 0 Total Intake and Output 02/16/25 02/16/25 02/17/25 15:00 23:00 07:00 Intake Total 1308.317 ml 1015.469 ml 956.28 ml Output Total 1000 ml 575 ml Balance 1308.317 ml 15.469 ml 381.28 ml medications Current Medications Medications Dose Ordered Sig/Randolph Route Start Time Stop Time Status Last Admin Dose Admin Dextrose 50 ml UD PRN IV 02/11/25 00:15 Cancel Ondansetron HCl 4 mg Q4HPRN PRN IV 02/11/25 07:00 Albuterol 2.5 mg Q6HPRN PRN NEB 02/11/25 07:00 02/15/25 12:28 Nitroglycerin 0.4 mg Q5MINP PRN SL 02/11/25 07:00 Morphine Sulfate 2 mg Q30M PRN IV 02/11/25 07:00 Enoxaparin Sodium 40 mg DAILY SC 02/11/25 10:00 02/17/25 09:44 Ergocalciferol 50,000 unit Q7D PO 02/11/25 14:15 02/11/25 15:36 Midazolam HCl 50 ml @ 1 mls/hr Q24H IV 02/13/25 00:30 02/15/25 07:56 Fentanyl Citrate 250 ml @ 2.5 mls/hr Q24H IV 02/13/25 00:30 02/14/25 23:30 Thiamine HCl 100 mg DAILY IV 02/14/25 10:00 02/17/25 09:40 Metoprolol Tartrate 5 mg Q4HPRN PRN IV 02/14/25 09:15 Hold Vancomycin HCl 0 ml @ 0 mls/hr DAILY IV 02/14/25 10:00 Amino Acids/ Electrolytes/ Dextrose 1,000 ml @ 41 mls/hr DAILY@2200 IV 02/14/25 22:00 Cancel Pantoprazole Sodium 40 mg DAILY IV 02/15/25 10:00 02/17/25 09:40 Amiodarone HCL/ Dextrose 200 ml @ 16.66 mls/ hr Q12H IV 02/14/25 20:45 02/17/25 08:00 Enteral Nutritional Formula 1,000 ml 30ML/HR GT 02/14/25 14:45 02/16/25 02:19 Phenylephrine HCl 250 ml @ 30 mls/hr Q8H20M IV 02/14/25 19:30 02/14/25 19:51 Diagnostic Test (Pha) 1 strip Q6HR 02/15/25 06:00 02/17/25 18:11 Insulin Human Regular Q6HR SC 02/15/25 06:00 02/17/25 18:16 Dextrose 50 ml UD PRN IV 02/15/25 05:30 Sodium Chloride 1,000 ml @ 50 mls/hr Q20H IV 02/15/25 11:45 02/17/25 03:20 Norepinephrine Bitartrate 32 mg/ Sodium Chloride 250 ml @ 0.938 mls/ hr Q24H IV 02/15/25 11:45 02/15/25 13:42 Methylprednisolone Sodium Succinate 40 mg DAILY IV 02/16/25 10:00 02/17/25 09:40 Insulin Glargine 20 units BID SC 02/15/25 22:00 02/17/25 09:43 Vancomycin HCl 100 ml @ 200 mls/hr Q12H IV 02/16/25 13:00 02/17/25 13:25 Metoclopramide HCl 5 mg Q8HR IV 02/16/25 20:00 02/17/25 15:05 Piperacillin Sod/ Tazobactam Sod 100 ml @ 25 mls/hr Q6H IV 02/17/25 16:00 02/17/25 15:47 laboratory and microbiology Laboratory Tests 02/17/25 02:59 Test 02/17/25 02:59 Range/Units Serum Glucose 337 H 74-106 mg/dL Problem List/Assessment/Plan Problems(with codes): (1) Pneumonitis (2) Cardiac arrest (3) Shock (4) COPD exacerbation (5) Alcoholic steatohepatitis (6) Elevated liver enzymes (7) Alcoholic fatty liver (8) Acute respiratory failure Problem List/Assessment/Plan Problems(with codes): (1) Shock (2) Cardiac arrest (3) UTI (urinary tract infection) (4) COPD exacerbation (5) Alcoholic steatohepatitis (6) Elevated liver enzymes (7) Alcoholic fatty liver (8) Failure to thrive (9) Pneumonitis Plan/Recommendation ASSESSMENT AND PLAN: ID Problem List: \-- generalized weakness and shortness of breath (2 months) \-- COPD/asthma; obesity; diabetes mellitus; hypertension; hyperlipidemia; prior [place]; prior TIA \-- ventricular tachycardia with code event on 02/12 ? intubated; ICU course with shock on vasopressors \-- leukocytosis rising (11.4 ? 28.6 K/L) while on steroids \-- possible aspiration pneumonia (initial treatment with levofloxacin; metronidazole added) \-- presumed acute complicated cystitis (initial UA with pyuria; early urine culture not sent due to contamination; subsequent urine culture >3 colony types) \-- concern for biliary sludge/cholestatic process; hyperbilirubinemia and transaminitis (Tbili up to ~21, AST up to 1052, ALT up to ~132, Alk Phos up to 299) \-- severe hypokalemia and metabolic alkalosis; severe hypophosphatemia (as low as 0.60.9 mg/dL) on admission \-- hyperglycemia (glucose up to 471 on 02/15) \-- altered mental status while sedated/intubated (likely metabolic; post-code state) \-- hyperparathyroidism (not further characterized) \-- penicillin allergy (reaction unknown) Assessment 64-year-old female with multiple comorbidities presented with 2 months of dyspnea and weakness, admitted with significant electrolyte derangements (hypokalemia, hypophosphatemia, metabolic alkalosis). Hospital course complicated by ventricular tachycardia and code blue on 02/12 requiring intubation, vasopressor support, and ICU transfer. Initial antibiotic therapy included levofloxacin; metronidazole was added for aspiration risk. Subsequently, due to persistent leukocytosis, antibiotics were changed to piperacillin-tazobactam (Zosyn) and vancomycin. Blood cultures to date show no growth; urine culture after intubation showed >3 colony types (suggestive of contamination). Imaging reveals marked hepatic steatosis and gallbladder sludge without ductal dilatation; ultrasound shows no acute cholecystitis. Liver tests demonstrate a marked cholestatic/hepatocellular injury pattern (rising bilirubin and transaminases). Current differential for ongoing leukocytosis and hypotension includes cholestatic/biliary source (e.g., ascending cholangitis without ductal dilation), aspiration pneumonia, urinary source (not confirmed), steroid-induced leukocytosis, post-code systemic inflammatory response, and less likely venous thromboembolism (cannot obtain CTPA currently). She remains intubated and sedated; FiO2 has decreased from 60% to 30% with SpO2 100%. Afebrile throughout (Tmax ~99.5). Plan: \-- Continue current broad-spectrum coverage (vancomycin + piperacillin- tazobactam) for persistent leukocytosis and possible intra-abdominal/biliary source; monitor closely for any hypersensitivity given penicillin allergy (reaction unknown). \-- If clinical concern for pancreatic involvement/necrosis arises, consider escalation to meropenem per team recommendation; check lipase as recommended. \-- Repeat blood cultures to assess for new bacteremia in the setting of possible ascending cholangitis. \-- Obtain MR abdomen (MRCP if available) to further evaluate biliary tree/sludge/cholestasis given rising bilirubin and transaminases without ductal dilation on prior imaging. \-- Trend lactic acid to assess severity of illness and potential ischemic hepatopathy. \-- Evaluate for VTE as a contributor to leukocytosis: obtain bilateral lower extremity venous Doppler ultrasound (CTPA deferred due to ICU status). Consider empiric IV heparin if clinical suspicion for PE is high and no contraindications per primary/ICU team. \-- Wean sedation as tolerated and reassess mental status; metabolic etiology likely. Defer detailed neuro workup to ICU/primary team. \-- Steroids: methylprednisolone 40 mg IV daily since 02/16 for possible asthma exacerbation per team; recognize potential contribution to leukocytosis. Monitor WBC trend and reassess steroid need with Pulmonology/ICU. \-- Continue management of electrolyte abnormalities (K, Phos, Na) per ICU; monitor BMP and phosphorus closely. \-- Glycemic control: continue insulin therapy per ICU protocol to address persistent hyperglycemia. \-- Monitor LFTs (AST/ALT/Alk Phos, bilirubin) and coagulation parameters; consider GI consultation depending on MR findings and clinical trajectory. \-- Follow-up on all pending cultures and imaging; narrow or adjust antimicrobials based on results. Isolation Precautions: Not provided in transcript. Plan is subject to change pending incorporation of new diagnostics and clinical course. Authorized and Performed by: indra mann Total critical care time: Approximately 75 minutes Due to a high probability of clinically significant, life threatening deterioration, the patient required my highest level of preparedness to intervene emergently and I personally spent this critical care time directly and personally managing the patient. This critical care time included obtaining a history; examining the patient; pulse oximetry; ordering and review of studies; arranging urgent treatment with development of a management plan; evaluation of patient's response to treatment; frequent reassessment; and, discussions with other providers. This critical care time was performed to assess and manage the high probability of imminent, life-threatening deterioration that could result in multi-organ failure. It was exclusive of separately billable procedures and treating other patients and teaching time. = Physical Exam: General: Critically ill-appearing. Intubated and sedated. Neck: Supple. No masses. HEENT: PERRL. Normal lids and conjunctiva. Moist mucous membranes. Oropharynx without lesions, exudates or excessive erythema. Normal appearance of the external aspects of the nose and ears. Endotracheal tube in place. Heart: Regular rhythm, normal rate. No murmur. No lower extremity edema. Lungs: Normal respiratory effort on mechanical ventilation. Clear to auscultation bilaterally. No wheezes. No crackles. Abdomen: Soft. Non-tender. Non-distended. No masses or abdominal hernia. Msk: No digital cyanosis. Normal strength and tone in all 4 limbs (limited exam due to sedation). Skin: Warm and dry, no rashes. Neuro: Intubated and sedated; unable to assess orientation. No focal deficits described in transcript. Psych: Unable to assess due to sedation. Plan discussed with: Patient Dietary Evaluation Review Comments: 1) Initiate MVI @ 1 tb qd 2) Initiate vitamin C @ 500 mg bid and zinc sulfate @ 220 mg qd for 7 days 3) Increase TPN to meet at least 75% of estimated daily needs 4) Advance to 45g CCHO diet when medically feasible, pending ST approval 5) Refer to outpatient RD/[facility] for weight management 6) Follow-up with pulmonology 7) Continue to monitor I&O, labs, and skin integrity Expected Outcomes/Goals: 1) TPN regimen to meet at least 75% estimated daily needs 2) labs and wound to improve 3) diet to advance 4) gradual wt loss 5) f/u in 2-3 days INDRA MANN MD Feb 17, 2025 19:35
--- NOTE | 2025-02-17 20:07 | DVHPN2 ---
Progress Note - Dictate Date Seen: Feb 17, 2025 Has the PT tested + for MRSA If YES, has PT been informed?: No Medical Necessity Reason Pt with a Central, PICC or Fol: No Subjective Patient seen still intubated off sedation now on mechanical ventilatory support with fio2 30%, PEEP 5 Persistent elevation in liver enzymes likely due to alcoholic steatohepatitis, Liver enzymes are trending up possibly aggravated by amiodarone Worsening leukocytosis ; renal function has improved vital signs Vital Sign Date Time Temp Pulse Resp B/P (MAP) Pulse Ox O2 Delivery O2 Flow Rate FiO2 02/17/25 18:30 95 24 117/77 (90) 98 02/17/25 18:20 30 02/17/25 18:00 Mechanical Ventilator+ 02/17/25 16:00 98.2 98.2 02/17/25 08:00 0 Total Intake and Output 02/16/25 02/16/25 02/17/25 15:00 23:00 07:00 Intake Total 1308.317 ml 1015.469 ml 956.28 ml Output Total 1000 ml 575 ml Balance 1308.317 ml 15.469 ml 381.28 ml medications Current Medications Medications Dose Ordered Sig/Randolph Route Start Time Stop Time Status Last Admin Dose Admin Dextrose 50 ml UD PRN IV 02/11/25 00:15 Cancel Ondansetron HCl 4 mg Q4HPRN PRN IV 02/11/25 07:00 Albuterol 2.5 mg Q6HPRN PRN NEB 02/11/25 07:00 02/15/25 12:28 2.5 MG Nitroglycerin 0.4 mg Q5MINP PRN SL 02/11/25 07:00 Morphine Sulfate 2 mg Q30M PRN IV 02/11/25 07:00 Enoxaparin Sodium 40 mg DAILY SC 02/11/25 10:00 02/17/25 09:44 40 MG Ergocalciferol 50,000 unit Q7D PO 02/11/25 14:15 02/11/25 15:36 50,000 UNIT Midazolam HCl 50 ml @ 1 mls/hr Q24H IV 02/13/25 00:30 02/15/25 07:56 7 MLS/HR Fentanyl Citrate 250 ml @ 2.5 mls/hr Q24H IV 02/13/25 00:30 02/14/25 23:30 15 MLS/HR Thiamine HCl 100 mg DAILY IV 02/14/25 10:00 02/17/25 09:40 100 MG Metoprolol Tartrate 5 mg Q4HPRN PRN IV 02/14/25 09:15 Hold Vancomycin HCl 0 ml @ 0 mls/hr DAILY IV 02/14/25 10:00 Amino Acids/ Electrolytes/ Dextrose 1,000 ml @ 41 mls/hr DAILY@2200 IV 02/14/25 22:00 Cancel Pantoprazole Sodium 40 mg DAILY IV 02/15/25 10:00 02/17/25 09:40 40 MG Amiodarone HCL/ Dextrose 200 ml @ 16.66 mls/ hr Q12H IV 02/14/25 20:45 02/17/25 19:35 16.66 MLS/HR Enteral Nutritional Formula 1,000 ml 30ML/HR GT 02/14/25 14:45 02/16/25 02:19 1,000 ML Phenylephrine HCl 250 ml @ 30 mls/hr Q8H20M IV 02/14/25 19:30 02/14/25 19:51 30 MLS/HR Diagnostic Test (Pha) 1 strip Q6HR 02/15/25 06:00 02/17/25 18:11 1 STRIP Insulin Human Regular Q6HR SC 02/15/25 06:00 02/17/25 18:16 12 UNITS Dextrose 50 ml UD PRN IV 02/15/25 05:30 Sodium Chloride 1,000 ml @ 50 mls/hr Q20H IV 02/15/25 11:45 02/17/25 03:20 50 MLS/HR Norepinephrine Bitartrate 32 mg/ Sodium Chloride 250 ml @ 0.938 mls/ hr Q24H IV 02/15/25 11:45 02/15/25 13:42 8.438 MLS/HR Methylprednisolone Sodium Succinate 40 mg DAILY IV 02/16/25 10:00 02/17/25 09:40 40 MG Insulin Glargine 20 units BID SC 02/15/25 22:00 02/17/25 09:43 20 UNITS Vancomycin HCl 100 ml @ 200 mls/hr Q12H IV 02/16/25 13:00 02/17/25 13:25 200 MLS/HR Metoclopramide HCl 5 mg Q8HR IV 02/16/25 20:00 02/17/25 15:05 5 MG Piperacillin Sod/ Tazobactam Sod 100 ml @ 25 mls/hr Q6H IV 02/17/25 16:00 02/17/25 15:47 25 MLS/HR objective GENERAL: Ill appearing, intubated on ventilator. EYES: PERRL, EOMI. Anicteric. HENT: Moist mucous membranes. LUNGS: Decreased breath sounds. CARDIOVASCULAR: Regular rate and rhythm. ABDOMEN: Soft, non-tender and non-distended. EXTREMITIES: No edema. SKIN: Warm, dry. laboratory and microbiology Laboratory Tests 02/17/25 02:59 Test 02/17/25 02:59 Range/Units Serum Glucose 337 H 74-106 mg/dL Problems(with codes): (1) COPD exacerbation (2) Alcoholic steatohepatitis (3) Elevated liver enzymes (4) Alcoholic fatty liver (5) Acute respiratory failure (6) Failure to thrive (7) Generalized weakness (8) Anemia Prognosis PLAN Methylprednisolone was decreased to 40 mg IV daily Patient tolerating tube feedings at 30 mL/hour Worsening liver enzymes could also be related to IV amiodarone use Patient was started on ursodiol 300 mg p.o. twice a day Consider discontinuing IV amiodarone and replacing with other antiarrhythmics; discuss with Cardiology Overall her prognosis is guarded and patient has worsening cholestasis and hepatic failure Monitor liver enzymes and PT INR Dietary Evaluation Review Comments: 1) Initiate MVI @ 1 tb qd 2) Initiate vitamin C @ 500 mg bid and zinc sulfate @ 220 mg qd for 7 days 3) Increase TPN to meet at least 75% of estimated daily needs 4) Advance to 45g CCHO diet when medically feasible, pending ST approval 5) Refer to outpatient RD/[facility] for weight management 6) Follow-up with pulmonology 7) Continue to monitor I&O, labs, and skin integrity Expected Outcomes/Goals: 1) TPN regimen to meet at least 75% estimated daily needs 2) labs and wound to improve 3) diet to advance 4) gradual wt loss 5) f/u in 2-3 days Plan discussed with: Other (ICU Nurse) KIKE SIN MD Feb 17, 2025 20:07
--- NOTE | 2025-02-17 23:00 | DVHPN2 ---
Progress Note - Dictate Date Seen: Feb 17, 2025 Has the PT tested + for MRSA If YES, has PT been informed?: No Medical Necessity Reason Pt with a Central, PICC or Fol: No Subjective Patient was seen and evaluated in follow-up in the ICU. Patient is intubated on ventilator. 30% FiO2. Patient is noted to have sluggish and reactive pupils. WBC 28.6, HGB 8.1, HCT 25.2, BUN 28, GLUC 264, AST 1052, ALT 220. Chest x-ray showed NAD. vital signs Vital Sign Date Time Temp Pulse Resp B/P (MAP) Pulse Ox O2 Delivery O2 Flow Rate FiO2 02/17/25 13:00 86 21 101/63 (76) 99 02/17/25 12:00 Mechanical Ventilator+ 30 30 02/17/25 08:00 0 02/17/25 08:00 98.6 98.6 Total Intake and Output 02/16/25 02/16/25 02/17/25 15:00 23:00 07:00 Intake Total 1308.317 ml 1015.469 ml 956.28 ml Output Total 1000 ml 575 ml Balance 1308.317 ml 15.469 ml 381.28 ml medications Current Medications Medications Dose Ordered Sig/Randolph Route Start Time Stop Time Status Last Admin Dose Admin Dextrose 50 ml UD PRN IV 02/11/25 00:15 Cancel Ondansetron HCl 4 mg Q4HPRN PRN IV 02/11/25 07:00 Albuterol 2.5 mg Q6HPRN PRN NEB 02/11/25 07:00 02/15/25 12:28 2.5 MG Nitroglycerin 0.4 mg Q5MINP PRN SL 02/11/25 07:00 Morphine Sulfate 2 mg Q30M PRN IV 02/11/25 07:00 Enoxaparin Sodium 40 mg DAILY SC 02/11/25 10:00 02/17/25 09:44 40 MG Ergocalciferol 50,000 unit Q7D PO 02/11/25 14:15 02/11/25 15:36 50,000 UNIT Midazolam HCl 50 ml @ 1 mls/hr Q24H IV 02/13/25 00:30 02/15/25 07:56 7 MLS/HR Fentanyl Citrate 250 ml @ 2.5 mls/hr Q24H IV 02/13/25 00:30 02/14/25 23:30 15 MLS/HR Thiamine HCl 100 mg DAILY IV 02/14/25 10:00 02/17/25 09:40 100 MG Metoprolol Tartrate 5 mg Q4HPRN PRN IV 02/14/25 09:15 Hold Vancomycin HCl 0 ml @ 0 mls/hr DAILY IV 02/14/25 10:00 Amino Acids/ Electrolytes/ Dextrose 1,000 ml @ 41 mls/hr DAILY@2200 IV 02/14/25 22:00 Cancel Pantoprazole Sodium 40 mg DAILY IV 02/15/25 10:00 02/17/25 09:40 40 MG Amiodarone HCL/ Dextrose 200 ml @ 16.66 mls/ hr Q12H IV 02/14/25 20:45 02/17/25 08:00 16.66 MLS/HR Enteral Nutritional Formula 1,000 ml 30ML/HR GT 02/14/25 14:45 02/16/25 02:19 1,000 ML Phenylephrine HCl 250 ml @ 30 mls/hr Q8H20M IV 02/14/25 19:30 02/14/25 19:51 30 MLS/HR Diagnostic Test (Pha) 1 strip Q6HR 02/15/25 06:00 02/17/25 11:40 1 STRIP Insulin Human Regular Q6HR SC 02/15/25 06:00 02/17/25 11:45 12 UNITS Dextrose 50 ml UD PRN IV 02/15/25 05:30 Sodium Chloride 1,000 ml @ 50 mls/hr Q20H IV 02/15/25 11:45 02/17/25 03:20 50 MLS/HR Norepinephrine Bitartrate 32 mg/ Sodium Chloride 250 ml @ 0.938 mls/ hr Q24H IV 02/15/25 11:45 02/15/25 13:42 8.438 MLS/HR Methylprednisolone Sodium Succinate 40 mg DAILY IV 02/16/25 10:00 02/17/25 09:40 40 MG Insulin Glargine 20 units BID SC 02/15/25 22:00 02/17/25 09:43 20 UNITS Vancomycin HCl 100 ml @ 200 mls/hr Q12H IV 02/16/25 13:00 02/17/25 13:25 200 MLS/HR Metoclopramide HCl 5 mg Q8HR IV 02/16/25 20:00 02/17/25 05:45 5 MG Piperacillin Sod/ Tazobactam Sod 100 ml @ 25 mls/hr Q6HR IV 02/17/25 07:45 02/17/25 08:00 25 MLS/HR objective GENERAL: Ill appearing, intubated on ventilator. EYES: PERRL, EOMI. Anicteric. HENT: Moist mucous membranes. LUNGS: Decreased breath sounds. CARDIOVASCULAR: Regular rate and rhythm. ABDOMEN: Soft, non-tender and non-distended. EXTREMITIES: No edema. SKIN: Warm, dry. laboratory and microbiology Laboratory Tests 02/17/25 02:59 Test 02/17/25 02:59 Range/Units Serum Glucose 337 H 74-106 mg/dL Problem List Chest pain. Metabolic alkalosis. Hypokalemia. Hypophosphatemia. Hyponatremia. Type 2 diabetes mellitus. Acute complicated cystitis. Hyperparathyroidism. Hyperbilirubinemia with transaminitis. Left adrenal nodule. Assessment/Plan Continued all current supportive medical care. IV Amiodarone. GI and DVT prophylactics. IV antibiotics as ordered. Morphine for pain management. Vasopressors for hemodynamic support. Additional plan as per the hospital course. Critical care time of 45 minutes provided to include time spent evaluation of patient at bedside, when appropriate patient/family education for diagnosis, treatment plan, review of pertinent medical information and discussion of care with specialty providers and PCP. Mechanical ventilator parameters, treatment and adjustments have personally been reviewed by me and treatment plan by vice president risk management has also been reviewed. Dietary Evaluation Review Comments: 1) Initiate MVI @ 1 tb qd 2) Initiate vitamin C @ 500 mg bid and zinc sulfate @ 220 mg qd for 7 days 3) Increase TPN to meet at least 75% of estimated daily needs 4) Advance to 45g CCHO diet when medically feasible, pending ST approval 5) Refer to outpatient RD/[facility] for weight management 6) Follow-up with pulmonology 7) Continue to monitor I&O, labs, and skin integrity Expected Outcomes/Goals: 1) TPN regimen to meet at least 75% estimated daily needs 2) labs and wound to improve 3) diet to advance 4) gradual wt loss 5) f/u in 2-3 days Plan discussed with: MIKAELA Dickinson MD Feb 17, 2025 13:31
--- NOTE | 2025-02-17 23:10 | DVH ---
Bilateral lower extremity venous duplex Clinical History: VTE ro Comparison: None Technique: Duplex Doppler evaluation of the deep venous systems of both lower extremities from the common femora l veins to the popliteal veins including color Doppler and spectral/pulsed waveform analysis was perf ormed. Findings: RIGHT SIDE: The common femoral vein demonstrates appropriate compressibility and waveform variability. There is compressibility/patency of the great saphenous vein at the proximal thigh. The femoral vein demonstrates appropriate compressibility and waveform variability with nonvisualizat ion of the mid thigh portion of the superficial femoral vein. The deep femoral vein demonstrates appropriate compressibility and waveform variability. The popliteal vein demonstrates appropriate compressibility and waveform variability. There is normal compressibility at the tibioperoneal trunk. LEFT SIDE: The common femoral vein demonstrates appropriate compressibility and waveform variability. There is compressibility/patency of the great saphenous vein at the proximal thigh. The femoral vein demonstrates appropriate compressibility and waveform variability with nonvisualizat ion of the mid thigh portion of the superficial femoral vein. The deep femoral vein demonstrates appropriate compressibility and waveform variability. The popliteal vein demonstrates appropriate compressibility and waveform variability. There is normal compressibility at the tibioperoneal trunk. Impression: 1. No right or left femoropopliteal venous thrombosis. 2. Nonvisualization of the bilateral mid thigh portions of the superficial femoral veins.
[2025-02-18] VITALS (113 sets, daily range): BP systolic 82–132; BP diastolic 48–78; PULSE 68–104; RESP 14–23; TEMP 97.9–99; O2SAT 91–99
[2025-02-18 03:54] LABS: Hemoglobin 8.5 g/dL (12.2-16.2)
[2025-02-18 03:58] LABS: Hematocrit 26.9 % (36.0-46.0); Mean Corpuscular Hemoglobin 29.4 pg (28.0-32.0); Mean Corpuscular Volume 93.4 fL (80.0-100.0)
[2025-02-18 04:12] LABS: Anion Gap 10 (5-15); Carbon Dioxide 31 mmol/L (20-31); Chloride 99 mmol/L (98-107); Magnesium 2.0 mg/dL (1.6-2.6); Potassium 4.0 mmol/L (3.5-5.1); Sodium 140 mmol/L (136-145)
[2025-02-18 04:13] LABS: BUN/Creatinine Ratio 39.0 (10.0-20.0)
[2025-02-18 04:36] LABS: Alanine Aminotransferase 232 U/L (7-40); Albumin 2.5 g/dL (3.2-4.8); Alkaline Phosphatase 299 U/L (46-116); Bilirubin, Total 21.1 mg/dL (0.2-1.0); Blood Urea Nitrogen 32 mg/dL (9-23); Calcium 7.4 mg/dL (8.7-10.4); Glucose 229 mg/dL (74-106); Total Protein 5.4 g/dL (5.7-8.2)
[2025-02-18 05:04] LABS: Total Cells Counted 100.0 (100)
[2025-02-18 05:05] LABS: Anisocytosis Moderate; Nucleated Red Blood Cells % 95.0 %
--- NOTE | 2025-02-18 05:29 | DVH ---
CHEST RADIOGRAPH Indication: PT IS INTUBATED/RESP FAILUER Technique: Single frontal view of the chest was obtained Comparison: XY CHEST PORTABLE on DOS: 02/17/25 FINDINGS: Lines and Tubes: There is a right central venous catheter with its tip terminating in the right atriu m. The endotracheal tube terminates 3.6 cm above the erika. The enteric tube courses below the left hemidiaphragm and the tip extends outside the field of view. Lungs: Bibasilar airspace disease. Pleura: No effusion. No pneumothorax. Cardiomediastinal contours: Unremarkable Bones: No acute osseous abnormality. IMPRESSION: 1. Support tubes in appropriate position. 2. Bibasilar airspace disease.
[2025-02-18 07:19] LABS: Base Excess 6.8 mmol/L (-2.0-3.0)
--- NOTE | 2025-02-18 07:21 | DVHPN2 ---
Progress Note Date Seen: Feb 18, 2025 Has the PT tested + for MRSA If YES, has PT been informed?: No Medical Necessity Reason Pt with a Central, PICC or Fol: No Subjective Patient reports: Other Review of Systems: Not Done Objective vital signs Vital Sign Date Time Temp Pulse Resp B/P (MAP) Pulse Ox O2 Delivery O2 Flow Rate FiO2 02/18/25 06:45 76 17 101/61 (74) 99 02/18/25 06:00 30 02/18/25 06:00 Mechanical Ventilator+ 02/18/25 04:00 98.2 98.2 02/17/25 08:00 0 Total Intake and Output 02/17/25 02/17/25 02/18/25 15:00 23:00 07:00 Intake Total 639.122 ml 776.343 ml 808.373 ml Output Total 650 ml 575 ml Balance 639.122 ml 126.343 ml 233.373 ml medications Current Medications Medications Dose Ordered Sig/Randolph Route Start Time Stop Time Status Last Admin Dose Admin Dextrose 50 ml UD PRN IV 02/11/25 00:15 Cancel Ondansetron HCl 4 mg Q4HPRN PRN IV 02/11/25 07:00 Albuterol 2.5 mg Q6HPRN PRN NEB 02/11/25 07:00 02/15/25 12:28 2.5 MG Nitroglycerin 0.4 mg Q5MINP PRN SL 02/11/25 07:00 Morphine Sulfate 2 mg Q30M PRN IV 02/11/25 07:00 Enoxaparin Sodium 40 mg DAILY SC 02/11/25 10:00 02/17/25 09:44 40 MG Ergocalciferol 50,000 unit Q7D PO 02/11/25 14:15 02/11/25 15:36 50,000 UNIT Midazolam HCl 50 ml @ 1 mls/hr Q24H IV 02/13/25 00:30 02/15/25 07:56 7 MLS/HR Fentanyl Citrate 250 ml @ 2.5 mls/hr Q24H IV 02/13/25 00:30 02/14/25 23:30 15 MLS/HR Thiamine HCl 100 mg DAILY IV 02/14/25 10:00 02/17/25 09:40 100 MG Metoprolol Tartrate 5 mg Q4HPRN PRN IV 02/14/25 09:15 Hold Vancomycin HCl 0 ml @ 0 mls/hr DAILY IV 02/14/25 10:00 Amino Acids/ Electrolytes/ Dextrose 1,000 ml @ 41 mls/hr DAILY@2200 IV 02/14/25 22:00 Cancel Pantoprazole Sodium 40 mg DAILY IV 02/15/25 10:00 02/17/25 09:40 40 MG Amiodarone HCL/ Dextrose 200 ml @ 16.66 mls/ hr Q12H IV 02/14/25 20:45 02/17/25 19:35 16.66 MLS/HR Enteral Nutritional Formula 1,000 ml 30ML/HR GT 02/14/25 14:45 02/17/25 23:10 1,000 ML Phenylephrine HCl 250 ml @ 30 mls/hr Q8H20M IV 02/14/25 19:30 02/14/25 19:51 30 MLS/HR Diagnostic Test (Pha) 1 strip Q6HR 02/15/25 06:00 02/18/25 05:50 1 STRIP Insulin Human Regular Q6HR SC 02/15/25 06:00 02/18/25 05:53 8 UNITS Dextrose 50 ml UD PRN IV 02/15/25 05:30 Norepinephrine Bitartrate 32 mg/ Sodium Chloride 250 ml @ 0.938 mls/ hr Q24H IV 02/15/25 11:45 02/15/25 13:42 8.438 MLS/HR Methylprednisolone Sodium Succinate 40 mg DAILY IV 02/16/25 10:00 02/17/25 09:40 40 MG Insulin Glargine 20 units BID SC 02/15/25 22:00 02/17/25 21:28 20 UNITS Vancomycin HCl 100 ml @ 200 mls/hr Q12H IV 02/16/25 13:00 02/18/25 01:00 200 MLS/HR Metoclopramide HCl 5 mg Q8HR IV 02/16/25 20:00 02/18/25 05:50 5 MG Piperacillin Sod/ Tazobactam Sod 100 ml @ 25 mls/hr Q6H IV 02/17/25 16:00 02/18/25 04:19 25 MLS/HR Examination: GENERAL:Normal, LUNGS:Normal, CVS:Abnormal, ABDOMEN:Normal laboratory and microbiology Laboratory Tests 02/18/25 02:24 Test 02/18/25 02:24 Range/Units Serum Glucose 229 H 74-106 mg/dL Problem List/Assessment/Plan Problem List/Assessment/Plan 1) Acute respiratory failure, intubated 2) UTI 3) Hyponatremia 4) Hyperbilirubinemia 2/2 alcoholism 5) Metabolic alkalosis 6) COPD 7) Hx of CVA 8) DM 9) HTN 10) HLD plan; 02/13---patient noted to be unresponsive and lethargic overnight and thus was intubated and transferred to ICU, now on mechanical ventilatory support with fio2 30%, on levophed 10 mcg this AM, continue IV Abx, BCx negative, UCx shows mixed violet, will consult pulm/cardio, GI on board due to elevated LFTs and hyperbilirubinemia likely in the setting of alcoholic hepatitis, daily labs, supportive care, treasury consultant input appreciated, will follow along 02/14---remains intubated on ventilator fio2 30%, this AM on 18 mcg of levophed, WBC 15k, repeat BCx negative, Na uptrending to 132 with IVF hydration with nephrology following, echo shows EF 38% with cardio on the case, bilirubin 14 this AM and likely attributed to alcoholism with GI on board, continue all care, treasury consultant input appreciated, daily labs, will follow along 02/15---remains intubated on ventilator fio2 30%, started on amio gtt for SVT now HR better controlled, WBC trending up to 16k, on vanco/levaquin/flagyl with repeat BCx and UCx negative, continue NS at 100 ml/hr, still on levophed 24 mcg this AM, treasury consultant input appreciated, guarded/critical, daily labs, supportive care, will follow along 02/16---remains intubated on ventilator fio2 40%, levophed requirements coming down to 12 mcg this AM, remains in amio gtt for SVT, renal fuction preserved with Na and Cl trending upward, WBC trending up to 18k with repeat BCx/UCx negative on IV ABx and likely steroid induced, tapered steroids to 40 mg IV daily, blood glucose has been elevated and she has uncontrolled DM thus added lantus 20 bid along with aggressive sliding scale, treasury consultant input appreciated, continue all care, daily labs, will follow along 02/17---remains intubated on ventilator fio2 30%, levophed requirements are coming down and this AM on 8 mcg, remains on amio gtt as per cardiology, Na and Cl normalized, renal function preserved, WBC spike to 28k, on IV Abx, ID consult pending, cultures are negative thus far, pulm/cardio/gi already on board, i spoke to daughter too yesterday and updated her on POC, continue all care, AM labs, will follow along 02/18---remains intubated on ventilator fio2 30%, levophed at 6 mcg this AM, WBC trending up to 41k however repeat BCx/UCx are negative, she is on broad spectrum IV ABx with ID following, amio gtt still running for SVT now in NSR, renal function is preserved, steroids tapered down to 40 mg IV daily, all treasury consultant input appreciated, will follow along Plan discussed with: Other (n) Dietary Evaluation Review Comments: 1) Initiate MVI @ 1 tb qd 2) Initiate vitamin C @ 500 mg bid and zinc sulfate @ 220 mg qd for 7 days 3) Increase TPN to meet at least 75% of estimated daily needs 4) Advance to 45g CCHO diet when medically feasible, pending ST approval 5) Refer to outpatient RD/[facility] for weight management 6) Follow-up with pulmonology 7) Continue to monitor I&O, labs, and skin integrity Expected Outcomes/Goals: 1) TPN regimen to meet at least 75% estimated daily needs 2) labs and wound to improve 3) diet to advance 4) gradual wt loss 5) f/u in 2-3 days BENNIE YE MD Feb 18, 2025 07:21
--- NOTE | 2025-02-18 11:58 | DVHPN2 ---
Progress Note - Dictate Date Seen: Feb 18, 2025 Has the PT tested + for MRSA If YES, has PT been informed?: No Medical Necessity Reason Pt with a Central, PICC or Fol: No vital signs Vital Sign Date Time Temp Pulse Resp B/P (MAP) Pulse Ox O2 Delivery O2 Flow Rate FiO2 02/18/25 10:32 79 18 83/50 (61) 95 30 02/18/25 10:15 Mechanical Ventilator+ 02/18/25 04:00 98.2 98.2 02/17/25 08:00 0 Total Intake and Output 02/17/25 02/17/25 02/18/25 15:00 23:00 07:00 Intake Total 639.122 ml 776.343 ml 827.846 ml Output Total 650 ml 575 ml Balance 639.122 ml 126.343 ml 252.846 ml medications Current Medications Medications Dose Ordered Sig/Randolph Route Start Time Stop Time Status Last Admin Dose Admin Dextrose 50 ml UD PRN IV 02/11/25 00:15 Cancel Ondansetron HCl 4 mg Q4HPRN PRN IV 02/11/25 07:00 Albuterol 2.5 mg Q6HPRN PRN NEB 02/11/25 07:00 02/15/25 12:28 2.5 MG Nitroglycerin 0.4 mg Q5MINP PRN SL 02/11/25 07:00 Morphine Sulfate 2 mg Q30M PRN IV 02/11/25 07:00 Enoxaparin Sodium 40 mg DAILY SC 02/11/25 10:00 02/18/25 09:58 40 MG Ergocalciferol 50,000 unit Q7D PO 02/11/25 14:15 02/11/25 15:36 50,000 UNIT Midazolam HCl 50 ml @ 1 mls/hr Q24H IV 02/13/25 00:30 02/15/25 07:56 7 MLS/HR Fentanyl Citrate 250 ml @ 2.5 mls/hr Q24H IV 02/13/25 00:30 02/14/25 23:30 15 MLS/HR Thiamine HCl 100 mg DAILY IV 02/14/25 10:00 02/18/25 09:52 100 MG Metoprolol Tartrate 5 mg Q4HPRN PRN IV 02/14/25 09:15 Hold Vancomycin HCl 0 ml @ 0 mls/hr DAILY IV 02/14/25 10:00 Amino Acids/ Electrolytes/ Dextrose 1,000 ml @ 41 mls/hr DAILY@2200 IV 02/14/25 22:00 Cancel Pantoprazole Sodium 40 mg DAILY IV 02/15/25 10:00 02/18/25 09:52 40 MG Amiodarone HCL/ Dextrose 200 ml @ 16.66 mls/ hr Q12H IV 02/14/25 20:45 02/18/25 07:44 16.66 MLS/HR Enteral Nutritional Formula 1,000 ml 30ML/HR GT 02/14/25 14:45 02/17/25 23:10 1,000 ML Phenylephrine HCl 250 ml @ 30 mls/hr Q8H20M IV 02/14/25 19:30 02/14/25 19:51 30 MLS/HR Diagnostic Test (Pha) 1 strip Q6HR 02/15/25 06:00 02/18/25 05:50 1 STRIP Insulin Human Regular Q6HR SC 02/15/25 06:00 02/18/25 05:53 8 UNITS Dextrose 50 ml UD PRN IV 02/15/25 05:30 Norepinephrine Bitartrate 32 mg/ Sodium Chloride 250 ml @ 0.938 mls/ hr Q24H IV 02/15/25 11:45 02/15/25 13:42 8.438 MLS/HR Methylprednisolone Sodium Succinate 40 mg DAILY IV 02/16/25 10:00 02/18/25 09:58 40 MG Insulin Glargine 20 units BID SC 02/15/25 22:00 02/18/25 10:11 20 UNITS Vancomycin HCl 100 ml @ 200 mls/hr Q12H IV 02/16/25 13:00 02/18/25 01:00 200 MLS/HR Metoclopramide HCl 5 mg Q8HR IV 02/16/25 20:00 02/18/25 05:50 5 MG Piperacillin Sod/ Tazobactam Sod 100 ml @ 25 mls/hr Q8H IV 02/18/25 18:00 laboratory and microbiology Laboratory Tests 02/18/25 02:24 Test 02/18/25 02:24 Range/Units Serum Glucose 229 H 74-106 mg/dL Assessment/Plan Acute hypercapnic respiratory failure Acute respiratory failure Hyponatremia COPD Shock requiring Levophed drip Patient is seen and examined in the ICU events on mechanical ventilation s/p intubation ac volume control peep 5 Fi02=40% off sedation, not waking up secretions minimal labs and imaging reviewed Management plan vent support Sedation fentanyl propofol as needed for ventilator synchrony weaning when more stable hemodynamically okay to use precedex drip Steroid/antibiotic for COPD Nebs nutrition monitor ammonia levels DVT prophylaxis Patient is full code Critical care time 35 minutes Dietary Evaluation Review Comments: 1) Initiate MVI @ 1 tb qd 2) Initiate vitamin C @ 500 mg bid and zinc sulfate @ 220 mg qd for 7 days 3) Increase TPN to meet at least 75% of estimated daily needs 4) Advance to 45g CCHO diet when medically feasible, pending ST approval 5) Refer to outpatient RD/[facility] for weight management 6) Follow-up with pulmonology 7) Continue to monitor I&O, labs, and skin integrity Expected Outcomes/Goals: 1) TPN regimen to meet at least 75% estimated daily needs 2) labs and wound to improve 3) diet to advance 4) gradual wt loss 5) f/u in 2-3 days Plan discussed with: Other (rn) ECTOR BROCK MD Feb 18, 2025 11:58
--- NOTE | 2025-02-18 17:14 | DVHPN2 ---
Progress Note Date Seen: Feb 18, 2025 Has the PT tested + for MRSA If YES, has PT been informed?: No Medical Necessity Reason Pt with a Central, PICC or Fol: No Subjective Patient reports: Other (intubated) Review of Systems: Deferred Objective vital signs Vital Sign Date Time Temp Pulse Resp B/P (MAP) Pulse Ox O2 Delivery O2 Flow Rate FiO2 02/18/25 16:20 30 02/18/25 16:18 21 96 Mechanical Ventilator+ 02/18/25 16:15 98.6 91 103/61 (75) 98.6 02/17/25 08:00 0 Total Intake and Output 02/17/25 02/17/25 02/18/25 15:00 23:00 07:00 Intake Total 639.122 ml 776.343 ml 827.846 ml Output Total 650 ml 575 ml Balance 639.122 ml 126.343 ml 252.846 ml medications Current Medications Medications Dose Ordered Sig/Randolph Route Start Time Stop Time Status Last Admin Dose Admin Dextrose 50 ml UD PRN IV 02/11/25 00:15 Cancel Ondansetron HCl 4 mg Q4HPRN PRN IV 02/11/25 07:00 Albuterol 2.5 mg Q6HPRN PRN NEB 02/11/25 07:00 02/15/25 12:28 2.5 MG Nitroglycerin 0.4 mg Q5MINP PRN SL 02/11/25 07:00 Morphine Sulfate 2 mg Q30M PRN IV 02/11/25 07:00 Enoxaparin Sodium 40 mg DAILY SC 02/11/25 10:00 02/18/25 09:58 40 MG Ergocalciferol 50,000 unit Q7D PO 02/11/25 14:15 02/11/25 15:36 50,000 UNIT Midazolam HCl 50 ml @ 1 mls/hr Q24H IV 02/13/25 00:30 02/15/25 07:56 7 MLS/HR Fentanyl Citrate 250 ml @ 2.5 mls/hr Q24H IV 02/13/25 00:30 02/14/25 23:30 15 MLS/HR Thiamine HCl 100 mg DAILY IV 02/14/25 10:00 02/18/25 09:52 100 MG Metoprolol Tartrate 5 mg Q4HPRN PRN IV 02/14/25 09:15 Hold Vancomycin HCl 0 ml @ 0 mls/hr DAILY IV 02/14/25 10:00 Amino Acids/ Electrolytes/ Dextrose 1,000 ml @ 41 mls/hr DAILY@2200 IV 02/14/25 22:00 Cancel Pantoprazole Sodium 40 mg DAILY IV 02/15/25 10:00 02/18/25 09:52 40 MG Amiodarone HCL/ Dextrose 200 ml @ 16.66 mls/ hr Q12H IV 02/14/25 20:45 02/18/25 07:44 16.66 MLS/HR Enteral Nutritional Formula 1,000 ml 30ML/HR GT 02/14/25 14:45 02/17/25 23:10 1,000 ML Phenylephrine HCl 250 ml @ 30 mls/hr Q8H20M IV 02/14/25 19:30 02/14/25 19:51 30 MLS/HR Diagnostic Test (Pha) 1 strip Q6HR 02/15/25 06:00 02/18/25 12:24 1 STRIP Insulin Human Regular Q6HR SC 02/15/25 06:00 02/18/25 12:25 8 UNITS Dextrose 50 ml UD PRN IV 02/15/25 05:30 Norepinephrine Bitartrate 32 mg/ Sodium Chloride 250 ml @ 0.938 mls/ hr Q24H IV 02/15/25 11:45 02/18/25 14:08 3.75 MLS/HR Methylprednisolone Sodium Succinate 40 mg DAILY IV 02/16/25 10:00 02/18/25 09:58 40 MG Insulin Glargine 20 units BID SC 02/15/25 22:00 02/18/25 10:11 20 UNITS Metoclopramide HCl 5 mg Q8HR IV 02/16/25 20:00 02/18/25 14:07 5 MG Piperacillin Sod/ Tazobactam Sod 100 ml @ 25 mls/hr Q8H IV 02/18/25 18:00 Examination: LUNGS:Abnormal, MSK:Abnormal, NEURO:Abnormal laboratory and microbiology Laboratory Tests 02/18/25 02:24 Test 02/18/25 02:24 Range/Units Serum Glucose 229 H 74-106 mg/dL Microbiology Date/Time Source Procedure Growth Status 02/13/25 00:18 Sputum Endotracheal Wash Gram Stain - Final Complete 02/13/25 00:18 Sputum Endotracheal Wash Respiratory Culture - Final Complete 02/12/25 23:26 Nose MRSA Screen - Final Complete 02/12/25 23:00 Urine - [place] Urine Culture - Final Complete 02/12/25 10:50 Blood Blood Culture - Final NO GROWTH AFTER 5 DAYS OF INCUBATION. Complete Problem List/Assessment/Plan Problem List/Assessment/Plan Assessment and plan: Severe hypokalemia Severe hypophosphatemia Hyponatremia metabolic alkalosis Acute respiratory failure, patient intubated on ventilator Type 2 diabetes mellitus with hemoglobin A1c 6.7 Acute complicated cystitis Primary hyperparathyroidism Hyperbilirubinemia with transaminitis Left adrenal nodule History of alcoholic liver disease Hyperglycemia Hypoalbuminemia Hypophosphatemia, replaced Plan: Kidney function remained within normal limit Increased urine output Strict I&Os dc ivf i will sign off the case/pls reconsult if needed Plan discussed with: Other Dietary Evaluation Review Comments: 1) Initiate MVI @ 1 tb qd 2) Initiate vitamin C @ 500 mg bid and zinc sulfate @ 220 mg qd for 7 days 3) Increase TPN to meet at least 75% of estimated daily needs 4) Advance to 45g CCHO diet when medically feasible, pending ST approval 5) Refer to outpatient RD/[facility] for weight management 6) Follow-up with pulmonology 7) Continue to monitor I&O, labs, and skin integrity Expected Outcomes/Goals: 1) TPN regimen to meet at least 75% estimated daily needs 2) labs and wound to improve 3) diet to advance 4) gradual wt loss 5) f/u in 2-3 days ANTHONY QUINTERO MD Feb 18, 2025 17:14
[2025-02-18] MEDS: PIPERACILLIN-TAZOB 3.375GM 100 ML IV SCH (18:02)
--- NOTE | 2025-02-18 21:12 | DVHPN2 ---
Progress Note - Dictate Date Seen: Feb 18, 2025 Has the PT tested + for MRSA If YES, has PT been informed?: No Medical Necessity Reason Pt with a Central, PICC or Fol: No Subjective Patient was seen and evaluated in follow-up in the ICU. Patient is intubated on ventilator. 30% FiO2. Ricardo is receiving TFs. WBC 41.6, HGB 8.5, HCT 26.9, BUN 32, GLUC 233, AST 987, ALT 232. Chest x-ray showed bibasilar airspace disease. vital signs Vital Sign Date Time Temp Pulse Resp B/P (MAP) Pulse Ox O2 Delivery O2 Flow Rate FiO2 02/18/25 12:10 103 20 104/67 (79) 93 30 02/18/25 10:15 Mechanical Ventilator+ 02/18/25 04:00 98.2 98.2 02/17/25 08:00 0 Total Intake and Output 02/17/25 02/17/25 02/18/25 15:00 23:00 07:00 Intake Total 639.122 ml 776.343 ml 827.846 ml Output Total 650 ml 575 ml Balance 639.122 ml 126.343 ml 252.846 ml medications Current Medications Medications Dose Ordered Sig/Randolph Route Start Time Stop Time Status Last Admin Dose Admin Dextrose 50 ml UD PRN IV 02/11/25 00:15 Cancel Ondansetron HCl 4 mg Q4HPRN PRN IV 02/11/25 07:00 Albuterol 2.5 mg Q6HPRN PRN NEB 02/11/25 07:00 02/15/25 12:28 2.5 MG Nitroglycerin 0.4 mg Q5MINP PRN SL 02/11/25 07:00 Morphine Sulfate 2 mg Q30M PRN IV 02/11/25 07:00 Enoxaparin Sodium 40 mg DAILY SC 02/11/25 10:00 02/18/25 09:58 40 MG Ergocalciferol 50,000 unit Q7D PO 02/11/25 14:15 02/11/25 15:36 50,000 UNIT Midazolam HCl 50 ml @ 1 mls/hr Q24H IV 02/13/25 00:30 02/15/25 07:56 7 MLS/HR Fentanyl Citrate 250 ml @ 2.5 mls/hr Q24H IV 02/13/25 00:30 02/14/25 23:30 15 MLS/HR Thiamine HCl 100 mg DAILY IV 02/14/25 10:00 02/18/25 09:52 100 MG Metoprolol Tartrate 5 mg Q4HPRN PRN IV 02/14/25 09:15 Hold Vancomycin HCl 0 ml @ 0 mls/hr DAILY IV 02/14/25 10:00 Amino Acids/ Electrolytes/ Dextrose 1,000 ml @ 41 mls/hr DAILY@2200 IV 02/14/25 22:00 Cancel Pantoprazole Sodium 40 mg DAILY IV 02/15/25 10:00 02/18/25 09:52 40 MG Amiodarone HCL/ Dextrose 200 ml @ 16.66 mls/ hr Q12H IV 02/14/25 20:45 02/18/25 07:44 16.66 MLS/HR Enteral Nutritional Formula 1,000 ml 30ML/HR GT 02/14/25 14:45 02/17/25 23:10 1,000 ML Phenylephrine HCl 250 ml @ 30 mls/hr Q8H20M IV 02/14/25 19:30 02/14/25 19:51 30 MLS/HR Diagnostic Test (Pha) 1 strip Q6HR 02/15/25 06:00 02/18/25 12:24 1 STRIP Insulin Human Regular Q6HR SC 02/15/25 06:00 02/18/25 12:25 8 UNITS Dextrose 50 ml UD PRN IV 02/15/25 05:30 Norepinephrine Bitartrate 32 mg/ Sodium Chloride 250 ml @ 0.938 mls/ hr Q24H IV 02/15/25 11:45 02/15/25 13:42 8.438 MLS/HR Methylprednisolone Sodium Succinate 40 mg DAILY IV 02/16/25 10:00 02/18/25 09:58 40 MG Insulin Glargine 20 units BID SC 02/15/25 22:00 02/18/25 10:11 20 UNITS Metoclopramide HCl 5 mg Q8HR IV 02/16/25 20:00 02/18/25 05:50 5 MG Piperacillin Sod/ Tazobactam Sod 100 ml @ 25 mls/hr Q8H IV 02/18/25 18:00 objective GENERAL: Ill appearing, intubated on ventilator. EYES: PERRL, EOMI. Anicteric. HENT: Moist mucous membranes. LUNGS: Decreased breath sounds. CARDIOVASCULAR: Regular rate and rhythm. ABDOMEN: Soft, non-tender and non-distended. EXTREMITIES: No edema. SKIN: Warm, dry. laboratory and microbiology Laboratory Tests 02/18/25 02:24 Test 02/18/25 02:24 Range/Units Serum Glucose 229 H 74-106 mg/dL Problem List Chest pain. Metabolic alkalosis. Hypokalemia. Hypophosphatemia. Hyponatremia. Type 2 diabetes mellitus. Acute complicated cystitis. Hyperparathyroidism. Hyperbilirubinemia with transaminitis. Left adrenal nodule. Assessment/Plan Continued all current supportive medical care. IV Amiodarone. GI and DVT prophylactics. IV antibiotics as ordered. Morphine for pain management. Vasopressors for hemodynamic support. Additional plan as per the hospital course. Critical care time of 45 minutes provided to include time spent evaluation of patient at bedside, when appropriate patient/family education for diagnosis, treatment plan, review of pertinent medical information and discussion of care with specialty providers and PCP. Mechanical ventilator parameters, treatment and adjustments have personally been reviewed by me and treatment plan by leaded glass installer has also been reviewed. Dietary Evaluation Review Comments: 1) Initiate MVI @ 1 tb qd 2) Initiate vitamin C @ 500 mg bid and zinc sulfate @ 220 mg qd for 7 days 3) Increase TPN to meet at least 75% of estimated daily needs 4) Advance to 45g CCHO diet when medically feasible, pending ST approval 5) Refer to outpatient RD/[facility] for weight management 6) Follow-up with pulmonology 7) Continue to monitor I&O, labs, and skin integrity Expected Outcomes/Goals: 1) TPN regimen to meet at least 75% estimated daily needs 2) labs and wound to improve 3) diet to advance 4) gradual wt loss 5) f/u in 2-3 days Plan discussed with: MIKAELA Dickinson MD Feb 18, 2025 13:16
--- NOTE | 2025-02-18 21:31 | DVHPN2 ---
Progress Note - Dictate Date Seen: Feb 18, 2025 Has the PT tested + for MRSA If YES, has PT been informed?: No Medical Necessity Reason Pt with a Central, PICC or Fol: No Subjective Patient seen still intubated off sedation Mechanical ventilatory support with fio2 30%, PEEP 5 Worsening leukocytosis, renal function normalized and increase urine output Persistent elevation in liver enzymes likely due to alcoholic steatohepatitis, Liver enzymes are trending up possibly aggravated by amiodarone vital signs Vital Sign Date Time Temp Pulse Resp B/P (MAP) Pulse Ox O2 Delivery O2 Flow Rate FiO2 02/18/25 20:43 79 21 102/55 (71) 98 30 02/18/25 18:15 Mechanical Ventilator+ 02/18/25 16:15 98.6 98.6 02/17/25 08:00 0 Total Intake and Output 02/17/25 02/17/25 02/18/25 15:00 23:00 07:00 Intake Total 639.122 ml 776.343 ml 827.846 ml Output Total 650 ml 575 ml Balance 639.122 ml 126.343 ml 252.846 ml medications Current Medications Medications Dose Ordered Sig/Randolph Route Start Time Stop Time Status Last Admin Dose Admin Dextrose 50 ml UD PRN IV 02/11/25 00:15 Cancel Ondansetron HCl 4 mg Q4HPRN PRN IV 02/11/25 07:00 Albuterol 2.5 mg Q6HPRN PRN NEB 02/11/25 07:00 02/15/25 12:28 2.5 MG Nitroglycerin 0.4 mg Q5MINP PRN SL 02/11/25 07:00 Morphine Sulfate 2 mg Q30M PRN IV 02/11/25 07:00 Enoxaparin Sodium 40 mg DAILY SC 02/11/25 10:00 02/18/25 09:58 40 MG Ergocalciferol 50,000 unit Q7D PO 02/11/25 14:15 02/11/25 15:36 50,000 UNIT Midazolam HCl 50 ml @ 1 mls/hr Q24H IV 02/13/25 00:30 02/15/25 07:56 7 MLS/HR Fentanyl Citrate 250 ml @ 2.5 mls/hr Q24H IV 02/13/25 00:30 02/14/25 23:30 15 MLS/HR Thiamine HCl 100 mg DAILY IV 02/14/25 10:00 02/18/25 09:52 100 MG Metoprolol Tartrate 5 mg Q4HPRN PRN IV 02/14/25 09:15 Hold Vancomycin HCl 0 ml @ 0 mls/hr DAILY IV 02/14/25 10:00 Amino Acids/ Electrolytes/ Dextrose 1,000 ml @ 41 mls/hr DAILY@2200 IV 02/14/25 22:00 Cancel Pantoprazole Sodium 40 mg DAILY IV 02/15/25 10:00 02/18/25 09:52 40 MG Enteral Nutritional Formula 1,000 ml 30ML/HR GT 02/14/25 14:45 02/17/25 23:10 1,000 ML Phenylephrine HCl 250 ml @ 30 mls/hr Q8H20M IV 02/14/25 19:30 02/14/25 19:51 30 MLS/HR Diagnostic Test (Pha) 1 strip Q6HR 02/15/25 06:00 02/18/25 17:56 1 STRIP Insulin Human Regular Q6HR SC 02/15/25 06:00 02/18/25 18:01 8 UNITS Dextrose 50 ml UD PRN IV 02/15/25 05:30 Norepinephrine Bitartrate 32 mg/ Sodium Chloride 250 ml @ 0.938 mls/ hr Q24H IV 02/15/25 11:45 02/18/25 14:08 3.75 MLS/HR Methylprednisolone Sodium Succinate 40 mg DAILY IV 02/16/25 10:00 02/18/25 09:58 40 MG Insulin Glargine 20 units BID SC 02/15/25 22:00 02/18/25 10:11 20 UNITS Metoclopramide HCl 5 mg Q8HR IV 02/16/25 20:00 02/18/25 14:07 5 MG Piperacillin Sod/ Tazobactam Sod 100 ml @ 25 mls/hr Q8H IV 02/18/25 18:00 02/18/25 18:02 25 MLS/HR objective GENERAL: Ill appearing, intubated on ventilator. EYES: PERRL, EOMI. Anicteric. HENT: Moist mucous membranes. LUNGS: Decreased breath sounds. CARDIOVASCULAR: Regular rate and rhythm. ABDOMEN: Soft, non-tender and non-distended. EXTREMITIES: No edema. SKIN: Warm, dry. laboratory and microbiology Laboratory Tests 02/18/25 02:24 Test 02/18/25 02:24 Range/Units Serum Glucose 229 H 74-106 mg/dL Problems(with codes): (1) COPD exacerbation (2) Alcoholic steatohepatitis (3) Elevated liver enzymes (4) Alcoholic fatty liver (5) Acute respiratory failure (6) Hyponatremia (7) Failure to thrive (8) Generalized weakness (9) Anemia (10) UTI (urinary tract infection) Prognosis PLAN Methylprednisolone was decreased to 40 mg IV daily Patient tolerating tube feedings at 30 mL/hour Worsening liver enzymes could also be related to IV amiodarone use Patient was started on ursodiol 300 mg p.o. twice a day for hyperbilirubinemia Consider discontinuing IV amiodarone and replacing with other antiarrhythmics; discuss with Cardiology Overall her prognosis is guarded and patient has worsening cholestasis and hepatic failure Monitor liver enzymes and PT INR; correct coagulopathy Dietary Evaluation Review Comments: 1) Initiate MVI @ 1 tb qd 2) Initiate vitamin C @ 500 mg bid and zinc sulfate @ 220 mg qd for 7 days 3) Increase TPN to meet at least 75% of estimated daily needs 4) Advance to 45g CCHO diet when medically feasible, pending ST approval 5) Refer to outpatient RD/[facility] for weight management 6) Follow-up with pulmonology 7) Continue to monitor I&O, labs, and skin integrity Expected Outcomes/Goals: 1) TPN regimen to meet at least 75% estimated daily needs 2) labs and wound to improve 3) diet to advance 4) gradual wt loss 5) f/u in 2-3 days Plan discussed with: Other (ICU Nurse) KIKE SIN MD Feb 18, 2025 21:31
--- NOTE | 2025-02-18 22:27 | DVHPN2 ---
Consult Progress Note Objective vital signs Vital Sign Date Time Temp Pulse Resp B/P (MAP) Pulse Ox O2 Delivery O2 Flow Rate FiO2 02/18/25 20:43 79 21 102/55 (71) 98 30 02/18/25 18:15 Mechanical Ventilator+ 02/18/25 16:15 98.6 98.6 02/17/25 08:00 0 Total Intake and Output 02/17/25 02/17/25 02/18/25 15:00 23:00 07:00 Intake Total 639.122 ml 776.343 ml 827.846 ml Output Total 650 ml 575 ml Balance 639.122 ml 126.343 ml 252.846 ml medications Current Medications Medications Dose Ordered Sig/Randolph Route Start Time Stop Time Status Last Admin Dose Admin Dextrose 50 ml UD PRN IV 02/11/25 00:15 Cancel Ondansetron HCl 4 mg Q4HPRN PRN IV 02/11/25 07:00 Albuterol 2.5 mg Q6HPRN PRN NEB 02/11/25 07:00 02/15/25 12:28 2.5 MG Nitroglycerin 0.4 mg Q5MINP PRN SL 02/11/25 07:00 Morphine Sulfate 2 mg Q30M PRN IV 02/11/25 07:00 Enoxaparin Sodium 40 mg DAILY SC 02/11/25 10:00 02/18/25 09:58 40 MG Ergocalciferol 50,000 unit Q7D PO 02/11/25 14:15 02/11/25 15:36 50,000 UNIT Midazolam HCl 50 ml @ 1 mls/hr Q24H IV 02/13/25 00:30 02/15/25 07:56 7 MLS/HR Fentanyl Citrate 250 ml @ 2.5 mls/hr Q24H IV 02/13/25 00:30 02/14/25 23:30 15 MLS/HR Thiamine HCl 100 mg DAILY IV 02/14/25 10:00 02/18/25 09:52 100 MG Metoprolol Tartrate 5 mg Q4HPRN PRN IV 02/14/25 09:15 Hold Vancomycin HCl 0 ml @ 0 mls/hr DAILY IV 02/14/25 10:00 Amino Acids/ Electrolytes/ Dextrose 1,000 ml @ 41 mls/hr DAILY@2200 IV 02/14/25 22:00 Cancel Pantoprazole Sodium 40 mg DAILY IV 02/15/25 10:00 02/18/25 09:52 40 MG Enteral Nutritional Formula 1,000 ml 30ML/HR GT 02/14/25 14:45 02/17/25 23:10 1,000 ML Phenylephrine HCl 250 ml @ 30 mls/hr Q8H20M IV 02/14/25 19:30 02/14/25 19:51 30 MLS/HR Diagnostic Test (Pha) 1 strip Q6HR 02/15/25 06:00 02/18/25 17:56 1 STRIP Insulin Human Regular Q6HR SC 02/15/25 06:00 02/18/25 18:01 8 UNITS Dextrose 50 ml UD PRN IV 02/15/25 05:30 Norepinephrine Bitartrate 32 mg/ Sodium Chloride 250 ml @ 0.938 mls/ hr Q24H IV 02/15/25 11:45 02/18/25 14:08 3.75 MLS/HR Methylprednisolone Sodium Succinate 40 mg DAILY IV 02/16/25 10:00 02/18/25 09:58 40 MG Insulin Glargine 20 units BID SC 02/15/25 22:00 02/18/25 21:53 20 UNITS Metoclopramide HCl 5 mg Q8HR IV 02/16/25 20:00 02/18/25 21:58 5 MG Piperacillin Sod/ Tazobactam Sod 100 ml @ 25 mls/hr Q8H IV 02/18/25 18:00 02/18/25 18:02 25 MLS/HR laboratory and microbiology Laboratory Tests 02/18/25 02:24 Test 02/18/25 02:24 Range/Units Serum Glucose 229 H 74-106 mg/dL Problem List/Assessment/Plan Problem List/Assessment/Plan Problems(with codes): (1) Shock (2) Cardiac arrest (3) UTI (urinary tract infection) (4) COPD exacerbation (5) Alcoholic steatohepatitis (6) Elevated liver enzymes (7) Alcoholic fatty liver (8) Failure to thrive (9) Pneumonitis Plan/Recommendation ASSESSMENT AND PLAN: ID Problem List: \-- generalized weakness and shortness of breath (2 months) \-- COPD/asthma; obesity; diabetes mellitus; hypertension; hyperlipidemia; prior NV; prior TIA \-- ventricular tachycardia with code event on 02/12 ? intubated; ICU course with shock on vasopressors \-- leukocytosis rising (11.4 ? 28.6 K/L) while on steroids \-- possible aspiration pneumonia (initial treatment with levofloxacin; metronidazole added) \-- presumed acute complicated cystitis (initial UA with pyuria; early urine culture not sent due to contamination; subsequent urine culture >3 colony types) \-- concern for biliary sludge/cholestatic process; hyperbilirubinemia and transaminitis (Tbili up to ~21, AST up to 1052, ALT up to ~132, Alk Phos up to 299) \-- severe hypokalemia and metabolic alkalosis; severe hypophosphatemia (as low as 0.60.9 mg/dL) on admission \-- hyperglycemia (glucose up to 471 on 02/15) \-- altered mental status while sedated/intubated (likely metabolic; post-code state) \-- hyperparathyroidism (not further characterized) \-- penicillin allergy (reaction unknown) Assessment 64-year-old female with multiple comorbidities presented with 2 months of dyspnea and weakness, admitted with significant electrolyte derangements (hypokalemia, hypophosphatemia, metabolic alkalosis). Hospital course complicated by ventricular tachycardia and code blue on 02/12 requiring intubation, vasopressor support, and ICU transfer. Initial antibiotic therapy included levofloxacin; metronidazole was added for aspiration risk. Subsequently, due to persistent leukocytosis, antibiotics were changed to piperacillin-tazobactam (Zosyn) and vancomycin. Blood cultures to date show no growth; urine culture after intubation showed >3 colony types (suggestive of contamination). Imaging reveals marked hepatic steatosis and gallbladder sludge without ductal dilatation; ultrasound shows no acute cholecystitis. Liver tests demonstrate a marked cholestatic/hepatocellular injury pattern (rising bilirubin and transaminases). Current differential for ongoing leukocytosis and hypotension includes cholestatic/biliary source (e.g., ascending cholangitis without ductal dilation), aspiration pneumonia, urinary source (not confirmed), steroid-induced leukocytosis, post-code systemic inflammatory response, and less likely venous thromboembolism (cannot obtain CTPA currently). She remains intubated and sedated; FiO2 has decreased from 60% to 30% with SpO2 100%. Afebrile throughout (Tmax ~99.5). Plan: \-- Continue current broad-spectrum coverage (vancomycin + piperacillin- tazobactam) for persistent leukocytosis and possible intra-abdominal/biliary source; monitor closely for any hypersensitivity given penicillin allergy (reaction unknown). \-- If clinical concern for pancreatic involvement/necrosis arises, consider escalation to meropenem per team recommendation; check lipase as recommended. \-- Repeat blood cultures to assess for new bacteremia in the setting of possible ascending cholangitis. \-- Obtain MR abdomen (MRCP if available) to further evaluate biliary tree/sludge/cholestasis given rising bilirubin and transaminases without ductal dilation on prior imaging. \-- Trend lactic acid to assess severity of illness and potential ischemic hepatopathy. \-- Evaluate for VTE as a contributor to leukocytosis: obtain bilateral lower extremity venous Doppler ultrasound (CTPA deferred due to ICU status). Consider empiric IV heparin if clinical suspicion for PE is high and no contraindications per primary/ICU team. \-- Wean sedation as tolerated and reassess mental status; metabolic etiology likely. Defer detailed neuro workup to ICU/primary team. \-- Steroids: methylprednisolone 40 mg IV daily since 02/16 for possible asthma exacerbation per team; recognize potential contribution to leukocytosis. Monitor WBC trend and reassess steroid need with Pulmonology/ICU. \-- Continue management of electrolyte abnormalities (K, Phos, Na) per ICU; monitor BMP and phosphorus closely. \-- Glycemic control: continue insulin therapy per ICU protocol to address persistent hyperglycemia. \-- Monitor LFTs (AST/ALT/Alk Phos, bilirubin) and coagulation parameters; consider GI consultation depending on MR findings and clinical trajectory. \-- Follow-up on all pending cultures and imaging; narrow or adjust antimicrobials based on results. Isolation Precautions: Not provided in transcript. Plan is subject to change pending incorporation of new diagnostics and clinical course. Authorized and Performed by: indra mann Total critical care time: Approximately 75 minutes Due to a high probability of clinically significant, life threatening deterioration, the patient required my highest level of preparedness to intervene emergently and I personally spent this critical care time directly and personally managing the patient. This critical care time included obtaining a history; examining the patient; pulse oximetry; ordering and review of studies; arranging urgent treatment with development of a management plan; evaluation of patient's response to treatment; frequent reassessment; and, discussions with other providers. This critical care time was performed to assess and manage the high probability of imminent, life-threatening deterioration that could result in multi-organ failure. It was exclusive of separately billable procedures and treating other patients and teaching time. = Physical Exam: General: Critically ill-appearing. Intubated and sedated. Neck: Supple. No masses. HEENT: PERRL. Normal lids and conjunctiva. Moist mucous membranes. Oropharynx without lesions, exudates or excessive erythema. Normal appearance of the external aspects of the nose and ears. Endotracheal tube in place. Heart: Regular rhythm, normal rate. No murmur. No lower extremity edema. Lungs: Normal respiratory effort on mechanical ventilation. Clear to auscultation bilaterally. No wheezes. No crackles. Abdomen: Soft. Non-tender. Non-distended. No masses or abdominal hernia. Msk: No digital cyanosis. Normal strength and tone in all 4 limbs (limited exam due to sedation). Skin: Warm and dry, no rashes. Neuro: Intubated and sedated; unable to assess orientation. No focal deficits described in transcript. Psych: Unable to assess due to sedation. Dietary Evaluation Review Comments: 1) Initiate MVI @ 1 tb qd 2) Initiate vitamin C @ 500 mg bid and zinc sulfate @ 220 mg qd for 7 days 3) Increase TPN to meet at least 75% of estimated daily needs 4) Advance to 45g CCHO diet when medically feasible, pending ST approval 5) Refer to outpatient RD/[facility] for weight management 6) Follow-up with pulmonology 7) Continue to monitor I&O, labs, and skin integrity Expected Outcomes/Goals: 1) TPN regimen to meet at least 75% estimated daily needs 2) labs and wound to improve 3) diet to advance 4) gradual wt loss 5) f/u in 2-3 days INDRA MANN MD Feb 18, 2025 22:27
[2025-02-19] VITALS (104 sets, daily range): BP systolic 83–150; BP diastolic 44–82; PULSE 61–103; RESP 14–30; TEMP 98.4–99.8; O2SAT 91–100
[2025-02-19 03:25] LABS: Hematocrit 26.1 % (36.0-46.0); Hemoglobin 8.5 g/dL (12.2-16.2); Mean Corpuscular Hemoglobin 30.5 pg (28.0-32.0); Mean Corpuscular Volume 94.0 fL (80.0-100.0)
[2025-02-19 03:41] LABS: Anion Gap 9 (5-15); Chloride 100 mmol/L (98-107); Magnesium 2.2 mg/dL (1.6-2.6); Potassium 4.1 mmol/L (3.5-5.1); Sodium 142 mmol/L (136-145)
[2025-02-19 03:58] LABS: Albumin 2.5 g/dL (3.2-4.8); Alkaline Phosphatase 417 U/L (46-116); Bilirubin, Total 23.0 mg/dL (0.2-1.0); Calcium 7.7 mg/dL (8.7-10.4); Carbon Dioxide 33 mmol/L (20-31); Glucose 198 mg/dL (74-106)
[2025-02-19 04:13] LABS: BUN/Creatinine Ratio 36.9 (10.0-20.0)
[2025-02-19 04:19] LABS: Alanine Aminotransferase 240 U/L (7-40); Blood Urea Nitrogen 31 mg/dL (9-23); Total Protein 5.3 g/dL (5.7-8.2)
[2025-02-19 04:52] LABS: Anisocytosis Moderate; Nucleated Red Blood Cells % 104.0 %; Polychromasia Slight; Total Cells Counted 100.0 (100)
--- NOTE | 2025-02-19 05:54 | DVH ---
CHEST RADIOGRAPH Indication: intubated Technique: Single frontal view of the chest was obtained Comparison: XY CHEST PORTABLE on DOS: 02/18/25 FINDINGS: Lines and Tubes: The endotracheal tube terminates 5.0 cm above the erika. The enteric tube courses b elow the left hemidiaphragm and the tip extends outside the field of view. Right central venous laury ter is present with its tip terminating in the superior vena cava. Lungs: Bibasilar airspace opacities similar to prior study. Pleura: No effusion. No pneumothorax. Cardiomediastinal contours: Unremarkable Bones: No acute osseous abnormality. IMPRESSION: 1. Support tubes in appropriate position. 2. Bibasilar airspace opacities similar to prior study.
[2025-02-19 07:48] LABS: Base Excess 7.6 mmol/L (-2.0-3.0)
--- NOTE | 2025-02-19 07:50 | ECG ---
[facility] Test Date: 2025-02-11 Test Time: 06:17:26 Pat Name: MAYRA ESPINOZA Department: ED Room: [address] [place] [address] A Gender: F [employer] Supervisor: KATARINA : [id number] Requested By: ARCHANA DONG Order Number: [id number] Reading MD: Monroe Holloway Measurements Intervals [place] Rate: 95 P: 87 OR: 140 QRS: 16 QRSD: 86 T: 215 QT: 443 QTc: 557 Interpretive Statements Sinus rhythm Ventricular bigeminy Low voltage, precordial leads Abnormal R-wave progression, early transition Abnormal T, consider ischemia, diffuse leads Prolonged QT interval Electronically Signed On 02-21-2025 17:51:58 PDT by Monroe Holloway Please click the below link to view image of tracing.
[2025-02-19] MEDS ORDERED: VANCOMYCIN PER PHARMACY 0 MG IV SCH (09:00)
[2025-02-19] MEDS ORDERED: AMIODARONE HCL (50 MG/ ML) 3 ML VIAL IV ONE (11:00)
--- NOTE | 2025-02-19 14:10 | DVHPN2 ---
Progress Note - Dictate Date Seen: Feb 19, 2025 Medical Necessity Reason Pt with a Central, PICC or Fol: No vital signs Vital Sign Date Time Temp Pulse Resp B/P (MAP) Pulse Ox O2 Delivery O2 Flow Rate FiO2 02/19/25 13:55 94 19 94/55 (68) 96 30 02/19/25 12:00 98.7 98.7 02/19/25 12:00 Mechanical Ventilator+ 02/17/25 08:00 0 Total Intake and Output 02/18/25 02/18/25 02/19/25 14:59 22:59 06:59 Intake Total 259.532 ml 604.98 ml 488.566 ml Output Total 500 ml 550 ml Balance 259.532 ml 104.98 ml -61.434 ml medications Current Medications Medications Dose Ordered Sig/Randolph Route Start Time Stop Time Status Last Admin Dose Admin Dextrose 50 ml UD PRN IV 02/11/25 00:15 Cancel Ondansetron HCl 4 mg Q4HPRN PRN IV 02/11/25 07:00 Albuterol 2.5 mg Q6HPRN PRN NEB 02/11/25 07:00 02/15/25 12:28 2.5 MG Nitroglycerin 0.4 mg Q5MINP PRN SL 02/11/25 07:00 Morphine Sulfate 2 mg Q30M PRN IV 02/11/25 07:00 Enoxaparin Sodium 40 mg DAILY SC 02/11/25 10:00 02/19/25 10:10 40 MG Ergocalciferol 50,000 unit Q7D PO 02/11/25 14:15 02/11/25 15:36 50,000 UNIT Midazolam HCl 50 ml @ 1 mls/hr Q24H IV 02/13/25 00:30 02/15/25 07:56 7 MLS/HR Fentanyl Citrate 250 ml @ 2.5 mls/hr Q24H IV 02/13/25 00:30 02/14/25 23:30 15 MLS/HR Thiamine HCl 100 mg DAILY IV 02/14/25 10:00 02/19/25 10:13 100 MG Metoprolol Tartrate 5 mg Q4HPRN PRN IV 02/14/25 09:15 Hold Amino Acids/ Electrolytes/ Dextrose 1,000 ml @ 41 mls/hr DAILY@2200 IV 02/14/25 22:00 Cancel Pantoprazole Sodium 40 mg DAILY IV 02/15/25 10:00 02/19/25 10:11 40 MG Enteral Nutritional Formula 1,000 ml 30ML/HR GT 02/14/25 14:45 02/19/25 06:48 1,000 ML Phenylephrine HCl 250 ml @ 30 mls/hr Q8H20M IV 02/14/25 19:30 02/14/25 19:51 30 MLS/HR Diagnostic Test (Pha) 1 strip Q6HR 02/15/25 06:00 02/19/25 12:12 1 STRIP Insulin Human Regular Q6HR SC 02/15/25 06:00 02/19/25 12:12 4 UNITS Dextrose 50 ml UD PRN IV 02/15/25 05:30 Norepinephrine Bitartrate 32 mg/ Sodium Chloride 250 ml @ 0.938 mls/ hr Q24H IV 02/15/25 11:45 02/18/25 14:08 3.75 MLS/HR Methylprednisolone Sodium Succinate 40 mg DAILY IV 02/16/25 10:00 02/19/25 10:12 40 MG Insulin Glargine 20 units BID SC 02/15/25 22:00 02/19/25 10:11 20 UNITS Metoclopramide HCl 5 mg Q8HR IV 02/16/25 20:00 02/19/25 13:47 5 MG Piperacillin Sod/ Tazobactam Sod 100 ml @ 25 mls/hr Q8H IV 02/18/25 18:00 02/19/25 10:12 25 MLS/HR Vancomycin HCl 0 ml @ 0 mls/hr UD IV 02/19/25 09:00 Vancomycin HCl 250 ml @ 250 mls/hr DAILY@1400 IV 02/19/25 14:00 laboratory and microbiology Laboratory Tests 02/19/25 02:42 Test 02/19/25 02:42 Range/Units Serum Glucose 198 H 74-106 mg/dL Assessment/Plan Acute hypercapnic respiratory failure Acute respiratory failure Hyponatremia COPD Shock requiring Levophed drip Patient is seen and examined in the ICU events on mechanical ventilation s/p intubation ac volume control peep 5 Fi02=40% off sedation, not waking up secretions minimal Song>20 WBC elevated markedly LFT's elevated ?shock liver recent US of liver; no acute disease encephalopathy labs and imaging reviewed Management plan vent support Sedation fentanyl propofol as needed for ventilator synchrony weaning when more stable okay to use precedex drip bronch deferred Steroid/antibiotic for COPD Nebs nutrition monitor ammonia levels DVT prophylaxis Patient is full code prognosis very poor Critical care time 35 minutes Dietary Evaluation Review Comments: 1) Initiate MVI @ 1 tb qd 2) Initiate vitamin C @ 500 mg bid and zinc sulfate @ 220 mg qd for 7 days 3) Increase TPN to meet at least 75% of estimated daily needs 4) Advance to 45g CCHO diet when medically feasible, pending ST approval 5) Refer to outpatient RD/[facility] for weight management 6) Follow-up with pulmonology 7) Continue to monitor I&O, labs, and skin integrity Expected Outcomes/Goals: 1) TPN regimen to meet at least 75% estimated daily needs 2) labs and wound to improve 3) diet to advance 4) gradual wt loss 5) f/u in 2-3 days Plan discussed with: Other (Rn) ECTOR BROCK MD Feb 19, 2025 14:10
[2025-02-19] MEDS: VANCOMYCIN 1GM/250ML KIT 250 ML IV SCH (16:04)
--- NOTE | 2025-02-19 16:53 | DVH ---
PROCEDURE: MRI BRAIN HEAD WO CONTRAST Indication: PT OFF SEDATION FOR 4 DAYS COMPARISON: None TECHNIQUE: Multiplanar multisequence images of the brain are obtained. FINDINGS: There is no abnormal diffusion restriction. There is no intracranial hemorrhage. No extra-axial flui d collection, mass effect or midline shift. The ventricles are midline and normal in size. The cister ns are patent. Normal intracranial flow voids are preserved. No abnormal susceptibility signal. Mild global cerebral volume loss. Bilateral mastoid effusions. Mild mucosal thickening ethmoids The visualized orbits are unremarkable. IMPRESSION: No acute cerebrovascular ischemia. Bilateral mastoid effusions.
--- NOTE | 2025-02-19 19:03 | DVHPN2 ---
Progress Note - Dictate Date Seen: Feb 19, 2025 Medical Necessity Reason Pt with a Central, PICC or Fol: No Subjective Patient remains intubated and sedated. vital signs Vital Sign Date Time Temp Pulse Resp B/P (MAP) Pulse Ox O2 Delivery O2 Flow Rate FiO2 02/19/25 15:42 83 23 94/55 (68) 97 30 02/19/25 14:00 Mechanical Ventilator+ 02/19/25 12:00 98.7 98.7 02/17/25 08:00 0 Total Intake and Output 02/18/25 02/18/25 02/19/25 15:00 23:00 07:00 Intake Total 260.469 ml 587.383 ml 486.691 ml Output Total 500 ml 550 ml Balance 260.469 ml 87.383 ml -63.309 ml medications Current Medications Medications Dose Ordered Sig/Randolph Route Start Time Stop Time Status Last Admin Dose Admin Dextrose 50 ml UD PRN IV 02/11/25 00:15 Cancel Ondansetron HCl 4 mg Q4HPRN PRN IV 02/11/25 07:00 Albuterol 2.5 mg Q6HPRN PRN NEB 02/11/25 07:00 02/15/25 12:28 2.5 MG Nitroglycerin 0.4 mg Q5MINP PRN SL 02/11/25 07:00 Morphine Sulfate 2 mg Q30M PRN IV 02/11/25 07:00 Enoxaparin Sodium 40 mg DAILY SC 02/11/25 10:00 02/19/25 10:10 40 MG Ergocalciferol 50,000 unit Q7D PO 02/11/25 14:15 02/11/25 15:36 50,000 UNIT Midazolam HCl 50 ml @ 1 mls/hr Q24H IV 02/13/25 00:30 02/15/25 07:56 7 MLS/HR Fentanyl Citrate 250 ml @ 2.5 mls/hr Q24H IV 02/13/25 00:30 02/14/25 23:30 15 MLS/HR Thiamine HCl 100 mg DAILY IV 02/14/25 10:00 02/19/25 10:13 100 MG Metoprolol Tartrate 5 mg Q4HPRN PRN IV 02/14/25 09:15 Hold Amino Acids/ Electrolytes/ Dextrose 1,000 ml @ 41 mls/hr DAILY@2200 IV 02/14/25 22:00 Cancel Pantoprazole Sodium 40 mg DAILY IV 02/15/25 10:00 02/19/25 10:11 40 MG Enteral Nutritional Formula 1,000 ml 30ML/HR GT 02/14/25 14:45 02/19/25 06:48 1,000 ML Phenylephrine HCl 250 ml @ 30 mls/hr Q8H20M IV 02/14/25 19:30 02/14/25 19:51 30 MLS/HR Diagnostic Test (Pha) 1 strip Q6HR 02/15/25 06:00 02/19/25 12:12 1 STRIP Insulin Human Regular Q6HR SC 02/15/25 06:00 02/19/25 12:12 4 UNITS Dextrose 50 ml UD PRN IV 02/15/25 05:30 Norepinephrine Bitartrate 32 mg/ Sodium Chloride 250 ml @ 0.938 mls/ hr Q24H IV 02/15/25 11:45 02/18/25 14:08 3.75 MLS/HR Methylprednisolone Sodium Succinate 40 mg DAILY IV 02/16/25 10:00 02/19/25 10:12 40 MG Insulin Glargine 20 units BID SC 02/15/25 22:00 02/19/25 10:11 20 UNITS Metoclopramide HCl 5 mg Q8HR IV 02/16/25 20:00 02/19/25 13:47 5 MG Piperacillin Sod/ Tazobactam Sod 100 ml @ 25 mls/hr Q8H IV 02/18/25 18:00 02/19/25 10:12 25 MLS/HR Vancomycin HCl 0 ml @ 0 mls/hr UD IV 02/19/25 09:00 Vancomycin HCl 250 ml @ 250 mls/hr DAILY@1400 IV 02/19/25 14:00 02/19/25 16:04 250 MLS/HR objective General: Intubated and sedated Respiratory: CTA Neuro: pupils equal and reactive laboratory and microbiology Laboratory Tests 02/19/25 02:42 Test 02/19/25 02:42 Range/Units Serum Glucose 198 H 74-106 mg/dL Assessment/Plan 1) Acute respiratory failure, intubated 2) UTI 3) Hyponatremia 4) Hyperbilirubinemia 2/2 alcoholism 5) Metabolic alkalosis 6) COPD 7) Hx of CVA 8) DM 9) HTN 10) HLD plan; 02/13---patient noted to be unresponsive and lethargic overnight and thus was intubated and transferred to ICU, now on mechanical ventilatory support with fio2 30%, on levophed 10 mcg this AM, continue IV Abx, BCx negative, UCx shows mixed violet, will consult pulm/cardio, GI on board due to elevated LFTs and hyperbilirubinemia likely in the setting of alcoholic hepatitis, daily labs, supportive care, events solutions consultant input appreciated, will follow along 02/14---remains intubated on ventilator fio2 30%, this AM on 18 mcg of levophed, WBC 15k, repeat BCx negative, Na uptrending to 132 with IVF hydration with nephrology following, echo shows EF 38% with cardio on the case, bilirubin 14 this AM and likely attributed to alcoholism with GI on board, continue all care, events solutions consultant input appreciated, daily labs, will follow along 02/15---remains intubated on ventilator fio2 30%, started on amio gtt for SVT now HR better controlled, WBC trending up to 16k, on vanco/levaquin/flagyl with repeat BCx and UCx negative, continue NS at 100 ml/hr, still on levophed 24 mcg this AM, events solutions consultant input appreciated, guarded/critical, daily labs, supportive care, will follow along 02/16---remains intubated on ventilator fio2 40%, levophed requirements coming down to 12 mcg this AM, remains in amio gtt for SVT, renal fuction preserved with Na and Cl trending upward, WBC trending up to 18k with repeat BCx/UCx negative on IV ABx and likely steroid induced, tapered steroids to 40 mg IV daily, blood glucose has been elevated and she has uncontrolled DM thus added lantus 20 bid along with aggressive sliding scale, events solutions consultant input appreciated, continue all care, daily labs, will follow along 02/17---remains intubated on ventilator fio2 30%, levophed requirements are coming down and this AM on 8 mcg, remains on amio gtt as per cardiology, Na and Cl normalized, renal function preserved, WBC spike to 28k, on IV Abx, ID consult pending, cultures are negative thus far, pulm/cardio/gi already on board, i spoke to daughter too yesterday and updated her on POC, continue all care, AM labs, will follow along 02/18---remains intubated on ventilator fio2 30%, levophed at 6 mcg this AM, WBC trending up to 41k however repeat BCx/UCx are negative, she is on broad spectrum IV ABx with ID following, amio gtt still running for SVT now in NSR, renal function is preserved, steroids tapered down to 40 mg IV daily, all events solutions consultant input appreciated, will follow along 02/19--remains intubated, pressor support improving down to 2mcg this AM. WBC remains elevated. Cultures returned growing gram-positive cocci in clusters. Vancomycin pharmacy to dose started. Repeat blood cultures taken. LFTs remain elevated. GI following. Plan for MRCP for possible Cholangitis per ID. Will also obtain MRI brain WO contrast. Patient remains off sedation but minimal arousability. Dietary Evaluation Review Comments: 1) Initiate MVI @ 1 tb qd 2) Initiate vitamin C @ 500 mg bid and zinc sulfate @ 220 mg qd for 7 days 3) Increase TPN to meet at least 75% of estimated daily needs 4) Advance to 45g CCHO diet when medically feasible, pending ST approval 5) Refer to outpatient RD/[facility] for weight management 6) Follow-up with pulmonology 7) Continue to monitor I&O, labs, and skin integrity Expected Outcomes/Goals: 1) TPN regimen to meet at least 75% estimated daily needs 2) labs and wound to improve 3) diet to advance 4) gradual wt loss 5) f/u in 2-3 days Plan discussed with: ARCHANA Arango DO Feb 19, 2025 19:03
--- NOTE | 2025-02-19 22:19 | DVHPN2 ---
Progress Note - Dictate Date Seen: Feb 19, 2025 Has the PT tested + for MRSA If YES, has PT been informed?: No Medical Necessity Reason Pt with a Central, PICC or Fol: No Subjective Patient was seen and evaluated in follow up in the ICU. Patient is intubated on ventilator. 30% FiO2. WBC 40.7, HGB 8.5, HCT 26.1, CO2 33, BUN 31, AST 906, ALT 240. Chest x-ray shows bibasilar airspace opacities similar to prior study. vital signs Vital Sign Date Time Temp Pulse Resp B/P (MAP) Pulse Ox O2 Delivery O2 Flow Rate FiO2 02/19/25 10:00 21 97 Mechanical Ventilator+ 30 30 02/19/25 10:00 79 02/19/25 09:40 90/53 (65) 02/19/25 06:00 98.9 98.9 02/17/25 08:00 0 Total Intake and Output 02/18/25 02/18/25 02/19/25 15:00 23:00 07:00 Intake Total 260.469 ml 587.383 ml 485.753 ml Output Total 500 ml 550 ml Balance 260.469 ml 87.383 ml -64.247 ml medications Current Medications Medications Dose Ordered Sig/Randolph Route Start Time Stop Time Status Last Admin Dose Admin Dextrose 50 ml UD PRN IV 02/11/25 00:15 Cancel Ondansetron HCl 4 mg Q4HPRN PRN IV 02/11/25 07:00 Albuterol 2.5 mg Q6HPRN PRN NEB 02/11/25 07:00 02/15/25 12:28 2.5 MG Nitroglycerin 0.4 mg Q5MINP PRN SL 02/11/25 07:00 Morphine Sulfate 2 mg Q30M PRN IV 02/11/25 07:00 Enoxaparin Sodium 40 mg DAILY SC 02/11/25 10:00 02/19/25 10:10 40 MG Ergocalciferol 50,000 unit Q7D PO 02/11/25 14:15 02/11/25 15:36 50,000 UNIT Midazolam HCl 50 ml @ 1 mls/hr Q24H IV 02/13/25 00:30 02/15/25 07:56 7 MLS/HR Fentanyl Citrate 250 ml @ 2.5 mls/hr Q24H IV 02/13/25 00:30 02/14/25 23:30 15 MLS/HR Thiamine HCl 100 mg DAILY IV 02/14/25 10:00 02/19/25 10:13 100 MG Metoprolol Tartrate 5 mg Q4HPRN PRN IV 02/14/25 09:15 Hold Amino Acids/ Electrolytes/ Dextrose 1,000 ml @ 41 mls/hr DAILY@2200 IV 02/14/25 22:00 Cancel Pantoprazole Sodium 40 mg DAILY IV 02/15/25 10:00 02/19/25 10:11 40 MG Enteral Nutritional Formula 1,000 ml 30ML/HR GT 02/14/25 14:45 02/19/25 06:48 1,000 ML Phenylephrine HCl 250 ml @ 30 mls/hr Q8H20M IV 02/14/25 19:30 02/14/25 19:51 30 MLS/HR Diagnostic Test (Pha) 1 strip Q6HR 02/15/25 06:00 02/19/25 05:31 1 STRIP Insulin Human Regular Q6HR SC 02/15/25 06:00 02/19/25 05:30 8 UNITS Dextrose 50 ml UD PRN IV 02/15/25 05:30 Norepinephrine Bitartrate 32 mg/ Sodium Chloride 250 ml @ 0.938 mls/ hr Q24H IV 02/15/25 11:45 02/18/25 14:08 3.75 MLS/HR Methylprednisolone Sodium Succinate 40 mg DAILY IV 02/16/25 10:00 02/19/25 10:12 40 MG Insulin Glargine 20 units BID SC 02/15/25 22:00 02/19/25 10:11 20 UNITS Metoclopramide HCl 5 mg Q8HR IV 02/16/25 20:00 02/19/25 05:31 5 MG Piperacillin Sod/ Tazobactam Sod 100 ml @ 25 mls/hr Q8H IV 02/18/25 18:00 02/19/25 10:12 25 MLS/HR Vancomycin HCl 0 ml @ 0 mls/hr UD IV 02/19/25 09:00 Vancomycin HCl 250 ml @ 250 mls/hr DAILY@1400 IV 02/19/25 14:00 objective GENERAL: Ill appearing, intubated on ventilator. EYES: PERRL, EOMI. Anicteric. HENT: Moist mucous membranes. LUNGS: Decreased breath sounds. CARDIOVASCULAR: Regular rate and rhythm. ABDOMEN: Soft, non-tender and non-distended. EXTREMITIES: No edema. SKIN: Warm, dry. laboratory and microbiology Laboratory Tests 02/19/25 02:42 Test 02/19/25 02:42 Range/Units Serum Glucose 198 H 74-106 mg/dL Problem List Chest pain. Metabolic alkalosis. Hypokalemia. Hypophosphatemia. Hyponatremia. Type 2 diabetes mellitus. Acute complicated cystitis. Hyperparathyroidism. Hyperbilirubinemia with transaminitis. Left adrenal nodule. Assessment/Plan Continued all current supportive medical care. DVT and GI prophylactics. IV antibiotics as ordered. Morphine for pain management. Vasopressors for hemodynamic support. Additional plan as per the hospital course. Critical care time of 45 minutes provided to include time spent evaluation of patient at bedside, when appropriate patient/family education for diagnosis, treatment plan, review of pertinent medical information and discussion of care with specialty providers and PCP. Mechanical ventilator parameters, treatment and adjustments have personally been reviewed by me and treatment plan by community theater actor has also been reviewed. Dietary Evaluation Review Comments: 1) Initiate MVI @ 1 tb qd 2) Initiate vitamin C @ 500 mg bid and zinc sulfate @ 220 mg qd for 7 days 3) Increase TPN to meet at least 75% of estimated daily needs 4) Advance to 45g CCHO diet when medically feasible, pending ST approval 5) Refer to outpatient RD/[facility] for weight management 6) Follow-up with pulmonology 7) Continue to monitor I&O, labs, and skin integrity Expected Outcomes/Goals: 1) TPN regimen to meet at least 75% estimated daily needs 2) labs and wound to improve 3) diet to advance 4) gradual wt loss 5) f/u in 2-3 days Plan discussed with: MIKAELA Dickinson MD Feb 19, 2025 11:53
[2025-02-20] VITALS (107 sets, daily range): BP systolic 98–148; BP diastolic 56–88; PULSE 61–99; RESP 14–26; TEMP 98.1–98.5; O2SAT 98–100
[2025-02-20 03:46] LABS: Hematocrit 26.7 % (36.0-46.0)
[2025-02-20 03:51] LABS: Hemoglobin 8.4 g/dL (12.2-16.2); Mean Corpuscular Hemoglobin 30.0 pg (28.0-32.0); Mean Corpuscular Volume 95.9 fL (80.0-100.0)
[2025-02-20 04:07] LABS: Anion Gap 9 (5-15); Chloride 101 mmol/L (98-107); Potassium 4.0 mmol/L (3.5-5.1)
[2025-02-20 04:09] LABS: Albumin 2.4 g/dL (3.2-4.8); Alkaline Phosphatase 458 U/L (46-116); Calcium 7.8 mg/dL (8.7-10.4); Carbon Dioxide 36 mmol/L (20-31); Glucose 158 mg/dL (74-106); Sodium 146 mmol/L (136-145)
[2025-02-20 04:10] LABS: Bilirubin, Total 23.0 mg/dL (0.2-1.0)
[2025-02-20 04:31] LABS: Alanine Aminotransferase 278 U/L (7-40); BUN/Creatinine Ratio 45.9 (10.0-20.0); Blood Urea Nitrogen 39 mg/dL (9-23); Total Protein 5.1 g/dL (5.7-8.2)
[2025-02-20 06:26] LABS: Anisocytosis Marked; Nucleated Red Blood Cells % 114.0 %; Polychromasia Slight; Total Cells Counted 100.0 (100)
[2025-02-20 07:35] LABS: Base Excess 9.4 mmol/L (-2.0-3.0)
--- NOTE | 2025-02-20 10:22 | DVHPN2 ---
Progress Note - Dictate Date Seen: Feb 20, 2025 Has the PT tested + for MRSA If YES, has PT been informed?: No Medical Necessity Reason Pt with a Central, PICC or Fol: No vital signs Vital Sign Date Time Temp Pulse Resp B/P (MAP) Pulse Ox O2 Delivery O2 Flow Rate FiO2 02/20/25 09:12 71 18 115/65 99 30 02/20/25 06:00 Mechanical Ventilator+ 02/20/25 04:00 98.2 98.2 Total Intake and Output 02/19/25 02/19/25 02/20/25 15:00 23:00 07:00 Intake Total 112.192 ml 611.315 ml 520.125 ml Output Total 525 ml 600 ml Balance 112.192 ml 86.315 ml -79.875 ml medications Current Medications Medications Dose Ordered Sig/Randolph Route Start Time Stop Time Status Last Admin Dose Admin Dextrose 50 ml UD PRN IV 02/11/25 00:15 Cancel Ondansetron HCl 4 mg Q4HPRN PRN IV 02/11/25 07:00 Albuterol 2.5 mg Q6HPRN PRN NEB 02/11/25 07:00 02/15/25 12:28 2.5 MG Nitroglycerin 0.4 mg Q5MINP PRN SL 02/11/25 07:00 Enoxaparin Sodium 40 mg DAILY SC 02/11/25 10:00 02/19/25 10:10 40 MG Ergocalciferol 50,000 unit Q7D PO 02/11/25 14:15 02/11/25 15:36 50,000 UNIT Midazolam HCl 50 ml @ 1 mls/hr Q24H IV 02/13/25 00:30 02/15/25 07:56 7 MLS/HR Fentanyl Citrate 250 ml @ 2.5 mls/hr Q24H IV 02/13/25 00:30 02/14/25 23:30 15 MLS/HR Thiamine HCl 100 mg DAILY IV 02/14/25 10:00 02/19/25 10:13 100 MG Metoprolol Tartrate 5 mg Q4HPRN PRN IV 02/14/25 09:15 Hold Amino Acids/ Electrolytes/ Dextrose 1,000 ml @ 41 mls/hr DAILY@2200 IV 02/14/25 22:00 Cancel Pantoprazole Sodium 40 mg DAILY IV 02/15/25 10:00 02/19/25 10:11 40 MG Enteral Nutritional Formula 1,000 ml 30ML/HR GT 02/14/25 14:45 02/19/25 06:48 1,000 ML Phenylephrine HCl 250 ml @ 30 mls/hr Q8H20M IV 02/14/25 19:30 02/14/25 19:51 30 MLS/HR Diagnostic Test (Pha) 1 strip Q6HR 02/15/25 06:00 02/20/25 05:09 1 STRIP Insulin Human Regular Q6HR SC 02/15/25 06:00 02/20/25 05:14 4 UNITS Dextrose 50 ml UD PRN IV 02/15/25 05:30 Norepinephrine Bitartrate 32 mg/ Sodium Chloride 250 ml @ 0.938 mls/ hr Q24H IV 02/15/25 11:45 02/18/25 14:08 3.75 MLS/HR Methylprednisolone Sodium Succinate 40 mg DAILY IV 02/16/25 10:00 02/19/25 10:12 40 MG Insulin Glargine 20 units BID SC 02/15/25 22:00 02/20/25 09:45 20 UNITS Metoclopramide HCl 5 mg Q8HR IV 02/16/25 20:00 02/20/25 05:15 5 MG Piperacillin Sod/ Tazobactam Sod 100 ml @ 25 mls/hr Q8H IV 02/18/25 18:00 02/20/25 01:16 25 MLS/HR Vancomycin HCl 0 ml @ 0 mls/hr UD IV 02/19/25 09:00 Vancomycin HCl 250 ml @ 250 mls/hr DAILY@1400 IV 02/19/25 14:00 02/19/25 16:04 250 MLS/HR laboratory and microbiology Laboratory Tests 02/20/25 03:00 Test 02/20/25 03:00 Range/Units Serum Glucose 158 H 74-106 mg/dL Assessment/Plan Acute hypercapnic respiratory failure Acute respiratory failure Hyponatremia COPD Shock requiring Levophed drip Patient is seen and examined in the ICU events on mechanical ventilation s/p intubation ac volume control peep 5 Fi02=40% off sedation, not waking up secretions minimal Song>20 WBC elevated markedly LFT's elevated ?shock liver recent US of liver; no acute disease encephalopathy labs and imaging reviewed Management plan vent support Sedation fentanyl propofol as needed for ventilator synchrony weaning when more stable okay to use precedex drip bronch deferred Steroid/antibiotic for COPD Nebs nutrition monitor ammonia levels DVT prophylaxis Patient is full code prognosis very poor Critical care time 35 minutes Dietary Evaluation Review Comments: 1) Initiate MVI @ 1 tb qd 2) Initiate vitamin C @ 500 mg bid and zinc sulfate @ 220 mg qd for 7 days 3) Increase TPN to meet at least 75% of estimated daily needs 4) Advance to 45g CCHO diet when medically feasible, pending ST approval 5) Refer to outpatient RD/[facility] for weight management 6) Follow-up with pulmonology 7) Continue to monitor I&O, labs, and skin integrity Expected Outcomes/Goals: 1) TPN regimen to meet at least 75% estimated daily needs 2) labs and wound to improve 3) diet to advance 4) gradual wt loss 5) f/u in 2-3 days Plan discussed with: Other (rn) ECTOR BROCK MD Feb 20, 2025 10:22
--- NOTE | 2025-02-20 11:51 | DVHINCON2 ---
Date of service: Feb 20, [address] Dong Reason for Consultation Off sedation, no awakening History of Present Illness The history was obtained from her daughter, chart review, and her nurse Ms. Villalobos is a 64 years old right-handed female with a history of hypertension, diabetes, dyslipidemia, coronary artery disease, heart attack, asthma, COPD, obesity, she was brought to the [facility] on 02/10/2025 with a chief company of general weakness, shortness breath, bradycardia, at time, she is intubated, has been off sedation for five days, she is responsive to light touch, but not verbal stimuli On admission, the patient is found to have general weakness, altered mental status secondary to metabolic encephalopathy, mixed anion gap acidosis with metabolic alkalosis, urinary tract infection, hyponatremia, hypokalemia, prolonged QT. On 02/13/2025, the patient had hypotension, bradycardia, the patient's resuscitated intubated and transferred to ICU Appropriate treatment, the patient has been stabilized, and she has been off sedation since 02/15/2025 however she is not waking up as anticipated [phone] Blood culture, 02/11/2025: No growth Blood culture, 02/19/2025: Urine culture, 02/12/2025: No growth ALTAGRACIA, 02/14/2025: Negative HIV 1&2 antibody, 02/19/2025: Negative ABG, 02/10/2025: Metabolic alkalosis, 02/14/2025: Respiratory acidosis, 02/15/2025: Respiratory acidosis Urinalysis, 02/10/2025: WBC: 500, urine leukocyte esterase: 3+, WBC/HB/PLT/MCV, 02/20/2025: 36.8/8.4/113/95.9 PT/INR/a PTT, 02/12/2025: 24.9/2.58/31.2, 02/16/2025: 19.7/1.99/ Na, 02/10/2025: 126, 128, 02/11/2025: 129, 02/12/2025: 130, 02/16/25: 134 TBI/AST/ALT/AP, 02/12/2025: 13.3/424/117/131, 02/20/2025: /278/458 Hepatitis panel, 02/13/2025: Negative Chest x-ray, 02/19/2025: 1. Support tubes in appropriate position. 2. Bibasilar airspace opacities similar to prior study. MRI head, 02/19/2025: No acute cerebrovascular ischemia. Bilateral mastoid effusions Past Medical History Hypertension, diabetes, dyslipidemia, coronary artery disease, heart attack, COPD on home oxygen, asthma Past Surgical History Tubal ligation, hysterectomy Family History: Patient reports no known family medical history. Family History Mother had cancer Social History She was a tobacco smoke, she smokes marijuana. She drinks alcohol heavily daily, she was a street drug abuser Allergies: Coded Allergies: Penicillins (Verified Allergy, Unknown, 03/18/21) Home Meds Active Scripts Levofloxacin Hemihydrate (LEVAQUIN 500 MG) 500 Mg Tab, 1 TAB PO DAILY, #10 TAB Prov:BENNIE YE MD 02/12/25 Prednisone (Prednisone) 20 Mg Tab, 20 MG PO DAILY for 10 Days, #15 MG Take 2 tabs daily for 5 days, than 1 tab daily for 5 days Prov:TRICIA CLARKE MD 10/31/24 Budesonide-Formoterol Fumarate (Budesonide/Formoterol Fum 160-4.5 Mcg/Act) 1 Aer Aer, 1 AER IN BID for 30 Days, #1 AER 2 Refills Prov:TRICIA CLARKE MD 10/31/24 Ipratropium-Albuterol (Ipratropium [place]/Albut) 1 Calista Calista, 1 VIAL IN QID for 7 Days, #30 VIAL 1 Refill Prov:ARCHANA DONG DO 08/08/24 Benzonatate (Benzonatate) 100 Mg Cap, 1 CAP PO TID PRN for 30 Days, #30 CAP 0 Refills For cough as needed. Prov:ARCHANA DONG DO 01/15/24 Metformin Hydrochloride (Metformin Hcl) 1,000 Mg Tab, 1 TAB PO BID, #60 TAB 1 Refill Prov:ARCHANA DONG DO 01/15/24 Reported Medications Albuterol Sulfate (Albuterol Sulfate Hfa) 108 Mcg/Act Aer, 1 PUFF PO PRN 10/20/22 Pravastatin Sodium (PRAVACHOL TABLET) 20 Mg Tb, 40 MG PO HS 10/20/22 Budesonide-Formoterol Fumarate (Budesonide/Formoterol Fum 160-4.5 Mcg/Act) 1 Aer Aer, 1 AER IN 03/19/21 Carvedilol (Coreg) 3.125 Mg Tab, 1 TAB PO BID 03/19/21 Current Medications Current Medications Medications (Trade) Dose Ordered Sig/Randolph Route PRN Reason Start Time Stop Time Status Last Admin Vancomycin HCl 250 ml @ 250 mls/hr DAILY@1400 IV 02/19/25 14:00 02/20/25 10:37 DC 02/19/25 16:04 Linezolid 300 ml @ 150 mls/hr Q12HR IV 02/20/25 22:00 Meropenem 50 ml @ 17 mls/hr Q8HR IV 02/20/25 14:00 Review of Systems As above, the other systems are negative Vital Signs Vital Signs Date Time Temp Pulse Resp B/P (MAP) Pulse Ox O2 Delivery O2 Flow Rate FiO2 02/20/25 10:16 74 18 119/69 (86) 100 30 02/20/25 06:00 Mechanical Ventilator+ 02/20/25 04:00 98.2 98.2 Physical Exam The patient is well-nourished and well-developed with no distress. The patient is intubated HEENT: Normocephalic, neck supple, no carotid bruits Lungs: Clear to auscultation Cardiovascular: Regular rate and region, S1, S2, no murmurs Abdomen: Soft, nontender, normal bowel sounds MENTAL STATUS: See above CRANIAL NERVES: Pupils are equal, round and reactive.There are corneal reflexes and doll's eyes phenomenon. No signs of facial weakness. There are gagging or coughing reflexes SENSATION: No responses to pain stimuli. MOTOR: Normal tone in the upper and lower extremity. Normal muscle bulk. No fasciculations. No spontaneous movement. REFLEXES: Deep tendon reflexes are symmetrical. No pathological reflexes. CEREBELLAR/COORDINATION: Deferred GAIT/STATION: deferred. Labs/Diagnostic Data Labs Test 02/20/25 07:29 02/20/25 05:08 02/20/25 03:00 02/19/25 19:08 Range/Units Blood Gas Specimen Type Arterial Blood Gas Sample Site Left radial Blood Gas Patient Temperature 37.0 Arterial Blood Date Drawn [id number] Arterial Blood pH 7.460 H 7.350-7.450 Arterial Blood Partial Pressure CO2 49.4 H 32.0-45.0 mmHg Arterial Blood Partial Pressure O2 79.4 L 83.0-108.0 mmHg Arterial Blood HCO3 34.3 H 21.0-28.0 mmol/L Arterial Blood Oxygen Saturation 95.0 94.0-98.0 % Arterial Blood Base Excess 9.4 H -2.0-3.0 mmol/L Arterial Blood Oxyhemoglobin 93.1 L 94.0-98.0 % Arterial Blood Carboxyhemoglobin 1.7 H 0.5-1.5 % Arterial Blood Methemoglobin 0.3 0.0-1.5 % Marcos Test Modified Blood Gas Total Hemoglobin 9.60 L 12.0-16.0 g/dL Blood Gas Set Respiration Rate 14.0 Blood Gas Modality Vent - ac Blood Gas Spontaneous Rate 21 FiO2 % 30.0 Blood Gas Tidal Volume 450.0 Blood Gas PEEP or CPAP 5.0 POC Glucose 172 H 70-106 mg/dl White Blood Count 36.8 *H 4.4-10.8 10^3/uL Red Blood Count 2.79 L 4.0-5.20 10^6/uL Hemoglobin 8.4 L 12.2-16.2 g/dL Hematocrit 26.7 L 36.0-46.0 % Mean Corpuscular Volume 95.9 80.0-100.0 fL Mean Corpuscular Hemoglobin 30.0 28.0-32.0 pg Mean Corpuscular Hemoglobin Concent 31.3 L 32.0-36.0 g/dL Red Cell Distribution Width 30.1 H 11.8-14.3 % Platelet Count 113 L 140-450 10^3/uL Mean Platelet Volume 8.2 6.9-10.8 fL Neutrophils (%) (Auto) 37.0-80.0 % Lymphocytes (%) (Auto) 10.0-50.0 % Monocytes (%) (Auto) 0.0-12.0 % Basophils (%) (Auto) 0.0-2.0 % Neutrophils # (Auto) 1.6-8.6 10 ^3/uL Lymphocytes # (Auto) 0.4-5.4 10 ^3/uL Monocytes # (Auto) 0-1.3 10 ^3/uL Differential Total Cells Counted 100.0 100 Neutrophils % (Manual) 65 37.0-80.0 Band Neutrophils % (Manual) 14 Lymphocytes % (Manual) 6 L 10.0-50.0 Monocytes % (Manual) 5 0-12 Eosinophils % (Manual) 0 0-7 Basophils % (Manual) 0 0.0-2.0 Metamyelocytes % (manual) 4 Myelocytes % (Manual) 4 Promyelocytes % (Manual) 2 Blast Cells % (Manual) 0 Nucleated Red Blood Cells 114.0 % Reactive Lymphocytes 0 Platelet Estimate Decreased Polychromasia Slight Anisocytosis (manual) Marked Target Cells Moderate Sodium Level 146 H 136-145 mmol/L Potassium Level 4.0 3.5-5.1 mmol/L Chloride Level 101 98-107 mmol/L Carbon Dioxide Level 36 H 20-31 mmol/L Anion Gap 9 5-15 Blood Urea Nitrogen 39 H 9-23 mg/dL Creatinine 0.85 0.550-1.02 mg/dL Glomerular Filtration Rate Calc 76 >90 mL/min BUN/Creatinine Ratio 45.9 H 10.0-20.0 Serum Glucose 158 H 74-106 mg/dL Calcium Level 7.8 L 8.7-10.4 mg/dL Total Bilirubin 23.0 H 0.2-1.0 mg/dL Aspartate Amino Transferase (AST) 1006 H 13-40 U/L Alanine Aminotransferase (ALT) 278 H 7-40 U/L Alkaline Phosphatase 458 H 46-116 U/L Total Protein 5.1 L 5.7-8.2 g/dL Albumin 2.4 L 3.2-4.8 g/dL Lipase 138 H 12-53 U/L HIV (1&2) Antibody Negative Negative Test 02/19/25 02:42 02/18/25 12:41 02/17/25 22:35 02/17/25 10:00 Range/Units Phosphorus Level 2.3 L 2.4-5.1 mg/dL Magnesium Level 2.2 1.6-2.6 mg/dL Random Vancomycin Level 13.3 H 5-10 ug/mL Vancomycin Level Trough 19.7 H 5-10 ug/mL Lactic Acid Level 1.8 0.4-2.0 mmol/L Ammonia 35 H 11-32 umol/L Test 02/16/25 05:30 02/15/25 13:18 02/15/25 02:45 02/14/25 09:00 Range/Units Prothrombin Time 19.7 H 9.3-11.8 sec Prothrombin Time INR 1.99 H 0.9-1.15 Triglycerides Level 267 H < 150 mg/dL Red Blood Cell Morphology Dimorphic Macrocytosis Moderate Cortisol AM Sample 25.02 H 5.27-22.45 ug/dL Test 02/14/25 07:46 02/14/25 02:27 02/13/25 04:45 02/12/25 23:00 Range/Units Blood Gas Critical Value Read Back Yes Blood Gas Notified Whom marsha Espinoza Blood Gas Notified Time [id number] Blood Gas Notified By Grain Sacker baljinder macias Stomatocyttomas Few Anti-Nuclear Antibody Screen Negative Negative Hepatitis A Antibody Total Negative Negative Hepatitis B Surface Antigen Negative Negative Hepatitis B Surface Antibody Negative Negative Hepatitis B Core Total Antibody Negative Negative Hepatitis C Antibody Negative Negative Urine Color Dark-yellow Yellow Urine Clarity Turbid H Clear Urine pH 6.5 5.0-9.0 Urine Specific [place] 1.011 1.001-1.035 Urine Protein Trace H Negative Urine Ketones 1+ H Negative Urine Blood 1+ H Negative /uL Urine Nitrite Negative Negative Urine Bilirubin 2+ H Negative Urine Urobilinogen 2 H Negative mg/dL Urine Leukocyte Esterase 3+ Negative /uL Urine RBC 2 0 - 4 /hpf Urine WBC Clumps Present None Seen /hpf Urine Microscopic WBC 41 H 0-5 /HPF Urine Squamous Epithelial Cells Few <5 /hpf Urine Bacteria None seen None Seen /hpf Urine Hyaline Casts Few 0 - 2 /lpf Urine Osmolality 294 mOsm/kg Urine Creatinine 44.83 30.0-125.0 mg/dL Urine Protein/Creatinine Ratio 1.29 Urine Sodium 53 40-220 mmol/L Urine Glucose Normal Normal mg/dL Urine Total Protein 57.8 H 1-14 mg/dL Test 02/12/25 21:59 02/12/25 21:43 02/12/25 15:50 02/12/25 13:27 Range/Units Troponin I High Sensitivity 136 *H </=34 ng/L Blood Gas Liter Flow 4.00 Renin Activity 13 H . ng/mL/hr Aldosterone 2.4 . ng/dL Activated Partial Thromboplast Time 31.2 24.5-34.5 SEC Test 02/12/25 06:21 02/11/25 11:20 02/11/25 08:05 02/11/25 04:30 Range/Units Large Platelets Few B-Type Natriuretic Peptide 111.57 0-100 pg/mL Vitamin D 25-Hydroxy 23.5 L 30.0-100 ng/mL Parathyroid Hormone (Intact) 218.7 H 18.4-80.1 pg/mL Beta-Hydroxybutyric Acid 0.562 H < 0.4 mmol/L Test 02/11/25 01:43 02/10/25 21:42 02/10/25 19:12 02/10/25 14:24 Range/Units Hemoglobin A1c 6.7 H <5.7 % A1C Urine Amorphous Sediment Many /hpf Specimen Drawn By Rigoberto rios rt Eosinophils (%) (Auto) 0.1 0.0-7.0 % Eosinophils # (Auto) 0 0-0.8 10 ^3/uL Basophils # (Auto) 0 0-0.2 10 ^3/uL Thyroid Stimulating Hormone (TSH) 1.22 0.55-4.78 uIU/mL Microbiology Date/Time Source Procedure Growth Status 02/19/25 10:47 Blood Blood Culture - Preliminary NO GROWTH AFTER 24 HOURS OF INCUBATION. Resulted 02/13/25 00:18 Sputum Endotracheal Wash Gram Stain - Final Complete 02/13/25 00:18 Sputum Endotracheal Wash Respiratory Culture - Final Complete 02/12/25 23:26 Nose MRSA Screen - Final Complete 02/12/25 23:00 Urine - [place] Urine Culture - Final Complete Assessment Coma Metabolic/hepatic encephalopathy Hypoxic encephalopathy Toxic encephalopathy Acute respiratory failure Hyponatremia Hypokalemia Acute on chronic respiratory failure Alcoholism Liver failure Coagulopathy secondary to liver failure Urinary tract infection Plan/Recommendation Monitoring Supportive treatment ICU care Follow-up lab Ammonia level EEG Stabilize vitals/pressor drip p.r.n. Respiratory support/vent management Oxygen IV antibiotics DVT prophylaxis GI prophylaxis More recommendation per clinical course Progress: Guarded Critical care time spent is 45 minutes This medical document was created using an electronic medical record system with popchips dictation system. Although this document has been carefully reviewed, there may still be some phonetic and typographical errors. These areas are purely typographical due to imperfections of the software programs, and do not reflect any compromise in the patient's medical care. Plan discussed with: Daughter, Other STEPHEN CRAWFORD MD Feb 20, 2025 11:51
[2025-02-20] MEDS: MEROPENEM 1GM IVPB 50 ML IV SCH (15:00)
--- NOTE | 2025-02-20 15:05 | DVHPN2 ---
Progress Note - Dictate Date Seen: Feb 20, 2025 Has the PT tested + for MRSA If YES, has PT been informed?: No Medical Necessity Reason Pt with a Central, PICC or Fol: No Subjective Patient remains intubated. Error in previous note, not on sedation. vital signs Vital Sign Date Time Temp Pulse Resp B/P (MAP) Pulse Ox O2 Delivery O2 Flow Rate FiO2 02/20/25 14:03 98 24 148/88 (108) 99 30 02/20/25 12:00 98.5 98.5 02/20/25 06:00 Mechanical Ventilator+ Total Intake and Output 02/19/25 02/19/25 02/20/25 15:00 23:00 07:00 Intake Total 112.192 ml 611.315 ml 522.000 ml Output Total 525 ml 600 ml Balance 112.192 ml 86.315 ml -78.000 ml medications Current Medications Medications Dose Ordered Sig/Randolph Route Start Time Stop Time Status Last Admin Dose Admin Dextrose 50 ml UD PRN IV 02/11/25 00:15 Cancel Ondansetron HCl 4 mg Q4HPRN PRN IV 02/11/25 07:00 Albuterol 2.5 mg Q6HPRN PRN NEB 02/11/25 07:00 02/15/25 12:28 2.5 MG Nitroglycerin 0.4 mg Q5MINP PRN SL 02/11/25 07:00 Enoxaparin Sodium 40 mg DAILY SC 02/11/25 10:00 02/20/25 10:57 40 MG Ergocalciferol 50,000 unit Q7D PO 02/11/25 14:15 02/11/25 15:36 50,000 UNIT Midazolam HCl 50 ml @ 1 mls/hr Q24H IV 02/13/25 00:30 02/15/25 07:56 7 MLS/HR Fentanyl Citrate 250 ml @ 2.5 mls/hr Q24H IV 02/13/25 00:30 02/14/25 23:30 15 MLS/HR Thiamine HCl 100 mg DAILY IV 02/14/25 10:00 02/20/25 11:05 100 MG Metoprolol Tartrate 5 mg Q4HPRN PRN IV 02/14/25 09:15 Hold Amino Acids/ Electrolytes/ Dextrose 1,000 ml @ 41 mls/hr DAILY@2200 IV 02/14/25 22:00 Cancel Pantoprazole Sodium 40 mg DAILY IV 02/15/25 10:00 02/20/25 10:58 40 MG Enteral Nutritional Formula 1,000 ml 30ML/HR GT 02/14/25 14:45 02/19/25 06:48 1,000 ML Phenylephrine HCl 250 ml @ 30 mls/hr Q8H20M IV 02/14/25 19:30 02/14/25 19:51 30 MLS/HR Diagnostic Test (Pha) 1 strip Q6HR 02/15/25 06:00 02/20/25 12:00 1 STRIP Insulin Human Regular Q6HR SC 02/15/25 06:00 02/20/25 12:59 2 UNITS Dextrose 50 ml UD PRN IV 02/15/25 05:30 Norepinephrine Bitartrate 32 mg/ Sodium Chloride 250 ml @ 0.938 mls/ hr Q24H IV 02/15/25 11:45 02/18/25 14:08 3.75 MLS/HR Methylprednisolone Sodium Succinate 40 mg DAILY IV 02/16/25 10:00 02/20/25 10:59 40 MG Insulin Glargine 20 units BID SC 02/15/25 22:00 02/20/25 09:45 20 UNITS Metoclopramide HCl 5 mg Q8HR IV 02/16/25 20:00 02/20/25 05:15 5 MG Linezolid 300 ml @ 150 mls/hr Q12HR IV 02/20/25 22:00 Meropenem 50 ml @ 17 mls/hr Q8HR IV 02/20/25 14:00 objective General: Intubated Respiratory: CTA Neuro: pupils equal and reactive. Does not awaken or respond to commands. laboratory and microbiology Laboratory Tests 02/20/25 03:00 Test 02/20/25 03:00 Range/Units Serum Glucose 158 H 74-106 mg/dL Assessment/Plan 1) Acute respiratory failure, intubated 2) UTI 3) Hyponatremia 4) Hyperbilirubinemia 2/2 alcoholism 5) Metabolic alkalosis 6) COPD 7) Hx of CVA 8) DM 9) HTN 10) HLD plan; 02/13---patient noted to be unresponsive and lethargic overnight and thus was intubated and transferred to ICU, now on mechanical ventilatory support with fio2 30%, on levophed 10 mcg this AM, continue IV Abx, BCx negative, UCx shows mixed violet, will consult pulm/cardio, GI on board due to elevated LFTs and hyperbilirubinemia likely in the setting of alcoholic hepatitis, daily labs, supportive care, oracle soa consultant input appreciated, will follow along 02/14---remains intubated on ventilator fio2 30%, this AM on 18 mcg of levophed, WBC 15k, repeat BCx negative, Na uptrending to 132 with IVF hydration with nephrology following, echo shows EF 38% with cardio on the case, bilirubin 14 this AM and likely attributed to alcoholism with GI on board, continue all care, oracle soa consultant input appreciated, daily labs, will follow along 02/15---remains intubated on ventilator fio2 30%, started on amio gtt for SVT now HR better controlled, WBC trending up to 16k, on vanco/levaquin/flagyl with repeat BCx and UCx negative, continue NS at 100 ml/hr, still on levophed 24 mcg this AM, oracle soa consultant input appreciated, guarded/critical, daily labs, supportive care, will follow along 02/16---remains intubated on ventilator fio2 40%, levophed requirements coming down to 12 mcg this AM, remains in amio gtt for SVT, renal fuction preserved with Na and Cl trending upward, WBC trending up to 18k with repeat BCx/UCx negative on IV ABx and likely steroid induced, tapered steroids to 40 mg IV daily, blood glucose has been elevated and she has uncontrolled DM thus added lantus 20 bid along with aggressive sliding scale, oracle soa consultant input appreciated, continue all care, daily labs, will follow along 02/17---remains intubated on ventilator fio2 30%, levophed requirements are coming down and this AM on 8 mcg, remains on amio gtt as per cardiology, Na and Cl normalized, renal function preserved, WBC spike to 28k, on IV Abx, ID consult pending, cultures are negative thus far, pulm/cardio/gi already on board, i spoke to daughter too yesterday and updated her on POC, continue all care, AM labs, will follow along 02/18---remains intubated on ventilator fio2 30%, levophed at 6 mcg this AM, WBC trending up to 41k however repeat BCx/UCx are negative, she is on broad spectrum IV ABx with ID following, amio gtt still running for SVT now in NSR, renal function is preserved, steroids tapered down to 40 mg IV daily, all oracle soa consultant input appreciated, will follow along 02/19--remains intubated, pressor support improving down to 2mcg this AM. WBC remains elevated. Cultures returned growing gram-positive cocci in clusters. Vancomycin pharmacy to dose started. Repeat blood cultures taken. LFTs remain elevated. GI following. Plan for MRCP for possible Cholangitis per ID. Will also obtain MRI brain WO contrast. Patient remains off sedation but minimal arousability. 02/20- Remains intubated. Pressure support stable around 2 mcg. Repeat blood cultures continue to grow gram-positive cocci. Discussed with infectious disease, will change to products to Zyvox and Merrem. LFTs remain elevated. Autoimmune hemolytic anemia ruled out with negative direct Scooter. LDH elevated. Haptoglobin pending. Peripheral smear pending. MRCP cannot be obtained as patient is on ventilator and cannot hold breath per radiology. Patient is a poor candidate for liver transplant given ongoing sepsis and history of alcoholism. Neurology consulted for persistent altered mental status. MRI brain negative. Will arrange for family meeting for continued goals of care discussion. Prognosis remains poor. Dietary Evaluation Review Comments: 1) Initiate MVI @ 1 tb qd 2) Initiate vitamin C @ 500 mg bid and zinc sulfate @ 220 mg qd for 7 days 3) Increase TPN to meet at least 75% of estimated daily needs 4) Advance to 45g CCHO diet when medically feasible, pending ST approval 5) Refer to outpatient RD/[facility] for weight management 6) Follow-up with pulmonology 7) Continue to monitor I&O, labs, and skin integrity Expected Outcomes/Goals: 1) TPN regimen to meet at least 75% estimated daily needs 2) labs and wound to improve 3) diet to advance 4) gradual wt loss 5) f/u in 2-3 days Plan discussed with: ARCHANA Arango DO Feb 20, 2025 15:05
--- NOTE | 2025-02-20 18:50 | DVHPN2 ---
Progress Note - Dictate Date Seen: Feb 20, 2025 Has the PT tested + for MRSA If YES, has PT been informed?: No Medical Necessity Reason Pt with a Central, PICC or Fol: No Subjective Patient was seen and evaluated in follow up in the ICU. Patient is intubated on ventilator. 30% FiO2. WBC 36.8, HGB 8.4, HCT 26.7, NA 146, CO2 36, BUN 39, CA 7.8, AST 1006, ALT 278. Chest x-ray shows bibasilar airspace opacities similar to prior study. MRI brain shows no acute cerebrovascular ischemia, bilateral mastoid effusions. vital signs Vital Sign Date Time Temp Pulse Resp B/P (MAP) Pulse Ox O2 Delivery O2 Flow Rate FiO2 02/20/25 11:49 83 24 112/58 (76) 100 30 02/20/25 06:00 Mechanical Ventilator+ 02/20/25 04:00 98.2 98.2 Total Intake and Output 02/19/25 02/19/25 02/20/25 14:59 22:59 06:59 Intake Total 111.255 ml 611.315 ml 522.000 ml Output Total 525 ml 600 ml Balance 111.255 ml 86.315 ml -78.000 ml medications Current Medications Medications Dose Ordered Sig/Randolph Route Start Time Stop Time Status Last Admin Dose Admin Dextrose 50 ml UD PRN IV 02/11/25 00:15 Cancel Ondansetron HCl 4 mg Q4HPRN PRN IV 02/11/25 07:00 Albuterol 2.5 mg Q6HPRN PRN NEB 02/11/25 07:00 02/15/25 12:28 2.5 MG Nitroglycerin 0.4 mg Q5MINP PRN SL 02/11/25 07:00 Enoxaparin Sodium 40 mg DAILY SC 02/11/25 10:00 02/20/25 10:57 40 MG Ergocalciferol 50,000 unit Q7D PO 02/11/25 14:15 02/11/25 15:36 50,000 UNIT Midazolam HCl 50 ml @ 1 mls/hr Q24H IV 02/13/25 00:30 02/15/25 07:56 7 MLS/HR Fentanyl Citrate 250 ml @ 2.5 mls/hr Q24H IV 02/13/25 00:30 02/14/25 23:30 15 MLS/HR Thiamine HCl 100 mg DAILY IV 02/14/25 10:00 02/20/25 11:05 100 MG Metoprolol Tartrate 5 mg Q4HPRN PRN IV 02/14/25 09:15 Hold Amino Acids/ Electrolytes/ Dextrose 1,000 ml @ 41 mls/hr DAILY@2200 IV 02/14/25 22:00 Cancel Pantoprazole Sodium 40 mg DAILY IV 02/15/25 10:00 02/20/25 10:58 40 MG Enteral Nutritional Formula 1,000 ml 30ML/HR GT 02/14/25 14:45 02/19/25 06:48 1,000 ML Phenylephrine HCl 250 ml @ 30 mls/hr Q8H20M IV 02/14/25 19:30 02/14/25 19:51 30 MLS/HR Diagnostic Test (Pha) 1 strip Q6HR 02/15/25 06:00 02/20/25 05:09 1 STRIP Insulin Human Regular Q6HR SC 02/15/25 06:00 02/20/25 05:14 4 UNITS Dextrose 50 ml UD PRN IV 02/15/25 05:30 Norepinephrine Bitartrate 32 mg/ Sodium Chloride 250 ml @ 0.938 mls/ hr Q24H IV 02/15/25 11:45 02/18/25 14:08 3.75 MLS/HR Methylprednisolone Sodium Succinate 40 mg DAILY IV 02/16/25 10:00 02/20/25 10:59 40 MG Insulin Glargine 20 units BID SC 02/15/25 22:00 02/20/25 09:45 20 UNITS Metoclopramide HCl 5 mg Q8HR IV 02/16/25 20:00 02/20/25 05:15 5 MG Linezolid 300 ml @ 150 mls/hr Q12HR IV 02/20/25 22:00 Meropenem 50 ml @ 17 mls/hr Q8HR IV 02/20/25 14:00 objective GENERAL: Ill appearing, intubated on ventilator. EYES: PERRL, EOMI. Anicteric. HENT: Moist mucous membranes. LUNGS: Decreased breath sounds. CARDIOVASCULAR: Regular rate and rhythm. ABDOMEN: Soft, non-tender and non-distended. EXTREMITIES: No edema. SKIN: Warm, dry. laboratory and microbiology Laboratory Tests 02/20/25 03:00 Test 02/20/25 03:00 Range/Units Serum Glucose 158 H 74-106 mg/dL Problem List Chest pain. Metabolic alkalosis. Hypokalemia. Hypophosphatemia. Hyponatremia. Type 2 diabetes mellitus. Acute complicated cystitis. Hyperparathyroidism. Hyperbilirubinemia with transaminitis. Left adrenal nodule. Assessment/Plan Continued all current supportive medical care. DVT and GI prophylactics. IV antibiotics as ordered. Morphine for pain management. Additional plan as per the hospital course. Critical care time of 45 minutes provided to include time spent evaluation of patient at bedside, when appropriate patient/family education for diagnosis, treatment plan, review of pertinent medical information and discussion of care with specialty providers and PCP. Mechanical ventilator parameters, treatment and adjustments have personally been reviewed by me and treatment plan by wound nurse has also been reviewed. Dietary Evaluation Review Comments: 1) Initiate MVI @ 1 tb qd 2) Initiate vitamin C @ 500 mg bid and zinc sulfate @ 220 mg qd for 7 days 3) Increase TPN to meet at least 75% of estimated daily needs 4) Advance to 45g CCHO diet when medically feasible, pending ST approval 5) Refer to outpatient RD/[facility] for weight management 6) Follow-up with pulmonology 7) Continue to monitor I&O, labs, and skin integrity Expected Outcomes/Goals: 1) TPN regimen to meet at least 75% estimated daily needs 2) labs and wound to improve 3) diet to advance 4) gradual wt loss 5) f/u in 2-3 days Plan discussed with: MIKAELA Dickinson MD Feb 20, 2025 12:00
--- NOTE | 2025-02-20 20:40 | DVHPN2 ---
Progress Note - Dictate Date Seen: Feb 20, 2025 Has the PT tested + for MRSA If YES, has PT been informed?: No Medical Necessity Reason Pt with a Central, PICC or Fol: No Subjective Patient seen still intubated off sedation Mechanical ventilatory support with fio2 30%, PEEP 5 Worsening leukocytosis, renal function normalized and increase urine output Persistent elevation and worsening in liver enzymes likely due to alcoholic steatohepatitis, Liver enzymes are trending up possibly aggravated by amiodarone Right upper quadrant ultrasound did not show gallstones except for some small amount of sludge There was no evidence of biliary ductal dilatation vital signs Vital Sign Date Time Temp Pulse Resp B/P (MAP) Pulse Ox O2 Delivery O2 Flow Rate FiO2 02/20/25 20:23 77 21 113/65 (81) 100 30 02/20/25 18:00 Mechanical Ventilator+ 02/20/25 16:00 98.1 98.1 Total Intake and Output 02/19/25 02/19/25 02/20/25 15:00 23:00 07:00 Intake Total 112.192 ml 611.315 ml 522.000 ml Output Total 525 ml 600 ml Balance 112.192 ml 86.315 ml -78.000 ml medications Current Medications Medications Dose Ordered Sig/Randolph Route Start Time Stop Time Status Last Admin Dose Admin Dextrose 50 ml UD PRN IV 02/11/25 00:15 Cancel Ondansetron HCl 4 mg Q4HPRN PRN IV 02/11/25 07:00 Albuterol 2.5 mg Q6HPRN PRN NEB 02/11/25 07:00 02/15/25 12:28 2.5 MG Nitroglycerin 0.4 mg Q5MINP PRN SL 02/11/25 07:00 Enoxaparin Sodium 40 mg DAILY SC 02/11/25 10:00 02/20/25 10:57 40 MG Ergocalciferol 50,000 unit Q7D PO 02/11/25 14:15 02/11/25 15:36 50,000 UNIT Midazolam HCl 50 ml @ 1 mls/hr Q24H IV 02/13/25 00:30 02/15/25 07:56 7 MLS/HR Fentanyl Citrate 250 ml @ 2.5 mls/hr Q24H IV 02/13/25 00:30 02/14/25 23:30 15 MLS/HR Thiamine HCl 100 mg DAILY IV 02/14/25 10:00 02/20/25 11:05 100 MG Metoprolol Tartrate 5 mg Q4HPRN PRN IV 02/14/25 09:15 Hold Amino Acids/ Electrolytes/ Dextrose 1,000 ml @ 41 mls/hr DAILY@2200 IV 02/14/25 22:00 Cancel Pantoprazole Sodium 40 mg DAILY IV 02/15/25 10:00 02/20/25 10:58 40 MG Enteral Nutritional Formula 1,000 ml 30ML/HR GT 02/14/25 14:45 02/19/25 06:48 1,000 ML Phenylephrine HCl 250 ml @ 30 mls/hr Q8H20M IV 02/14/25 19:30 02/14/25 19:51 30 MLS/HR Diagnostic Test (Pha) 1 strip Q6HR 02/15/25 06:00 02/20/25 17:13 1 STRIP Insulin Human Regular Q6HR SC 02/15/25 06:00 02/20/25 17:22 2 UNITS Dextrose 50 ml UD PRN IV 02/15/25 05:30 Norepinephrine Bitartrate 32 mg/ Sodium Chloride 250 ml @ 0.938 mls/ hr Q24H IV 02/15/25 11:45 02/18/25 14:08 3.75 MLS/HR Methylprednisolone Sodium Succinate 40 mg DAILY IV 02/16/25 10:00 02/20/25 10:59 40 MG Insulin Glargine 20 units BID SC 02/15/25 22:00 02/20/25 09:45 20 UNITS Metoclopramide HCl 5 mg Q8HR IV 02/16/25 20:00 02/20/25 15:00 5 MG Linezolid 300 ml @ 150 mls/hr Q12HR IV 02/20/25 22:00 Meropenem 50 ml @ 17 mls/hr Q8HR IV 02/20/25 14:00 02/20/25 15:00 17 MLS/HR Ursodiol 300 mg BID NG 02/20/25 22:00 objective GENERAL: Ill appearing, intubated on ventilator. EYES: PERRL, EOMI. Anicteric. HENT: Moist mucous membranes. LUNGS: Decreased breath sounds. CARDIOVASCULAR: Regular rate and rhythm. ABDOMEN: Soft, non-tender and non-distended. EXTREMITIES: No edema. SKIN: Warm, dry. laboratory and microbiology Laboratory Tests 02/20/25 03:00 Test 02/20/25 03:00 Range/Units Serum Glucose 158 H 74-106 mg/dL Problems(with codes): (1) Pneumonitis (2) Shock (3) Cardiac arrest (4) UTI (urinary tract infection) (5) Alcoholic steatohepatitis (6) Elevated liver enzymes (7) Acute respiratory failure (8) Generalized weakness (9) Anemia Prognosis PLAN I will resume ursodiol 300 mg p.o. twice a day Patient is on IV Solu-Medrol 40 mg daily Continue to monitor labs and liver functions and PT INR and ammonia Repeat blood cultures continue to grow gram-positive cocci. Pt started on Zyvox and Merrem. Amiodarone was discontinued LFTs remain elevated. Autoimmune hemolytic anemia ruled out with negative direct Scooter. LDH elevated. Haptoglobin pending. Peripheral smear pending. MRCP cannot be obtained as patient is on ventilator and cannot hold breath per radiology. Patient is a poor candidate for liver transplant given ongoing sepsis and history of alcoholism. Neurology consulted for persistent altered mental status. MRI brain negative. Will arrange for family meeting for continued goals of care discussion. Prognosis remains poor. Dietary Evaluation Review Comments: 1) Initiate MVI @ 1 tb qd 2) Initiate vitamin C @ 500 mg bid and zinc sulfate @ 220 mg qd for 7 days 3) Increase TPN to meet at least 75% of estimated daily needs 4) Advance to 45g CCHO diet when medically feasible, pending ST approval 5) Refer to outpatient RD/[facility] for weight management 6) Follow-up with pulmonology 7) Continue to monitor I&O, labs, and skin integrity Expected Outcomes/Goals: 1) TPN regimen to meet at least 75% estimated daily needs 2) labs and wound to improve 3) diet to advance 4) gradual wt loss 5) f/u in 2-3 days Plan discussed with: Other (Dr Mckeon and ICU Nurse) KIKE SIN MD Feb 20, 2025 20:40
[2025-02-20] MEDS: LINEZOLID 600MG/300ML 300 ML IV SCH (21:45)
[2025-02-20] MEDS: URSODIOL 300 MG CAP NG SCH (22:50)
[2025-02-21] VITALS (107 sets, daily range): BP systolic 88–145; BP diastolic 50–90; PULSE 72–107; RESP 12–28; TEMP 97.6–98.8; O2SAT 65–100
[2025-02-21 04:24] LABS: Hemoglobin 9.5 g/dL (12.2-16.2)
[2025-02-21 04:29] LABS: Hematocrit 30.5 % (36.0-46.0); Mean Corpuscular Hemoglobin 30.5 pg (28.0-32.0); Mean Corpuscular Volume 97.6 fL (80.0-100.0)
[2025-02-21 04:37] LABS: Anion Gap 9 (5-15); Chloride 102 mmol/L (98-107); Potassium 4.5 mmol/L (3.5-5.1)
[2025-02-21 04:38] LABS: Albumin 2.6 g/dL (3.2-4.8); Alkaline Phosphatase 554 U/L (46-116); Bilirubin, Total 24.6 mg/dL (0.2-1.0); Calcium 8.0 mg/dL (8.7-10.4); Carbon Dioxide 35 mmol/L (20-31); Glucose 197 mg/dL (74-106); Sodium 146 mmol/L (136-145)
[2025-02-21 04:43] LABS: INR 1.25 (0.9-1.15); Prothrombin Time 13.0 sec (9.3-11.8)
[2025-02-21 04:51] LABS: BUN/Creatinine Ratio 47.2 (10.0-20.0)
[2025-02-21 04:58] LABS: Alanine Aminotransferase 409 U/L (7-40); Blood Urea Nitrogen 42 mg/dL (9-23); Lipase 140 U/L (12-53); Total Protein 5.4 g/dL (5.7-8.2)
[2025-02-21 06:55] LABS: Total Cells Counted 100.0 (100)
[2025-02-21 06:56] LABS: Anisocytosis Marked; Polychromasia Slight
[2025-02-21 07:43] LABS: Base Excess 8.2 mmol/L (-2.0-3.0)
[2025-02-21 10:07] LABS: Anti-Centromere B Antibody <0.2 AI (0.0-0.9); Anti-Jo-1 Antibody <0.2 AI (0.0-0.9); Anti-dsDNA Antibody <1 IU/mL (0-9); Antichromatin Antibody <0.2 AI (0.0-0.9); Antiscleroderma-70 Antibody <0.2 AI (0.0-0.9); Sjogren's Anti-SS-A Antibody <0.2 AI (0.0-0.9); Sjogren's Anti-SS-B Antibody <0.2 AI (0.0-0.9)
--- NOTE | 2025-02-21 11:23 | DVHPN2 ---
Progress Note - Dictate Date Seen: Feb 21, 2025 Has the PT tested + for MRSA If YES, has PT been informed?: No Medical Necessity Reason Pt with a Central, PICC or Fol: No Subjective This is a not a follow up note vital signs Vital Sign Date Time Temp Pulse Resp B/P (MAP) Pulse Ox O2 Delivery O2 Flow Rate FiO2 02/21/25 09:50 113/67 02/21/25 09:28 101 24 100 30 02/21/25 08:00 Mechanical Ventilator+ 02/21/25 04:00 98.4 98.4 Total Intake and Output 02/20/25 02/20/25 02/21/25 15:00 23:00 07:00 Intake Total 15.000 ml 353.688 ml 784 ml Output Total 575 ml 700 ml Balance 15.000 ml -221.312 ml 84 ml medications Current Medications Medications Dose Ordered Sig/Randolph Route Start Time Stop Time Status Last Admin Dose Admin Dextrose 50 ml UD PRN IV 02/11/25 00:15 Cancel Ondansetron HCl 4 mg Q4HPRN PRN IV 02/11/25 07:00 Albuterol 2.5 mg Q6HPRN PRN NEB 02/11/25 07:00 02/15/25 12:28 2.5 MG Nitroglycerin 0.4 mg Q5MINP PRN SL 02/11/25 07:00 Enoxaparin Sodium 40 mg DAILY SC 02/11/25 10:00 02/21/25 10:59 40 MG Ergocalciferol 50,000 unit Q7D PO 02/11/25 14:15 02/11/25 15:36 50,000 UNIT Midazolam HCl 50 ml @ 1 mls/hr Q24H IV 02/13/25 00:30 02/15/25 07:56 7 MLS/HR Fentanyl Citrate 250 ml @ 2.5 mls/hr Q24H IV 02/13/25 00:30 02/14/25 23:30 15 MLS/HR Thiamine HCl 100 mg DAILY IV 02/14/25 10:00 02/21/25 10:57 100 MG Metoprolol Tartrate 5 mg Q4HPRN PRN IV 02/14/25 09:15 Hold Amino Acids/ Electrolytes/ Dextrose 1,000 ml @ 41 mls/hr DAILY@2200 IV 02/14/25 22:00 Cancel Pantoprazole Sodium 40 mg DAILY IV 02/15/25 10:00 02/21/25 10:57 40 MG Enteral Nutritional Formula 1,000 ml 30ML/HR GT 02/14/25 14:45 02/20/25 23:00 1,000 ML Phenylephrine HCl 250 ml @ 30 mls/hr Q8H20M IV 02/14/25 19:30 02/14/25 19:51 30 MLS/HR Diagnostic Test (Pha) 1 strip Q6HR 02/15/25 06:00 02/21/25 06:00 1 STRIP Insulin Human Regular Q6HR SC 02/15/25 06:00 02/21/25 06:11 4 UNITS Dextrose 50 ml UD PRN IV 02/15/25 05:30 Norepinephrine Bitartrate 32 mg/ Sodium Chloride 250 ml @ 0.938 mls/ hr Q24H IV 02/15/25 11:45 02/18/25 14:08 3.75 MLS/HR Methylprednisolone Sodium Succinate 40 mg DAILY IV 02/16/25 10:00 02/21/25 11:05 40 MG Insulin Glargine 20 units BID SC 02/15/25 22:00 02/21/25 10:59 20 UNITS Metoclopramide HCl 5 mg Q8HR IV 02/16/25 20:00 02/21/25 05:55 5 MG Linezolid 300 ml @ 150 mls/hr Q12HR IV 02/20/25 22:00 02/21/25 10:57 150 MLS/HR Meropenem 50 ml @ 17 mls/hr Q8HR IV 02/20/25 14:00 02/21/25 05:55 17 MLS/HR Ursodiol 300 mg BID NG 02/20/25 22:00 02/21/25 10:00 300 MG laboratory and microbiology Laboratory Tests 02/21/25 03:50 Test 02/21/25 03:50 Range/Units Serum Glucose 197 H 74-106 mg/dL Assessment/Plan Coma Metabolic/hepatic encephalopathy Hypoxic encephalopathy Toxic encephalopathy Acute respiratory failure Hyponatremia Hypokalemia Acute on chronic respiratory failure Alcoholism Liver failure Coagulopathy secondary to liver failure Urinary tract infection Dietary Evaluation Review Comments: 1) Initiate MVI @ 1 tb qd 2) Initiate vitamin C @ 500 mg bid and zinc sulfate @ 220 mg qd for 7 days 3) Increase TPN to meet at least 75% of estimated daily needs 4) Advance to 45g CCHO diet when medically feasible, pending ST approval 5) Refer to outpatient RD/[facility] for weight management 6) Follow-up with pulmonology 7) Continue to monitor I&O, labs, and skin integrity Expected Outcomes/Goals: 1) TPN regimen to meet at least 75% estimated daily needs 2) labs and wound to improve 3) diet to advance 4) gradual wt loss 5) f/u in 2-3 days Plan discussed with: Other STEPHEN CRAWFORD MD Feb 21, 2025 11:23
--- NOTE | 2025-02-21 11:28 | DVHPN2 ---
Progress Note - Dictate Date Seen: Feb 21, 2025 Has the PT tested + for MRSA If YES, has PT been informed?: No Medical Necessity Reason Pt with a Central, PICC or Fol: No Subjective Ms. Villalobos is a 64 years old right-handed female with a history of hypertension, diabetes, dyslipidemia, coronary artery disease, heart attack, asthma, COPD, obesity, alcoholism, she was brought to the [facility] on 02/10/2025 with a chief company of general weakness, shortness breath, bradycardia I have seen and examined the patient, I have talked to her nurse, she is intubated, only responsive to stroke painful stimuli Not sedated Blood culture, 02/11/2025: No growth Blood culture, 02/19/2025: Urine culture, 02/12/2025: No growth ALTAGRACIA, 02/14/2025: Negative HIV 1&2 antibody, 02/19/2025: Negative ABG, 02/10/2025: Metabolic alkalosis, 02/14/2025: Respiratory acidosis, 02/15/2025: Respiratory acidosis Urinalysis, 02/10/2025: WBC: 500, urine leukocyte esterase: 3+, WBC/HB/PLT/MCV, 02/20/2025: 36.8/8.4/113/95.9, 02/21/2025: 36.5/9: 5/116/97.6 PT/INR/a PTT, 02/12/2025: 24.9/2.58/31.2, 02/16/2025: 19.7/1.99/ BUN/CR, 02/21/2025: 42/0.89 Na, 02/10/2025: 126, 128, 02/11/2025: 129, 02/12/2025: 130, 02/16/25: 134, 02/20/25: 146, 02/21/2025: 146 TBI/AST/ALT/AP, 02/12/2025: 13.3/424/117/131, 02/20/2025: /278/458, 02/21/2025: 24.10/1336/409/554 Ammonia, 02/20/2025: 25, 02/21/2025: 48 Hepatitis panel, 02/13/2025: Negative Chest x-ray, 02/19/2025: 1. Support tubes in appropriate position. 2. Bibasilar airspace opacities similar to prior study. MRI head, 02/19/2025: No acute cerebrovascular ischemia. Bilateral mastoid effusions vital signs Vital Sign Date Time Temp Pulse Resp B/P (MAP) Pulse Ox O2 Delivery O2 Flow Rate FiO2 02/21/25 09:50 113/67 02/21/25 09:28 101 24 100 30 02/21/25 08:00 Mechanical Ventilator+ 02/21/25 04:00 98.4 98.4 Total Intake and Output 02/20/25 02/20/25 02/21/25 15:00 23:00 07:00 Intake Total 15.000 ml 353.688 ml 784 ml Output Total 575 ml 700 ml Balance 15.000 ml -221.312 ml 84 ml medications Current Medications Medications Dose Ordered Sig/Randolph Route Start Time Stop Time Status Last Admin Dose Admin Dextrose 50 ml UD PRN IV 02/11/25 00:15 Cancel Ondansetron HCl 4 mg Q4HPRN PRN IV 02/11/25 07:00 Albuterol 2.5 mg Q6HPRN PRN NEB 02/11/25 07:00 02/15/25 12:28 2.5 MG Nitroglycerin 0.4 mg Q5MINP PRN SL 02/11/25 07:00 Enoxaparin Sodium 40 mg DAILY SC 02/11/25 10:00 02/21/25 10:59 40 MG Ergocalciferol 50,000 unit Q7D PO 02/11/25 14:15 02/11/25 15:36 50,000 UNIT Midazolam HCl 50 ml @ 1 mls/hr Q24H IV 02/13/25 00:30 02/15/25 07:56 7 MLS/HR Fentanyl Citrate 250 ml @ 2.5 mls/hr Q24H IV 02/13/25 00:30 02/14/25 23:30 15 MLS/HR Thiamine HCl 100 mg DAILY IV 02/14/25 10:00 02/21/25 10:57 100 MG Metoprolol Tartrate 5 mg Q4HPRN PRN IV 02/14/25 09:15 Hold Amino Acids/ Electrolytes/ Dextrose 1,000 ml @ 41 mls/hr DAILY@2200 IV 02/14/25 22:00 Cancel Pantoprazole Sodium 40 mg DAILY IV 02/15/25 10:00 02/21/25 10:57 40 MG Enteral Nutritional Formula 1,000 ml 30ML/HR GT 02/14/25 14:45 02/20/25 23:00 1,000 ML Phenylephrine HCl 250 ml @ 30 mls/hr Q8H20M IV 02/14/25 19:30 02/14/25 19:51 30 MLS/HR Diagnostic Test (Pha) 1 strip Q6HR 02/15/25 06:00 02/21/25 06:00 1 STRIP Insulin Human Regular Q6HR SC 02/15/25 06:00 02/21/25 06:11 4 UNITS Dextrose 50 ml UD PRN IV 02/15/25 05:30 Norepinephrine Bitartrate 32 mg/ Sodium Chloride 250 ml @ 0.938 mls/ hr Q24H IV 02/15/25 11:45 02/18/25 14:08 3.75 MLS/HR Methylprednisolone Sodium Succinate 40 mg DAILY IV 02/16/25 10:00 02/21/25 11:05 40 MG Insulin Glargine 20 units BID SC 02/15/25 22:00 02/21/25 10:59 20 UNITS Metoclopramide HCl 5 mg Q8HR IV 02/16/25 20:00 02/21/25 05:55 5 MG Linezolid 300 ml @ 150 mls/hr Q12HR IV 02/20/25 22:00 02/21/25 10:57 150 MLS/HR Meropenem 50 ml @ 17 mls/hr Q8HR IV 02/20/25 14:00 02/21/25 05:55 17 MLS/HR Ursodiol 300 mg BID NG 02/20/25 22:00 02/21/25 10:00 300 MG objective The patient is well-nourished and well-developed with no distress. She has jaundice. The patient is intubated MENTAL STATUS: See subjective CRANIAL NERVES: Pupils are equal, round and reactive.There are corneal reflexes and doll's eyes phenomenon. No signs of facial weakness. There are gagging or coughing reflexes SENSATION: Responses to pain stimuli. MOTOR: Normal tone in the upper and lower extremity. Normal muscle bulk. No fasciculations. No spontaneous movement. REFLEXES: Deep tendon reflexes are symmetrical. No pathological reflexes. CEREBELLAR/COORDINATION: Deferred GAIT/STATION: deferred laboratory and microbiology Laboratory Tests 02/21/25 03:50 Test 02/21/25 03:50 Range/Units Serum Glucose 197 H 74-106 mg/dL Problem List Coma Metabolic/hepatic encephalopathy Hypoxic encephalopathy Toxic encephalopathy Acute respiratory failure Hyponatremia Hypokalemia Acute on chronic respiratory failure Alcoholism Liver failure Coagulopathy secondary to liver failure Urinary tract infection Assessment/Plan Monitoring Supportive treatment ICU care Follow-up lab EEG (failed to obtain) Stabilize vitals/pressor drip p.r.n. Respiratory support/vent management Oxygen IV antibiotics Thiamine supplementation DVT prophylaxis GI prophylaxis More recommendation per clinical course This medical document was created using an electronic medical record system with [employer] dictation system. Although this document has been carefully reviewed, there may still be some phonetic and typographical errors. These areas are purely typographical due to imperfections of the software programs, and do not reflect any compromise in the patient's medical care. Prognosis guarded Dietary Evaluation Review Comments: 1) Initiate MVI @ 1 tb qd 2) Initiate vitamin C @ 500 mg bid and zinc sulfate @ 220 mg qd for 7 days 3) Increase TPN to meet at least 75% of estimated daily needs 4) Advance to 45g CCHO diet when medically feasible, pending ST approval 5) Refer to outpatient RD/[facility] for weight management 6) Follow-up with pulmonology 7) Continue to monitor I&O, labs, and skin integrity Expected Outcomes/Goals: 1) TPN regimen to meet at least 75% estimated daily needs 2) labs and wound to improve 3) diet to advance 4) gradual wt loss 5) f/u in 2-3 days Plan discussed with: Other Critical Care Time(min): 35 STEPHEN CRAWFORD MD Feb 21, 2025 11:28
--- NOTE | 2025-02-21 15:22 | DVHPN2 ---
Progress Note - Dictate Date Seen: Feb 21, 2025 Has the PT tested + for MRSA If YES, has PT been informed?: No Medical Necessity Reason Pt with a Central, PICC or Fol: Yes Subjective Patient remains intubated. Error in previous note, not on sedation. vital signs Vital Sign Date Time Temp Pulse Resp B/P (MAP) Pulse Ox O2 Delivery O2 Flow Rate FiO2 02/21/25 13:53 107 26 110/67 (81) 100 30 02/21/25 12:00 98.5 98.5 02/21/25 08:00 Mechanical Ventilator+ Total Intake and Output 02/20/25 02/20/25 02/21/25 15:00 23:00 07:00 Intake Total 15.000 ml 353.688 ml 784 ml Output Total 575 ml 700 ml Balance 15.000 ml -221.312 ml 84 ml medications Current Medications Medications Dose Ordered Sig/Randolph Route Start Time Stop Time Status Last Admin Dose Admin Dextrose 50 ml UD PRN IV 02/11/25 00:15 Cancel Ondansetron HCl 4 mg Q4HPRN PRN IV 02/11/25 07:00 Albuterol 2.5 mg Q6HPRN PRN NEB 02/11/25 07:00 02/21/25 13:53 2.5 MG Nitroglycerin 0.4 mg Q5MINP PRN SL 02/11/25 07:00 Enoxaparin Sodium 40 mg DAILY SC 02/11/25 10:00 02/21/25 10:59 40 MG Ergocalciferol 50,000 unit Q7D PO 02/11/25 14:15 02/11/25 15:36 50,000 UNIT Midazolam HCl 50 ml @ 1 mls/hr Q24H IV 02/13/25 00:30 02/15/25 07:56 7 MLS/HR Fentanyl Citrate 250 ml @ 2.5 mls/hr Q24H IV 02/13/25 00:30 02/14/25 23:30 15 MLS/HR Thiamine HCl 100 mg DAILY IV 02/14/25 10:00 02/21/25 10:57 100 MG Metoprolol Tartrate 5 mg Q4HPRN PRN IV 02/14/25 09:15 Hold Amino Acids/ Electrolytes/ Dextrose 1,000 ml @ 41 mls/hr DAILY@2200 IV 02/14/25 22:00 Cancel Pantoprazole Sodium 40 mg DAILY IV 02/15/25 10:00 02/21/25 10:57 40 MG Enteral Nutritional Formula 1,000 ml 30ML/HR GT 02/14/25 14:45 02/20/25 23:00 1,000 ML Phenylephrine HCl 250 ml @ 30 mls/hr Q8H20M IV 02/14/25 19:30 02/14/25 19:51 30 MLS/HR Diagnostic Test (Pha) 1 strip Q6HR 02/15/25 06:00 02/21/25 11:54 1 STRIP Insulin Human Regular Q6HR SC 02/15/25 06:00 02/21/25 11:54 8 UNITS Dextrose 50 ml UD PRN IV 02/15/25 05:30 Norepinephrine Bitartrate 32 mg/ Sodium Chloride 250 ml @ 0.938 mls/ hr Q24H IV 02/15/25 11:45 02/18/25 14:08 3.75 MLS/HR Methylprednisolone Sodium Succinate 40 mg DAILY IV 02/16/25 10:00 02/21/25 11:05 40 MG Insulin Glargine 20 units BID SC 02/15/25 22:00 02/21/25 10:59 20 UNITS Metoclopramide HCl 5 mg Q8HR IV 02/16/25 20:00 02/21/25 05:55 5 MG Linezolid 300 ml @ 150 mls/hr Q12HR IV 02/20/25 22:00 02/21/25 10:57 150 MLS/HR Meropenem 50 ml @ 17 mls/hr Q8HR IV 02/20/25 14:00 02/21/25 14:32 17 MLS/HR Ursodiol 300 mg BID NG 02/20/25 22:00 02/21/25 10:00 300 MG objective General: Intubated Respiratory: CTA Neuro: pupils equal and reactive. Does not awaken or respond to commands. laboratory and microbiology Laboratory Tests 02/21/25 03:50 Test 02/21/25 03:50 Range/Units Serum Glucose 197 H 74-106 mg/dL Assessment/Plan 1) Acute respiratory failure, intubated 2) UTI 3) Hyponatremia 4) Hyperbilirubinemia 2/2 alcoholism 5) Metabolic alkalosis 6) COPD 7) Hx of CVA 8) DM 9) HTN 10) HLD plan; 02/13---patient noted to be unresponsive and lethargic overnight and thus was intubated and transferred to ICU, now on mechanical ventilatory support with fio2 30%, on levophed 10 mcg this AM, continue IV Abx, BCx negative, UCx shows mixed violet, will consult pulm/cardio, GI on board due to elevated LFTs and hyperbilirubinemia likely in the setting of alcoholic hepatitis, daily labs, supportive care, mergers and acquisitions consultant input appreciated, will follow along 02/14---remains intubated on ventilator fio2 30%, this AM on 18 mcg of levophed, WBC 15k, repeat BCx negative, Na uptrending to 132 with IVF hydration with nephrology following, echo shows EF 38% with cardio on the case, bilirubin 14 this AM and likely attributed to alcoholism with GI on board, continue all care, mergers and acquisitions consultant input appreciated, daily labs, will follow along 02/15---remains intubated on ventilator fio2 30%, started on amio gtt for SVT now HR better controlled, WBC trending up to 16k, on vanco/levaquin/flagyl with repeat BCx and UCx negative, continue NS at 100 ml/hr, still on levophed 24 mcg this AM, mergers and acquisitions consultant input appreciated, guarded/critical, daily labs, supportive care, will follow along 02/16---remains intubated on ventilator fio2 40%, levophed requirements coming down to 12 mcg this AM, remains in amio gtt for SVT, renal fuction preserved with Na and Cl trending upward, WBC trending up to 18k with repeat BCx/UCx negative on IV ABx and likely steroid induced, tapered steroids to 40 mg IV daily, blood glucose has been elevated and she has uncontrolled DM thus added lantus 20 bid along with aggressive sliding scale, mergers and acquisitions consultant input appreciated, continue all care, daily labs, will follow along 02/17---remains intubated on ventilator fio2 30%, levophed requirements are coming down and this AM on 8 mcg, remains on amio gtt as per cardiology, Na and Cl normalized, renal function preserved, WBC spike to 28k, on IV Abx, ID consult pending, cultures are negative thus far, pulm/cardio/gi already on board, i spoke to daughter too yesterday and updated her on POC, continue all care, AM labs, will follow along 02/18---remains intubated on ventilator fio2 30%, levophed at 6 mcg this AM, WBC trending up to 41k however repeat BCx/UCx are negative, she is on broad spectrum IV ABx with ID following, amio gtt still running for SVT now in NSR, renal function is preserved, steroids tapered down to 40 mg IV daily, all mergers and acquisitions consultant input appreciated, will follow along 02/19--remains intubated, pressor support improving down to 2mcg this AM. WBC remains elevated. Cultures returned growing gram-positive cocci in clusters. Vancomycin pharmacy to dose started. Repeat blood cultures taken. LFTs remain elevated. GI following. Plan for MRCP for possible Cholangitis per ID. Will also obtain MRI brain WO contrast. Patient remains off sedation but minimal arousability. 02/20- Remains intubated. Pressure support stable around 2 mcg. Repeat blood cultures continue to grow gram-positive cocci. Discussed with infectious disease, will change to products to Zyvox and Merrem. LFTs remain elevated. Autoimmune hemolytic anemia ruled out with negative direct Scooter. LDH elevated. Haptoglobin pending. Peripheral smear pending. MRCP cannot be obtained as patient is on ventilator and cannot hold breath per radiology. Patient is a poor candidate for liver transplant given ongoing sepsis and history of alcoholism. Neurology consulted for persistent altered mental status. MRI brain negative. Will arrange for family meeting for continued goals of care discussion. Prognosis remains poor. 02/21-Remains intubated. Blood cultures remain positive, pending repeat. One culture growing yeast. EEG pending. LFTs continue to rise. Overall poor prognosis. Will review with ID to possibly remove central line as source of infection. Dietary Evaluation Review Comments: 1) Initiate MVI @ 1 tb qd 2) Initiate vitamin C @ 500 mg bid and zinc sulfate @ 220 mg qd for 7 days 3) Increase TPN to meet at least 75% of estimated daily needs 4) Advance to 45g CCHO diet when medically feasible, pending ST approval 5) Refer to outpatient RD/[facility] for weight management 6) Follow-up with pulmonology 7) Continue to monitor I&O, labs, and skin integrity Expected Outcomes/Goals: 1) TPN regimen to meet at least 75% estimated daily needs 2) labs and wound to improve 3) diet to advance 4) gradual wt loss 5) f/u in 2-3 days Plan discussed with: Other ARCHANA DONG DO Feb 21, 2025 15:22
--- NOTE | 2025-02-21 15:36 | DVHPN2 ---
Progress Note - Dictate Date Seen: Feb 21, 2025 Medical Necessity Reason Pt with a Central, PICC or Fol: Yes vital signs Vital Sign Date Time Temp Pulse Resp B/P (MAP) Pulse Ox O2 Delivery O2 Flow Rate FiO2 02/21/25 15:15 104 28 110/61 (77) 100 02/21/25 14:00 30 02/21/25 14:00 Mechanical Ventilator+ 02/21/25 12:00 98.5 98.5 Total Intake and Output 02/20/25 02/20/25 02/21/25 15:00 23:00 07:00 Intake Total 15.000 ml 353.688 ml 784 ml Output Total 575 ml 700 ml Balance 15.000 ml -221.312 ml 84 ml medications Current Medications Medications Dose Ordered Sig/Randolph Route Start Time Stop Time Status Last Admin Dose Admin Dextrose 50 ml UD PRN IV 02/11/25 00:15 Cancel Ondansetron HCl 4 mg Q4HPRN PRN IV 02/11/25 07:00 Albuterol 2.5 mg Q6HPRN PRN NEB 02/11/25 07:00 02/21/25 13:53 2.5 MG Nitroglycerin 0.4 mg Q5MINP PRN SL 02/11/25 07:00 Enoxaparin Sodium 40 mg DAILY SC 02/11/25 10:00 02/21/25 10:59 40 MG Ergocalciferol 50,000 unit Q7D PO 02/11/25 14:15 02/11/25 15:36 50,000 UNIT Midazolam HCl 50 ml @ 1 mls/hr Q24H IV 02/13/25 00:30 02/15/25 07:56 7 MLS/HR Fentanyl Citrate 250 ml @ 2.5 mls/hr Q24H IV 02/13/25 00:30 02/14/25 23:30 15 MLS/HR Thiamine HCl 100 mg DAILY IV 02/14/25 10:00 02/21/25 10:57 100 MG Metoprolol Tartrate 5 mg Q4HPRN PRN IV 02/14/25 09:15 Hold Amino Acids/ Electrolytes/ Dextrose 1,000 ml @ 41 mls/hr DAILY@2200 IV 02/14/25 22:00 Cancel Pantoprazole Sodium 40 mg DAILY IV 02/15/25 10:00 02/21/25 10:57 40 MG Enteral Nutritional Formula 1,000 ml 30ML/HR GT 02/14/25 14:45 02/20/25 23:00 1,000 ML Phenylephrine HCl 250 ml @ 30 mls/hr Q8H20M IV 02/14/25 19:30 02/14/25 19:51 30 MLS/HR Diagnostic Test (Pha) 1 strip Q6HR 02/15/25 06:00 02/21/25 11:54 1 STRIP Insulin Human Regular Q6HR SC 02/15/25 06:00 02/21/25 11:54 8 UNITS Dextrose 50 ml UD PRN IV 02/15/25 05:30 Norepinephrine Bitartrate 32 mg/ Sodium Chloride 250 ml @ 0.938 mls/ hr Q24H IV 02/15/25 11:45 02/18/25 14:08 3.75 MLS/HR Methylprednisolone Sodium Succinate 40 mg DAILY IV 02/16/25 10:00 02/21/25 11:05 40 MG Insulin Glargine 20 units BID SC 02/15/25 22:00 02/21/25 10:59 20 UNITS Metoclopramide HCl 5 mg Q8HR IV 02/16/25 20:00 02/21/25 05:55 5 MG Linezolid 300 ml @ 150 mls/hr Q12HR IV 02/20/25 22:00 02/21/25 10:57 150 MLS/HR Meropenem 50 ml @ 17 mls/hr Q8HR IV 02/20/25 14:00 02/21/25 14:32 17 MLS/HR Ursodiol 300 mg BID NG 02/20/25 22:00 02/21/25 10:00 300 MG laboratory and microbiology Laboratory Tests 02/21/25 03:50 Test 02/21/25 03:50 Range/Units Serum Glucose 197 H 74-106 mg/dL Assessment/Plan Acute hypercapnic respiratory failure Acute respiratory failure Hyponatremia COPD Shock requiring Levophed drip Patient is seen and examined in the ICU events on mechanical ventilation s/p intubation peep 5 Fi02=30% off sedation, not waking up encephalopathic due to liver failure labs and imaging reviewed white count trending down MRI of the brain unremarkable Management plan vent support Sedation fentanyl propofol as needed for ventilator synchrony weaning when more stable okay to use precedex drip bronch deferred Steroid/antibiotic for COPD Nebs nutrition monitor ammonia levels DVT prophylaxis Patient is full code prognosis very poor Critical care time 35 minutes Dietary Evaluation Review Comments: 1) Initiate MVI @ 1 tb qd 2) Initiate vitamin C @ 500 mg bid and zinc sulfate @ 220 mg qd for 7 days 3) Increase TPN to meet at least 75% of estimated daily needs 4) Advance to 45g CCHO diet when medically feasible, pending ST approval 5) Refer to outpatient RD/[facility] for weight management 6) Follow-up with pulmonology 7) Continue to monitor I&O, labs, and skin integrity Expected Outcomes/Goals: 1) TPN regimen to meet at least 75% estimated daily needs 2) labs and wound to improve 3) diet to advance 4) gradual wt loss 5) f/u in 2-3 days Plan discussed with: Other (Rn) ECTOR BROCK MD Feb 21, 2025 15:36
--- NOTE | 2025-02-21 16:57 | DVHPN2 ---
Progress Note - Dictate Date Seen: Feb 21, 2025 Has the PT tested + for MRSA If YES, has PT been informed?: No Medical Necessity Reason Pt with a Central, PICC or Fol: No Subjective Patient was seen and evaluated in follow up in the ICU. Patient is intubated on ventilator. 30% FiO2. Despite being off sedation since 02/15, the patient is not waking up. WBC 36.5, HGB 9.5, HCT 30.5, NA 146, CO2 35, BUN 42, GLUC 210, AST 1337, ALT 409. vital signs Vital Sign Date Time Temp Pulse Resp B/P (MAP) Pulse Ox O2 Delivery O2 Flow Rate FiO2 02/21/25 09:50 113/67 02/21/25 09:28 101 24 100 30 02/21/25 08:00 Mechanical Ventilator+ 02/21/25 04:00 98.4 98.4 Total Intake and Output 02/20/25 02/20/25 02/21/25 15:00 23:00 07:00 Intake Total 15.000 ml 353.688 ml 784 ml Output Total 575 ml 700 ml Balance 15.000 ml -221.312 ml 84 ml medications Current Medications Medications Dose Ordered Sig/Randolph Route Start Time Stop Time Status Last Admin Dose Admin Dextrose 50 ml UD PRN IV 02/11/25 00:15 Cancel Ondansetron HCl 4 mg Q4HPRN PRN IV 02/11/25 07:00 Albuterol 2.5 mg Q6HPRN PRN NEB 02/11/25 07:00 02/15/25 12:28 2.5 MG Nitroglycerin 0.4 mg Q5MINP PRN SL 02/11/25 07:00 Enoxaparin Sodium 40 mg DAILY SC 02/11/25 10:00 02/21/25 10:59 40 MG Ergocalciferol 50,000 unit Q7D PO 02/11/25 14:15 02/11/25 15:36 50,000 UNIT Midazolam HCl 50 ml @ 1 mls/hr Q24H IV 02/13/25 00:30 02/15/25 07:56 7 MLS/HR Fentanyl Citrate 250 ml @ 2.5 mls/hr Q24H IV 02/13/25 00:30 02/14/25 23:30 15 MLS/HR Thiamine HCl 100 mg DAILY IV 02/14/25 10:00 02/21/25 10:57 100 MG Metoprolol Tartrate 5 mg Q4HPRN PRN IV 02/14/25 09:15 Hold Amino Acids/ Electrolytes/ Dextrose 1,000 ml @ 41 mls/hr DAILY@2200 IV 02/14/25 22:00 Cancel Pantoprazole Sodium 40 mg DAILY IV 02/15/25 10:00 02/21/25 10:57 40 MG Enteral Nutritional Formula 1,000 ml 30ML/HR GT 02/14/25 14:45 02/20/25 23:00 1,000 ML Phenylephrine HCl 250 ml @ 30 mls/hr Q8H20M IV 02/14/25 19:30 02/14/25 19:51 30 MLS/HR Diagnostic Test (Pha) 1 strip Q6HR 02/15/25 06:00 02/21/25 06:00 1 STRIP Insulin Human Regular Q6HR SC 02/15/25 06:00 02/21/25 06:11 4 UNITS Dextrose 50 ml UD PRN IV 02/15/25 05:30 Norepinephrine Bitartrate 32 mg/ Sodium Chloride 250 ml @ 0.938 mls/ hr Q24H IV 02/15/25 11:45 02/18/25 14:08 3.75 MLS/HR Methylprednisolone Sodium Succinate 40 mg DAILY IV 02/16/25 10:00 02/21/25 11:05 40 MG Insulin Glargine 20 units BID SC 02/15/25 22:00 02/21/25 10:59 20 UNITS Metoclopramide HCl 5 mg Q8HR IV 02/16/25 20:00 02/21/25 05:55 5 MG Linezolid 300 ml @ 150 mls/hr Q12HR IV 02/20/25 22:00 02/21/25 10:57 150 MLS/HR Meropenem 50 ml @ 17 mls/hr Q8HR IV 02/20/25 14:00 02/21/25 05:55 17 MLS/HR Ursodiol 300 mg BID NG 02/20/25 22:00 02/21/25 10:00 300 MG objective GENERAL: Ill appearing, intubated on ventilator. EYES: PERRL, EOMI. Anicteric. HENT: Moist mucous membranes. LUNGS: Decreased breath sounds. CARDIOVASCULAR: Regular rate and rhythm. ABDOMEN: Soft, non-tender and non-distended. EXTREMITIES: No edema. SKIN: Warm, dry. laboratory and microbiology Laboratory Tests 02/21/25 03:50 Test 02/21/25 03:50 Range/Units Serum Glucose 197 H 74-106 mg/dL Problem List Chest pain. Metabolic alkalosis. Hypokalemia. Hypophosphatemia. Hyponatremia. Type 2 diabetes mellitus. Acute complicated cystitis. Hyperparathyroidism. Hyperbilirubinemia with transaminitis. Left adrenal nodule. Assessment/Plan Continued all current supportive medical care. Nitro SL. DVT and GI prophylactics. IV antibiotics as ordered. Additional plan as per the hospital course. Critical care time of 45 minutes provided to include time spent evaluation of patient at bedside, when appropriate patient/family education for diagnosis, treatment plan, review of pertinent medical information and discussion of care with specialty providers and PCP. Mechanical ventilator parameters, treatment and adjustments have personally been reviewed by me and treatment plan by manager mobile has also been reviewed. Dietary Evaluation Review Comments: 1) Initiate MVI @ 1 tb qd 2) Initiate vitamin C @ 500 mg bid and zinc sulfate @ 220 mg qd for 7 days 3) Increase TPN to meet at least 75% of estimated daily needs 4) Advance to 45g CCHO diet when medically feasible, pending ST approval 5) Refer to outpatient RD/[facility] for weight management 6) Follow-up with pulmonology 7) Continue to monitor I&O, labs, and skin integrity Expected Outcomes/Goals: 1) TPN regimen to meet at least 75% estimated daily needs 2) labs and wound to improve 3) diet to advance 4) gradual wt loss 5) f/u in 2-3 days Plan discussed with: MIKAELA Dickinson MD Feb 21, 2025 11:49
[2025-02-22] VITALS (90 sets, daily range): BP systolic 79–130; BP diastolic 44–85; PULSE 74–116; RESP 19–91; TEMP 97.7–98.5; O2SAT 83–100
[2025-02-22] MEDS: LACTULOSE 20Gm/30ML SOLN PO SCH (00:48)
[2025-02-22 04:40] LABS: Hematocrit 30.1 % (36.0-46.0); Hemoglobin 9.5 g/dL (12.2-16.2); Mean Corpuscular Hemoglobin 31.0 pg (28.0-32.0); Mean Corpuscular Volume 98.5 fL (80.0-100.0)
[2025-02-22 05:07] LABS: Anion Gap 12 (5-15); Chloride 102 mmol/L (98-107); Potassium 4.4 mmol/L (3.5-5.1)
[2025-02-22 05:26] LABS: Albumin 2.3 g/dL (3.2-4.8); Alkaline Phosphatase 551 U/L (46-116); Bilirubin, Total 24.0 mg/dL (0.2-1.0); Calcium 7.6 mg/dL (8.7-10.4); Carbon Dioxide 35 mmol/L (20-31); Glucose 213 mg/dL (74-106); Sodium 149 mmol/L (136-145)
[2025-02-22 05:48] LABS: BUN/Creatinine Ratio 50.9 (10.0-20.0)
[2025-02-22 05:55] LABS: Alanine Aminotransferase 417 U/L (7-40); Blood Urea Nitrogen 55 mg/dL (9-23); Total Protein 4.6 g/dL (5.7-8.2)
[2025-02-22 07:01] LABS: Nucleated Red Blood Cells % 62.0 %; Total Cells Counted 100.0 (100)
[2025-02-22 07:02] LABS: Anisocytosis Marked; Stomatocytes Few
[2025-02-22 07:43] LABS: Base Excess 8.5 mmol/L (-2.0-3.0)
[2025-02-22] MEDS: MICAFUNGIN SODIUM 100 MG in SODIUM CHL 0.9% 100 ML IV SCH (10:39)
[2025-02-22] MEDS ORDERED: HYOSCYAMINE SULF 0.125 MG ODT TAB PO PRN (12:15)
[2025-02-22] MEDS ORDERED: MORPHINE SULFATE 4 MG/ML SYR/VIAL IV PRN ×2 (12:15→13:45)
--- NOTE | 2025-02-22 12:28 | DVHPN2 ---
Consult Progress Note Objective vital signs Vital Sign Date Time Temp Pulse Resp B/P (MAP) Pulse Ox O2 Delivery O2 Flow Rate FiO2 02/22/25 11:34 100 22 99/55 (70) 100 30 02/22/25 08:00 98.4 98.4 02/22/25 08:00 Mechanical Ventilator+ Total Intake and Output 02/21/25 02/21/25 02/22/25 15:00 23:00 07:00 Intake Total 598 ml 644 ml Output Total 600 ml 750 ml Balance -2 ml -106 ml medications Current Medications Medications Dose Ordered Sig/Randolph Route Start Time Stop Time Status Last Admin Dose Admin Dextrose 50 ml UD PRN IV 02/11/25 00:15 Cancel Enoxaparin Sodium 40 mg DAILY SC 02/11/25 10:00 02/22/25 10:45 40 MG Amino Acids/ Electrolytes/ Dextrose 1,000 ml @ 41 mls/hr DAILY@2200 IV 02/14/25 22:00 Cancel Morphine Sulfate 4 mg Q2HPRN PRN IV 02/22/25 12:15 UNV Lorazepam 1 mg Q1HP PRN IV 02/22/25 12:15 UNV Hyoscyamine 0.125 mg Q4HPRN PRN PO 02/22/25 12:15 UNV laboratory and microbiology Laboratory Tests 02/22/25 04:09 Test 02/22/25 04:09 Range/Units Serum Glucose 213 H 74-106 mg/dL Problem List/Assessment/Plan Problem List/Assessment/Plan Problems(with codes): (1) Shock (2) Cardiac arrest (3) UTI (urinary tract infection) (4) COPD exacerbation (5) Alcoholic steatohepatitis (6) Elevated liver enzymes (7) Alcoholic fatty liver (8) Failure to thrive (9) Pneumonitis Plan/Recommendation ASSESSMENT AND PLAN: ID Problem List: \-- generalized weakness and shortness of breath (2 months) \-- COPD/asthma; obesity; diabetes mellitus; hypertension; hyperlipidemia; prior [place]; prior TIA \-- ventricular tachycardia with code event on 02/12 ? intubated; ICU course with shock on vasopressors \-- leukocytosis rising (11.4 ? 28.6 K/L) while on steroids \-- possible aspiration pneumonia (initial treatment with levofloxacin; metronidazole added) \-- presumed acute complicated cystitis (initial UA with pyuria; early urine culture not sent due to contamination; subsequent urine culture >3 colony types) \-- concern for biliary sludge/cholestatic process; hyperbilirubinemia and transaminitis (Tbili up to ~21, AST up to 1052, ALT up to ~132, Alk Phos up to 299) \-- severe hypokalemia and metabolic alkalosis; severe hypophosphatemia (as low as 0.60.9 mg/dL) on admission \-- hyperglycemia (glucose up to 471 on 02/15) \-- altered mental status while sedated/intubated (likely metabolic; post-code state) \-- hyperparathyroidism (not further characterized) \-- penicillin allergy (reaction unknown) Assessment 64-year-old female with multiple comorbidities presented with 2 months of dyspnea and weakness, admitted with significant electrolyte derangements (hypokalemia, hypophosphatemia, metabolic alkalosis). Hospital course complicated by ventricular tachycardia and code blue on 02/12 requiring intubation, vasopressor support, and ICU transfer. Initial antibiotic therapy included levofloxacin; metronidazole was added for aspiration risk. Subsequently, due to persistent leukocytosis, antibiotics were changed to piperacillin-tazobactam (Zosyn) and vancomycin. Blood cultures to date show no growth; urine culture after intubation showed >3 colony types (suggestive of contamination). Imaging reveals marked hepatic steatosis and gallbladder sludge without ductal dilatation; ultrasound shows no acute cholecystitis. Liver tests demonstrate a marked cholestatic/hepatocellular injury pattern (rising bilirubin and transaminases). Current differential for ongoing leukocytosis and hypotension includes cholestatic/biliary source (e.g., ascending cholangitis without ductal dilation), aspiration pneumonia, urinary source (not confirmed), steroid-induced leukocytosis, post-code systemic inflammatory response, and less likely venous thromboembolism (cannot obtain CTPA currently). She remains intubated and sedated; FiO2 has decreased from 60% to 30% with SpO2 100%. Afebrile throughout (Tmax ~99.5). Plan: \-- Continue current broad-spectrum coverage (vancomycin + piperacillin- tazobactam) for persistent leukocytosis and possible intra-abdominal/biliary source; monitor closely for any hypersensitivity given penicillin allergy (reaction unknown). \-- If clinical concern for pancreatic involvement/necrosis arises, consider escalation to meropenem per team recommendation; check lipase as recommended. \-- Repeat blood cultures to assess for new bacteremia in the setting of possible ascending cholangitis. \-- Obtain MR abdomen (MRCP if available) to further evaluate biliary tree/sludge/cholestasis given rising bilirubin and transaminases without ductal dilation on prior imaging. \-- Trend lactic acid to assess severity of illness and potential ischemic hepatopathy. \-- Evaluate for VTE as a contributor to leukocytosis: obtain bilateral lower extremity venous Doppler ultrasound (CTPA deferred due to ICU status). Consider empiric IV heparin if clinical suspicion for PE is high and no contraindications per primary/ICU team. \-- Wean sedation as tolerated and reassess mental status; metabolic etiology likely. Defer detailed neuro workup to ICU/primary team. \-- Steroids: methylprednisolone 40 mg IV daily since 02/16 for possible asthma exacerbation per team; recognize potential contribution to leukocytosis. Monitor WBC trend and reassess steroid need with Pulmonology/ICU. \-- Continue management of electrolyte abnormalities (K, Phos, Na) per ICU; monitor BMP and phosphorus closely. \-- Glycemic control: continue insulin therapy per ICU protocol to address persistent hyperglycemia. \-- Monitor LFTs (AST/ALT/Alk Phos, bilirubin) and coagulation parameters; consider GI consultation depending on MR findings and clinical trajectory. \-- Follow-up on all pending cultures and imaging; narrow or adjust antimicrobials based on results. Isolation Precautions: Not provided in transcript. Plan is subject to change pending incorporation of new diagnostics and clinical course. Authorized and Performed by: indra mann Total critical care time: Approximately 75 minutes Due to a high probability of clinically significant, life threatening deterioration, the patient required my highest level of preparedness to intervene emergently and I personally spent this critical care time directly and personally managing the patient. This critical care time included obtaining a history; examining the patient; pulse oximetry; ordering and review of studies; arranging urgent treatment with development of a management plan; evaluation of patient's response to treatment; frequent reassessment; and, discussions with other providers. This critical care time was performed to assess and manage the high probability of imminent, life-threatening deterioration that could result in multi-organ failure. It was exclusive of separately billable procedures and treating other patients and teaching time. = Physical Exam: General: Critically ill-appearing. Intubated and sedated. Neck: Supple. No masses. HEENT: PERRL. Normal lids and conjunctiva. Moist mucous membranes. Oropharynx without lesions, exudates or excessive erythema. Normal appearance of the external aspects of the nose and ears. Endotracheal tube in place. Heart: Regular rhythm, normal rate. No murmur. No lower extremity edema. Lungs: Normal respiratory effort on mechanical ventilation. Clear to auscultation bilaterally. No wheezes. No crackles. Abdomen: Soft. Non-tender. Non-distended. No masses or abdominal hernia. Msk: No digital cyanosis. Normal strength and tone in all 4 limbs (limited exam due to sedation). Skin: Warm and dry, no rashes. Neuro: Intubated and sedated; unable to assess orientation. No focal deficits described in transcript. Psych: Unable to assess due to sedation. Dietary Evaluation Review Comments: 1) Initiate MVI @ 1 tb qd 2) Initiate vitamin C @ 500 mg bid and zinc sulfate @ 220 mg qd for 7 days 3) Increase TPN to meet at least 75% of estimated daily needs 4) Advance to 45g CCHO diet when medically feasible, pending ST approval 5) Refer to outpatient RD/[facility] for weight management 6) Follow-up with pulmonology 7) Continue to monitor I&O, labs, and skin integrity Expected Outcomes/Goals: 1) TPN regimen to meet at least 75% estimated daily needs 2) labs and wound to improve 3) diet to advance 4) gradual wt loss 5) f/u in 2-3 days INDRA MANN MD Feb 22, 2025 12:28
--- NOTE | 2025-02-22 12:35 | DVHPN2 ---
Consult Progress Note Objective vital signs Vital Sign Date Time Temp Pulse Resp B/P (MAP) Pulse Ox O2 Delivery O2 Flow Rate FiO2 02/22/25 11:34 100 22 99/55 (70) 100 30 02/22/25 08:00 98.4 98.4 02/22/25 08:00 Mechanical Ventilator+ Total Intake and Output 02/21/25 02/21/25 02/22/25 15:00 23:00 07:00 Intake Total 598 ml 644 ml Output Total 600 ml 750 ml Balance -2 ml -106 ml medications Current Medications Medications Dose Ordered Sig/Randolph Route Start Time Stop Time Status Last Admin Dose Admin Dextrose 50 ml UD PRN IV 02/11/25 00:15 Cancel Enoxaparin Sodium 40 mg DAILY SC 02/11/25 10:00 02/22/25 10:45 40 MG Amino Acids/ Electrolytes/ Dextrose 1,000 ml @ 41 mls/hr DAILY@2200 IV 02/14/25 22:00 Cancel Morphine Sulfate 4 mg Q2HPRN PRN IV 02/22/25 12:15 UNV Lorazepam 1 mg Q1HP PRN IV 02/22/25 12:15 UNV Hyoscyamine 0.125 mg Q4HPRN PRN PO 02/22/25 12:15 UNV laboratory and microbiology Laboratory Tests 02/22/25 04:09 Test 02/22/25 04:09 Range/Units Serum Glucose 213 H 74-106 mg/dL Problem List/Assessment/Plan Problem List/Assessment/Plan Problems(with codes): (1) Shock (2) Cardiac arrest (3) UTI (urinary tract infection) (4) COPD exacerbation (5) Alcoholic steatohepatitis (6) Elevated liver enzymes (7) Alcoholic fatty liver (8) Failure to thrive (9) Pneumonitis Plan/Recommendation ASSESSMENT AND PLAN: ID Problem List: \-- generalized weakness and shortness of breath (2 months) \-- COPD/asthma; obesity; diabetes mellitus; hypertension; hyperlipidemia; prior [place]; prior TIA \-- ventricular tachycardia with code event on 02/12 ? intubated; ICU course with shock on vasopressors \-- leukocytosis rising (11.4 ? 28.6 K/L) while on steroids \-- possible aspiration pneumonia (initial treatment with levofloxacin; metronidazole added) \-- presumed acute complicated cystitis (initial UA with pyuria; early urine culture not sent due to contamination; subsequent urine culture >3 colony types) \-- concern for biliary sludge/cholestatic process; hyperbilirubinemia and transaminitis (Tbili up to ~21, AST up to 1052, ALT up to ~132, Alk Phos up to 299) \-- severe hypokalemia and metabolic alkalosis; severe hypophosphatemia (as low as 0.60.9 mg/dL) on admission \-- hyperglycemia (glucose up to 471 on 02/15) \-- altered mental status while sedated/intubated (likely metabolic; post-code state) \-- hyperparathyroidism (not further characterized) \-- penicillin allergy (reaction unknown) Assessment 64-year-old female with multiple comorbidities presented with 2 months of dyspnea and weakness, admitted with significant electrolyte derangements (hypokalemia, hypophosphatemia, metabolic alkalosis). Hospital course complicated by ventricular tachycardia and code blue on 02/12 requiring intubation, vasopressor support, and ICU transfer. Initial antibiotic therapy included levofloxacin; metronidazole was added for aspiration risk. Subsequently, due to persistent leukocytosis, antibiotics were changed to piperacillin-tazobactam (Zosyn) and vancomycin. Blood cultures to date show no growth; urine culture after intubation showed >3 colony types (suggestive of contamination). Imaging reveals marked hepatic steatosis and gallbladder sludge without ductal dilatation; ultrasound shows no acute cholecystitis. Liver tests demonstrate a marked cholestatic/hepatocellular injury pattern (rising bilirubin and transaminases). Current differential for ongoing leukocytosis and hypotension includes cholestatic/biliary source (e.g., ascending cholangitis without ductal dilation), aspiration pneumonia, urinary source (not confirmed), steroid-induced leukocytosis, post-code systemic inflammatory response, and less likely venous thromboembolism (cannot obtain CTPA currently). She remains intubated and sedated; FiO2 has decreased from 60% to 30% with SpO2 100%. Afebrile throughout (Tmax ~99.5). 02/20: worsening leukocytosis, off sedation, no fevers, persistently elevated LFTS and bilirubing, unable to get MRCP Plan: \-- broaden to linezolid and meropenem given inability to get MRCP, progressive leukocytosis. \-- will fu on Repeat blood cultures to assess for new bacteremia in the setting of possible ascending cholangitis. \-- Trend lactic acid to assess severity of illness and potential ischemic hepatopathy. \-- Evaluate for VTE as a contributor to leukocytosis: obtain bilateral lower extremity venous Doppler ultrasound (CTPA deferred due to ICU status). Consider empiric IV heparin if clinical suspicion for PE is high and no contraindications per primary/ICU team. \-- Wean sedation as tolerated and reassess mental status; metabolic etiology likely. Defer detailed neuro workup to ICU/primary team. \-- Steroids: methylprednisolone 40 mg IV daily since 02/16 for possible asthma exacerbation per team; recognize potential contribution to leukocytosis. Monitor WBC trend and reassess steroid need with Pulmonology/ICU. \-- Continue management of electrolyte abnormalities (K, Phos, Na) per ICU; monitor BMP and phosphorus closely. \-- Glycemic control: continue insulin therapy per ICU protocol to address persistent hyperglycemia. \-- Monitor LFTs (AST/ALT/Alk Phos, bilirubin) and coagulation parameters; consider GI consultation depending on MR findings and clinical trajectory. \-- Follow-up on all pending cultures and imaging; narrow or adjust antimicrobials based on results. Isolation Precautions: Not provided in transcript. Plan is subject to change pending incorporation of new diagnostics and clinical course. Authorized and Performed by: indra mann Total critical care time: Approximately 75 minutes Due to a high probability of clinically significant, life threatening deterioration, the patient required my highest level of preparedness to intervene emergently and I personally spent this critical care time directly and personally managing the patient. This critical care time included obtaining a history; examining the patient; pulse oximetry; ordering and review of studies; arranging urgent treatment with development of a management plan; evaluation of patient's response to treatment; frequent reassessment; and, discussions with other providers. This critical care time was performed to assess and manage the high probability of imminent, life-threatening deterioration that could result in multi-organ failure. It was exclusive of separately billable procedures and treating other patients and teaching time. = Physical Exam: General: Critically ill-appearing. Intubated and sedated. Neck: Supple. No masses. HEENT: PERRL. Normal lids and conjunctiva. Moist mucous membranes. Oropharynx without lesions, exudates or excessive erythema. Normal appearance of the external aspects of the nose and ears. Endotracheal tube in place. Heart: Regular rhythm, normal rate. No murmur. No lower extremity edema. Lungs: Normal respiratory effort on mechanical ventilation. Clear to auscultation bilaterally. No wheezes. No crackles. Abdomen: Soft. Non-tender. Non-distended. No masses or abdominal hernia. Msk: No digital cyanosis. Normal strength and tone in all 4 limbs (limited exam due to sedation). Skin: Warm and dry, no rashes. Neuro: Intubated and sedated; unable to assess orientation. No focal deficits described in transcript. Psych: Unable to assess due to sedation. Dietary Evaluation Review Comments: 1) Initiate MVI @ 1 tb qd 2) Initiate vitamin C @ 500 mg bid and zinc sulfate @ 220 mg qd for 7 days 3) Increase TPN to meet at least 75% of estimated daily needs 4) Advance to 45g CCHO diet when medically feasible, pending ST approval 5) Refer to outpatient RD/[facility] for weight management 6) Follow-up with pulmonology 7) Continue to monitor I&O, labs, and skin integrity Expected Outcomes/Goals: 1) TPN regimen to meet at least 75% estimated daily needs 2) labs and wound to improve 3) diet to advance 4) gradual wt loss 5) f/u in 2-3 days INDRA MANN MD Feb 22, 2025 12:35
--- NOTE | 2025-02-22 12:39 | DVHPN2 ---
Consult Progress Note Objective vital signs Vital Sign Date Time Temp Pulse Resp B/P (MAP) Pulse Ox O2 Delivery O2 Flow Rate FiO2 02/22/25 11:34 100 22 99/55 (70) 100 30 02/22/25 08:00 98.4 98.4 02/22/25 08:00 Mechanical Ventilator+ Total Intake and Output 02/21/25 02/21/25 02/22/25 15:00 23:00 07:00 Intake Total 598 ml 644 ml Output Total 600 ml 750 ml Balance -2 ml -106 ml medications Current Medications Medications Dose Ordered Sig/Randloph Route Start Time Stop Time Status Last Admin Dose Admin Dextrose 50 ml UD PRN IV 02/11/25 00:15 Cancel Enoxaparin Sodium 40 mg DAILY SC 02/11/25 10:00 02/22/25 10:45 40 MG Amino Acids/ Electrolytes/ Dextrose 1,000 ml @ 41 mls/hr DAILY@2200 IV 02/14/25 22:00 Cancel Morphine Sulfate 4 mg Q2HPRN PRN IV 02/22/25 12:15 UNV Lorazepam 1 mg Q1HP PRN IV 02/22/25 12:15 UNV Hyoscyamine 0.125 mg Q4HPRN PRN PO 02/22/25 12:15 UNV laboratory and microbiology Laboratory Tests 02/22/25 04:09 Test 02/22/25 04:09 Range/Units Serum Glucose 213 H 74-106 mg/dL Problem List/Assessment/Plan Problem List/Assessment/Plan Problems(with codes): (1) Shock (2) Cardiac arrest (3) UTI (urinary tract infection) (4) COPD exacerbation (5) Alcoholic steatohepatitis (6) Elevated liver enzymes (7) Alcoholic fatty liver (8) Failure to thrive (9) Pneumonitis Plan/Recommendation ASSESSMENT AND PLAN: ID Problem List: \-- generalized weakness and shortness of breath (2 months) \-- COPD/asthma; obesity; diabetes mellitus; hypertension; hyperlipidemia; prior [place]; prior TIA \-- ventricular tachycardia with code event on 02/12 ? intubated; ICU course with shock on vasopressors \-- leukocytosis rising (11.4 ? 28.6 K/L) while on steroids \-- possible aspiration pneumonia (initial treatment with levofloxacin; metronidazole added) \-- presumed acute complicated cystitis (initial UA with pyuria; early urine culture not sent due to contamination; subsequent urine culture >3 colony types) \-- concern for biliary sludge/cholestatic process; hyperbilirubinemia and transaminitis (Tbili up to ~21, AST up to 1052, ALT up to ~132, Alk Phos up to 299) \-- severe hypokalemia and metabolic alkalosis; severe hypophosphatemia (as low as 0.60.9 mg/dL) on admission \-- hyperglycemia (glucose up to 471 on 02/15) \-- altered mental status while sedated/intubated (likely metabolic; post-code state) \-- hyperparathyroidism (not further characterized) \-- penicillin allergy (reaction unknown) Assessment 64-year-old female with multiple comorbidities presented with 2 months of dyspnea and weakness, admitted with significant electrolyte derangements (hypokalemia, hypophosphatemia, metabolic alkalosis). Hospital course complicated by ventricular tachycardia and code blue on 02/12 requiring intubation, vasopressor support, and ICU transfer. Initial antibiotic therapy included levofloxacin; metronidazole was added for aspiration risk. Subsequently, due to persistent leukocytosis, antibiotics were changed to piperacillin-tazobactam (Zosyn) and vancomycin. Blood cultures to date show no growth; urine culture after intubation showed >3 colony types (suggestive of contamination). Imaging reveals marked hepatic steatosis and gallbladder sludge without ductal dilatation; ultrasound shows no acute cholecystitis. Liver tests demonstrate a marked cholestatic/hepatocellular injury pattern (rising bilirubin and transaminases). Current differential for ongoing leukocytosis and hypotension includes cholestatic/biliary source (e.g., ascending cholangitis without ductal dilation), aspiration pneumonia, urinary source (not confirmed), steroid-induced leukocytosis, post-code systemic inflammatory response, and less likely venous thromboembolism (cannot obtain CTPA currently). She remains intubated and sedated; FiO2 has decreased from 60% to 30% with SpO2 100%. Afebrile throughout (Tmax ~99.5). 02/20: worsening leukocytosis, off sedation, no fevers, persistently elevated LFTS and bilirubing, unable to get MRCP 02/21: budding yeast on blood culture, central line in place off pressors, on tube feeds Plan: -- prognosis is poor, -- agree with micafungin for budding yeast. repeat blood cultures in 24 hrs, if unable to clear yeast from blood, consider descalation of steroids and removing central line (will defer to primary care on medical need of central line and steroids) \-- broaden to linezolid and meropenem given inability to get MRCP, progressive leukocytosis. \-- will fu on Repeat blood cultures to assess for new bacteremia in the setting of possible ascending cholangitis. \-- Trend lactic acid to assess severity of illness and potential ischemic hepatopathy. \-- Evaluate for VTE as a contributor to leukocytosis: obtain bilateral lower extremity venous Doppler ultrasound (CTPA deferred due to ICU status). Consider empiric IV heparin if clinical suspicion for PE is high and no contraindications per primary/ICU team. \-- Wean sedation as tolerated and reassess mental status; metabolic etiology likely. Defer detailed neuro workup to ICU/primary team. \-- Steroids: methylprednisolone 40 mg IV daily since 02/16 for possible asthma exacerbation per team; recognize potential contribution to leukocytosis. Monitor WBC trend and reassess steroid need with Pulmonology/ICU. \-- Continue management of electrolyte abnormalities (K, Phos, Na) per ICU; monitor BMP and phosphorus closely. \-- Glycemic control: continue insulin therapy per ICU protocol to address persistent hyperglycemia. \-- Monitor LFTs (AST/ALT/Alk Phos, bilirubin) and coagulation parameters; consider GI consultation depending on MR findings and clinical trajectory. \-- Follow-up on all pending cultures and imaging; narrow or adjust antimicrobials based on results. Isolation Precautions: Not provided in transcript. Plan is subject to change pending incorporation of new diagnostics and clinical course. Authorized and Performed by: indra mann Total critical care time: Approximately 75 minutes Due to a high probability of clinically significant, life threatening deterioration, the patient required my highest level of preparedness to intervene emergently and I personally spent this critical care time directly and personally managing the patient. This critical care time included obtaining a history; examining the patient; pulse oximetry; ordering and review of studies; arranging urgent treatment with development of a management plan; evaluation of patient's response to treatment; frequent reassessment; and, discussions with other providers. This critical care time was performed to assess and manage the high probability of imminent, life-threatening deterioration that could result in multi-organ failure. It was exclusive of separately billable procedures and treating other patients and teaching time. = Physical Exam: General: Critically ill-appearing. Intubated and sedated. Neck: Supple. No masses. HEENT: PERRL. Normal lids and conjunctiva. Moist mucous membranes. Oropharynx without lesions, exudates or excessive erythema. Normal appearance of the external aspects of the nose and ears. Endotracheal tube in place. Heart: Regular rhythm, normal rate. No murmur. No lower extremity edema. Lungs: Normal respiratory effort on mechanical ventilation. Clear to auscultation bilaterally. No wheezes. No crackles. Abdomen: Soft. Non-tender. Non-distended. No masses or abdominal hernia. Msk: No digital cyanosis. Normal strength and tone in all 4 limbs (limited exam due to sedation). Skin: Warm and dry, no rashes. Neuro: Intubated and sedated; unable to assess orientation. No focal deficits described in transcript. Psych: Unable to assess due to sedation. Dietary Evaluation Review Comments: 1) Initiate MVI @ 1 tb qd 2) Initiate vitamin C @ 500 mg bid and zinc sulfate @ 220 mg qd for 7 days 3) Increase TPN to meet at least 75% of estimated daily needs 4) Advance to 45g CCHO diet when medically feasible, pending ST approval 5) Refer to outpatient RD/[facility] for weight management 6) Follow-up with pulmonology 7) Continue to monitor I&O, labs, and skin integrity Expected Outcomes/Goals: 1) TPN regimen to meet at least 75% estimated daily needs 2) labs and wound to improve 3) diet to advance 4) gradual wt loss 5) f/u in 2-3 days INDRA MANN MD Feb 22, 2025 12:39
--- NOTE | 2025-02-22 12:45 | DVHPN2 ---
Consult Progress Note Objective vital signs Vital Sign Date Time Temp Pulse Resp B/P (MAP) Pulse Ox O2 Delivery O2 Flow Rate FiO2 02/22/25 11:34 100 22 99/55 (70) 100 30 02/22/25 08:00 98.4 98.4 02/22/25 08:00 Mechanical Ventilator+ Total Intake and Output 02/21/25 02/21/25 02/22/25 15:00 23:00 07:00 Intake Total 598 ml 644 ml Output Total 600 ml 750 ml Balance -2 ml -106 ml medications Current Medications Medications Dose Ordered Sig/Randolph Route Start Time Stop Time Status Last Admin Dose Admin Dextrose 50 ml UD PRN IV 02/11/25 00:15 Cancel Enoxaparin Sodium 40 mg DAILY SC 02/11/25 10:00 02/22/25 10:45 40 MG Amino Acids/ Electrolytes/ Dextrose 1,000 ml @ 41 mls/hr DAILY@2200 IV 02/14/25 22:00 Cancel Morphine Sulfate 4 mg Q2HPRN PRN IV 02/22/25 12:15 UNV Lorazepam 1 mg Q1HP PRN IV 02/22/25 12:15 UNV Hyoscyamine 0.125 mg Q4HPRN PRN PO 02/22/25 12:15 UNV laboratory and microbiology Laboratory Tests 02/22/25 04:09 Test 02/22/25 04:09 Range/Units Serum Glucose 213 H 74-106 mg/dL Problem List/Assessment/Plan Problem List/Assessment/Plan Problems(with codes): (1) Shock (2) Cardiac arrest (3) UTI (urinary tract infection) (4) COPD exacerbation (5) Alcoholic steatohepatitis (6) Elevated liver enzymes (7) Alcoholic fatty liver (8) Failure to thrive (9) Pneumonitis Plan/Recommendation ASSESSMENT AND PLAN: ID Problem List: \-- generalized weakness and shortness of breath (2 months) \-- COPD/asthma; obesity; diabetes mellitus; hypertension; hyperlipidemia; prior PA; prior TIA \-- ventricular tachycardia with code event on 02/12 ? intubated; ICU course with shock on vasopressors \-- leukocytosis rising (11.4 ? 28.6 K/L) while on steroids \-- possible aspiration pneumonia (initial treatment with levofloxacin; metronidazole added) \-- presumed acute complicated cystitis (initial UA with pyuria; early urine culture not sent due to contamination; subsequent urine culture >3 colony types) \-- concern for biliary sludge/cholestatic process; hyperbilirubinemia and transaminitis (Tbili up to ~21, AST up to 1052, ALT up to ~132, Alk Phos up to 299) \-- severe hypokalemia and metabolic alkalosis; severe hypophosphatemia (as low as 0.60.9 mg/dL) on admission \-- hyperglycemia (glucose up to 471 on 02/15) \-- altered mental status while sedated/intubated (likely metabolic; post-code state) \-- hyperparathyroidism (not further characterized) \-- penicillin allergy (reaction unknown) Assessment 64-year-old female with multiple comorbidities presented with 2 months of dyspnea and weakness, admitted with significant electrolyte derangements (hypokalemia, hypophosphatemia, metabolic alkalosis). Hospital course complicated by ventricular tachycardia and code blue on 02/12 requiring intubation, vasopressor support, and ICU transfer. Initial antibiotic therapy included levofloxacin; metronidazole was added for aspiration risk. Subsequently, due to persistent leukocytosis, antibiotics were changed to piperacillin-tazobactam (Zosyn) and vancomycin. Blood cultures to date show no growth; urine culture after intubation showed >3 colony types (suggestive of contamination). Imaging reveals marked hepatic steatosis and gallbladder sludge without ductal dilatation; ultrasound shows no acute cholecystitis. Liver tests demonstrate a marked cholestatic/hepatocellular injury pattern (rising bilirubin and transaminases). Current differential for ongoing leukocytosis and hypotension includes cholestatic/biliary source (e.g., ascending cholangitis without ductal dilation), aspiration pneumonia, urinary source (not confirmed), steroid-induced leukocytosis, post-code systemic inflammatory response, and less likely venous thromboembolism (cannot obtain CTPA currently). She remains intubated and sedated; FiO2 has decreased from 60% to 30% with SpO2 100%. Afebrile throughout (Tmax ~99.5). 02/20: worsening leukocytosis, off sedation, no fevers, persistently elevated LFTS and bilirubing, unable to get MRCP 02/21: budding yeast on blood culture, central line in place off pressors, on tube feeds Plan: -- prognosis is poor, unlikely mentation (does not withdraw to pain, no gag reflex, off sedation for several days) can be attributable to sepsis alone. anticipate prolonged hospitalization with trach and peg need unless mentation is expected to improve (would discuss with neurology). infections can be likely be treated if imaging can eventually be done abdomen, source for fungemia is understood, steroids are weaned, and lines are removed. however no pneumonia in imaging and dependence of ventilator is related to airway protection need. family opting for comfort care, wound not continue to antibiotics -- agree with micafungin for budding yeast. repeat blood cultures in 24 hrs, if unable to clear yeast from blood, consider descalation of steroids and removing central line (will defer to primary care on medical need of central line and steroids) \-- broaden to linezolid and meropenem given inability to get MRCP, progressive leukocytosis. \-- will fu on Repeat blood cultures to assess for new bacteremia in the setting of possible ascending cholangitis. \-- Trend lactic acid to assess severity of illness and potential ischemic hepatopathy. \-- Evaluate for VTE as a contributor to leukocytosis: obtain bilateral lower extremity venous Doppler ultrasound (CTPA deferred due to ICU status). Consider empiric IV heparin if clinical suspicion for PE is high and no contraindications per primary/ICU team. \-- Wean sedation as tolerated and reassess mental status; metabolic etiology likely. Defer detailed neuro workup to ICU/primary team. \-- Steroids: methylprednisolone 40 mg IV daily since 02/16 for possible asthma exacerbation per team; recognize potential contribution to leukocytosis. Monitor WBC trend and reassess steroid need with Pulmonology/ICU. \-- Continue management of electrolyte abnormalities (K, Phos, Na) per ICU; monitor BMP and phosphorus closely. \-- Glycemic control: continue insulin therapy per ICU protocol to address persistent hyperglycemia. \-- Monitor LFTs (AST/ALT/Alk Phos, bilirubin) and coagulation parameters; consider GI consultation depending on MR findings and clinical trajectory. \-- Follow-up on all pending cultures and imaging; narrow or adjust antimicrobials based on results. Isolation Precautions: Not provided in transcript. Plan is subject to change pending incorporation of new diagnostics and clinical course. Authorized and Performed by: indra mann Total critical care time: Approximately 75 minutes Due to a high probability of clinically significant, life threatening deterioration, the patient required my highest level of preparedness to intervene emergently and I personally spent this critical care time directly and personally managing the patient. This critical care time included obtaining a history; examining the patient; pulse oximetry; ordering and review of studies; arranging urgent treatment with development of a management plan; evaluation of patient's response to treatment; frequent reassessment; and, discussions with other providers. This critical care time was performed to assess and manage the high probability of imminent, life-threatening deterioration that could result in multi-organ failure. It was exclusive of separately billable procedures and treating other patients and teaching time. = Physical Exam: General: Critically ill-appearing. Intubated and sedated. Neck: Supple. No masses. HEENT: PERRL. Normal lids and conjunctiva. Moist mucous membranes. Oropharynx without lesions, exudates or excessive erythema. Normal appearance of the external aspects of the nose and ears. Endotracheal tube in place. Heart: Regular rhythm, normal rate. No murmur. No lower extremity edema. Lungs: Normal respiratory effort on mechanical ventilation. Clear to auscultation bilaterally. No wheezes. No crackles. Abdomen: Soft. Non-tender. Non-distended. No masses or abdominal hernia. Msk: No digital cyanosis. Normal strength and tone in all 4 limbs (limited exam due to sedation). Skin: Warm and dry, no rashes. Neuro: Intubated and sedated; unable to assess orientation. No focal deficits described in transcript. Psych: Unable to assess due to sedation. Dietary Evaluation Review Comments: 1) Initiate MVI @ 1 tb qd 2) Initiate vitamin C @ 500 mg bid and zinc sulfate @ 220 mg qd for 7 days 3) Increase TPN to meet at least 75% of estimated daily needs 4) Advance to 45g CCHO diet when medically feasible, pending ST approval 5) Refer to outpatient RD/[facility] for weight management 6) Follow-up with pulmonology 7) Continue to monitor I&O, labs, and skin integrity Expected Outcomes/Goals: 1) TPN regimen to meet at least 75% estimated daily needs 2) labs and wound to improve 3) diet to advance 4) gradual wt loss 5) f/u in 2-3 days INDRA MANN MD Feb 22, 2025 12:45
[2025-02-22] MEDS: LORazepam 2MG/ML-1ML VIAL IV PRN (13:56)
[2025-02-22] MEDS ORDERED: HYDROmorphone HCL 2 MG/ML VL/or syr IV PRN (14:15)
--- NOTE | 2025-02-22 14:30 | DVHPN2 ---
Progress Note - Dictate Date Seen: Feb 22, 2025 Medical Necessity Reason Pt with a Central, PICC or Fol: No vital signs Vital Sign Date Time Temp Pulse Resp B/P (MAP) Pulse Ox O2 Delivery O2 Flow Rate FiO2 02/22/25 12:15 100 23 97/56 (70) 100 02/22/25 12:00 30 02/22/25 12:00 98.2 98.2 02/22/25 12:00 Mechanical Ventilator+ Total Intake and Output 02/21/25 02/21/25 02/22/25 15:00 23:00 07:00 Intake Total 598 ml 644 ml Output Total 600 ml 750 ml Balance -2 ml -106 ml medications Current Medications Medications Dose Ordered Sig/Randolph Route Start Time Stop Time Status Last Admin Dose Admin Dextrose 50 ml UD PRN IV 02/11/25 00:15 Cancel Amino Acids/ Electrolytes/ Dextrose 1,000 ml @ 41 mls/hr DAILY@2200 IV 02/14/25 22:00 Cancel Lorazepam 1 mg Q1HP PRN IV 02/22/25 12:15 02/22/25 13:56 1 MG Hyoscyamine 0.125 mg Q4HPRN PRN PO 02/22/25 12:15 Hydromorphone HCl 2 mg Q2HP PRN IV 02/22/25 14:15 Hydromorphone HCl 1 mg Q1HP PRN IV 02/22/25 14:15 laboratory and microbiology Laboratory Tests 02/22/25 04:09 Test 02/22/25 04:09 Range/Units Serum Glucose 213 H 74-106 mg/dL Assessment/Plan Acute hypercapnic respiratory failure Acute respiratory failure Hyponatremia COPD Shock requiring Levophed drip Patient is seen and examined in the ICU events goals of care transitioned to comfort measures patient was compassionately weaned from ventilator family at the bedside management prn ativan and morphine comfort measures Dietary Evaluation Review Comments: 1) Initiate MVI @ 1 tb qd 2) Initiate vitamin C @ 500 mg bid and zinc sulfate @ 220 mg qd for 7 days 3) Increase TPN to meet at least 75% of estimated daily needs 4) Advance to 45g CCHO diet when medically feasible, pending ST approval 5) Refer to outpatient RD/[facility] for weight management 6) Follow-up with pulmonology 7) Continue to monitor I&O, labs, and skin integrity Expected Outcomes/Goals: 1) TPN regimen to meet at least 75% estimated daily needs 2) labs and wound to improve 3) diet to advance 4) gradual wt loss 5) f/u in 2-3 days Plan discussed with: Other (Rn) ECOTR BROCK MD Feb 22, 2025 14:30
[2025-02-22] MEDS: HYDROmorphone HCL 2 MG/ML VL/or syr IV PRN (14:39)
--- NOTE | 2025-02-22 15:45 | DVHPN2 ---
Progress Note - Dictate Date Seen: Feb 22, 2025 Medical Necessity Reason Pt with a Central, PICC or Fol: No Subjective Ms. Villalobos is a 64 years old right-handed female with a history of hypertension, diabetes, dyslipidemia, coronary artery disease, heart attack, asthma, COPD, obesity, alcoholism, she was brought to the [facility] on 02/10/2025 with a chief company of general weakness, shortness breath, bradycardia I have seen and examined the patient, I have talked to her nurse, I have discussed with about her condition, prognosis and code status Blood culture, 02/11/2025: No growth Blood culture, 02/19/2025: Urine culture, 02/12/2025: No growth ALTAGRACIA, 02/14/2025: Negative HIV 1&2 antibody, 02/19/2025: Negative ABG, 02/10/2025: Metabolic alkalosis, 02/14/2025: Respiratory acidosis, 02/15/2025: Respiratory acidosis Urinalysis, 02/10/2025: WBC: 500, urine leukocyte esterase: 3+, WBC/HB/PLT/MCV, 02/20/2025: 36.8/8.4/113/95.9, 02/21/2025: 36.5/9: 5/116/97.6 PT/INR/a PTT, 02/12/2025: 24.9/2.58/31.2, 02/16/2025: 19.7/1.99/ BUN/CR, 02/21/2025: 42/0.89, 02/22/2025: 55/1.08 Na, 02/10/2025: 126, 128, 02/11/2025: 129, 02/12/2025: 130, 02/16/25: 134, 02/20/25: 146, 02/21/2025: 146, 02/22/2025: 149 TBI/AST/ALT/AP, 02/12/2025: 13.3/424/117/131, 02/20/2025: /278/458, 02/21/2025: 24.10/1336/409/554 Ammonia, 02/20/2025: 25, 02/21/2025: 48 Hepatitis panel, 02/13/2025: Negative Chest x-ray, 02/19/2025: 1. Support tubes in appropriate position. 2. Bibasilar airspace opacities similar to prior study. MRI head, 02/19/2025: No acute cerebrovascular ischemia. Bilateral mastoid effusions vital signs Vital Sign Date Time Temp Pulse Resp B/P (MAP) Pulse Ox O2 Delivery O2 Flow Rate FiO2 02/22/25 15:15 98 21 83/47 (59) 85 02/22/25 14:00 Room Air* 0 21 02/22/25 12:00 98.2 98.2 Total Intake and Output 02/21/25 02/21/25 02/22/25 15:00 23:00 07:00 Intake Total 598 ml 644 ml Output Total 600 ml 750 ml Balance -2 ml -106 ml medications Current Medications Medications Dose Ordered Sig/Randolph Route Start Time Stop Time Status Last Admin Dose Admin Dextrose 50 ml UD PRN IV 02/11/25 00:15 Cancel Amino Acids/ Electrolytes/ Dextrose 1,000 ml @ 41 mls/hr DAILY@2200 IV 02/14/25 22:00 Cancel Lorazepam 1 mg Q1HP PRN IV 02/22/25 12:15 02/22/25 13:56 1 MG Hyoscyamine 0.125 mg Q4HPRN PRN PO 02/22/25 12:15 Hydromorphone HCl 2 mg Q2HP PRN IV 02/22/25 14:15 02/22/25 14:39 2 MG Hydromorphone HCl 1 mg Q1HP PRN IV 02/22/25 14:15 objective The patient is well-nourished and well-developed with no distress. She has jaundice. The patient is intubated MENTAL STATUS: See subjective CRANIAL NERVES: Pupils are equal, round and reactive.There are corneal reflexes and doll's eyes phenomenon. No signs of facial weakness. There are gagging or coughing reflexes SENSATION: Responses to pain stimuli. MOTOR: Normal tone in the upper and lower extremity. Normal muscle bulk. No fasciculations. No spontaneous movement. REFLEXES: Deep tendon reflexes are symmetrical. No pathological reflexes. CEREBELLAR/COORDINATION: Deferred GAIT/STATION: deferred laboratory and microbiology Laboratory Tests 02/22/25 04:09 Test 02/22/25 04:09 Range/Units Serum Glucose 213 H 74-106 mg/dL Problem List Coma Metabolic/hepatic encephalopathy Hypoxic encephalopathy Toxic encephalopathy Acute respiratory failure Hyponatremia Hypokalemia Acute on chronic respiratory failure Alcoholism Liver failure Coagulopathy secondary to liver failure Urinary tract infection Assessment/Plan Monitoring Supportive treatment ICU care Follow-up lab EEG (failed to obtain) Stabilize vitals/pressor drip p.r.n. Respiratory support/vent management Oxygen IV antibiotics Thiamine supplementation DVT prophylaxis GI prophylaxis She would like to have a poor prognosis for in four/overall recovery, I agree comfort care on her More recommendation per clinical course This medical document was created using an electronic medical record system with [employer] dictation system. Although this document has been carefully reviewed, there may still be some phonetic and typographical errors. These areas are purely typographical due to imperfections of the software programs, and do not reflect any compromise in the patient's medical care Prognosis guarded Dietary Evaluation Review Comments: 1) Initiate MVI @ 1 tb qd 2) Initiate vitamin C @ 500 mg bid and zinc sulfate @ 220 mg qd for 7 days 3) Increase TPN to meet at least 75% of estimated daily needs 4) Advance to 45g CCHO diet when medically feasible, pending ST approval 5) Refer to outpatient RD/[facility] for weight management 6) Follow-up with pulmonology 7) Continue to monitor I&O, labs, and skin integrity Expected Outcomes/Goals: 1) TPN regimen to meet at least 75% estimated daily needs 2) labs and wound to improve 3) diet to advance 4) gradual wt loss 5) f/u in 2-3 days Plan discussed with: Other Critical Care Time(min): 30 STEPHEN CRAWFORD MD Feb 22, 2025 15:45
--- NOTE | 2025-02-22 17:28 | DVHPN2 ---
Progress Note - Dictate Date Seen: Feb 22, 2025 Medical Necessity Reason Pt with a Central, PICC or Fol: No Subjective Patient remains intubated. Family at bedside. Extensive discussion had about goals of care ultimately decided that patient be placed on comfort measures. vital signs Vital Sign Date Time Temp Pulse Resp B/P (MAP) Pulse Ox O2 Delivery O2 Flow Rate FiO2 02/22/25 16:00 20 86 Room Air* 0 21 02/22/25 16:00 83 02/22/25 15:15 83/47 (59) 02/22/25 12:00 98.2 98.2 Total Intake and Output 02/21/25 02/21/25 02/22/25 15:00 23:00 07:00 Intake Total 598 ml 644 ml Output Total 600 ml 750 ml Balance -2 ml -106 ml medications Current Medications Medications Dose Ordered Sig/Randolph Route Start Time Stop Time Status Last Admin Dose Admin Dextrose 50 ml UD PRN IV 02/11/25 00:15 Cancel Amino Acids/ Electrolytes/ Dextrose 1,000 ml @ 41 mls/hr DAILY@2200 IV 02/14/25 22:00 Cancel Lorazepam 1 mg Q1HP PRN IV 02/22/25 12:15 02/22/25 13:56 1 MG Hyoscyamine 0.125 mg Q4HPRN PRN PO 02/22/25 12:15 Hydromorphone HCl 2 mg Q2HP PRN IV 02/22/25 14:15 02/22/25 14:39 2 MG Hydromorphone HCl 1 mg Q1HP PRN IV 02/22/25 14:15 objective General: Intubated Respiratory: CTA Neuro: pupils equal and reactive. Does not awaken or respond to commands. laboratory and microbiology Laboratory Tests 02/22/25 04:09 Test 02/22/25 04:09 Range/Units Serum Glucose 213 H 74-106 mg/dL Assessment/Plan 1) Acute respiratory failure, intubated 2) UTI 3) Hyponatremia 4) Hyperbilirubinemia 2/2 alcoholism 5) Metabolic alkalosis 6) COPD 7) Hx of CVA 8) DM 9) HTN 10) HLD plan; 02/13---patient noted to be unresponsive and lethargic overnight and thus was intubated and transferred to ICU, now on mechanical ventilatory support with fio2 30%, on levophed 10 mcg this AM, continue IV Abx, BCx negative, UCx shows mixed violet, will consult pulm/cardio, GI on board due to elevated LFTs and hyperbilirubinemia likely in the setting of alcoholic hepatitis, daily labs, supportive care, vocational rehab consultant input appreciated, will follow along 02/14---remains intubated on ventilator fio2 30%, this AM on 18 mcg of levophed, WBC 15k, repeat BCx negative, Na uptrending to 132 with IVF hydration with nephrology following, echo shows EF 38% with cardio on the case, bilirubin 14 this AM and likely attributed to alcoholism with GI on board, continue all care, vocational rehab consultant input appreciated, daily labs, will follow along 02/15---remains intubated on ventilator fio2 30%, started on amio gtt for SVT now HR better controlled, WBC trending up to 16k, on vanco/levaquin/flagyl with repeat BCx and UCx negative, continue NS at 100 ml/hr, still on levophed 24 mcg this AM, vocational rehab consultant input appreciated, guarded/critical, daily labs, supportive care, will follow along 02/16---remains intubated on ventilator fio2 40%, levophed requirements coming down to 12 mcg this AM, remains in amio gtt for SVT, renal fuction preserved with Na and Cl trending upward, WBC trending up to 18k with repeat BCx/UCx negative on IV ABx and likely steroid induced, tapered steroids to 40 mg IV daily, blood glucose has been elevated and she has uncontrolled DM thus added lantus 20 bid along with aggressive sliding scale, vocational rehab consultant input appreciated, continue all care, daily labs, will follow along 02/17---remains intubated on ventilator fio2 30%, levophed requirements are coming down and this AM on 8 mcg, remains on amio gtt as per cardiology, Na and Cl normalized, renal function preserved, WBC spike to 28k, on IV Abx, ID consult pending, cultures are negative thus far, pulm/cardio/gi already on board, i spoke to daughter too yesterday and updated her on POC, continue all care, AM labs, will follow along 02/18---remains intubated on ventilator fio2 30%, levophed at 6 mcg this AM, WBC trending up to 41k however repeat BCx/UCx are negative, she is on broad spectrum IV ABx with ID following, amio gtt still running for SVT now in NSR, renal function is preserved, steroids tapered down to 40 mg IV daily, all vocational rehab consultant input appreciated, will follow along 02/19--remains intubated, pressor support improving down to 2mcg this AM. WBC remains elevated. Cultures returned growing gram-positive cocci in clusters. Vancomycin pharmacy to dose started. Repeat blood cultures taken. LFTs remain elevated. GI following. Plan for MRCP for possible Cholangitis per ID. Will also obtain MRI brain WO contrast. Patient remains off sedation but minimal arousability. 02/20- Remains intubated. Pressure support stable around 2 mcg. Repeat blood cultures continue to grow gram-positive cocci. Discussed with infectious disease, will change to products to Zyvox and Merrem. LFTs remain elevated. Autoimmune hemolytic anemia ruled out with negative direct Scooter. LDH elevated. Haptoglobin pending. Peripheral smear pending. MRCP cannot be obtained as patient is on ventilator and cannot hold breath per radiology. Patient is a poor candidate for liver transplant given ongoing sepsis and history of alcoholism. Neurology consulted for persistent altered mental status. MRI brain negative. Will arrange for family meeting for continued goals of care discussion. Prognosis remains poor. 02/21-Remains intubated. Blood cultures remain positive, pending repeat. One culture growing yeast. EEG pending. LFTs continue to rise. Overall poor prognosis. Will review with ID to possibly remove central line as source of infection. 02/22- Patient remains intubated without improvement in neurological status. WBC count improving with initiation of micafungin. LFTs remain markedly elevated. Family at bedside and discussion was had about goals of care. Barron, son, decision maker on the phone with other family members present. I discussed the option of continuing current treatment with high likelihood of trach and PEG if neurological status minimally improves. They noted that patient would not want to go through that. They requested to make the patient DNR. Family was in agreement that they "do not want patient to suffer any longer." Patient was ultimately transition to comfort measures and downgraded to MedSurg. Dietary Evaluation Review Comments: 1) Initiate MVI @ 1 tb qd 2) Initiate vitamin C @ 500 mg bid and zinc sulfate @ 220 mg qd for 7 days 3) Increase TPN to meet at least 75% of estimated daily needs 4) Advance to 45g CCHO diet when medically feasible, pending ST approval 5) Refer to outpatient RD/[facility] for weight management 6) Follow-up with pulmonology 7) Continue to monitor I&O, labs, and skin integrity Expected Outcomes/Goals: 1) TPN regimen to meet at least 75% estimated daily needs 2) labs and wound to improve 3) diet to advance 4) gradual wt loss 5) f/u in 2-3 days Plan discussed with: ARCHANA Liu DO Feb 22, 2025 17:28
--- NOTE | 2025-02-22 19:53 | DVHPN2 ---
Progress Note - Dictate Date Seen: Feb 22, 2025 Has the PT tested + for MRSA If YES, has PT been informed?: No Medical Necessity Reason Pt with a Central, PICC or Fol: No Subjective Patient was seen and evaluated in follow up in the ICU. Patient is intubated on ventilator. 30% FiO2. Family meeting was held this morning regarding the patient's care. Patients family have decided to move forward with DNR with compassionate extubation. WBC 32.9, HGB 9.5, HCT 30.1, NA 149, CO2 35, BUN 55, SALES REPRESENTATIVE LIVESTOCK 1.08, AST 1013, ALT 417. vital signs Vital Sign Date Time Temp Pulse Resp B/P (MAP) Pulse Ox O2 Delivery O2 Flow Rate FiO2 02/22/25 12:00 30 02/22/25 12:00 24 100 Mechanical Ventilator+ 02/22/25 12:00 100 02/22/25 11:34 99/55 (70) 02/22/25 08:00 98.4 98.4 Total Intake and Output 02/21/25 02/21/25 02/22/25 15:00 23:00 07:00 Intake Total 598 ml 644 ml Output Total 600 ml 750 ml Balance -2 ml -106 ml medications Current Medications Medications Dose Ordered Sig/Randolph Route Start Time Stop Time Status Last Admin Dose Admin Dextrose 50 ml UD PRN IV 02/11/25 00:15 Cancel Amino Acids/ Electrolytes/ Dextrose 1,000 ml @ 41 mls/hr DAILY@2200 IV 02/14/25 22:00 Cancel Morphine Sulfate 4 mg Q2HPRN PRN IV 02/22/25 12:15 Lorazepam 1 mg Q1HP PRN IV 02/22/25 12:15 Hyoscyamine 0.125 mg Q4HPRN PRN PO 02/22/25 12:15 objective GENERAL: Ill appearing, intubated on ventilator. EYES: PERRL, EOMI. Anicteric. HENT: Moist mucous membranes. LUNGS: Decreased breath sounds. CARDIOVASCULAR: Regular rate and rhythm. ABDOMEN: Soft, non-tender and non-distended. EXTREMITIES: No edema. SKIN: Warm, dry. laboratory and microbiology Laboratory Tests 02/22/25 04:09 Test 02/22/25 04:09 Range/Units Serum Glucose 213 H 74-106 mg/dL Problem List Chest pain. Metabolic alkalosis. Hypokalemia. Hypophosphatemia. Hyponatremia. Type 2 diabetes mellitus. Acute complicated cystitis. Hyperparathyroidism. Hyperbilirubinemia with transaminitis. Left adrenal nodule. Assessment/Plan Continued all current supportive medical care. Comfort measures. Additional plan as per the hospital course. Critical care time of 45 minutes provided to include time spent evaluation of patient at bedside, when appropriate patient/family education for diagnosis, treatment plan, review of pertinent medical information and discussion of care with specialty providers and PCP. Mechanical ventilator parameters, treatment and adjustments have personally been reviewed by me and treatment plan by community arts centre manager has also been reviewed. Dietary Evaluation Review Comments: 1) Initiate MVI @ 1 tb qd 2) Initiate vitamin C @ 500 mg bid and zinc sulfate @ 220 mg qd for 7 days 3) Increase TPN to meet at least 75% of estimated daily needs 4) Advance to 45g CCHO diet when medically feasible, pending ST approval 5) Refer to outpatient RD/[facility] for weight management 6) Follow-up with pulmonology 7) Continue to monitor I&O, labs, and skin integrity Expected Outcomes/Goals: 1) TPN regimen to meet at least 75% estimated daily needs 2) labs and wound to improve 3) diet to advance 4) gradual wt loss 5) f/u in 2-3 days Plan discussed with: MIKAELA Dickinson MD Feb 22, 2025 13:22
[2025-02-23] VITALS (7 sets, daily range): BP systolic 65–122; BP diastolic 42–82; PULSE 70–100; RESP 18–28; TEMP 97.5–98.1; O2SAT 89–100
[2025-02-23 11:35] LABS: Anion Gap 18 (5-15); Carbon Dioxide 26 mmol/L (20-31); Chloride 104 mmol/L (98-107); Glucose 82 mg/dL (74-106)
[2025-02-23 11:47] LABS: Hematocrit 37.4 % (36.0-46.0); Hemoglobin 11.2 g/dL (12.2-16.2); Mean Corpuscular Hemoglobin 30.5 pg (28.0-32.0); Mean Corpuscular Volume 101.8 fL (80.0-100.0)
[2025-02-23 12:25] LABS: BUN/Creatinine Ratio 52.3 (10.0-20.0)
[2025-02-23 12:26] LABS: Alanine Aminotransferase 527 U/L (7-40); Albumin 2.6 g/dL (3.2-4.8); Alkaline Phosphatase 609 U/L (46-116); Bilirubin, Total 24.4 mg/dL (0.2-1.0); Blood Urea Nitrogen 68 mg/dL (9-23); Calcium 8.1 mg/dL (8.7-10.4); Nucleated Red Blood Cells % 17.0 %; Sodium 148 mmol/L (136-145); Total Cells Counted 100.0 (100); Total Protein 5.5 g/dL (5.7-8.2)
[2025-02-23 12:27] LABS: Anisocytosis Marked; Potassium 6.9 mmol/L (3.5-5.1)
[2025-02-23 12:28] LABS: Macrocytosis Slight; Polychromasia Slight
--- NOTE | 2025-02-23 13:32 | DVHPN2 ---
Progress Note - Dictate Date Seen: Feb 23, 2025 Medical Necessity Reason Pt with a Central, PICC or Fol: No vital signs Vital Sign Date Time Temp Pulse Resp B/P (MAP) Pulse Ox O2 Delivery O2 Flow Rate FiO2 02/23/25 09:28 73 28 110/71 02/23/25 09:00 98.1 100 98.1 02/23/25 08:00 Room Air* 0 30 21 Total Intake and Output 02/22/25 02/22/25 02/23/25 15:00 23:00 07:00 Intake Total 450 ml 248 ml 0 ml Output Total 650 ml Balance 450 ml -402 ml 0 ml medications Current Medications Medications Dose Ordered Sig/Randolph Route Start Time Stop Time Status Last Admin Dose Admin Dextrose 50 ml UD PRN IV 02/11/25 00:15 Cancel Amino Acids/ Electrolytes/ Dextrose 1,000 ml @ 41 mls/hr DAILY@2200 IV 02/14/25 22:00 Cancel Lorazepam 1 mg Q1HP PRN IV 02/22/25 12:15 02/23/25 03:10 1 MG Hyoscyamine 0.125 mg Q4HPRN PRN PO 02/22/25 12:15 Hydromorphone HCl 2 mg Q2HP PRN IV 02/22/25 14:15 02/23/25 09:28 2 MG Hydromorphone HCl 1 mg Q1HP PRN IV 02/22/25 14:15 laboratory and microbiology Laboratory Tests 02/23/25 10:14 Test 02/23/25 10:14 Range/Units Serum Glucose 82 74-106 mg/dL Assessment/Plan Acute hypercapnic respiratory failure Acute respiratory failure Hyponatremia COPD Shock requiring Levophed drip Patient is seen and examined in the ICU events goals of care transitioned to comfort measures s/p compassionate wean no new events management prn ativan and morphine comfort measures Dietary Evaluation Review Comments: 1) Initiate MVI @ 1 tb qd 2) Initiate vitamin C @ 500 mg bid and zinc sulfate @ 220 mg qd for 7 days 3) Increase TPN to meet at least 75% of estimated daily needs 4) Advance to 45g CCHO diet when medically feasible, pending ST approval 5) Refer to outpatient RD/[facility] for weight management 6) Follow-up with pulmonology 7) Continue to monitor I&O, labs, and skin integrity Expected Outcomes/Goals: 1) TPN regimen to meet at least 75% estimated daily needs 2) labs and wound to improve 3) diet to advance 4) gradual wt loss 5) f/u in 2-3 days Plan discussed with: Other (Rn) ECTOR BROCK MD Feb 23, 2025 13:32
--- NOTE | 2025-02-23 15:55 | DVHPN2 ---
Progress Note - Dictate Date Seen: Feb 23, 2025 Medical Necessity Reason Pt with a Central, PICC or Fol: No Subjective Patient extubated 02/22. vital signs Vital Sign Date Time Temp Pulse Resp B/P (MAP) Pulse Ox O2 Delivery O2 Flow Rate FiO2 02/23/25 15:37 98.0 73 28 100 02/23/25 13:00 108/67 (81) 02/23/25 08:00 Room Air* 0 30 21 Total Intake and Output 02/22/25 02/22/25 02/23/25 15:00 23:00 07:00 Intake Total 450 ml 248 ml 0 ml Output Total 650 ml Balance 450 ml -402 ml 0 ml medications Current Medications Medications Dose Ordered Sig/Randolph Route Start Time Stop Time Status Last Admin Dose Admin Dextrose 50 ml UD PRN IV 02/11/25 00:15 Cancel Amino Acids/ Electrolytes/ Dextrose 1,000 ml @ 41 mls/hr DAILY@2200 IV 02/14/25 22:00 Cancel Lorazepam 1 mg Q1HP PRN IV 02/22/25 12:15 02/23/25 03:10 1 MG Hyoscyamine 0.125 mg Q4HPRN PRN PO 02/22/25 12:15 Hydromorphone HCl 2 mg Q2HP PRN IV 02/22/25 14:15 02/23/25 09:28 2 MG Hydromorphone HCl 1 mg Q1HP PRN IV 02/22/25 14:15 objective General: Extubated Respiratory: Coarse breath sounds. Neuro: Obtunded. laboratory and microbiology Laboratory Tests 02/23/25 10:14 Test 02/23/25 10:14 Range/Units Serum Glucose 82 74-106 mg/dL Assessment/Plan 1) Acute respiratory failure, extubated 02/22 compassionate. 2) UTI 3) Hyponatremia 4) Hyperbilirubinemia 2/2 alcoholism 5) Metabolic alkalosis 6) COPD 7) Hx of CVA 8) DM 9) HTN 10) HLD plan; 02/13---patient noted to be unresponsive and lethargic overnight and thus was intubated and transferred to ICU, now on mechanical ventilatory support with fio2 30%, on levophed 10 mcg this AM, continue IV Abx, BCx negative, UCx shows mixed violet, will consult pulm/cardio, GI on board due to elevated LFTs and hyperbilirubinemia likely in the setting of alcoholic hepatitis, daily labs, supportive care, nursing education consultant input appreciated, will follow along 02/14---remains intubated on ventilator fio2 30%, this AM on 18 mcg of levophed, WBC 15k, repeat BCx negative, Na uptrending to 132 with IVF hydration with nephrology following, echo shows EF 38% with cardio on the case, bilirubin 14 this AM and likely attributed to alcoholism with GI on board, continue all care, nursing education consultant input appreciated, daily labs, will follow along 02/15---remains intubated on ventilator fio2 30%, started on amio gtt for SVT now HR better controlled, WBC trending up to 16k, on vanco/levaquin/flagyl with repeat BCx and UCx negative, continue NS at 100 ml/hr, still on levophed 24 mcg this AM, nursing education consultant input appreciated, guarded/critical, daily labs, supportive care, will follow along 02/16---remains intubated on ventilator fio2 40%, levophed requirements coming down to 12 mcg this AM, remains in amio gtt for SVT, renal fuction preserved with Na and Cl trending upward, WBC trending up to 18k with repeat BCx/UCx negative on IV ABx and likely steroid induced, tapered steroids to 40 mg IV daily, blood glucose has been elevated and she has uncontrolled DM thus added lantus 20 bid along with aggressive sliding scale, nursing education consultant input appreciated, continue all care, daily labs, will follow along 02/17---remains intubated on ventilator fio2 30%, levophed requirements are coming down and this AM on 8 mcg, remains on amio gtt as per cardiology, Na and Cl normalized, renal function preserved, WBC spike to 28k, on IV Abx, ID consult pending, cultures are negative thus far, pulm/cardio/gi already on board, i spoke to daughter too yesterday and updated her on POC, continue all care, AM labs, will follow along 02/18---remains intubated on ventilator fio2 30%, levophed at 6 mcg this AM, WBC trending up to 41k however repeat BCx/UCx are negative, she is on broad spectrum IV ABx with ID following, amio gtt still running for SVT now in NSR, renal function is preserved, steroids tapered down to 40 mg IV daily, all nursing education consultant input appreciated, will follow along 02/19--remains intubated, pressor support improving down to 2mcg this AM. WBC remains elevated. Cultures returned growing gram-positive cocci in clusters. Vancomycin pharmacy to dose started. Repeat blood cultures taken. LFTs remain elevated. GI following. Plan for MRCP for possible Cholangitis per ID. Will also obtain MRI brain WO contrast. Patient remains off sedation but minimal arousability. 02/20- Remains intubated. Pressure support stable around 2 mcg. Repeat blood cultures continue to grow gram-positive cocci. Discussed with infectious disease, will change to products to Zyvox and Merrem. LFTs remain elevated. Autoimmune hemolytic anemia ruled out with negative direct Scooter. LDH elevated. Haptoglobin pending. Peripheral smear pending. MRCP cannot be obtained as patient is on ventilator and cannot hold breath per radiology. Patient is a poor candidate for liver transplant given ongoing sepsis and history of alcoholism. Neurology consulted for persistent altered mental status. MRI brain negative. Will arrange for family meeting for continued goals of care discussion. Prognosis remains poor. 02/21-Remains intubated. Blood cultures remain positive, pending repeat. One culture growing yeast. EEG pending. LFTs continue to rise. Overall poor prognosis. Will review with ID to possibly remove central line as source of infection. 02/22- Patient remains intubated without improvement in neurological status. WBC count improving with initiation of micafungin. LFTs remain markedly elevated. Family at bedside and discussion was had about goals of care. Barron, son, decision maker on the phone with other family members present. I discussed the option of continuing current treatment with high likelihood of trach and PEG if neurological status minimally improves. They noted that patient would not want to go through that. They requested to make the patient DNR. Family was in agreement that they "do not want patient to suffer any longer." Patient was ultimately transition to comfort measures and downgraded to [facility]. 02/23-Patient compassionately extubated and transferred to [facility]. Patient remains obtunded. No change in neurological status. Patient vitals within normal limits but coarse breath sounds noted. Lab abnormalities noted this a.m. secondary to discontinuation of aggressive medical management. Last admission at this time. Discussed with family at bedside the option of hospice at home. They are requesting hospice to be arranged in [place] for they reside. Case management consulted and pending arrangements at this time. Meanwhile, we will continue to make the patient comfortable and free of any distress. Will continue with comfort measures as previously discussed and arranged. Dietary Evaluation Review Comments: 1) Initiate MVI @ 1 tb qd 2) Initiate vitamin C @ 500 mg bid and zinc sulfate @ 220 mg qd for 7 days 3) Increase TPN to meet at least 75% of estimated daily needs 4) Advance to 45g CCHO diet when medically feasible, pending ST approval 5) Refer to outpatient RD/[facility] for weight management 6) Follow-up with pulmonology 7) Continue to monitor I&O, labs, and skin integrity Expected Outcomes/Goals: 1) TPN regimen to meet at least 75% estimated daily needs 2) labs and wound to improve 3) diet to advance 4) gradual wt loss 5) f/u in 2-3 days Plan discussed with: ARCHANA Liu DO Feb 23, 2025 15:55
--- NOTE | 2025-02-23 21:08 | PRN ---
Misceleneous Note Note Note Notified by the nurse that the patient was in asystole and unresponsive Detailed bedside examination revealed: -The patient was unresponsive to verbal or painful stimuli. -Spontaneious Heart and lung sounds are absent. -No spontaneous cardiac or respiratory activity noted over 5 minutes. -No corneal pupillary reflex present while checked twice. -Pupils are fixed and dilated over the examination period. The patient was pronounced clinically at 17;16 PM of date 02/23/2015 by Hector Monroe MD, resident. Patient's family and patient's nurse were updated by the healthcare team. Appropriate and empathic condolences were provided to the patient's dear ones. HECTOR MONROE RESIDENT Feb 23, 2025 21:08
--- NOTE | 2025-02-23 22:21 | DVHPN2 ---
Progress Note - Dictate Date Seen: Feb 23, 2025 Medical Necessity Reason Pt with a Central, PICC or Fol: No Subjective Patient was seen and evaluated in follow up. Patient was compassionately extubated and transferred to tele bed. No change in neurological status. The patient family are requesting hospice to be arranged in [place] for they reside. WBC 36.8, NA 148, K 6.9, BUN 68, Personal Trainer 1.30. Patient receiving comfort care. Telemetry reviewed. vital signs Vital Sign Date Time Temp Pulse Resp B/P (MAP) Pulse Ox O2 Delivery O2 Flow Rate FiO2 02/23/25 16:33 97.8 86 22 65/42 (50) 93 97.8 02/23/25 08:00 Room Air* 0 30 21 Total Intake and Output 02/22/25 02/22/25 02/23/25 15:00 23:00 07:00 Intake Total 450 ml 248 ml 0 ml Output Total 650 ml Balance 450 ml -402 ml 0 ml medications Current Medications Medications Dose Ordered Sig/Randolph Route Start Time Stop Time Status Last Admin Dose Admin Dextrose 50 ml UD PRN IV 02/11/25 00:15 Cancel Amino Acids/ Electrolytes/ Dextrose 1,000 ml @ 41 mls/hr DAILY@2200 IV 02/14/25 22:00 Cancel Lorazepam 1 mg Q1HP PRN IV 02/22/25 12:15 02/23/25 03:10 1 MG Hyoscyamine 0.125 mg Q4HPRN PRN PO 02/22/25 12:15 Hydromorphone HCl 2 mg Q2HP PRN IV 02/22/25 14:15 02/23/25 09:28 2 MG Hydromorphone HCl 1 mg Q1HP PRN IV 02/22/25 14:15 objective GENERAL: Ill appearing. EYES: PERRL, EOMI. Anicteric. HENT: Moist mucous membranes. LUNGS: Decreased breath sounds. CARDIOVASCULAR: Regular rate and rhythm. ABDOMEN: Soft, non-tender and non-distended. EXTREMITIES: No edema. SKIN: Warm, dry. laboratory and microbiology Laboratory Tests 02/23/25 10:14 Test 02/23/25 10:14 Range/Units Serum Glucose 82 74-106 mg/dL Problem List Chest pain. Metabolic alkalosis. Hypokalemia. Hypophosphatemia. Hyponatremia. Type 2 diabetes mellitus. Acute complicated cystitis. Hyperparathyroidism. Hyperbilirubinemia with transaminitis. Left adrenal nodule. Assessment/Plan Continued all current supportive medical care. Comfort measures. Additional plan as per the hospital course. Dietary Evaluation Review Comments: 1) Initiate MVI @ 1 tb qd 2) Initiate vitamin C @ 500 mg bid and zinc sulfate @ 220 mg qd for 7 days 3) Increase TPN to meet at least 75% of estimated daily needs 4) Advance to 45g CCHO diet when medically feasible, pending ST approval 5) Refer to outpatient RD/[facility] for weight management 6) Follow-up with pulmonology 7) Continue to monitor I&O, labs, and skin integrity Expected Outcomes/Goals: 1) TPN regimen to meet at least 75% estimated daily needs 2) labs and wound to improve 3) diet to advance 4) gradual wt loss 5) f/u in 2-3 days Plan discussed with: Other MIKAELA IQBAL MD Feb 23, 2025 22:21
--- NOTE | 2025-02-24 14:18 | DVHDS2 ---
Discharge Summary Date of Admission Feb 11, 2025 at 06:54 Date of Discharge: Feb 23, 2025 Labs/Diagnostic Data: Laboratory Results Test 02/23/25 10:14 02/22/25 10:47 02/22/25 07:33 02/22/25 04:09 White Blood Count 36.8 10^3/uL (4.4-10.8) Red Blood Count 3.67 10^6/uL (4.0-5.20) Hemoglobin 11.2 g/dL (12.2-16.2) Hematocrit 37.4 % (36.0-46.0) Mean Corpuscular Volume 101.8 fL (80.0-100.0) Mean Corpuscular Hemoglobin 30.5 pg (28.0-32.0) Mean Corpuscular Hemoglobin Concent 30.0 g/dL (32.0-36.0) Red Cell Distribution Width 32.9 % (11.8-14.3) Platelet Count 175 10^3/uL (140-450) Mean Platelet Volume 9.5 fL (6.9-10.8) Neutrophils (%) (Auto) % (37.0-80.0) Lymphocytes (%) (Auto) % (10.0-50.0) Monocytes (%) (Auto) % (0.0-12.0) Basophils (%) (Auto) % (0.0-2.0) Neutrophils # (Auto) 10 ^3/uL (1.6-8.6) Lymphocytes # (Auto) 10 ^3/uL (0.4-5.4) Monocytes # (Auto) 10 ^3/uL (0-1.3) Differential Total Cells Counted 100.0 (100) Neutrophils % (Manual) 83 (37.0-80.0) Band Neutrophils % (Manual) 7 Lymphocytes % (Manual) 5 (10.0-50.0) Monocytes % (Manual) 5 (0-12) Eosinophils % (Manual) 0 (0-7) Basophils % (Manual) 0 (0.0-2.0) Metamyelocytes % (manual) 0 Myelocytes % (Manual) 0 Promyelocytes % (Manual) 0 Blast Cells % (Manual) 0 Nucleated Red Blood Cells 17.0 % Reactive Lymphocytes 0 Platelet Estimate Adequate Polychromasia Slight Hypochromasia (manual) Moderate Poikilocytosis (manual) Slight Anisocytosis (manual) Marked Macrocytosis Slight Target Cells Few Sodium Level 148 mmol/L (136-145) Potassium Level 6.9 mmol/L (3.5-5.1) Chloride Level 104 mmol/L (98-107) Carbon Dioxide Level 26 mmol/L (20-31) Anion Gap 18 (5-15) Blood Urea Nitrogen 68 mg/dL (9-23) Creatinine 1.30 mg/dL (0.550-1.02) Glomerular Filtration Rate Calc 45 mL/min (>90) BUN/Creatinine Ratio 52.3 (10.0-20.0) Serum Glucose 82 mg/dL (74-106) Calcium Level 8.1 mg/dL (8.7-10.4) Total Bilirubin 24.4 mg/dL (0.2-1.0) Aspartate Amino Transferase (AST) 1434 U/L (13-40) Alanine Aminotransferase (ALT) 527 U/L (7-40) Alkaline Phosphatase 609 U/L (46-116) Total Protein 5.5 g/dL (5.7-8.2) Albumin 2.6 g/dL (3.2-4.8) POC Glucose 180 mg/dl (70-106) Blood Gas Specimen Type Arterial Blood Gas Sample Site Left radial Blood Gas Patient Temperature 37.0 Arterial Blood Date Drawn [id number] Arterial Blood pH 7.503 (7.350-7.450) Arterial Blood Partial Pressure CO2 42.2 mmHg (32.0-45.0) Arterial Blood Partial Pressure O2 83.3 mmHg (83.0-108.0) Arterial Blood HCO3 32.4 mmol/L (21.0-28.0) Arterial Blood Oxygen Saturation 95.4 % (94.0-98.0) Arterial Blood Base Excess 8.5 mmol/L (-2.0-3.0) Arterial Blood Oxyhemoglobin 93.2 % (94.0-98.0) Arterial Blood Carboxyhemoglobin 2.2 % (0.5-1.5) Arterial Blood Methemoglobin 0.1 % (0.0-1.5) Marcos Test Modified Blood Gas Total Hemoglobin 10.30 g/dL (12.0-16.0) Blood Gas Set Respiration Rate 14.0 Blood Gas Modality Vent - ac FiO2 % 30.0 Blood Gas Tidal Volume 450.0 Blood Gas PEEP or CPAP 5.0 Stomatocytes Few Test 02/21/25 03:50 02/20/25 13:10 02/20/25 07:29 02/19/25 19:08 Prothrombin Time 13.0 sec (9.3-11.8) Prothrombin Time INR 1.25 (0.9-1.15) Ammonia 48 umol/L (11-32) Lipase 140 U/L (12-53) Haptoglobin <10 mg/dL (37-355) Lactate Dehydrogenase 2341 U/L (120-246) Anti-Nuclear Antibody Comment Comment (.) ALCIRA-1 Antibody <0.2 AI (0.0-0.9) SS-A/Ro Antibody <0.2 AI (0.0-0.9) SS-B/La Antibody <0.2 AI (0.0-0.9) Sm Antibody <0.2 AI (0.0-0.9) GRANULATOR Antibody 0.4 AI (0.0-0.9) Scl-70 (Scleroderma) Antibody <0.2 AI (0.0-0.9) Anti-Double Strand DNA Antibody <1 IU/mL (0-9) Chromatin Antibody <0.2 AI (0.0-0.9) Centromere B Antibody <0.2 AI (0.0-0.9) Blood Gas Spontaneous Rate 21 HIV (1&2) Antibody Negative (Negative) Test 02/19/25 10:30 02/19/25 02:42 02/18/25 12:41 02/17/25 22:35 Miscellaneous Referred Test (Rm Tmp Sent to [facility] Phosphorus Level 2.3 mg/dL (2.4-5.1) Magnesium Level 2.2 mg/dL (1.6-2.6) Random Vancomycin Level 13.3 ug/mL (5-10) Vancomycin Level Trough 19.7 ug/mL (5-10) Lactic Acid Level 1.8 mmol/L (0.4-2.0) Test 02/15/25 13:18 02/15/25 02:45 02/14/25 09:00 02/14/25 07:46 Triglycerides Level 267 mg/dL (< 150) Red Blood Cell Morphology Dimorphic Cortisol AM Sample 25.02 ug/dL (5.27-22.45) Blood Gas Critical Value Read Back Yes Blood Gas Notified Whom marsha Espinoza Blood Gas Notified Time [id number] Blood Gas Notified By Special Education Curriculum Specialist baljinder macias Test 02/14/25 02:27 02/13/25 04:45 02/12/25 23:00 02/12/25 21:59 Anti-Nuclear Antibody Screen Negative (Negative) Hepatitis A Antibody Total Negative (Negative) Hepatitis B Surface Antigen Negative (Negative) Hepatitis B Surface Antibody Negative (Negative) Hepatitis B Core Total Antibody Negative (Negative) Hepatitis C Antibody Negative (Negative) Urine Color Dark-yellow (Yellow) Urine Clarity Turbid (Clear) Urine pH 6.5 (5.0-9.0) Urine Specific [place] 1.011 (1.001-1.035) Urine Protein Trace (Negative) Urine Ketones 1+ (Negative) Urine Blood 1+ /uL (Negative) Urine Nitrite Negative (Negative) Urine Bilirubin 2+ (Negative) Urine Urobilinogen 2 mg/dL (Negative) Urine Leukocyte Esterase 3+ /uL (Negative) Urine RBC 2 /hpf (0 - 4) Urine WBC Clumps Present /hpf (None Seen) Urine Microscopic WBC 41 /HPF (0-5) Urine Squamous Epithelial Cells Few /hpf (<5) Urine Bacteria None seen /hpf (None Seen) Urine Hyaline Casts Few /lpf (0 - 2) Urine Osmolality 294 mOsm/kg Urine Creatinine 44.83 mg/dL (30.0-125.0) Urine Protein/Creatinine Ratio 1.29 Urine Sodium 53 mmol/L (40-220) Urine Glucose Normal mg/dL (Normal) Urine Total Protein 57.8 mg/dL (1-14) Troponin I High Sensitivity 136 ng/L (</=34) Test 02/12/25 21:43 02/12/25 15:50 02/12/25 13:27 02/12/25 06:21 Blood Gas Liter Flow 4.00 Renin Activity 13 ng/mL/hr (.) Aldosterone 2.4 ng/dL (.) Activated Partial Thromboplast Time 31.2 SEC (24.5-34.5) Large Platelets Few B-Type Natriuretic Peptide 111.57 pg/mL (0-100) Test 02/11/25 11:20 02/11/25 08:05 02/11/25 04:30 02/11/25 01:43 Vitamin D 25-Hydroxy 23.5 ng/mL (30.0-100) Parathyroid Hormone (Intact) 218.7 pg/mL (18.4-80.1) Beta-Hydroxybutyric Acid 0.562 mmol/L (< 0.4) Hemoglobin A1c 6.7 % A1C (<5.7) Test 02/10/25 21:42 02/10/25 19:12 02/10/25 14:24 Urine Amorphous Sediment Many /hpf Specimen Drawn By Rigoberto rios rt Eosinophils (%) (Auto) 0.1 % (0.0-7.0) Eosinophils # (Auto) 0 10 ^3/uL (0-0.8) Basophils # (Auto) 0 10 ^3/uL (0-0.2) Thyroid Stimulating Hormone (TSH) 1.22 uIU/mL (0.55-4.78) Other Laboratory Tests 02/23/25 10:14 Brief Hx & Hospital Course: Patient 64-year-old female past medical history of type 2 diabetes, history of alcohol abuse, chronic respiratory failure on 3 to 4 L nasal cannula at home, who presented with complaints of generalized weakness for the past 2 months. Patient notes that she had episodes of nausea and vomiting without any hematemesis or bloody or tarry stools. Patient was noted to have electrolyte abnormalities on admission. She remained persistently weak. Patient was noted to become unresponsive overnight and intubated and transferred to ICU. She was placed on pressor support and started on broad-spectrum antibiotics. Patient was noted going to atrial fibrillation with RVR. She was started on amiodarone but this was stopped due to concerns for elevated LFTs. Patient was noted to have elevated LFTs with total bilirubin noted to be 13.3, AST 424, ALT 117 and alk phos 131. GI was consulted and recommended discontinuing amiodarone. Workup was done which showed a negative hepatitis panel and HIV. Direct Scooter was done negative for an autoimmune process despite low haptoglobin and high LDH. Autoimmune workup was done which showed a negative ALTAGRACIA screen with negative lupus antibodies. GI noted that her presentation was probably secondary to chronic alcohol abuse. Patient was not a candidate for liver transplant. Patient's pressor requirement improved. However her LFTs continue to rise with total bilirubin peaking to 24. Patient's hospital course became acutely complicated as she remained altered. Sedation was off for several days without any change in neurological status. Patient minimally responded to pain. Neurology was consulted. MRI brain was done which was overall normal. Patient's blood cultures were initially negative but then subsequently grew Staph hominis and micrococcus species. Patient was on appropriate antibiotics per ID and even increased to Merrem and Zyvox. Micafungin was started as well. Extensive leukocytosis persisted at around 36 despite goal-directed antibiotic therapy. Goals of care discussion was had with the family and was ultimately agreed to transition her to comfort care with compassionate extubation. Patient subsequently on 02/23. Condition at Discharge: Poor Final Diagnosis/Problems List Encephalopathy Secondary Diagnosis: Alcohol Abuse Alcoholic Hepatitis Acute Respiratory Failure Septic Shock Discharge Disposition: at Hospital Discharge Instruct/Medications Diet: See Comment Diet comment: NPO Activity: Bed rest Scheduled Budesonide-Formoterol Fumarate (Budesonide/Formoterol Fum 160-4.5 Mcg/Act), 1 AER IN BID Carvedilol (Coreg), 1 TAB PO BID, (Reported) Ipratropium-Albuterol (Ipratropium [place]/Albut), 1 VIAL IN QID Levofloxacin Hemihydrate (Levaquin 500 Mg), 1 TAB PO DAILY Metformin Hydrochloride (Metformin Hcl), 1 TAB PO BID Pravastatin Sodium (Pravachol Tablet), 40 MG PO HS, (Reported) Prednisone (Prednisone), 20 MG PO DAILY Scheduled PRN Albuterol Sulfate (Albuterol Sulfate Hfa), 1 PUFF PO, (Reported) Benzonatate (Benzonatate), 1 CAP PO TID PRN Miscellaneous Medications Budesonide-Formoterol Fumarate (Budesonide/Formoterol Fum 160-4.5 Mcg/Act), 1 AER IN, (Reported) Discharge Statement: "Patient was advised to return to the ER or call 911 if any headaches, dizziness, shortness of breath, chest pain, abdominal pain, bleeding, fevers, or worsening of medical condition. Patient was counseled about treatment plan, medications, possible side effects, patientverbalized understanding. All questions were answered to the best of my ability. This discharge took greater then 30 minutes in planning, reviewing documentation, counseling the patient, and discussing with other team members." ASSESSMENT ASSESSMENT Assessment Encephalopathy ARCHANA DONG DO Feb 24, 2025 14:18
--- NOTE | 2025-02-26 21:24 | DVHPN2 ---
Consult Progress Note Objective medications Current Medications Medications Dose Ordered Sig/Randolph Route Start Time Stop Time Status Last Admin Dose Admin Dextrose 50 ml UD PRN IV 02/11/25 00:15 Cancel Amino Acids/ Electrolytes/ Dextrose 1,000 ml @ 41 mls/hr DAILY@2200 IV 02/14/25 22:00 Cancel laboratory and microbiology Laboratory Tests 02/23/25 10:14 Test 02/23/25 10:14 Range/Units Serum Glucose 82 74-106 mg/dL Problem List/Assessment/Plan Problem List/Assessment/Plan Problems(with codes): (1) Shock (2) Cardiac arrest (3) UTI (urinary tract infection) (4) COPD exacerbation (5) Alcoholic steatohepatitis (6) Elevated liver enzymes (7) Alcoholic fatty liver (8) Failure to thrive (9) Pneumonitis Plan/Recommendation ASSESSMENT AND PLAN: ID Problem List: \-- generalized weakness and shortness of breath (2 months) \-- COPD/asthma; obesity; diabetes mellitus; hypertension; hyperlipidemia; prior SD; prior TIA \-- ventricular tachycardia with code event on 02/12 ? intubated; ICU course with shock on vasopressors \-- leukocytosis rising (11.4 ? 28.6 K/L) while on steroids \-- possible aspiration pneumonia (initial treatment with levofloxacin; metronidazole added) \-- presumed acute complicated cystitis (initial UA with pyuria; early urine culture not sent due to contamination; subsequent urine culture >3 colony types) \-- concern for biliary sludge/cholestatic process; hyperbilirubinemia and transaminitis (Tbili up to ~21, AST up to 1052, ALT up to ~132, Alk Phos up to 299) \-- severe hypokalemia and metabolic alkalosis; severe hypophosphatemia (as low as 0.60.9 mg/dL) on admission \-- hyperglycemia (glucose up to 471 on 02/15) \-- altered mental status while sedated/intubated (likely metabolic; post-code state) \-- hyperparathyroidism (not further characterized) \-- penicillin allergy (reaction unknown) Assessment 64-year-old female with multiple comorbidities presented with 2 months of dyspnea and weakness, admitted with significant electrolyte derangements (hypokalemia, hypophosphatemia, metabolic alkalosis). Hospital course complicated by ventricular tachycardia and code blue on 02/12 requiring intubation, vasopressor support, and ICU transfer. Initial antibiotic therapy included levofloxacin; metronidazole was added for aspiration risk. Subsequently, due to persistent leukocytosis, antibiotics were changed to piperacillin-tazobactam (Zosyn) and vancomycin. Blood cultures to date show no growth; urine culture after intubation showed >3 colony types (suggestive of contamination). Imaging reveals marked hepatic steatosis and gallbladder sludge without ductal dilatation; ultrasound shows no acute cholecystitis. Liver tests demonstrate a marked cholestatic/hepatocellular injury pattern (rising bilirubin and transaminases). Current differential for ongoing leukocytosis and hypotension includes cholestatic/biliary source (e.g., ascending cholangitis without ductal dilation), aspiration pneumonia, urinary source (not confirmed), steroid-induced leukocytosis, post-code systemic inflammatory response, and less likely venous thromboembolism (cannot obtain CTPA currently). She remains intubated and sedated; FiO2 has decreased from 60% to 30% with SpO2 100%. Afebrile throughout (Tmax ~99.5). 02/20: worsening leukocytosis, off sedation, no fevers, persistently elevated LFTS and bilirubing, unable to get MRCP 02/21: budding yeast on blood culture, central line in place off pressors, on tube feeds Plan: -- prognosis is poor, unlikely mentation (does not withdraw to pain, no gag reflex, off sedation for several days) can be attributable to sepsis alone. anticipate prolonged hospitalization with trach and peg need unless mentation is expected to improve (would discuss with neurology). infections can be likely be treated if imaging can eventually be done abdomen, source for fungemia is understood, steroids are weaned, and lines are removed. however no pneumonia in imaging and dependence of ventilator is related to airway protection need. family opting for comfort care, wound not continue to antibiotics -- agree with micafungin for budding yeast. repeat blood cultures in 24 hrs, if unable to clear yeast from blood, consider descalation of steroids and removing central line (will defer to primary care on medical need of central line and steroids) \-- broaden to linezolid and meropenem given inability to get MRCP, progressive leukocytosis. \-- will fu on Repeat blood cultures to assess for new bacteremia in the setting of possible ascending cholangitis. \-- Trend lactic acid to assess severity of illness and potential ischemic hepatopathy. \-- Evaluate for VTE as a contributor to leukocytosis: obtain bilateral lower extremity venous Doppler ultrasound (CTPA deferred due to ICU status). Consider empiric IV heparin if clinical suspicion for PE is high and no contraindications per primary/ICU team. \-- Wean sedation as tolerated and reassess mental status; metabolic etiology likely. Defer detailed neuro workup to ICU/primary team. \-- Steroids: methylprednisolone 40 mg IV daily since 02/16 for possible asthma exacerbation per team; recognize potential contribution to leukocytosis. Monitor WBC trend and reassess steroid need with Pulmonology/ICU. \-- Continue management of electrolyte abnormalities (K, Phos, Na) per ICU; monitor BMP and phosphorus closely. \-- Glycemic control: continue insulin therapy per ICU protocol to address persistent hyperglycemia. \-- Monitor LFTs (AST/ALT/Alk Phos, bilirubin) and coagulation parameters; consider GI consultation depending on MR findings and clinical trajectory. \-- Follow-up on all pending cultures and imaging; narrow or adjust antimicrobials based on results. Isolation Precautions: Not provided in transcript. Plan is subject to change pending incorporation of new diagnostics and clinical course. Authorized and Performed by: indra mann Total critical care time: Approximately 75 minutes Due to a high probability of clinically significant, life threatening deterioration, the patient required my highest level of preparedness to intervene emergently and I personally spent this critical care time directly and personally managing the patient. This critical care time included obtaining a history; examining the patient; pulse oximetry; ordering and review of studies; arranging urgent treatment with development of a management plan; evaluation of patient's response to treatment; frequent reassessment; and, discussions with other providers. This critical care time was performed to assess and manage the high probability of imminent, life-threatening deterioration that could result in multi-organ failure. It was exclusive of separately billable procedures and treating other patients and teaching time. = Physical Exam: General: Critically ill-appearing. Intubated and sedated. Neck: Supple. No masses. HEENT: PERRL. Normal lids and conjunctiva. Moist mucous membranes. Oropharynx without lesions, exudates or excessive erythema. Normal appearance of the external aspects of the nose and ears. Endotracheal tube in place. Heart: Regular rhythm, normal rate. No murmur. No lower extremity edema. Lungs: Normal respiratory effort on mechanical ventilation. Clear to auscultation bilaterally. No wheezes. No crackles. Abdomen: Soft. Non-tender. Non-distended. No masses or abdominal hernia. Msk: No digital cyanosis. Normal strength and tone in all 4 limbs (limited exam due to sedation). Skin: Warm and dry, no rashes. Neuro: Intubated and sedated; unable to assess orientation. No focal deficits described in transcript. Psych: Unable to assess due to sedation. Dietary Evaluation Review Comments: 1) Initiate MVI @ 1 tb qd 2) Initiate vitamin C @ 500 mg bid and zinc sulfate @ 220 mg qd for 7 days 3) Increase TPN to meet at least 75% of estimated daily needs 4) Advance to 45g CCHO diet when medically feasible, pending ST approval 5) Refer to outpatient RD/[facility] for weight management 6) Follow-up with pulmonology 7) Continue to monitor I&O, labs, and skin integrity Expected Outcomes/Goals: 1) TPN regimen to meet at least 75% estimated daily needs 2) labs and wound to improve 3) diet to advance 4) gradual wt loss 5) f/u in 2-3 days INDRA MANN MD Feb 26, 2025 21:24
== END 2025-02-23 17:16 | DRG 870 ==
LOC: EDBD 13:22 → ER 13:22 → OVERFLOW 02-11 06:54 → TELE-WESTW 02-11 22:05 → ICU WEST 02-12 22:30 → OVERFLOW 02-22 12:54 → ICU WEST 02-22 18:42 → TELE-EAST 02-22 21:00
PROVIDERS: ADMIT Student in an Organized Health Care Education/Training Program; ATTEND Student in an Organized Health Care Education/Training Program
PROC: 5A1955Z Respiratory Ventilation, Greater than 96 Consecutive Hours (ICD-10-PCS; principal; 2025-02-12)
PROC: 0BH17EZ Insertion of Endotracheal Airway into Trachea, Via Natural or Artificial Opening (ICD-10-PCS; 2025-02-12)
PROC: 02HV33Z Insertion of Infusion Device into Superior Vena Cava, Percutaneous Approach (ICD-10-PCS; 2025-02-13)
PROC: B548ZZA Ultrasonography of Superior Vena Cava, Guidance (ICD-10-PCS; 2025-02-13)
DX: A41.9 Sepsis, unspecified organism (principal); J96.22 Acute and chronic respiratory failure with hypercapnia; G92.8 Other toxic encephalopathy; J69.0 Pneumonitis due to inhalation of food and vomit; K72.00 Acute and subacute hepatic failure without coma; R65.21 Severe sepsis with septic shock; J18.9 Pneumonia, unspecified organism; E87.1 Hypo-osmolality and hyponatremia; N30.00 Acute cystitis without hematuria; I47.10 Supraventricular tachycardia, unspecified; J44.1 Chronic obstructive pulmonary disease with (acute) exacerbation; G93.1 Anoxic brain damage, not elsewhere classified; I47.20 Ventricular tachycardia, unspecified; E87.4 Mixed disorder of acid-base balance; D68.4 Acquired coagulation factor deficiency; I46.9 Cardiac arrest, cause unspecified; E87.6 Hypokalemia; E55.9 Vitamin D deficiency, unspecified; F10.20 Alcohol dependence, uncomplicated; K76.82 Hepatic encephalopathy; R62.7 Adult failure to thrive; Z66 Do not resuscitate; E78.5 Hyperlipidemia, unspecified; D64.9 Anemia, unspecified; I10 Essential (primary) hypertension; E21.0 Primary hyperparathyroidism; E86.0 Dehydration; K76.0 Fatty (change of) liver, not elsewhere classified; E66.9 Obesity, unspecified; I48.91 Unspecified atrial fibrillation; I25.10 Atherosclerotic heart disease of native coronary artery without angina pectoris; E88.09 Other disorders of plasma-protein metabolism, not elsewhere classified; E11.65 Type 2 diabetes mellitus with hyperglycemia; K70.10 Alcoholic hepatitis without ascites; K82.8 Other specified diseases of gallbladder; Z86.73 Personal history of transient ischemic attack (TIA), and cerebral infarction without residual deficits; Z79.899 Other long term (current) drug therapy; Z99.81 Dependence on supplemental oxygen; Z90.710 Acquired absence of both cervix and uterus; Z87.891 Personal history of nicotine dependence; Z79.84 Long term (current) use of oral hypoglycemic drugs; Z88.0 Allergy status to penicillin; I25.2 Old myocardial infarction; Z80.9 Family history of malignant neoplasm, unspecified; Z68.30 Body mass index [BMI] 30.0-30.9, adult; Y90.9 Presence of alcohol in blood, level not specified
CPT/HCPCS: 31500; 36415; 36556; 36600; 70450; 70551; 71045; 74176; 76705; 76775; 80048; 80053; 80202; 81001; 82010; 82088; 82140; 82306; 82533; 82570; 82805; 82962; 83010; 83036; 83516; 83605; 83615; 83690; 83735; 83880; 83935; 83970; 84100; 84132; 84156; 84244; 84300; 84443; 84478; 84484; 85007; 85025; 85027; 85610; 85730; 86038; 86225; 86235; 86703; 86704; 86706; 86708; 86803; 86880; 87040; 87070; 87077; 87081; 87086; 87186; 87205; 87340; 93005; 93306; 93970; 94002; 94003; 94640; 97110; 97163; 99291; G0378; J1815; J1956; J2185; J2248; J2470; J2543; J3430; J3480; J3490; J7060